=== PATIENT | male | born 1955 | race Caucasian/White ===

== ENCOUNTER 2016-06-04 19:12 | Observation (INO) | payer BC ==
[~2016-06-04] VITALS: Ht 182.9 cm; Wt 115.7 kg
--- NOTE | ~2016-06-04 | HEMODYNAMI ---
PATIENT:MARIO MICHELLE MEDICAL RECORD: [id number] : 57 [id number] ADMISSION DATE: 06/04/16 Generatedon:06/05/201612:41 Patient name: MARIO MICHELLE Patient #: [id number] : 1955 Date of study: 06/05/2016 Page: Of Hemodynamic Procedure Report Patient Data Patient Demographics Procedure consent was obtained First Name: MARIO Gender: Male Last Name: VIVIANA : 1955 Middle Initial: HORACIO Age: 60 year(s) Patient #: [id number] Race: Unknown SSN: [id number] Additional ID: [id number] Contact details Address: [address] [place] [address] State: [place] City: [place] Zip code: [address] Past Medical History Allergies: No known allergies Admission Admission Data Admission Date: 06/04/2016 Admission Time: 22:39 Admit Source: Other Room #: D.2119 Lab Results Lab Result Date: 06/05/2016 Lab Result Time: 0:00 Biochemistry Name Units Result Min Max BUN mg/dl 12 --(-*--)-- 7 18 Creatinine mg/dl 1 --(--*-)-- 0.6 1.3 CBC Name Units Result Min Max Hemoglobin g/dl 15.2 --(-*--)-- 13.5 17.5 Procedure Procedure Types Cath Procedure Diagnostic Procedure LHC Coronaries only Miscellaneous Procedures Moderate Sedation up to 15 minutes Procedure Description Procedure Date Procedure Date: 06/05/2016 Procedure Start Time: 12:31 Procedure End Time: 12:40 Procedure Staff Name Function Rizwan Grewal MD Performing Physician Bernie Cha RT Scrub Hannah Johnson RN Nurse Benny Stone RT Systems Navigator Michael Gar RT Monitor Procedure Data Cath Procedure Fluoroscopy Diagnostic fluoroscopy Total fluoroscopy Time: 1.1 time: 1.1 min min Diagnostic fluoroscopy Total fluoroscopy dose: 167 dose: 167 mGy mGy Contrast Material Contrast Material Type Amount (ml) Isovue 300 38 Entry Location Entry Primary Successful Side Size Upsize Upsize Entry Closure Succes sful Closure Location (Fr) 1 (Fr) 2 (Fr) Remarks Device Remarks Femoral Right 5 Fr Vascade artery Closure System Diagnostic catheters Device Type Used For End Catheter Placement Cordis 5Fr JL 4.0 Left Coronary Catheter (MP) Angiography Cordis 5Fr 3DRC Catheter Right Coronary (MP) Angiography Procedure Complications No complications Procedure Medications Medication Administration Route Dosage Oxygen NC 2 l/min Heparin Flush Bag added to field 2 bags (1000units/500ml NS) Lidocaine 2% added to field 20 Versed I.V. 1 mg Fentanyl I.V. 50 mcg Versed I.V. 1 mg Fentanyl I.V. 50 mcg Versed I.V. 1 mg Fentanyl I.V. 50 mcg Versed I.V. 1 mg Fentanyl I.V. 50 mcg Hemodynamics Rest HGB: 15.2 (g/dl) Heart Rate: 86 (bpm) Snapshots Pre Cath Intra NCS Post Cath Vital Signs Time Heart Resp SPO2 NIBP (mmHg) Rhythm Pain Sedation Rate (ipm) (%) Status Level (bpm) 12:17:47 86 16 100 157/95(127) NSR 0 (11) 10(A) , No pain 12:22:28 86 16 100 154/86(121) NSR 0 (11) 10(A) , No pain 12:26:58 85 14 98 148/87(111) NSR 0 (11) 10(A) , No pain 12:31:29 84 14 99 141/88(114) NSR 0 (11) 10(A) , No pain 12:35:57 83 15 97 153/95(107) NSR 0 (11) 10(A) , No pain 12:39:18 86 18 97 134/93(115) NSR 0 (11) 10(A) , No pain Medications Time Medication Route Dose Verified Delivered Reason Notes Effec tiveness by by 12:18:59 Oxygen NC 2 Rizwan Hannah Per l/min Uri Johnson RN physician 12:19:08 Heparin Flush added 2 Rizwan Astorga used for Bag to bags Uri Grewal MD procedure (1000units/500ml field NS) 12:19:14 Lidocaine 2% added 20ml Rizwan Astorga used for to vial Uri Grewal MD procedure field 12:28:04 Versed I.V. 1 mg Rizwan Hannah for Uri Johnson RN sedation 12:28:11 Fentanyl I.V. 50 Rizwan Hannah for mcg Uri Johnson RN sedation 12:30:14 Versed I.V. 1 mg Rizwan Hannha for Uri Johnson RN sedation 12:30:36 Fentanyl I.V. 50 Rizwan Hannah for mcg Uri Johnosn RN sedation 12:33:02 Versed I.V. 1 mg Rizwan Hannah for Uri Johnson RN sedation 12:33:06 Fentanyl I.V. 50 Rizwan Hannah for mcg Uri Johnson RN sedation 12:35:00 Versed I.V. 1 mg Rizwan Hannah for Uri Johnson RN sedation 12:35:10 Fentanyl I.V. 50 Rizwan Hannah for mcg Uri Johnson RN sedation Procedure Log Time Note 12:06:26 Admit Source: Other 12:07:03 Diagnostic Cath status Elective 12:07:04 Benny Stone RT(R) sent for patient. Start room use. 12:07:06 Time tracking: Regular hours 12:07:11 Plan of Care:Hemodynamics will remain stable., Cardiac rhythm will remain stable., Comfort level will be maintained., Respiratory function will remain adequate., Patient/ family verbilizes understanding of procedure., Procedure tolerated without complication., Recovers from procedure without complications.. 12:07:17 Patient received from Med II to [facility] 3 Alert and oriented. Tansferred to table in Supine position. 12:16:17 Vital chart was started 12:18:59 Oxygen 2 l/min NC was given by Hannah Johnson RN; Per physician; 12:19:08 Heparin Flush Bag (1000units/500ml NS) 2 bags added to field was given by Rizwan Grewal MD; used for procedure; 12:19:14 Lidocaine 2% 20ml vial added to field was given by Rizwan Grewal MD; used for procedure; 12:24:34 Warm blankets applied, and kun hugger turned on for patient comfort. 12:24:35 Correct patient and procedure confirmed by team. 12:24:36 Signed procedure consent form obtained from patient. 12:24:37 ECG and BP/O2 sat monitors applied to patient. 12::38 Baseline sample Acquired. 12::52 Rhythm: sinus rhythm 12::53 Full Disclosure recording started 12:25:03 H&P Date Dictated: 06/05/2016 Within 30 days and on chart.. 12:25:07 Pre-procedure instructions explained to patient. 12:25:07 Pre-op teaching completed and patient verbalized understanding. 12:25:26 Family in patients room. 12:25:29 Patient NPO since Midnight. 12::38 Patient allergic to No known allergies 12:25:40 Is the patient allergic to Iodine/contrast media? No. 12:25:45 Is patient on blood thinner?Yes 12::52 ACC The patient was administered the following blood thiners within the last 24 hours: Coumadin 12:26:02 Patient diabetic? No. 12:26:02 ----Pre-sedation anethsthesia assessment.---- 12:26:05 Previous problem with sedation/anesthesia? No ? 12:26:06 Snore? Yes 12:26:07 Sleep apnea? Yes 12:26:08 Deviated septum? No 12:26:10 Opens mouth fully? Yes 12:26:12 Sticks out tongue? Yes 12:26:16 Airway obstruction? Yes COPD 12:26:22 Dentures? Yes OUT 12:26:25 Pre procedure: right dorsailis pedis pulse 1+ Palpable, but thready & weak; easily obliterated 12:26:28 Patient pain scale 0/10 ?. 12:26:38 IV patent on arrival in right hand with 0.9% NaCl at 10ml/hr. 12:27:12 Lab Result : BUN 12 mg/dl 12:27:12 Lab Result : Hemoglobin 15.2 g/dl 12:27:12 Lab Result : Creatinine 1 mg/dl 12:27:15 Lab results completed and on chart. 12:27:19 Right groin area was prepped with chlora-prep and draped in sterile fashion 12:27:20 Alarms reviewed by R. N. 12:27:21 Sharps counted by scrub and verified by R.N. 12:27:25 --------ALL STOP TIME OUT------ 12:27:25 Final Timeout: patient, procedure, and site verified with staff and physician. All members of the team are in agreement. 12::27 Right groin site verified by team. 12:27:30 Physical assessment completed. ASA score P 2 - A patient with mild systemic disease as per Rizwan Grewal MD. 12:27:33 Sedation plan: IV Moderate Sedation Versed, Fentanyl 12:28:00 Use device set Femoral Dx 12:28:01 Acist Syringe opened to sterile field. 12:28:02 Bag Decanter opened to sterile field. 12:28:02 Cardinal Cath Pack opened to sterile field. 12:28:02 Terumo 5Fr [place] Sheath opened to sterile field. 12:28:03 St Crescencio 260cm J .035 wire opened to sterile field. 12:28:04 Versed 1 mg I.V. was given by Hannah Johnson RN; for sedation; 12:28:04 Acist Hand Control opened to sterile field. 12:28:04 Acist Manifold opened to sterile field. 12:28:05 Cordis Infinity 5Fr Multipack catheter opened to sterile field. 12:28:06 IV Extension Set opened to sterile field. 12:28:08 Tegaderm 4 x 4 opened to sterile field. 12:28:11 Fentanyl 50 mcg I.V. was given by Hannah Johnson RN; for sedation; 12:30:14 Versed 1 mg I.V. was given by Hannah Johnson RN; for sedation; 12:30:36 Fentanyl 50 mcg I.V. was given by Hannah Johnson RN; for sedation; 12:30:56 Procedure started. 12:31:06 Local anesthetic to right femoral artery with Lidocaine 2% by Rizwan Grewal MD.INITIAL ACCESS ONLY 12:31:13 A 5 Fr sheath was inserted into the Right Femoral artery 12:31:15 Zero performed for pressure channel P1 12:32:13 Procedure type changed to Cath procedure, Diagnostic procedure, LHC, Coronaries only, Miscellaneous Procedures, Moderate Sedation up to 15 minutes 12:32:43 A Cordis 5Fr JL 4.0 Catheter () was advanced over the wire and used for Left Coronary Angiography. 12:32:47 LCA angiography performed. 12:33:02 Versed 1 mg I.V. was given by Hannah Johnson RN; for sedation; 12:33:06 Fentanyl 50 mcg I.V. was given by Hannah Johnson RN; for sedation; 12:33:54 Catheter removed. 12:34:00 A Cordis 5Fr 3DRC Catheter (MP) was advanced over the wire and used for Right Coronary Angiography. 12:35:00 Versed 1 mg I.V. was given by Hannah Johnson RN; for sedation; 12:35:10 Fentanyl 50 mcg I.V. was given by Hannah Johnson RN; for sedation; 12:35:10 RCA angiography performed. 12:35:13 Catheter removed. 12:35:21 Vascade 5Fr Closure Device opened to sterile field. 12:35:29 Sheath removed intact; hemostasis achieved with Vascade Closure System to the Right Femoral artery. 12:35:30 Procedure ended.(Physican Out) 12:36:07 Contrast amount:Isovue 300 38ml. 12:39:22 Fluoroscopy time 01.10 minutes. 12:39:29 Fluoroscopy dose: 167 mGy 12:39:29 Flurop Dose total: 167 12:39:30 Sharps counted by scrub and verified by R.N. 12:39:31 Insertion/operative site no bleeding no hematoma. 12:39:33 Post-op/insertion site Right Femoral artery dressed using a 4 x 4 and Tegaderm. 12:39:37 Post right femoral artery:stable 12:39:38 Post Procedure Pulses reassessed and unchanged 12:39:40 Post procedure: right dorsailis pedis pulse 1+ Palpable, but thready & weak; easily obliterated. 12:39:43 Post procedure rhythm: sinus rhythm 12:39:44 Post procedure instruction explained to patient.Patient verbalizes understanding. 12:39:59 Procedure and supply charges have been captured, reviewed, submitted and are correct. 12:40:03 Procedure Complication : No complications 12:40:06 Vital chart was stopped 12:40:06 See physician's report for complete and final results. 12:40:09 Report given to PCU. 12:40:13 Patient transfered to PCU with Bed. 12:40:15 Procedure ended. 12:40:15 Full Disclosure recording stopped 12:40:18 End room use (Document Last) Device Usage Item Name Manufacture Quantity Catalog Number Hospital Part Current Minimal Lot# / Charge Number Stock Stock Serial# Code Acist Acist 1 65334 140711 650629 [id number] 20 Syringe Medical Systems Inc Bag Microtek 1 2002S 539125 35581 673734 5 Decanter Medical Inc. Cardinal Cardinal 1 [id number] 953304 20960 795383 5 Cath Pack Health Terumo Terumo 1 [id number] 227699 129924 182608 [address] [place] [address] Crescencio 1 081436 690605 469750 958757 30 260cm J .035 wire Acist Acist 1 67358 078710 744018 104185 5 Hand Medical Control Systems Inc Acist Acist 1 59931 418850 397739 717758 5 Manifold Medical Systems Inc Cordis Cardinal 1 [id number] 504273 19382 889618 30 Jumpstarterity Health 5Fr Multipack catheter IV Hospira 1 77410-72 261257 90859 844923 5 Extension Set Tegaderm 3M 1 1626W 531384 249172 098865 5 4 x 4 Cordis Cardinal 1 122003 5 5Fr Health 4.0 Catheter (MP) Cordis Cardinal [id number] [facility] Health Catheter (MP) Vascade Cardiva 1 [id number] 820597 19977 984859 10 5Fr Medical, Closure Inc. Device Signature Audit Mona Stage Time Signature Unsigned Intra-Procedure 06/05/2016 Michael Gar 12:41:12 PM RT(R) Signatures Monitor : Michael Gar RT Signature : Date : Time : [facility] [address] [place] [address]
[~2016-06-04 19:12] MED LIST: AMBIEN10 MG PO; AMITRIPTYLINE H50 MG PO; ATIVAN2 MG PO; CELEXA40 MG PO; CHRONULAC30 ML PO; COUMADIN10 MG PO; COUMADIN2.5 MG PO; COUMADIN7.5 MG PO; FLOMAX0.4 MG PO; FLUTICASONE PRO16 GM NASAL; JARDIANCE PO; K-TAB10 MEQ PO; LASIX20 MG PO; MINERAL OIL25 ML PO; MIRALAX17 GM PO; NORCO 10/325 TA1 TA1 PO; OXYCONTIN80 MG PO; PACERONE200 MG PO; TEGRETOL 200 M200 MG PO; TRANDATE300 MG PO; ZOCOR40 MG PO; ZYPREXA15 MG PO
[2016-06-04 20:12] LABS: BASOPHILS 0.7 % (0.0-2.0); EOSINOPHILS 3.9 % (0-7); HEMATOCRIT 41.4 % (42.0-54.0); HEMOGLOBIN 14.8 g/dL (13.5-17.5); IMMATURE GRANULOCYTES 0.4 % (0-5); LYMPHOCYTES 32.4 % (15-50); MCH 32.5 pg (26.0-34.0); MCHC 35.7 g/dL (31.0-37.0); MEAN PLATELET VOLUME 10.6 fL (7.4-10.4); MONOCYTES 9.8 % (2-11); NEUTROPHILS 52.8 % (40-80); PLATELET COUNT 155 10x3/uL (130-400); RBC 4.55 10x6/uL (4.20-6.10); RDW 13.3 % (11.5-14.5); WBC 7.4 10x3/uL (4.8-10.8)
[2016-06-04 20:15] LABS: APTT 38.2 SECONDS (22.8-39.4); INR 1.81 (0.85-1.17)
[2016-06-04 20:32] LABS: ALBUMIN 3.9 g/dL (3.4-5.0); ALKALINE PHOSPHATASE 85 U/L (46-116); ALT (SGPT) 38 U/L (10-68); BILIRUBIN - TOTAL 0.21 mg/dL (0.2-1.3); CALC OSMOLALITY 275 mosm/kg (275-300); CALCIUM 8.9 mg/dL (8.5-10.1); CARBON DIOXIDE 27.8 mmol/L (21.0-32.0); CHLORIDE - SERUM 98 mmol/L (98-107); CREATINE KINASE 99 UL (21-232); GLUCOSE 172 mg/dL (74-106); POTASSIUM - SERUM 4.1 mmol/L (3.5-5.1); PRO BNP 25 pg/mL (0-125); PROTEIN - SERUM 7.9 g/dL (6.4-8.2); SODIUM 135 mmol/L (136-145); UREA NITROGEN 17 mg/dL (7-18); eGFR NON AFRICAN AMERICAN 81 mL/min (90-120)
[2016-06-04 20:33] LABS: TROPONIN-I < 0.017 ng/mL (0.000-0.060)
[2016-06-04 20:56] LABS: APPEARANCE CLEAR (CLEAR); BILIRUBIN NEGATIVE (NEGATIVE); COLOR YELLOW (YELLOW); GLUCOSE NEGATIVE (NEGATIVE); KETONE NEGATIVE (NEGATIVE); LEUKOCYTE ESTERASE NEGATIVE (NEGATIVE); NITRITE NEGATIVE (NEGATIVE); PROTEIN NEGATIVE (NEGATIVE); UROBILINOGEN NORMAL (NORMAL)
[2016-06-05 01:22] VITALS: BP 179/103
[2016-06-05 01:31] VITALS: BP 179/103; BMI 27.8
[2016-06-05 06:27] VITALS: BP 158/90
--- NOTE | 2016-06-05 07:27 | NUR ---
PT ARRIVED FROM THE ER TO FLOOR BY WHEELCHAIR IN ROOM AT BEDSIDE CALL LIGHT IN REACH SRX2 BED LOW AND LOCKED. IVP TO LEFT ARM SALINE LOCKED AND SWABED CAPPED. RESPERATIONS EVEN AND UNLABORED ON 2LNC TELEMETRY READING 74SR AND MED REC COMPLETED AND REVIEWED WITH NO DISTRESS OBSERVED WILL MONITOR
[2016-06-05 08:00] VITALS: BP 198/115
[2016-06-05 09:06] LABS: BASOPHILS 0.4 % (0.0-2.0); EOSINOPHILS 1.7 % (0-7); HEMOGLOBIN 15.2 g/dL (13.5-17.5); IMMATURE GRANULOCYTES 0.2 % (0-5); LYMPHOCYTES 23.6 % (15-50); MCH 31.9 pg (26.0-34.0); MCHC 35.3 g/dL (31.0-37.0); MCV 90.3 fL (80.0-100.0); MEAN PLATELET VOLUME 10.7 fL (7.4-10.4); MONOCYTES 7.5 % (2-11); NEUTROPHILS 66.6 % (40-80); PLATELET COUNT 162 10x3/uL (130-400); RBC 4.76 10x6/uL (4.20-6.10); RDW 13.2 % (11.5-14.5); WBC 8.1 10x3/uL (4.8-10.8)
[2016-06-05 09:31] LABS: CALCIUM 9.2 mg/dL (8.5-10.1); CARBON DIOXIDE 28.1 mmol/L (21.0-32.0); CHLORIDE - SERUM 101 mmol/L (98-107); GLUCOSE 206 mg/dL (74-106); POTASSIUM - SERUM 4.1 mmol/L (3.5-5.1); SODIUM 137 mmol/L (136-145); eGFR NON AFRICAN AMERICAN 81 mL/min (90-120)
[2016-06-05 09:44] LABS: CALC OSMOLALITY 279 mosm/kg (275-300); TROPONIN-I < 0.017 ng/mL (0.000-0.060); UREA NITROGEN 12 mg/dL (7-18)
[2016-06-05 10:55] VITALS: Ht 182.9 cm; Wt 115.7 kg
--- NOTE | 2016-06-05 11:26 | NUR ---
PT IS ALERT. ASSESSMENT DONE PER FLOWSHEET. NOOTHER NEEDS AT THIS TIME. WILL CONTINUE TOMONITOR.
[2016-06-05 11:42] VITALS: BP 148/91
--- NOTE | 2016-06-05 15:35 | NUR ---
PT IS ALERT. DRESSING CDI. NO OTHER NEEDS AT THIS TIME. WILL CONTINUE TO MONTIOR.
--- NOTE | 2016-06-05 16:07 | NUR ---
IV DC'D AND TELEMETRY RETURNED TO [facility]
--- NOTE | 2016-06-06 13:59 | DS ---
PATIENT:MARIO MICHELLE :57 MEDICAL RECORD: [id number] DISCHARGE SUMMARY ADMISSION DATE: 06/04/16 DISCHARGE DATE: 06/05/16 DATE OF DISCHARGE: 06/05/2016 DISCHARGE DIAGNOSIS: 1. Chest pain, noncardiac. 2. Normal cardiac catheterization this admission. 3. Aortic valve replacement. 4. Coumadin anticoagulation. 5. Paroxysmal atrial fibrillation. 6. Hypertension. 7. Hyperlipidemia. HOSPITAL COURSE: Mr. Michelle presents with chest pain compatible with angina; however, cardiac catheterization reveals no significant coronary artery disease. He was discharged home with no change in his medication and follow up with his primary care doctor with continued chest pain for noncardiac chest pain workup. TRANSINT:[id number] Voice Confirmation ID: [id number] DOCUMENT ID: [id number] MARINA DARBY MD at 1359 CC: [id number] DICTATION DATE: 06/05/16 1240 WATER SUPPLY TECHNICIAN: 06/05/16 1506 DIS IN 06/05/16 [id number] [place] [address]
--- NOTE | 2016-06-06 13:59 | CN ---
PATIENT NAME:MARIO MICHELLE MEDICAL RECORD: [id number] : 57 LOCATION:D. D.2119 ADMIT DATE: 06/04/16 ACCOUNT: [id number] CONSULTING PHYSICIAN: MARINA DARBY MD REFERRING PHYSICIAN: MARIA LUISA VALLEJO MD DATE OF CONSULTATION: 06/05/2016 Cardiology Consultations REFERRING PHYSICIAN: Dr. Maria Luisa Vallejo MD. REASON FOR CONSULTATION: Chest pain and dyspnea. HISTORY OF PRESENT ILLNESS: This is a 60-year-old male followed by Dr. Ok Frey for paroxysmal atrial fibrillation, aortic stenosis, status post mechanical valve replacement [address] Trevino on Coumadin therapy and hypertension. The patient presents with the worsening chest discomfort and shortness of breath. This has been progressive over the last 2-3 days. He was seen and evaluated in the Emergency Department. His serial troponins are negative and a 12-lead EKG shows sinus rhythm with a first degree block and ST and T-wave abnormalities in the lateral leads suggestive of ischemia. Due to the nature of his symptomatology will proceed with a left heart catheterization. PAST MEDICAL HISTORY: As per HPI. MEDICATIONS: 1. Flomax 0.4 b.i.d. 2. Coumadin 10 mg daily alternating with 12.5 Friday, Friday, Friday. 3. Labetalol 300 b.i.d. 4. Amiodarone 200 b.i.d. 5. Zocor 40 q.h.s. 6. Elavil 50 b.i.d. 7. Tegretol 200 t.i.d. 8. Celexa 40 mg daily. 9. Ativan 2 mg t.i.d. 10. Hydrocodone 10 q.6 p.r.n. 11. Zyprexa 15 q.h.s. 12. Ambien 10 q.h.s. 13. OxyContin 80 mg t.i.d. 14. Micro-K 10 daily. 15. Lasix 20 daily. PHYSICAL EXAMINATION: GENERAL: Reveals a well-developed, well-nourished male who is in no distress at the time of the exam. VITAL SIGNS: Stable. HEENT: Head is normocephalic. Pupils equal, react to light and accommodation. Extraocular muscle movements are intact. The mucous membranes are pink and moist. NECK: Supple. Trachea is midline. There is no JVD or carotid bruits. CARDIOVASCULAR: Reveals a regular rate and rhythm without murmur or gallop. LUNGS: Clear. EXTREMITIES: No clubbing, cyanosis or edema. Positive peripheral pulses. NEUROLOGIC: Cranial nerves II-XII are grossly intact. CONSULT REPORT [id number] MARIO MICHELLE ASSESSMENT: 1. Angina. 2. Aortic stenosis, status post mechanical valve replacement. 3. Coagulopathy. 4. Hypertension. 5. Chronic pain syndrome. RECOMMENDATIONS: In light of his coagulopathy, we will give 1 unit of FFP prior to proceeding with a left heart catheterization. The patient only has anginal equivalent symptomatology and a strong family history. Further recommendations to follow the left heart catheterization. TRANSINT:[id number] Voice Confirmation ID: [id number] DOCUMENT ID: [id number] Dictated By: ADDIE BELTRÁN I have interviewed/examined the above patient and agree with these documented findings. MARINA DARBY MD at 1359 at 0948 CC: [id number] DICTATION DATE: 06/05/16 0911 SECOND BALLER: 06/05/16 0947 DIS IN 06/05/16 [facility] [address] [place] [address]
--- NOTE | 2016-06-06 13:59 | OP ---
PATIENT NAME: MARIO MICHELLE MEDICAL RECORD: [id number] :57 LOCATION:D.M2 D.2119 ADMISSION DATE:06/04/16 SURGEON: MARINA DARBY MD DATE OF OPERATION: 06/05/2016 PROCEDURES: 1. Left heart catheterization. 2. Selective coronary angiography. INDICATION: Chest pain compatible with angina. PROCEDURE IN DETAIL: After informed consent was obtained and after a detailed explanation of risks, benefits as well as alternative therapies, the patient elected to proceed with angiogram and heart catheterization. The right femoral area was prepped and draped in normal sterile fashion. The right femoral artery was cannulated via modified Seldinger technique with placement of 5-Occitan sheath. All catheters exchanged through this sheath. FINDINGS: Left ventriculogram was not performed secondary to prosthetic aortic valve. SELECTIVE CORONARY ANGIOGRAPHY: 1. Left main showed no significant angiographic disease. 2. Left anterior descending, left circumflex, right coronary artery are smooth-walled vessels with no angiographic evidence of coronary artery disease. OVERALL IMPRESSION: 1. No angiographic evidence of coronary artery disease. 2. Normal left heart pressures. 3. Normal left ventricular systolic function. Chest pain is noncardiac in etiology. No further cardiac workup needs to be ascertained. TRANSINT:[id number] Voice Confirmation ID: [id number] DOCUMENT ID: [id number] MARINA DARBY MD at 1359 CC: [id number] DICTATION DATE: 06/05/16 1241 BUS REPAIR SUPERVISOR: 06/05/16 1258 DIS IN 06/05/16 [place] [address]
== END 2016-06-05 16:14 | disposition home or self-care (01) ==
LOC: D.ER 19:12 → OBSVTIME 22:39 → D.M2 22:39
PROVIDERS: Emergency Medicine; Internal Medicine Interventional Cardiology; ADMIT Emergency Medicine
DX: R07.89 Other chest pain (principal); I48.0 Paroxysmal atrial fibrillation; Z79.01 Long term (current) use of anticoagulants; D68.9 Coagulation defect, unspecified; Z95.2 Presence of prosthetic heart valve; I10 Essential (primary) hypertension; E78.5 Hyperlipidemia, unspecified; G89.4 Chronic pain syndrome; J44.9 Chronic obstructive pulmonary disease, unspecified; G47.30 Sleep apnea, unspecified; N40.0 Benign prostatic hyperplasia without lower urinary tract symptoms; E11.9 Type 2 diabetes mellitus without complications; G40.909 Epilepsy, unspecified, not intractable, without status epilepticus; F31.9 Bipolar disorder, unspecified

== ENCOUNTER → 2016-08-02 | Emergency (ER) | payer MEDICAID ==
[2016-06-05 10:55] VITALS: BMI 34.6
[2016-08-03 00:12] LABS: INR 2.47 (0.85-1.17); PROTIME 26.9 SECONDS (11.6-15.0)
[2016-08-03 00:13] LABS: APTT 41.4 SECONDS (22.8-39.4)
[2016-08-03 00:45] LABS: BASOPHILS 0.2 % (0.0-2.0); EOSINOPHILS 1.4 % (0-7); HEMATOCRIT 45.5 % (42.0-54.0); HEMOGLOBIN 15.5 g/dL (13.5-17.5); IMMATURE GRANULOCYTES 0.4 % (0-5); LYMPHOCYTES 8.8 % (15-50); MCH 31.5 pg (26.0-34.0); MCHC 34.1 g/dL (31.0-37.0); MCV 92.5 fL (80.0-100.0); MONOCYTES 6.5 % (2-11); NEUTROPHILS 82.7 % (40-80); PLATELET COUNT 155 10x3/uL (130-400); RBC 4.92 10x6/uL (4.20-6.10); WBC 10.8 10x3/uL (4.8-10.8)
[2016-08-03 00:55] LABS: ANION GAP 17.2 mmol/L (8-16); BILIRUBIN - TOTAL 0.4 mg/dL (0.2-1.3); CARBON DIOXIDE 25.1 mmol/L (21.0-32.0); CREATININE - SERUM 1.2 mg/dL (0.6-1.3); POTASSIUM - SERUM 4.3 mmol/L (3.5-5.1); PROTEIN - SERUM 7.9 g/dL (6.4-8.2)
== END | disposition home or self-care (01) ==
LOC: D.ER 23:12
PROVIDERS: Emergency Medicine; Physician Assistant Medical
DX: R11.10 Vomiting, unspecified (principal); R10.9 Unspecified abdominal pain

== ENCOUNTER 2016-12-23 20:21 | Observation (INO) | payer MEDICAID ==
[~2016-12-23] VITALS: Ht 182.9 cm; Wt 115.6 kg
[2016-12-23 22:20] LABS: BASOPHILS 0.4 % (0-2); EOSINOPHILS 3.7 % (0-7); HEMATOCRIT 37.3 % (42.0-54.0); HEMOGLOBIN 13.1 g/dL (13.5-17.5); IMMATURE GRANULOCYTES 0.3 % (0-5); LYMPHOCYTES 41.5 % (15-50); MCH 32.1 pg (26.0-34.0); MCHC 35.1 g/dL (31.0-37.0); MCV 91.4 fL (80.0-100.0); MEAN PLATELET VOLUME 10.2 fL (7.4-10.4); MONOCYTES 12.9 % (2-11); NEUTROPHILS 41.2 % (40-80); PLATELET COUNT 169 10x3/uL (130-400); RBC 4.08 10x6/uL (4.20-6.10); WBC 7.3 10x3/uL (4.8-10.8)
[2016-12-23 22:25] LABS: APTT 38.9 SECONDS (22.8-39.4); INR 2.33 (0.85-1.17); PROTIME 25.6 SECONDS (11.6-15.0)
[2016-12-23 22:39] LABS: ALBUMIN 3.7 g/dL (3.4-5.0); ALKALINE PHOSPHATASE 69 U/L (46-116); CALC OSMOLALITY 278 mosm/kg (275-300); CALCIUM 8.6 mg/dL (8.5-10.1); CARBAMAZEPINE (TEGRETOL) 7.9 ug/mL (4.0-12.0); CHLORIDE - SERUM 101 mmol/L (98-107); CREATININE - SERUM 2.2 mg/dL (0.6-1.3); GLUCOSE 136 mg/dL (74-106); POTASSIUM - SERUM 3.8 mmol/L (3.5-5.1); SODIUM 137 mmol/L (136-145); TROPONIN-I < 0.017 ng/mL (0.000-0.060); UREA NITROGEN 21 mg/dL (7-18); eGFR NON AFRICAN AMERICAN 33 mL/min (90-120)
[2016-12-23 22:42] LABS: ALT (SGPT) 33 U/L (10-68)
--- NOTE | 2016-12-24 00:22 | NUR ---
PT ARRIVED ON UNIT VIA STRETCHER. ACCOMPANIED BY AND HOSPITAL STAFF.
--- NOTE | 2016-12-24 00:40 | NUR ---
PT LYING IN BED. EYES CLOSED. AT BEDSIDE. LEFT AC NS @ 75ML/HR. O2 @ 3L VIA N/C. FALL PRECAUTIONS. TELEMETRY. STRICT I & O. BED IN LOWEST POSITION AND CALL LIGHT WITHIN REACH.
[2016-12-24] MEDS ORDERED: ZESTRIL20 MG PO (00:45)
[2016-12-24] MEDS ORDERED: BUTRANS1 EAC2 ×2 (00:46→00:47)
[2016-12-24] MEDS ORDERED: GLUCOPHAGE1000 MG (00:49)
--- NOTE | 2016-12-24 02:06 | NUR ---
RN TO DO ASSESSMENT.
[2016-12-24 03:04] VITALS: BMI 35.3
[2016-12-24 04:00] VITALS: BP 145/101
[2016-12-24 05:33] LABS: BASOPHILS 0.7 % (0-2); EOSINOPHILS 4.3 % (0-7); HEMATOCRIT 37.7 % (42.0-54.0); HEMOGLOBIN 13.1 g/dL (13.5-17.5); IMMATURE GRANULOCYTES 0.3 % (0-5); LYMPHOCYTES 38.5 % (15-50); MCHC 34.7 g/dL (31.0-37.0); MCV 92.2 fL (80.0-100.0); MEAN PLATELET VOLUME 9.8 fL (7.4-10.4); MONOCYTES 11.1 % (2-11); NEUTROPHILS 45.1 % (40-80); PLATELET COUNT 157 10x3/uL (130-400); RBC 4.09 10x6/uL (4.20-6.10); WBC 5.8 10x3/uL (4.8-10.8)
[2016-12-24 06:17] LABS: ANION GAP 15.2 mmol/L (8-16); CARBON DIOXIDE 23.4 mmol/L (21.0-32.0); CREATININE - SERUM 1.6 mg/dL (0.6-1.3); POTASSIUM - SERUM 4.6 mmol/L (3.5-5.1)
--- NOTE | 2016-12-24 07:00 | NUR ---
RECEIVED REPORT. ASSUMED CARE OF PATIENT. PATIENT RESTING WITH EYES CLOSED. EASILY AROUSED. RESP EVEN AND UNLABORED. PATIENT DENIES NEEDS AT THIS TIME. PATIENTS SPOUSE AT BEDSIDE. CALL LIGHT WITHIN REACH. NO DISTRESS.
[2016-12-24 08:00] VITALS: BP 106/60; BP 120/71; BP 148/78
[2016-12-24 11:00] VITALS: BP 133/89
[2016-12-24 12:00] VITALS: BP 133/78; BP 141/90; BP 150/87
--- NOTE | 2016-12-24 12:38 | NUR ---
ORTHOSTATIC BP - LYING 133/89, SITTING 120/71, STANDING 106/60.
[2016-12-24 13:38] VITALS: Ht 182.9 cm; Wt 115.6 kg
[2016-12-24 16:00] VITALS: BP 132/72; BP 132/84; BP 141/81
--- NOTE | 2016-12-24 16:29 | NUR ---
RATIONALE FOR SCD'S EXPLAINED. REFUSED SCD'S. PT STATES UP AD SRIDHAR
[2016-12-24 20:00] VITALS: BP 127/72
--- NOTE | 2016-12-24 20:34 | NUR ---
PT C/O PAIN AND ASKED ABOUT MEDS. TOLD PT HIS 2100 MEDS AND OFFERED HIM A NORCO FOR PAIN. PT VERBALIZES KNOWLEDGE OF ALL 2100 MEDS AND DENIES ANY NEEDS. NO S/S OF DISTRESS. BED LOW AND CALL LIGHT WITHIN REACH PT STATES HE HAS NOT HAD ANY MEDS TODAY. STATES HE IS CONCERNED HE HAS NOT HAD HIS COUMADIN. ASSURED PT I WILL CHECK ORDER AND LET HIM KNOW DOSE AND TIME. NO OHTER NEEDS. WILL CPOC
[2016-12-25] VITALS: BP 107/78
--- NOTE | 2016-12-25 03:49 | NUR ---
PT ASLEEP. RESPIRATIONS EVEN AND UNLABORED. 3L OF O2 NC. AT BEDSIDE. PT HAS NO S/S OF DISTRESS. BED LOW AND CALL LIGHT WITHIN REACH. WILL CPOC
[2016-12-25 04:08] VITALS: BP 138/79; BP 150/95
[2016-12-25 04:09] VITALS: BP 127/89
[2016-12-25 08:00] VITALS: BP 138/89; BP 139/77; BP 146/86
[2016-12-25 09:25] VITALS: BP 138/89
--- NOTE | 2016-12-25 11:13 | NUR ---
0700- AM ROUNDING- RECEIVED REPORT FROM INSURANCE COUNSEL NURSE MEENA VARGAS. PT IS CURRENTLY LAYING IN BED ON LEFT SIDE WITH EYES CLOSED RESTING. IS AT BEDSIDE. ON 02 AT 3L VIA NC. ON MONITOR SHOWING SR, HR 79. IV SEEN TO RIGHT FOREARM WITH NS RUNNING AT KVO (20CC). ORTHOSTATIC B/P BEING DONE ORDERED. NO NEED AT THIS CURRENT TIME. WILL CONTINUE TO MONITOR AND CONTINUE WITH PLAN OF CARE. CALL LIGHT IS IN REACH.
[2016-12-25 12:00] VITALS: BP 123/89
--- NOTE | 2016-12-25 15:19 | NUR ---
D/C INSTRUCTIONS EXPLAINED TO PT AND PTS . D/C PAPERWORK SIGNED BY PT AND PLACED IN CHART. IV TO RIGHT FOREARM REMOVED WITH CATH TIP INTACT. COVERED WITH 2X2 GAUZE PADS AND SECURED WITH TAPE. NO BLEEDING SEEN. HEART MONITOR REMOVED AND RETURNED TO [facility] IN TELEMETRY. AWAITING PT TO GET BELONGINGS TOGETHER. DR. MASTERSON ON UNIT. INFORMED HIM OF PTS CONCERN FOR PRESCRIPTION FOR OXYCODONE THAT PER PT DR. MASTERSON SAID HE WOULD SEND HOME WITH. DR. MASTERSON STATES HE IS ABOUT TO WRITE PRESCRIPTION NOW.
[2016-12-25] MEDS ORDERED: PERCOCET 10/3251 TA1 PO (15:26)
--- NOTE | 2016-12-25 15:28 | NUR ---
DR. MASTERSON SIGNED WRITTEN PRESCRIPTION FOR PTS PAIN MEDICATION. THIS NURSE HANDED PTS PRESCRIPTION INFRONT OF DR. MASTERSON. PT IS D/C NOW VIA WHEELCHAIR.
--- NOTE | 2016-12-27 13:52 | CN ---
PATIENT NAME:MARIO MICHELLE MEDICAL RECORD: [id number] : 57 LOCATION:. D.2137 ADMIT DATE: 12/23/16 ACCOUNT: [id number] CONSULTING PHYSICIAN: MARINA DARBY MD REFERRING PHYSICIAN: TEJ MASTERSON M.D. DATE OF CONSULTATION: 12/24/2016 DIAGNOSES: 1. Syncope. 2. Hypotension. 3. History of hypertension. HISTORY OF PRESENT ILLNESS: Mr. Michelle has had sinking spells in the afternoon, questionable syncope with this. He was previously on labetalol for blood pressure. This was discontinued, possibly due to a cost, possibly changed secondary to insurance issues. Since then, he has had episodes of hypertension in the morning and then hypotension in the afternoon as well. He was placed on Butrans patch and this has worsened the situation. From a cardiac standpoint, he had a cardiac catheterization earlier this year that was with no significant coronary artery disease and a normal ejection fraction. He has no significant valvular disease. He has not had any palpitations. He has had no significant dysrhythmias. PHYSICAL EXAMINATION: GENERAL APPEARANCE: Well-nourished, well-developed, appears stated age. Level of distress, comfortable. PSYCHIATRIC: Mental status, alert, normal affect. Orientation, oriented to time, place and person. EYES: Lids and conjunctiva, noninjected. No discharge, no pallor. ENT: Lips, teeth, gums, normal dentition. Oropharynx, no cyanosis, no pallor. NECK: Carotid arteries, bilateral normal upstroke, no bruits, no thrills. JUGULAR VEINS: No jugular venous pressure or distention. CERVICAL LYMPH NODES: Nontender, nonenlarged. THYROID: Not enlarged. Nontender. No nodules. LUNGS: Respiratory effort, unlabored. CHEST: Normal curvature. No thoracic deformity. No chest wall tenderness. Percussion, resonant. Auscultation, clear. No wheezes, no rales, no rhonchi. CARDIOVASCULAR: Precordial exam, nondisplaced. No heaves or pericardial thrills. Rate and rhythm, regular. Heart sounds, normal S1, normal S2. No S3, no gallop, no rub. Systolic murmur, not heard. Diastolic murmur, not heard. EXTREMITIES: No cyanosis, no edema. Peripheral pulses, full and equal in all extremities, except as noted. No bruits appreciated. ABDOMEN: Soft, nondistended. Normal aorta. No bruit. Nontender. No masses. Liver, nontender, no hepatomegaly. Spleen, nontender, no splenomegaly. MUSCULOSKELETAL: No joint tenderness. No joint swelling. No erythema. NEUROLOGICAL: Normal gait, normal strength, normal tone. SKIN: Warm and dry. REVIEW OF SYSTEMS: The patient reports easy bruising but reports no swollen glands. The patient reports no fever, no night sweats, no significant weight gain, no significant weight loss. No significant exercise tolerance. The patient reports no dry eyes, no irritation, no vision change. Patient reports no difficulty hearing and no ear pain. Patient reports no frequent nose bleeds or nose and sinus problems. Patient reports on arm pain on exertion. No shortness of breath while lying down. No history of heart murmur. Patient CONSULT REPORT [id number] MARIO MICHELLE reports no cough, no wheezing or coughing up blood. Patient reports no abdominal pain, no vomiting. Normal appetite. No diarrhea and not vomiting blood. No nausea and no constipation. Patient reports no incontinence. No difficulty urinating. No hematuria. No increased frequency. Patient reports no muscle aches. No weakness, no arthralgias, no back pain. No swelling of the extremities. Patient reports no abnormal mole, no jaundice, no rashes. Reports no loss of consciousness. No weakness and no numbness. No seizures, dizziness, or headaches. The patient reports no depression, no sleep disturbance, feeling safe in a relationship and no alcohol abuse. Patient reports on fatigue. Reports no runny nose or sinus pressure. No itching, no hives, and no frequent sneezing. OVERALL IMPRESSION: His symptomatology is most likely secondary to medication changes. He was doing fine on the labetalol, without the Butrans patch. It would be my recommendation to put him back to that medical regimen. With a normal cardiac catheterization, no other cardiac workup is necessary at this time. TRANSINT:[id number] Voice Confirmation ID: [id number] DOCUMENT ID: [id number] MARINA DARBY MD at 1352 CC: [id number] DICTATION DATE: 12/24/16 1544 DRIVER COURIER: 12/24/162144 DIS IN 12/25/16 [facility] [address] [place] [address]
== END 2016-12-25 16:00 | disposition home or self-care (01) ==
LOC: D.ER 20:21 → D.M2 22:49 → OBSVTIME 22:50 → D.M2 12-24 15:00
PROVIDERS: Emergency Medicine; Physician Assistant; ADMIT Family Medicine
DX: I95.2 Hypotension due to drugs (principal); T50.995A Adverse effect of other drugs, medicaments and biological substances, initial encounter; I10 Essential (primary) hypertension; G40.109 Localization-related (focal) (partial) symptomatic epilepsy and epileptic syndromes with simple partial seizures, not intractable, without status epilepticus; J44.9 Chronic obstructive pulmonary disease, unspecified; K21.9 Gastro-esophageal reflux disease without esophagitis; Z79.01 Long term (current) use of anticoagulants; I48.0 Paroxysmal atrial fibrillation; G89.29 Other chronic pain; F31.30 Bipolar disorder, current episode depressed, mild or moderate severity, unspecified; Z87.891 Personal history of nicotine dependence

== ENCOUNTER 2017-07-31 08:37 | Day surgery (SDC) | payer MEDICARE ==
[~2017-07-31] VITALS: Ht 182.9 cm; Wt 117.9 kg
[~2017-07-31 08:37] MED LIST changes: +BUPROPION XL150 MG PO; +BUTRANS1 EAC2; +CELEXA20 MG PO; -CELEXA40 MG PO; -COUMADIN2.5 MG PO; +GLUCOPHAGE1000 MG PO; -JARDIANCE PO; +JARDIANCE10 MG PO; +KLONOPIN1 MG PO; +METHADONE 10 MG10 MG PO; +NORMODYNE / TR300 MG PO; +PERCOCET 10/3251 TA1 PO; +ZESTRIL20 MG PO
[2017-07-31 09:24] VITALS: BP 122/67; BMI 36.0
[2017-07-31 09:32] LABS: HEMATOCRIT 42.9 % (42.0-54.0); HEMOGLOBIN 15.1 g/dL (13.5-17.5); MCH 32.1 pg (26.0-34.0); MCHC 35.2 g/dL (31.0-37.0); MCV 91.3 fL (80.0-100.0); RBC 4.7 10x6/uL (4.20-6.10); WBC 10.2 10x3/uL (4.8-10.8)
[2017-07-31 09:55] LABS: APTT 41.6 SECONDS (22.8-39.4); INR 1.92 (0.85-1.17); PROTIME 21.4 SECONDS (11.6-15.0)
[2017-07-31 09:57] LABS: ANION GAP 15.5 mmol/L (8-16); CALCIUM 9.1 mg/dL (8.5-10.1); CARBON DIOXIDE 26.1 mmol/L (21.0-32.0); CREATININE - SERUM 1.4 mg/dL (0.6-1.3); POTASSIUM - SERUM 4.6 mmol/L (3.5-5.1)
[2017-07-31 17:52] VITALS: BP 149/82
[2017-07-31 18:27] VITALS: BP 152/79
[2017-07-31 20:46] VITALS: BP 160/84
[2017-08-01 01:30] VITALS: BP 164/81
[2017-08-01 04:49] VITALS: BP 156/94
[2017-08-01 06:26] LABS: BASOPHILS 0.5 % (0-2); EOSINOPHILS 2.4 % (0-7); HEMATOCRIT 42.1 % (42.0-54.0); HEMOGLOBIN 14.2 g/dL (13.5-17.5); IMMATURE GRANULOCYTES 0.2 % (0-5); LYMPHOCYTES 31.4 % (15-50); MCH 31.3 pg (26.0-34.0); MCHC 33.7 g/dL (31.0-37.0); MCV 92.9 fL (80.0-100.0); MEAN PLATELET VOLUME 11.2 fL (7.4-10.4); MONOCYTES 11.4 % (2-11); NEUTROPHILS 54.1 % (40-80); PLATELET COUNT 156 10x3/uL (130-400); RBC 4.53 10x6/uL (4.20-6.10); RDW 13.3 % (11.5-14.5); WBC 10.8 10x3/uL (4.8-10.8)
[2017-08-01 06:36] LABS: ALBUMIN 3.6 g/dL (3.4-5.0); BILIRUBIN - TOTAL 0.4 mg/dL (0.2-1.3); CALCIUM 8.6 mg/dL (8.5-10.1); CARBON DIOXIDE 26.6 mmol/L (21.0-32.0); CREATININE - SERUM 1.3 mg/dL (0.6-1.3)
[2017-08-01 06:38] LABS: ANION GAP 13.3 mmol/L (8-16); POTASSIUM - SERUM 3.9 mmol/L (3.5-5.1)
[2017-08-01 08:25] VITALS: BP 158/95
[2017-08-01 09:38] VITALS: Ht 182.9 cm; Wt 117.9 kg
[2017-08-01 11:09] LABS: INR 1.44 (0.85-1.17); PROTIME 17.1 SECONDS (11.6-15.0)
[2017-08-01] MEDS ORDERED: PERCOCET 10/3251 TA1 PO (12:27)
[2017-08-01] MEDS ORDERED: KEFLEX500 MG PO (12:27)
[2017-08-01] MEDS ORDERED: LOVENOX40 MG/0.4 SC (13:35)
== END 2017-08-01 14:39 | disposition home or self-care (01) ==
LOC: D.MS 08:37 → D.OPS 08:37 → D.MS 17:04 → D.PAN 08-01 12:00 → D.OPS 08-01 12:00
PROVIDERS: Anesthesiology; Family Medicine
DX: M25.375 Other instability, left foot (principal); M20.12 Hallux valgus (acquired), left foot; M21.612 Bunion of left foot; Z01.812 Encounter for preprocedural laboratory examination

== ENCOUNTER 2017-09-17 21:45 | Inpatient (IN) | payer MEDICARE ==
[~2017-09-17] VITALS: Ht 182.9 cm; Wt 109.1 kg
--- NOTE | ~2017-09-17 | EC ---
PATIENT:MARIO MICHELLE DATE OF SERVICE: 09/18/17 SEX: M MEDICAL RECORD: [id number] DATE OF : 57 LOCATION:D.MS [place] AGE OF PATIENT: 62 ADMISSION DATE: 09/18/17 REFERRING PHYSICIAN: INTERPRETING PHYSICIAN: KAPIL RICHARDSON MD ECHOCARDIOGRAM REPORT ECHO CHARGES 4 ECHO COMPLETE Date: 09/23 CLINICAL DIAGNOSIS: HX OF AVR, BATERMIA/ASSESS FOR VEG ECHOCARDIOGRAPHIC MEASUREMENTS (adult normal given) AC root (d.<3.7cm) 4.1 cm LV Septum d (<1.2 cm> 1.4 cm Valve Excursion 1.8 cm LV Septum (systole) 1.6 cm Left Atria (s.<4.0cm> 4.6 cm LVPW d(<1.2cm) 1.6 cm RV (d.<2.3cm) 4.4 cm LVPW (sytole) 1.9 cm LV diastole(<5.6CM) 5.5 cm MV E-F(>70mm/sec) cm LV systole 2.7 cm LVOT Diameter 1.7 cm MV exc.(>10mm) cm Est.ejection fraction (50-75%) % DOPPLER: LVIT cm/sec A 106 cm/sec E 87.0 cm/sec LA cm/sec RVSP 23 mmHg LVOT 218 cm/sec AOP1/2T m/s Asc. Ao 290 cm/sec RVOT 130 cm/sec RA cm/sec PA 174 cm/sec AV Gradient Peak 33.58mmHg AV Mean 19.03mmHg AV Area 1.5 cm MV Gradient Peak 4.74 mmHg MV Mean 2.22 mmHg MV Area cm COMMENTS: Cell Operator: 2 HILL [place]ST[place]O Truckload Checker: 4 Dr. Richardson TAPE# PACS Pericardial Effusion N DATE OF SERVICE: PROCEDURE: Transthoracic echocardiogram. FINDINGS: 1. There is mild left ventricular hypertrophy. Inflow characteristics consistent with diastolic dysfunction. Overall, ejection fraction appears to be normal. There is a hint of mild inferior hypokinesis with continued preserved ejection fraction. 2. The left atrium is moderately dilated. ECHOCARDIOGRAM REPORT [id number] MARIO MICHELLE 3. Aortic valve is a mechanical valve and depending on the size the peak pressure gradient of 33 may be within normal limits. There is no obvious dysfunction of the valve. 4. The mitral valve is normal. 5. The tricuspid valve has trace tricuspid regurgitation. RVSP 23 mmHg. We do not see any obvious vegetations; however, it would be difficult on this echocardiogram to exclude. 6. The right ventricle was mildly dilated. 7. The right atrium is mildly dilated. 8. The pulmonic valve is structurally normal with mild pulmonic insufficiency. CONCLUSIONS: The patient has a history of an AVR replacement, has left ventricular hypertrophy with preserved LV systolic function. There is no distinct evidence of a vegetation demonstrated on this echocardiogram; however, DANK may be more appropriate if the clinical situation necessitates. TRANSINT:[id number] Voice Confirmation ID: [id number] DOCUMENT ID: [id number] KAPIL RICHARDSON MD at 1056 CC: [id number] DICTATION DATE: 09/24/17 08 INSIDE BARREL POLISHER: 09/24/17 1037 ADM IN [facility] [address] [place] [address]
--- NOTE | ~2017-09-17 | HEMODYNAMI ---
PATIENT:MARIO MICHELLE MEDICAL RECORD: [id number] : 57 LOCATION:[facility] D.2212 ADMISSION DATE: 09/18/17 Generatedon:09/29/201715:08 Patient name: MARIO MICHELLE Patient #: [id number] SSN: [id number] : 1955 Date of study: 09/29/2017 Page: Of Hemodynamic Procedure Report Patient Data Patient Demographics Procedure consent was obtained First Name: MARIO Gender: Male Last Name: VIVIANA : 1955 Middle Initial: HORACIO Age: 62 year(s) Patient #: [id number] Race: Unknown SSN: [id number] Additional ID: [id number] Contact details Address: [address] [place] [address] State: [place] City: [place] Zip code: [address] Past Medical History Allergies: No known allergies Admission Admission Data Admission Date: 09/18/2017 Admission Time: 2:57 Room #: [facility] Procedure Procedure Types Cath Procedure Diagnostic Procedure DANK Procedure Description Procedure Date Procedure Date: 09/29/2017 Procedure Start Time: 14:06 Procedure Staff Name Function Glenn Richardson MD Performing Physician Jen Garland RT Monitor Benny Stone RT Bus And Trolley Dispatcher Tung Price RN Nurse Emilee Arredondo Rehabilitation Program Manager Neal Goldsmith CRNA Additional personnel Procedure Data Cath Procedure Estimated blood loss: 0 ml Procedure Complications No complications Procedure Medications Medication Administration Route Dosage Oxygen NC 2 l/min Refer to Anesthesia Notes for Sedation Medications unlisted medication 10 ml Hemodynamics Rest Heart Rate: 80 (bpm) Snapshots Pre Cath Intra NCS Post Cath Vital Signs Time Heart Resp SPO2 etCO2 NIBP (mmHg) Rhythm Pain Sedation Rate (ipm) (%) (mmHg) Status Level (bpm) 14:37:21 81 17 92 0 181/100(147) NSR 0 (11) 10(A) , No pain 14:42:03 80 18 92 0 175/101(148) NSR 0 (11) 10(A) , No pain 14:46:42 80 15 94 0 171/107(144) NSR 0 (11) 9(A) , No pain 14:51:22 80 16 99 40.5 163/105(141) NSR 0 (11) 9(A) , No pain 14:55:59 83 26 97 30 164/105(134) NSR 0 (11) 9(A) , No pain 15:00:25 84 16 100 28.5 140/102(127) NSR 0 (11) 9(A) , No pain 15:04:17 88 19 99 0 212/165(186) NSR 0 (11) 9(A) , No pain 15:06:46 87 18 97 0 169/105(140) NSR 0 (11) 10(A) , No pain Medications Time Medication Route Dose Verified Delivered Reason Notes Effectiven ess by by 14:44:54 Oxygen NC 2 Glenn Ruby used for l/min [facility] Elbert Price heater room helper MD 14:44:59 Refer to Glenn Ruby Anesthesia St Elbert Price RN Notes for MD Sedation Medications 14:45:36 visc. gargle 10 ml Glenn Buffie Per lidocaine [facility] Elbert Price RN physician arron LEI Procedure Log Time Note 14:07:15 Benny Stone RT(R) sent for patient. Start room use. 14:07:16 Time tracking: Regular hours (M-F 7:00 - 5:00) 14:07:20 Plan of Care:Hemodynamics will remain stable., Cardiac rhythm will remain stable., Comfort level will be maintained., Respiratory function will remain adequate., Patient/ family verbilizes understanding of procedure., Procedure tolerated without complication., Recovers from procedure without complications.. 14:07:22 Signed procedure consent form obtained from patient. 14:07:38 Patient allergic to No known allergies 14:25:33 Patient arrived from Med/Surg to CCL 3. Patient remains on bed/stretcher for procedure. 14:31:34 Warm blankets applied, and kun hugger turned on for patient comfort. 14:31:35 Correct patient and procedure confirmed by team. 14:31:36 ECG and BP/O2 sat monitors applied to patient. 14:35:53 Vital chart was started 14:35:55 Baseline sample Acquired. 14:36:01 Rhythm: sinus rhythm 14:36:03 Full Disclosure recording started 14:36:14 H&P Date Dictated: 09/29/2017 Within 30 days and on chart.. 14:36:15 Pre-procedure instructions explained to patient. 14:36:16 Pre-op teaching completed and patient verbalized understanding. 14:36:20 Family in waiting room. 14:36:27 Patient NPO since Midnight. 14:36:31 Is patient on blood thinner?Yes 14:36:38 ACC The patient was administered the following blood thiners within the last 24 hours: Coumadin 14:36:41 Patient diabetic? Yes. 14:37:06 If diabetic: On Metformin? Yes 14:37:49 Last dose unknown. 14:37:52 Previous problem with sedation/anesthesia? No ? 14:37:54 Snore? Yes 14:37:55 Sleep apnea? Yes 14:37:56 Deviated septum? No 14:37:57 Opens mouth fully? Yes 14:38:04 Sticks out tongue? Yes 14:38:12 Airway obstruction? Yes COPD 14:38:16 Dentures? Yes OUT 14:38:24 Patient pain scale 0/10 ?. 14:39:36 IV patent on arrival in right hand with 0.9% NaCl at KVO. 14:39:39 Lab results completed and on chart. 14:40:03 Alarms reviewed by Maia Johansen 14:40:09 Neal Goldsmith CRNA present and monitoring patient for TIVA. 14:40:14 Emilee Arredondo Manufacturing Plant Controller present for DANK. 14:44:22 --------ALL STOP TIME OUT------ 14:44:23 Final Timeout: patient, procedure, and site verified with staff and physician. All members of the team are in agreement. 14:44:36 Physical assessment completed. ASA score P 3 - A patient with severe systemic disease as per Glenn Richardson MD. 14:44:40 Sedation plan: TIVA Medication:Propofol 14:44:54 Oxygen 2 l/min NC was administered by Tung Price RN; used for procedure; 14:44:59 Refer to Anesthesia Notes for Sedation Medications was administered by Tung Price RN; ; 14:45:36 visc. lidocaine gargle 10 ml gargle was administered by Tung Price RN; Per physician; 14:50:24 DANK started. 15:00:00 Procedure ended.(Physican Out) 15:00:00 DANK completed. 15:01:56 Post-procedure physical assessment completed. ASA score P 3 - A patient with severe systemic disease as per Glenn Richardson MD. 15:02:00 Post procedure rhythm: sinus rhythm 15:02:14 Estimated blood loss: 0 ml 15:02:15 Post procedure instruction explained to patient.Patient verbalizes understanding. 15:02:16 Patient needs reinforcement of post procedure teaching. 15:02:37 Procedure Complication : No complications 15:06:52 Vital chart was stopped 15:06:53 See physician's report for complete and final results. 15:07:03 Report given to Med/Surg. 15:07:06 Patient transfered to Med/Surg with Bed. 15:07:08 End room use (Document Last) Signature Audit [place] Stage Time Signature Unsigned Intra-Procedure 09/29/2017 Jen Garland 3:08:17 PM RT(R) Signatures Monitor : Jen Garland Signature : RT Date : Time : [place] [id number] [place] [address]
--- NOTE | ~2017-09-17 | TEE ---
PATIENT:MARIO MICHELLE MEDICAL RECORD: [id number] LOCATION:D. DEleuterio221 AGE OF PATIENT: 62 ADMISSION DATE: 09/18/17 SEX: M REFERRING PHYSICIAN: INTERPRETING PHYSICIAN: ANNIE ALLAN MD TRANSESOPHAGEAL ECHOCARDIOGRAM Date: 09/29/17 DANK CHARGE Y INDICATIONS: H/O AVR/BACTERMIA PREMEDICATIONS: PATIENT'S RESPONSE PROCEDURE DOPPLER MEASUREMENTS: LVIT LA PA 174 RA LVOT 218 RVOT 130 Asc. Ao 290 AV Gradient Peak 33.58 AV Mean 19.03AV Area 1.5 MV Gradient Peak 4.74 MV Mean 2.22 MV Area INTERPRETATION: Doppler: 2-D: COLOR FLOW DOPPLER NORMAL SALINE STUDY: MISCELLANOUS: DIAGNOSIS: PLAN: Junior Electrical Engineer:3 Dr. Nichols Data Management Consultant: Marco CASTAÑEDA COMMENTS: DATE OF SERVICE: 09/29/2017 TRANSESOPHAGEAL NOTE After general sedation via TIVA via anesthesia, transesophageal Omniplane probe was placed into esophagus and proximal stomach without difficulty. FINDINGS: LVH present. LV internal dimensions are normal. Wall motion is normal. EF is greater than or equal to 55%. Prosthetic mechanical aortic valve TRANSESOPHAGEAL ECHOCARDIOGRAM REPORT [id number] MARIO MICHELLE is well visualized without obvious vegetation. No evidence of perivalvular leak by color flow imaging. Left atrium appears normal with left atrial appendage well visualized with good contractility. Mitral valve appears normal with no prolapse. Trivial MR only. Right-sided chambers are grossly normal. Tricuspid valve is well visualized. No evidence of vegetation. Trivial TR only. TRANSINT:[id number] Voice Confirmation ID: [id number] DOCUMENT ID: [id number] at 1412 CC: [id number] DICTATION DATE: 09/29/17 1504 GEOSPATIAL APPLICATIONS DEVELOPER: 09/29/17 1621 DIS IN 10/01/17 [facility] [address] [place] [address]
[~2017-09-17 21:45] MED LIST changes: +KEFLEX500 MG PO; +LOVENOX40 MG/0.4 SC
[2017-09-17 22:55] LABS: BASOPHILS 0.3 % (0-2); EOSINOPHILS 0 % (0-7); HEMATOCRIT 43.7 % (42.0-54.0); HEMOGLOBIN 15.5 g/dL (13.5-17.5); IMMATURE GRANULOCYTES 0.2 % (0-5); LYMPHOCYTES 22.1 % (15-50); MCH 31.8 pg (26.0-34.0); MCHC 35.5 g/dL (31.0-37.0); MCV 89.5 fL (80.0-100.0); MEAN PLATELET VOLUME 11.1 fL (7.4-10.4); MONOCYTES 10.4 % (2-11); PLATELET COUNT 160 10x3/uL (130-400); RBC 4.88 10x6/uL (4.20-6.10); WBC 5.9 10x3/uL (4.8-10.8)
[2017-09-17 23:12] LABS: ALBUMIN 3.3 g/dL (3.4-5.0); ALKALINE PHOSPHATASE 94 U/L (46-116); ALT (SGPT) 35 U/L (10-68); AMYLASE - SERUM 78 U/L (25-115); CALC OSMOLALITY 273 mosm/kg (275-300); CALCIUM 8.2 mg/dL (8.5-10.1); CARBON DIOXIDE 24.2 mmol/L (21.0-32.0); CHLORIDE - SERUM 93 mmol/L (98-107); CREATININE - SERUM 1.2 mg/dL (0.6-1.3); GLUCOSE 326 mg/dL (74-106); LIPASE 1491 U/L (73-393); POTASSIUM - SERUM 3.8 mmol/L (3.5-5.1); PROTEIN - SERUM 7.8 g/dL (6.4-8.2); SODIUM 130 mmol/L (136-145); TROPONIN-I < 0.017 ng/mL (0.000-0.060); UREA NITROGEN 13 mg/dL (7-18); eGFR NON AFRICAN AMERICAN 65 mL/min (90-120)
[2017-09-17 23:27] LABS: APTT 34.2 SECONDS (22.8-39.4); INR 1.39 (0.85-1.17); PROTIME 16.6 SECONDS (11.6-15.0)
[2017-09-17 23:28] LABS: D-DIMER-QUANTITATIVE 0.72 ug/mLFEU (0.20-0.54)
[2017-09-17 23:39] LABS: CREATINE KINASE 171 UL (21-232)
[2017-09-17 23:49] LABS: APPEARANCE CLEAR (CLEAR); BILIRUBIN NEGATIVE (NEGATIVE); COLOR YELLOW (YELLOW); GLUCOSE 1000 mg/dL (NEGATIVE); KETONE MODERATE mg/dL (NEGATIVE); NITRITE NEGATIVE (NEGATIVE); PROTEIN 2+ mg/dL (NEGATIVE); SPECIFIC GRAVITY 1.015 (1.005-1.020); UROBILINOGEN NORMAL (NORMAL)
[2017-09-17 23:55] LABS: BACTERIA FEW /hpf (NONE SEEN); EPITHELIAL CELLS 0-5 /hpf (0-5); RED CELLS - URINE 0-5 /hpf (0-5); WHITE CELLS - URINE 0-5 /hpf (0-5)
[2017-09-18 11:30] LABS: CHOL - HDL RATIO 12.3 ratio (2.3-4.9); CHOLESTEROL, TOTAL 419 mg/dL (0-200); HDL CHOLESTEROL 34 mg/dL (32-96)
[2017-09-18 11:31] LABS: TRIGLYCERIDE 1945 mg/dL (30-200)
[2017-09-18 20:00] VITALS: BP 140/85
[2017-09-19] VITALS: BP 155/93
[2017-09-19 04:00] VITALS: BP 139/78
[2017-09-19 05:07] LABS: BASOPHILS 0.2 % (0-2); EOSINOPHILS 0.1 % (0-7); HEMOGLOBIN 13.7 g/dL (13.5-17.5); IMMATURE GRANULOCYTES 0.2 % (0-5); LYMPHOCYTES 19.4 % (15-50); MCH 31.5 pg (26.0-34.0); MCHC 34.3 g/dL (31.0-37.0); MEAN PLATELET VOLUME 10.7 fL (7.4-10.4); NEUTROPHILS 65.1 % (40-80); RBC 4.35 10x6/uL (4.20-6.10); RDW 13.2 % (11.5-14.5)
[2017-09-19 05:11] LABS: WBC 9.6 10x3/uL (4.8-10.8)
[2017-09-19 05:12] LABS: PLATELET COUNT 116 10x3/uL (130-400)
[2017-09-19 05:15] LABS: INR 1.19 (0.85-1.17); PROTIME 14.7 SECONDS (11.6-15.0)
[2017-09-19 05:24] LABS: ALBUMIN 2.7 g/dL (3.4-5.0); ANION GAP 13.2 mmol/L (8-16); BILIRUBIN - TOTAL 0.54 mg/dL (0.2-1.3); CALCIUM 8.2 mg/dL (8.5-10.1); CARBON DIOXIDE 27.2 mmol/L (21.0-32.0); CREATININE - SERUM 1.2 mg/dL (0.6-1.3); POTASSIUM - SERUM 4.4 mmol/L (3.5-5.1); PROTEIN - SERUM 7.2 g/dL (6.4-8.2)
[2017-09-19 08:10] VITALS: BP 149/84
[2017-09-19 10:58] VITALS: BMI 32.5
[2017-09-19 12:12] VITALS: BP 152/77
[2017-09-19 15:33] VITALS: BP 123/78
[2017-09-19 21:05] VITALS: BP 139/79
[2017-09-20 00:26] VITALS: BP 148/74
[2017-09-20 04:32] VITALS: BP 128/76
[2017-09-20 05:54] LABS: BASOPHILS 0.2 % (0-2); EOSINOPHILS 0.6 % (0-7); HEMATOCRIT 36.5 % (42.0-54.0); HEMOGLOBIN 12.3 g/dL (13.5-17.5); IMMATURE GRANULOCYTES 0.3 % (0-5); MCH 31.1 pg (26.0-34.0); MCHC 33.7 g/dL (31.0-37.0); MCV 92.4 fL (80.0-100.0); MEAN PLATELET VOLUME 11.2 fL (7.4-10.4); MONOCYTES 14.7 % (2-11); NEUTROPHILS 65.2 % (40-80); PLATELET COUNT 107 10x3/uL (130-400); RBC 3.95 10x6/uL (4.20-6.10); RDW 13.2 % (11.5-14.5); WBC 9.9 10x3/uL (4.8-10.8)
[2017-09-20 06:18] LABS: ALBUMIN 2.5 g/dL (3.4-5.0); ALKALINE PHOSPHATASE 71 U/L (46-116); ALT (SGPT) 21 U/L (10-68); BILIRUBIN - TOTAL 0.65 mg/dL (0.2-1.3); CALC OSMOLALITY 284 mosm/kg (275-300); CALCIUM 8.5 mg/dL (8.5-10.1); CHLORIDE - SERUM 100 mmol/L (98-107); GLUCOSE 235 mg/dL (74-106); LIPASE 335 U/L (73-393); POTASSIUM - SERUM 3.9 mmol/L (3.5-5.1); PROTEIN - SERUM 7.1 g/dL (6.4-8.2); SODIUM 138 mmol/L (136-145); UREA NITROGEN 15 mg/dL (7-18); eGFR NON AFRICAN AMERICAN 81 mL/min (90-120)
[2017-09-20 07:48] VITALS: BP 142/92
[2017-09-20 12:39] VITALS: BP 167/91
[2017-09-20 16:17] VITALS: BP 129/93
[2017-09-20 23:04] VITALS: BP 150/77
[2017-09-21 04:33] VITALS: BP 175/99
[2017-09-21 05:27] LABS: BASOPHILS 0.2 % (0-2); EOSINOPHILS 1.4 % (0-7); HEMOGLOBIN 11.6 g/dL (13.5-17.5); IMMATURE GRANULOCYTES 0.6 % (0-5); LYMPHOCYTES 19.7 % (15-50); MCH 30.9 pg (26.0-34.0); MCHC 34.1 g/dL (31.0-37.0); MEAN PLATELET VOLUME 10.8 fL (7.4-10.4); MONOCYTES 12.3 % (2-11); NEUTROPHILS 65.8 % (40-80); PLATELET COUNT 108 10x3/uL (130-400); RBC 3.76 10x6/uL (4.20-6.10); RDW 12.9 % (11.5-14.5); WBC 11.1 10x3/uL (4.8-10.8)
[2017-09-21 05:32] LABS: MCV 90.4 fL (80.0-100.0)
[2017-09-21 05:55] LABS: ALBUMIN 2.2 g/dL (3.4-5.0); ALKALINE PHOSPHATASE 75 U/L (46-116); ALT (SGPT) 24 U/L (10-68); BILIRUBIN - TOTAL 0.59 mg/dL (0.2-1.3); CARBON DIOXIDE 28.6 mmol/L (21.0-32.0); CHLORIDE - SERUM 99 mmol/L (98-107); CREATININE - SERUM 0.9 mg/dL (0.6-1.3); GLUCOSE 194 mg/dL (74-106); LIPASE 242 U/L (73-393); PROTEIN - SERUM 6.2 g/dL (6.4-8.2); SODIUM 136 mmol/L (136-145); eGFR NON AFRICAN AMERICAN > 90 mL/min (90-120)
[2017-09-21 05:56] LABS: CALC OSMOLALITY 275 mosm/kg (275-300); POTASSIUM - SERUM 3.3 mmol/L (3.5-5.1); UREA NITROGEN 10 mg/dL (7-18)
[2017-09-21 08:42] VITALS: BP 157/79
[2017-09-21 12:45] VITALS: BP 163/85
[2017-09-21 16:35] VITALS: BP 132/73
[2017-09-21 21:12] VITALS: BP 185/94
[2017-09-22 01:39] VITALS: BP 178/84
[2017-09-22 04:14] VITALS: BP 174/74
[2017-09-22 07:20] LABS: BASOPHILS 0.2 % (0-2); EOSINOPHILS 1.5 % (0-7); HEMATOCRIT 33.9 % (42.0-54.0); HEMOGLOBIN 11.3 g/dL (13.5-17.5); IMMATURE GRANULOCYTES 1.1 % (0-5); MCH 30.6 pg (26.0-34.0); MCHC 33.3 g/dL (31.0-37.0); MCV 91.9 fL (80.0-100.0); MEAN PLATELET VOLUME 10.6 fL (7.4-10.4); MONOCYTES 11.5 % (2-11); NEUTROPHILS 67.7 % (40-80); PLATELET COUNT 111 10x3/uL (130-400); RBC 3.69 10x6/uL (4.20-6.10); WBC 12.1 10x3/uL (4.8-10.8)
[2017-09-22 07:33] LABS: ALBUMIN 2.1 g/dL (3.4-5.0); ALKALINE PHOSPHATASE 78 U/L (46-116); ALT (SGPT) 23 U/L (10-68); CALC OSMOLALITY 277 mosm/kg (275-300); CALCIUM 8.2 mg/dL (8.5-10.1); CARBON DIOXIDE 31.1 mmol/L (21.0-32.0); CHLORIDE - SERUM 102 mmol/L (98-107); CREATININE - SERUM 0.8 mg/dL (0.6-1.3); GLUCOSE 173 mg/dL (74-106); LIPASE 195 U/L (73-393); POTASSIUM - SERUM 3.4 mmol/L (3.5-5.1); PROTEIN - SERUM 6.1 g/dL (6.4-8.2); SODIUM 138 mmol/L (136-145); eGFR NON AFRICAN AMERICAN > 90 mL/min (90-120)
[2017-09-22 07:35] LABS: UREA NITROGEN 7 mg/dL (7-18)
[2017-09-22 09:35] VITALS: BP 163/85
[2017-09-22 12:25] VITALS: BP 128/81; BP 135/56
[2017-09-22 17:05] VITALS: BP 139/77
[2017-09-22 22:58] VITALS: BP 144/81
[2017-09-23 05:20] LABS: BASOPHILS 0.4 % (0-2); EOSINOPHILS 1.8 % (0-7); HEMATOCRIT 34.1 % (42.0-54.0); HEMOGLOBIN 11.3 g/dL (13.5-17.5); IMMATURE GRANULOCYTES 2.9 % (0-5); LYMPHOCYTES 22.1 % (15-50); MCH 30.6 pg (26.0-34.0); MCHC 33.1 g/dL (31.0-37.0); MCV 92.4 fL (80.0-100.0); MEAN PLATELET VOLUME 10.8 fL (7.4-10.4); MONOCYTES 13.8 % (2-11); PLATELET COUNT 132 10x3/uL (130-400); RBC 3.69 10x6/uL (4.20-6.10); RDW 13.1 % (11.5-14.5); WBC 11.4 10x3/uL (4.8-10.8)
[2017-09-23 05:40] VITALS: BP 160/96
[2017-09-23 05:43] LABS: ALBUMIN 2.2 g/dL (3.4-5.0); ALKALINE PHOSPHATASE 85 U/L (46-116); ALT (SGPT) 26 U/L (10-68); BILIRUBIN - TOTAL 0.39 mg/dL (0.2-1.3); CALC OSMOLALITY 283 mosm/kg (275-300); CALCIUM 8.7 mg/dL (8.5-10.1); CARBON DIOXIDE 34.1 mmol/L (21.0-32.0); CHLORIDE - SERUM 101 mmol/L (98-107); CREATININE - SERUM 0.9 mg/dL (0.6-1.3); GLUCOSE 188 mg/dL (74-106); LIPASE 210 U/L (73-393); POTASSIUM - SERUM 3.9 mmol/L (3.5-5.1); PROTEIN - SERUM 6.3 g/dL (6.4-8.2); SODIUM 141 mmol/L (136-145); TRIGLYCERIDE 401 mg/dL (30-200); UREA NITROGEN 8 mg/dL (7-18); eGFR NON AFRICAN AMERICAN > 90 mL/min (90-120)
[2017-09-23 09:20] VITALS: BP 140/78
[2017-09-23 17:01] VITALS: BP 145/72; BP 156/68
[2017-09-23 22:17] VITALS: BP 152/84
[2017-09-24 03:56] VITALS: BP 164/58
[2017-09-24 06:20] LABS: BASOPHILS 0.2 % (0-2); EOSINOPHILS 1.9 % (0-7); HEMATOCRIT 31.6 % (42.0-54.0); HEMOGLOBIN 10.6 g/dL (13.5-17.5); IMMATURE GRANULOCYTES 3.9 % (0-5); LYMPHOCYTES 20.2 % (15-50); MCH 30.8 pg (26.0-34.0); MCHC 33.5 g/dL (31.0-37.0); MCV 91.9 fL (80.0-100.0); MEAN PLATELET VOLUME 11.3 fL (7.4-10.4); MONOCYTES 15.6 % (2-11); NEUTROPHILS 58.2 % (40-80); RBC 3.44 10x6/uL (4.20-6.10); RDW 13.1 % (11.5-14.5); WBC 10.1 10x3/uL (4.8-10.8)
[2017-09-24 06:31] LABS: PLATELET COUNT 167 10x3/uL (130-400)
[2017-09-24 07:08] LABS: ALBUMIN 2.2 g/dL (3.4-5.0); ALKALINE PHOSPHATASE 84 U/L (46-116); ALT (SGPT) 24 U/L (10-68); BILIRUBIN - TOTAL 0.36 mg/dL (0.2-1.3); CALC OSMOLALITY 285 mosm/kg (275-300); CALCIUM 8.6 mg/dL (8.5-10.1); CARBON DIOXIDE 29.9 mmol/L (21.0-32.0); CHLORIDE - SERUM 101 mmol/L (98-107); CREATININE - SERUM 0.8 mg/dL (0.6-1.3); GLUCOSE 207 mg/dL (74-106); PROTEIN - SERUM 6.2 g/dL (6.4-8.2); SODIUM 141 mmol/L (136-145); UREA NITROGEN 9 mg/dL (7-18); eGFR NON AFRICAN AMERICAN > 90 mL/min (90-120)
[2017-09-24 07:12] LABS: POTASSIUM - SERUM 3.2 mmol/L (3.5-5.1)
[2017-09-24 08:06] VITALS: BP 137/65
[2017-09-24 12:44] VITALS: BP 143/68
[2017-09-24 16:25] VITALS: BP 127/86
[2017-09-24 21:38] VITALS: BP 181/90
[2017-09-25 03:50] VITALS: BP 178/84
[2017-09-25 04:27] VITALS: BP 149/91; Ht 182.9 cm; Wt 109.1 kg
[2017-09-25 06:01] LABS: BASOPHILS 0.5 % (0-2); EOSINOPHILS 2.3 % (0-7); HEMATOCRIT 31.7 % (42.0-54.0); HEMOGLOBIN 10.3 g/dL (13.5-17.5); IMMATURE GRANULOCYTES 2.9 % (0-5); LYMPHOCYTES 21.4 % (15-50); MCH 30.1 pg (26.0-34.0); MCHC 32.5 g/dL (31.0-37.0); MCV 92.7 fL (80.0-100.0); MEAN PLATELET VOLUME 11.2 fL (7.4-10.4); MONOCYTES 14.3 % (2-11); NEUTROPHILS 58.6 % (40-80); PLATELET COUNT 191 10x3/uL (130-400); RBC 3.42 10x6/uL (4.20-6.10); WBC 10.2 10x3/uL (4.8-10.8)
[2017-09-25 06:26] LABS: ALBUMIN 2.1 g/dL (3.4-5.0); ALKALINE PHOSPHATASE 83 U/L (46-116); ALT (SGPT) 25 U/L (10-68); CALC OSMOLALITY 280 mosm/kg (275-300); CALCIUM 8.5 mg/dL (8.5-10.1); CARBON DIOXIDE 32.8 mmol/L (21.0-32.0); CHLORIDE - SERUM 102 mmol/L (98-107); CREATININE - SERUM 0.8 mg/dL (0.6-1.3); GLUCOSE 179 mg/dL (74-106); POTASSIUM - SERUM 3.4 mmol/L (3.5-5.1); PROTEIN - SERUM 6.2 g/dL (6.4-8.2); SODIUM 140 mmol/L (136-145); UREA NITROGEN 8 mg/dL (7-18); eGFR NON AFRICAN AMERICAN > 90 mL/min (90-120)
[2017-09-25 08:30] VITALS: BP 140/83
[2017-09-25 12:27] VITALS: BP 124/77
[2017-09-25 15:59] VITALS: BP 134/62
[2017-09-25 21:15] VITALS: BP 192/97
[2017-09-26] VITALS (7 sets, daily range): BP systolic 119–173; BP diastolic 65–86
[2017-09-26 04:22] LABS: BASOPHILS 0.2 % (0-2); EOSINOPHILS 0.9 % (0-7); HEMATOCRIT 33.2 % (42.0-54.0); HEMOGLOBIN 10.9 g/dL (13.5-17.5); IMMATURE GRANULOCYTES 2.1 % (0-5); LYMPHOCYTES 16.9 % (15-50); MCH 30.3 pg (26.0-34.0); MCHC 32.8 g/dL (31.0-37.0); MCV 92.2 fL (80.0-100.0); MEAN PLATELET VOLUME 10.9 fL (7.4-10.4); NEUTROPHILS 70.9 % (40-80); PLATELET COUNT 239 10x3/uL (130-400); RDW 12.8 % (11.5-14.5); WBC 13.1 10x3/uL (4.8-10.8)
[2017-09-26 04:40] LABS: ALBUMIN 2.3 g/dL (3.4-5.0); ALKALINE PHOSPHATASE 84 U/L (46-116); ALT (SGPT) 25 U/L (10-68); BILIRUBIN - TOTAL 0.35 mg/dL (0.2-1.3); CALC OSMOLALITY 286 mosm/kg (275-300); CALCIUM 9.1 mg/dL (8.5-10.1); CARBON DIOXIDE 32.6 mmol/L (21.0-32.0); CHLORIDE - SERUM 101 mmol/L (98-107); CREATININE - SERUM 0.9 mg/dL (0.6-1.3); POTASSIUM - SERUM 4.1 mmol/L (3.5-5.1); PROTEIN - SERUM 6.9 g/dL (6.4-8.2); SODIUM 141 mmol/L (136-145); UREA NITROGEN 8 mg/dL (7-18); eGFR NON AFRICAN AMERICAN > 90 mL/min (90-120)
[2017-09-26 04:41] LABS: GLUCOSE 245 mg/dL (74-106)
[2017-09-27 03:52] VITALS: BP 144/76
[2017-09-27 05:05] LABS: BASOPHILS 0.2 % (0-2); EOSINOPHILS 1.9 % (0-7); HEMATOCRIT 35.4 % (42.0-54.0); HEMOGLOBIN 11.6 g/dL (13.5-17.5); IMMATURE GRANULOCYTES 1.6 % (0-5); LYMPHOCYTES 23.2 % (15-50); MCH 30.7 pg (26.0-34.0); MCHC 32.8 g/dL (31.0-37.0); MCV 93.7 fL (80.0-100.0); MEAN PLATELET VOLUME 11.2 fL (7.4-10.4); MONOCYTES 13.5 % (2-11); NEUTROPHILS 59.6 % (40-80); PLATELET COUNT 265 10x3/uL (130-400); RBC 3.78 10x6/uL (4.20-6.10); RDW 13.1 % (11.5-14.5); WBC 10.8 10x3/uL (4.8-10.8)
[2017-09-27 06:07] LABS: ALBUMIN 2.3 g/dL (3.4-5.0); ANION GAP 10.5 mmol/L (8-16); BILIRUBIN - TOTAL 0.24 mg/dL (0.2-1.3); CARBON DIOXIDE 31.6 mmol/L (21.0-32.0); CREATININE - SERUM 1.1 mg/dL (0.6-1.3); POTASSIUM - SERUM 4.1 mmol/L (3.5-5.1); PROTEIN - SERUM 7.2 g/dL (6.4-8.2)
[2017-09-27 08:10] VITALS: BP 147/65
[2017-09-27 13:06] VITALS: BP 125/72
[2017-09-27 16:04] VITALS: BP 148/92
[2017-09-27 19:58] VITALS: BP 123/77
[2017-09-28 00:04] VITALS: BP 123/89
[2017-09-28 04:00] VITALS: BP 144/83
[2017-09-28 04:55] LABS: BASOPHILS 0.2 % (0-2); EOSINOPHILS 2.4 % (0-7); HEMATOCRIT 33.8 % (42.0-54.0); IMMATURE GRANULOCYTES 1.7 % (0-5); LYMPHOCYTES 32.6 % (15-50); MCH 30.6 pg (26.0-34.0); MCHC 32.5 g/dL (31.0-37.0); MCV 93.9 fL (80.0-100.0); MEAN PLATELET VOLUME 10.9 fL (7.4-10.4); MONOCYTES 10.6 % (2-11); NEUTROPHILS 52.5 % (40-80); PLATELET COUNT 273 10x3/uL (130-400); RDW 12.7 % (11.5-14.5); WBC 8.7 10x3/uL (4.8-10.8)
[2017-09-28 05:38] LABS: ALBUMIN 2.2 g/dL (3.4-5.0); ANION GAP 9.6 mmol/L (8-16); BILIRUBIN - TOTAL 0.18 mg/dL (0.2-1.3); CALCIUM 8.7 mg/dL (8.5-10.1); CARBON DIOXIDE 33.2 mmol/L (21.0-32.0); CREATININE - SERUM 1.1 mg/dL (0.6-1.3); POTASSIUM - SERUM 3.8 mmol/L (3.5-5.1); PROTEIN - SERUM 6.8 g/dL (6.4-8.2)
[2017-09-28 08:20] VITALS: BP 127/82
[2017-09-28 12:48] VITALS: BP 124/80
[2017-09-28 16:55] VITALS: BP 175/92
[2017-09-28 20:00] VITALS: BP 139/85
[2017-09-29 04:00] VITALS: BP 136/82
[2017-09-29 05:15] LABS: BASOPHILS 0.3 % (0-2); EOSINOPHILS 2.3 % (0-7); HEMATOCRIT 33.5 % (42.0-54.0); HEMOGLOBIN 11.2 g/dL (13.5-17.5); IMMATURE GRANULOCYTES 2.1 % (0-5); MCH 30.6 pg (26.0-34.0); MCHC 33.4 g/dL (31.0-37.0); MEAN PLATELET VOLUME 10.6 fL (7.4-10.4); MONOCYTES 9.8 % (2-11); NEUTROPHILS 52.5 % (40-80); PLATELET COUNT 300 10x3/uL (130-400); RBC 3.66 10x6/uL (4.20-6.10); RDW 12.7 % (11.5-14.5)
[2017-09-29 05:25] LABS: MCV 91.5 fL (80.0-100.0)
[2017-09-29 05:33] LABS: ALBUMIN 2.4 g/dL (3.4-5.0); ALKALINE PHOSPHATASE 72 U/L (46-116); ALT (SGPT) 18 U/L (10-68); CALC OSMOLALITY 285 mosm/kg (275-300); CALCIUM 8.6 mg/dL (8.5-10.1); CARBON DIOXIDE 31.5 mmol/L (21.0-32.0); CHLORIDE - SERUM 104 mmol/L (98-107); CREATININE - SERUM 0.9 mg/dL (0.6-1.3); POTASSIUM - SERUM 3.7 mmol/L (3.5-5.1); PROTEIN - SERUM 6.7 g/dL (6.4-8.2); SODIUM 142 mmol/L (136-145); UREA NITROGEN 11 mg/dL (7-18); eGFR NON AFRICAN AMERICAN > 90 mL/min (90-120)
[2017-09-29 05:39] LABS: GLUCOSE 162 mg/dL (74-106)
[2017-09-29 08:06] VITALS: BP 171/87
[2017-09-29 13:15] VITALS: BP 169/97
[2017-09-29 16:13] VITALS: BP 159/89
[2017-09-29 20:00] VITALS: BP 169/100
[2017-09-30 00:33] VITALS: BP 142/92
[2017-09-30 04:00] VITALS: BP 162/111
[2017-09-30 05:01] LABS: BASOPHILS 0.4 % (0-2); EOSINOPHILS 2.1 % (0-7); HEMATOCRIT 35.3 % (42.0-54.0); IMMATURE GRANULOCYTES 1.8 % (0-5); MCH 30.8 pg (26.0-34.0); MCV 90.5 fL (80.0-100.0); MEAN PLATELET VOLUME 10.4 fL (7.4-10.4); MONOCYTES 10.4 % (2-11); NEUTROPHILS 46.3 % (40-80); PLATELET COUNT 356 10x3/uL (130-400); RDW 12.7 % (11.5-14.5); WBC 7.1 10x3/uL (4.8-10.8)
[2017-09-30 05:18] LABS: ALBUMIN 2.6 g/dL (3.4-5.0); ALKALINE PHOSPHATASE 76 U/L (46-116); ALT (SGPT) 18 U/L (10-68); CALC OSMOLALITY 282 mosm/kg (275-300); CALCIUM 8.8 mg/dL (8.5-10.1); CARBON DIOXIDE 28.6 mmol/L (21.0-32.0); CHLORIDE - SERUM 104 mmol/L (98-107); POTASSIUM - SERUM 3.8 mmol/L (3.5-5.1); PROTEIN - SERUM 7.2 g/dL (6.4-8.2); SODIUM 139 mmol/L (136-145); UREA NITROGEN 9 mg/dL (7-18); eGFR NON AFRICAN AMERICAN 81 mL/min (90-120)
[2017-09-30 05:23] LABS: GLUCOSE 213 mg/dL (74-106)
[2017-09-30 08:42] VITALS: BP 134/77
[2017-09-30 13:04] VITALS: BP 140/83
[2017-09-30 20:00] VITALS: BP 132/90
[2017-10-01 04:00] VITALS: BP 111/67
[2017-10-01 05:10] LABS: BASOPHILS 0.5 % (0-2); EOSINOPHILS 2.1 % (0-7); HEMATOCRIT 34.6 % (42.0-54.0); HEMOGLOBIN 11.5 g/dL (13.5-17.5); IMMATURE GRANULOCYTES 1.4 % (0-5); LYMPHOCYTES 38.2 % (15-50); MCH 30.3 pg (26.0-34.0); MCHC 33.2 g/dL (31.0-37.0); MCV 91.3 fL (80.0-100.0); MEAN PLATELET VOLUME 10.3 fL (7.4-10.4); MONOCYTES 9.4 % (2-11); NEUTROPHILS 48.4 % (40-80); PLATELET COUNT 379 10x3/uL (130-400); RBC 3.79 10x6/uL (4.20-6.10); RDW 12.8 % (11.5-14.5); WBC 7.7 10x3/uL (4.8-10.8)
[2017-10-01 05:37] LABS: ALBUMIN 2.5 g/dL (3.4-5.0); ANION GAP 12.1 mmol/L (8-16); BILIRUBIN - TOTAL 0.12 mg/dL (0.2-1.3); CALCIUM 8.9 mg/dL (8.5-10.1); CARBON DIOXIDE 27.9 mmol/L (21.0-32.0); CREATININE - SERUM 1.1 mg/dL (0.6-1.3); PROTEIN - SERUM 7.1 g/dL (6.4-8.2)
[2017-10-01 08:49] VITALS: BP 134/81
[2017-10-01] MEDS ORDERED: FLAGYL500 MG PO (09:12)
[2017-11-04] MEDS ORDERED: HUMALOG 30100 UNITS/ SC (15:33)
[2017-11-04] MEDS ORDERED: AMPICILLIN TRI500 MG PO (15:35)
== END 2017-10-01 11:50 | disposition home health service (06) | DRG 871 ==
LOC: D.ER 21:45 → D.MS 09-18 02:57 → D.EDHOLD 09-18 02:57 → D.MS 09-18 15:35
PROVIDERS: Family Medicine; Internal Medicine Gastroenterology; Internal Medicine Nephrology
DX: A41.81 Sepsis due to Enterococcus (principal); K85.90 Acute pancreatitis without necrosis or infection, unspecified; K86.3 Pseudocyst of pancreas; A04.72 Enterocolitis due to Clostridium difficile, not specified as recurrent; G40.109 Localization-related (focal) (partial) symptomatic epilepsy and epileptic syndromes with simple partial seizures, not intractable, without status epilepticus; K80.20 Calculus of gallbladder without cholecystitis without obstruction; E66.01 Morbid (severe) obesity due to excess calories; Z68.35 Body mass index [BMI] 35.0-35.9, adult; J44.9 Chronic obstructive pulmonary disease, unspecified; I10 Essential (primary) hypertension; F31.9 Bipolar disorder, unspecified; Z79.01 Long term (current) use of anticoagulants; Z95.2 Presence of prosthetic heart valve; E78.1 Pure hyperglyceridemia; K75.81 Nonalcoholic steatohepatitis (NASH); K59.00 Constipation, unspecified; I48.0 Paroxysmal atrial fibrillation; D69.6 Thrombocytopenia, unspecified; R07.89 Other chest pain; Z79.84 Long term (current) use of oral hypoglycemic drugs; E11.65 Type 2 diabetes mellitus with hyperglycemia; Z87.891 Personal history of nicotine dependence

== ENCOUNTER 2017-10-01 16:58 | Emergency (ER) | payer MEDICARE ==
[~2017-10-01] VITALS: Ht 182.9 cm; Wt 112.3 kg
[~2017-10-01 16:58] MED LIST changes: +FLAGYL500 MG PO
[2017-10-01 17:13] VITALS: Ht 182.9 cm; Wt 112.3 kg
[2017-10-01 17:59] LABS: BASOPHILS 0.4 % (0-2); EOSINOPHILS 1.7 % (0-7); HEMATOCRIT 33.7 % (42.0-54.0); IMMATURE GRANULOCYTES 0.9 % (0-5); LYMPHOCYTES 34.4 % (15-50); MCH 30.3 pg (26.0-34.0); MCHC 32.6 g/dL (31.0-37.0); MCV 92.8 fL (80.0-100.0); MONOCYTES 10.7 % (2-11); NEUTROPHILS 51.9 % (40-80); PLATELET COUNT 366 10x3/uL (130-400); RBC 3.63 10x6/uL (4.20-6.10); RDW 12.7 % (11.5-14.5); WBC 7.7 10x3/uL (4.8-10.8)
[2017-10-01 18:18] LABS: ALBUMIN 2.7 g/dL (3.4-5.0); ANION GAP 11.5 mmol/L (8-16); BILIRUBIN - TOTAL 0.14 mg/dL (0.2-1.3); CALCIUM 8.6 mg/dL (8.5-10.1); CARBON DIOXIDE 29.6 mmol/L (21.0-32.0); CREATININE - SERUM 1.7 mg/dL (0.6-1.3); POTASSIUM - SERUM 4.1 mmol/L (3.5-5.1)
[2017-10-01 19:57] LABS: APTT 34.2 SECONDS (22.8-39.4); INR 1.07 (0.85-1.17); PROTIME 13.5 SECONDS (11.6-15.0)
[2017-10-01 22:05] VITALS: BP 140/83
[2017-11-04] MEDS ORDERED: HUMALOG 30100 UNITS/ SC (15:33)
[2017-11-04] MEDS ORDERED: AMPICILLIN TRI500 MG PO (15:35)
== END 2017-10-01 22:16 | disposition home or self-care (01) ==
LOC: D.ER 16:58
PROVIDERS: Emergency Medicine; Family Medicine
DX: R55 Syncope and collapse (principal); I12.9 Hypertensive chronic kidney disease with stage 1 through stage 4 chronic kidney disease, or unspecified chronic kidney disease; N18.9 Chronic kidney disease, unspecified; W19.XXXA Unspecified fall, initial encounter; Y93.89 Activity, other specified; Y92.019 Unspecified place in single-family (private) house as the place of occurrence of the external cause; I95.9 Hypotension, unspecified; G40.909 Epilepsy, unspecified, not intractable, without status epilepticus; J44.9 Chronic obstructive pulmonary disease, unspecified; Z79.01 Long term (current) use of anticoagulants

== ENCOUNTER 2017-11-06 05:00 | Day surgery (SDC) | payer MEDICARE ==
[2017-11-05 15:00] LABS: HEMATOCRIT 35.5 % (42.0-54.0); HEMOGLOBIN 12.6 g/dL (13.5-17.5); MCH 30.9 pg (26.0-34.0); MCHC 35.5 g/dL (31.0-37.0); MEAN PLATELET VOLUME 9.7 fL (7.4-10.4); RBC 4.08 10x6/uL (4.20-6.10); RDW 12.7 % (11.5-14.5); WBC 5.1 10x3/uL (4.8-10.8)
[2017-11-05 15:07] LABS: CALC OSMOLALITY 272 mosm/kg (275-300); CALCIUM 8.6 mg/dL (8.5-10.1); CHLORIDE - SERUM 101 mmol/L (98-107); CREATININE - SERUM 0.9 mg/dL (0.6-1.3); GLUCOSE 159 mg/dL (74-106); POTASSIUM - SERUM 4.5 mmol/L (3.5-5.1); SODIUM 135 mmol/L (136-145); UREA NITROGEN 12 mg/dL (7-18); eGFR NON AFRICAN AMERICAN > 90 mL/min (90-120)
[2017-11-05 15:21] LABS: INR 2.64 (0.85-1.17); PROTIME 27.5 SECONDS (11.6-15.0)
[~2017-11-06] VITALS: Ht 182.9 cm; Wt 108.9 kg
[~2017-11-06 05:00] MED LIST changes: +AMPICILLIN TRI500 MG PO; +HUMALOG 30100 UNITS/ SC
[2017-11-06 06:29] VITALS: BP 140/84; BMI 32.6
[2017-11-06 12:22] VITALS: BP 125/78
[2017-11-06 12:55] VITALS: BP 125/78; Ht 182.9 cm; Wt 108.9 kg
[2017-11-06 16:13] VITALS: BP 153/85
[2017-11-06 20:10] VITALS: BP 127/71
[2017-11-07 01:55] VITALS: BP 104/47
[2017-11-07 05:35] VITALS: BP 113/66
[2017-11-07] MEDS ORDERED: HYDROCODON-ACE1 EAC7 PO (09:43)
[2017-11-07] MEDS ORDERED: PERCOCET 5-3251 TAB PO (10:00)
== END 2017-11-07 11:29 | disposition home or self-care (01) ==
LOC: D.OPS 05:00 → D.MS 05:00 → D.OPS 07:30 → D.MS 11:50 → D.OPS 11-07 11:29
PROVIDERS: Anesthesiology
DX: T84.69XA Infection and inflammatory reaction due to internal fixation device of other site, initial encounter (principal); Z01.812 Encounter for preprocedural laboratory examination

== ENCOUNTER 2017-12-20 15:46 | Emergency (ER) | payer MEDICARE ==
[~2017-12-20] VITALS: Ht 182.9 cm; Wt 113.4 kg
[~2017-12-20 15:46] MED LIST changes: +HYDROCODON-ACE1 EAC7 PO; +PERCOCET 5-3251 TAB PO
[2017-12-20 15:49] VITALS: Ht 182.9 cm; Wt 113.4 kg
[2017-12-20 16:07] LABS: BASOPHILS 0.4 % (0-2); EOSINOPHILS 2.1 % (0-7); HEMATOCRIT 39.9 % (42.0-54.0); HEMOGLOBIN 14.4 g/dL (13.5-17.5); IMMATURE GRANULOCYTES 0.2 % (0-5); LYMPHOCYTES 30.9 % (15-50); MCH 31.2 pg (26.0-34.0); MCHC 36.1 g/dL (31.0-37.0); MCV 86.6 fL (80.0-100.0); MEAN PLATELET VOLUME 10.5 fL (7.4-10.4); MONOCYTES 9.1 % (2-11); NEUTROPHILS 57.3 % (40-80); PLATELET COUNT 199 10x3/uL (130-400); RBC 4.61 10x6/uL (4.20-6.10); RDW 13.3 % (11.5-14.5)
[2017-12-20 16:15] LABS: APTT 29.3 SECONDS (22.8-39.4); INR 1.64 (0.85-1.17); PROTIME 18.9 SECONDS (11.6-15.0)
[2017-12-20 17:52] LABS: ALBUMIN 3.8 g/dL (3.4-5.0); ALKALINE PHOSPHATASE 106 U/L (46-116); ALT (SGPT) 25 U/L (10-68); BILIRUBIN - TOTAL 0.23 mg/dL (0.2-1.3); CALCIUM 9.1 mg/dL (8.5-10.1); CARBON DIOXIDE 26.9 mmol/L (21.0-32.0); CHLORIDE - SERUM 97 mmol/L (98-107); CREATININE - SERUM 1.4 mg/dL (0.6-1.3); PROTEIN - SERUM 8.1 g/dL (6.4-8.2); SODIUM 133 mmol/L (136-145); UREA NITROGEN 18 mg/dL (7-18); eGFR NON AFRICAN AMERICAN 55 mL/min (90-120)
[2017-12-20 17:53] LABS: CALC OSMOLALITY 274 mosm/kg (275-300); GLUCOSE 225 mg/dL (74-106); TROPONIN-I < 0.017 ng/mL (0.000-0.060)
[2017-12-20 19:30] VITALS: BP 135/84
== END 2017-12-20 19:30 | disposition home or self-care (01) ==
LOC: D.ER 15:46
PROVIDERS: Emergency Medicine
DX: R55 Syncope and collapse (principal); S00.93XA Contusion of unspecified part of head, initial encounter; W18.30XA Fall on same level, unspecified, initial encounter; Y93.89 Activity, other specified; Y92.019 Unspecified place in single-family (private) house as the place of occurrence of the external cause; I95.1 Orthostatic hypotension; G40.109 Localization-related (focal) (partial) symptomatic epilepsy and epileptic syndromes with simple partial seizures, not intractable, without status epilepticus; I10 Essential (primary) hypertension; J44.9 Chronic obstructive pulmonary disease, unspecified; Z79.01 Long term (current) use of anticoagulants

== ENCOUNTER 2018-06-06 16:20 | Inpatient (IN) | payer MEDICARE ==
[~2018-06-06] VITALS: Ht 182.9 cm; Wt 116.7 kg
[2018-06-06 17:16] VITALS: BP 180/91
[2018-06-06 17:31] LABS: BASOPHILS 0.2 % (0-2); EOSINOPHILS 1.1 % (0-7); HEMATOCRIT 44.7 % (42.0-54.0); HEMOGLOBIN 15.8 g/dL (13.5-17.5); IMMATURE GRANULOCYTES 0.5 % (0-5); LYMPHOCYTES 16.8 % (15-50); MCH 31.9 pg (26.0-34.0); MCHC 35.3 g/dL (31.0-37.0); MCV 90.3 fL (80.0-100.0); MEAN PLATELET VOLUME 10.8 fL (7.4-10.4); MONOCYTES 8.5 % (2-11); NEUTROPHILS 72.9 % (40-80); PLATELET COUNT 183 10x3/uL (130-400); RBC 4.95 10x6/uL (4.20-6.10); RDW 12.5 % (11.5-14.5); WBC 13.7 10x3/uL (4.8-10.8)
[2018-06-06 17:43] LABS: INR 1.19 (0.85-1.17); PROTIME 14.6 SECONDS (11.6-15.0)
[2018-06-06 17:44] LABS: APTT 27.5 SECONDS (22.8-39.4)
[2018-06-06 17:45] VITALS: BP 150/81
[2018-06-06 17:45] LABS: D-DIMER-QUANTITATIVE 2.27 ug/mLFEU (0.20-0.54)
[2018-06-06 17:49] LABS: ALBUMIN 3.9 g/dL (3.4-5.0); ALKALINE PHOSPHATASE 99 U/L (46-116); ALT (SGPT) 34 U/L (10-68); BILIRUBIN - TOTAL 0.32 mg/dL (0.2-1.3); CALC OSMOLALITY 281 mosm/kg (275-300); CALCIUM 9.1 mg/dL (8.5-10.1); CARBON DIOXIDE 27.6 mmol/L (21.0-32.0); CHLORIDE - SERUM 99 mmol/L (98-107); CREATININE - SERUM 1.1 mg/dL (0.6-1.3); GLUCOSE 209 mg/dL (74-106); POTASSIUM - SERUM 4.3 mmol/L (3.5-5.1); PROTEIN - SERUM 8.1 g/dL (6.4-8.2); SODIUM 137 mmol/L (136-145); UREA NITROGEN 18 mg/dL (7-18); eGFR NON AFRICAN AMERICAN 72 mL/min (90-120)
[2018-06-06 17:59] LABS: CKMB 0.7 U/L (0.0-3.6)
[2018-06-06 18:03] LABS: AMYLASE - SERUM 460 U/L (25-115); LIPASE 10581 U/L (73-393); TROPONIN-I < 0.017 ng/mL (0.000-0.060)
--- NOTE | 2018-06-06 18:03 | NUR ---
AMALYSE - 460 ERP INFORMED.
[2018-06-06 18:15] VITALS: BP 156/89
[2018-06-06 19:59] VITALS: BP 167/91
[2018-06-06 21:36] VITALS: BP 175/87; BMI 34.0
[2018-06-06] MEDS ORDERED: ATIVAN2 MG PO (21:45)
[2018-06-06] MEDS ORDERED: HYDROCODON-ACE1 EA10 PO (21:46)
[2018-06-06] MEDS ORDERED: ZANAFLEX4 MG PO (21:49)
[2018-06-06] MEDS ORDERED: PHENERGAN25 M1 PO (21:49)
[2018-06-06] MEDS ORDERED: SOLIQUA 100 UNIT3 ML SQ (21:50)
[2018-06-06 23:53] VITALS: BP 162/93
[2018-06-07 00:22] LABS: APPEARANCE CLEAR (CLEAR); BILIRUBIN NEGATIVE (NEGATIVE); COLOR YELLOW (YELLOW); GLUCOSE 100 mg/dL (NEGATIVE); KETONE NEGATIVE (NEGATIVE); NITRITE NEGATIVE (NEGATIVE); PROTEIN NEGATIVE (NEGATIVE); SPECIFIC GRAVITY 1.005 (1.005-1.020); UROBILINOGEN NORMAL (NORMAL)
[2018-06-07 04:00] VITALS: BP 171/108
--- NOTE | 2018-06-07 07:15 | NUR ---
PT RESTING IN BED, EYES OPEN. C/O ABDOMINAL PAIN, JUICE PACKAGING MACHINES SETTER MORPHINE INFUSING 1-10-10. PT STATES MORPHINE IS NOT CONTROLLING HIS PAIN. NO S/S OF ACUTE DISTRESS NOTED. PT ALERT AND ORIENTED. PT UP AD SRIDHAR. AT BEDSIDE. IV TO RIGHT FOREARM, SITE PATENT WITHOUT REDNESS OR SWELLING. PT DENIES ANYTHING FURTHER AT THIS TIME. CALL LIGHT IN REACH. WILL CONTINUE TO MONITOR.
--- NOTE | 2018-06-07 07:45 | NUR ---
CHANGED OUT MORPHINE FRONT OFFICE DIRECTOR, CHANNEL READ SYRINGE EMPTY. PT DENIES ANYTHING FURTHER AT THIS TIME. AT BEDSIDE. CALL LIGHT IN REACH. WILL CONTINUE TO MONITOR.
[2018-06-07 09:25] LABS: BASOPHILS 0.1 % (0-2); EOSINOPHILS 0.1 % (0-7); HEMATOCRIT 47.8 % (42.0-54.0); HEMOGLOBIN 17.1 g/dL (13.5-17.5); IMMATURE GRANULOCYTES 0.2 % (0-5); LYMPHOCYTES 10.4 % (15-50); MCH 32.2 pg (26.0-34.0); MCHC 35.8 g/dL (31.0-37.0); MEAN PLATELET VOLUME 10.9 fL (7.4-10.4); NEUTROPHILS 79.2 % (40-80); PLATELET COUNT 185 10x3/uL (130-400); RBC 5.31 10x6/uL (4.20-6.10); RDW 12.7 % (11.5-14.5); WBC 16.2 10x3/uL (4.8-10.8)
[2018-06-07 09:38] LABS: INR 1.19 (0.85-1.17); PROTIME 14.6 SECONDS (11.6-15.0)
[2018-06-07 09:44] LABS: ANION GAP 16.8 mmol/L (8-16); CALCIUM 8.3 mg/dL (8.5-10.1); CARBON DIOXIDE 24.7 mmol/L (21.0-32.0); CREATININE - SERUM 1.3 mg/dL (0.6-1.3); POTASSIUM - SERUM 4.5 mmol/L (3.5-5.1)
[2018-06-07 10:08] VITALS: BP 155/73
[2018-06-07] MEDS ORDERED: TEGRETOL200 MG PO ×2 (10:17)
--- NOTE | 2018-06-07 11:22 | NUR ---
PT C/O ABDOMINAL PAIN NOT BEING RESOLVED WITH MORPHINE WHEEL SHOP SUPERVISOR. PROVIDED PT WITH BOLUS DOSE AND HE IS JUST SHAKING AND ANXIOUS C/O ALL THE PAIN. PT IS DIAPHORETIC AND STATES "SOMETHING HAS TO GIVE, I NEED MORE" REQUESTED PRN ATIVAN HOWEVER ITS TOO SOON. WILL PAGE PRIMARY AND INQUIRE ABOUT SOMETHING STRONGER. CL IN REACH. WILL CTM.
[2018-06-07 12:00] VITALS: BP 149/84
--- NOTE | 2018-06-07 14:39 | NUR ---
PT STILL C/O HIS EXCRUIATING PAIN. STATES NOT RELIEVED BY ANY OF THE MORPHINE OR ANXIETY MEDICATION. PT STATES HE IS MISERABLE. PAGED AND NEW ORDERS OBTAINED. PT MAY NOW HAVE A HIGHER LOCKOUT MG. EXPLAINED TO PT AND PTS PRIMARY NURSE. CHANGED SETTINGS ON METHODS ANALYST DATA PROCESSING PUMP. PROVIDED PT WITH PRN BOLUS WELL REQUESTED. WILL CTM AND TRY TO HELP RELIEVE HIS PAIN. NO FURTHER NEEDS AT THIS TIME. CL IN REACH, BED IN LOWEST, SIDE RAILS X2. WILL CTM.
[2018-06-07 16:00] VITALS: BP 164/96
--- NOTE | 2018-06-07 16:51 | NUR ---
MORPHINE COMMUNITY DEVELOPMENT OFFICER EMPTY. NEW SYRINGE PROVIDED. NO NEEDS. WILL CTM.
--- NOTE | 2018-06-07 18:47 | NUR ---
PT RESTING IN BED, EYES OPEN. AT BEDSIDE. PT STILL C/O PAIN, INCREASED ATIVAN AND MORPHINE PER PHYSICIAN ORDERS. NO S/S OF ACUTE DISTRESS. PT DENIES ANYTHING FURTHER AT THIS TIME. CALL LIGHT IN REACH. WILL CONTINUE TO MONITOR.
--- NOTE | 2018-06-07 19:51 | NUR ---
PATIENT RESTING IN BED WITH AT BEDSIDE. PATIENT REQUESTED WATER WITH NIGHT MEDS. PATIENT DENIES OTHER NEEDS AT THIS TIME. BED IN LOWEST POSITION AND CALL LIGHT WITHIN REACH. ENCOURAGED THE PATIENT TO CALL IF HE HAS NEEDS. WILL CONTINUE TO MONITOR.
--- NOTE | 2018-06-07 19:52 | NUR ---
CALLED TO REMIND BODY MAKER MACHINE SETTER ABOUT BRINGING LOVENOX FOR THE PATIENT
[2018-06-07 19:55] VITALS: BP 167/104
[2018-06-07 23:41] VITALS: BP 174/100
[2018-06-08] VITALS (15 sets, daily range): BP systolic 134–188; BP diastolic 82–102; BMI 33.9
[2018-06-08 06:11] LABS: HEMATOCRIT 46.6 % (42.0-54.0); HEMOGLOBIN 16.4 g/dL (13.5-17.5); MCH 31.8 pg (26.0-34.0); MCHC 35.2 g/dL (31.0-37.0); MCV 90.3 fL (80.0-100.0); MEAN PLATELET VOLUME 11.6 fL (7.4-10.4); PLATELET COUNT 173 10x3/uL (130-400); RBC 5.16 10x6/uL (4.20-6.10); RDW 13.1 % (11.5-14.5); WBC 21.7 10x3/uL (4.8-10.8)
[2018-06-08 06:41] LABS: ALBUMIN 3.1 g/dL (3.4-5.0); ANION GAP 16.5 mmol/L (8-16); BILIRUBIN - TOTAL 0.86 mg/dL (0.2-1.3); CARBON DIOXIDE 26.4 mmol/L (21.0-32.0); CREATININE - SERUM 1.2 mg/dL (0.6-1.3); POTASSIUM - SERUM 3.9 mmol/L (3.5-5.1); PROTEIN - SERUM 7.1 g/dL (6.4-8.2)
--- NOTE | 2018-06-08 07:40 | NUR ---
AM MEDS GIVEN AT THIS TIME. ALSO CHANGED MORPHINE SYRINGE. PT RATES PAIN LEVEL OF 9/10. PT DENIES ANY OTHER NEEDS AT THIS TIME. CALL LIGHT IN REACH, AT BEDSIDE,NAD NOTED,W LATESHA ONTINUE PLAN OF CARE.
[2018-06-08 08:09] LABS: BASOPHILS 1 % (0-2); LYMPHOCYTES 10 % (15-50); MONOCYTES 12 % (2-11); NEUTROPHILS 70 % (40-80); PLATELET ESTIMATE NORMAL; ROULEAUX OCC
--- NOTE | 2018-06-08 08:53 | NUR ---
NOTIFIED DR. ORELLANA THAT LOVENOX WAS ALREADY GIVEN TODAY BEFORE ORDER TO HOLD WAS PUT IN.
--- NOTE | 2018-06-08 09:40 | NUR ---
CONSENTS SIGNED BY PT AND PLACED ON CHART.
--- NOTE | 2018-06-08 09:41 | MORECARE ---
CASE MANAGEMENT DISCHARGE SUMMARY PATIENT: MARIO MICHELLE UNIT: [id number] ADM DATE: 06/06/18 AGE: 62 : 57 SEX: M ROOM/BED: D.1202 AUTHOR: HECTOR HUNTLEY PHYSICIAN: REFERRING PHYSICIAN: TEJ MASTERSON MD DATE OF SERVICE: 06/08/18 Discharge Plan Patient Name: MARIO MICHELLE [facility] [facility] 1955 Planned Disposition: Anticipated Discharge Date: Discharge Date: Expected LOS: Initial Reviewer: [email or web address] Initial Review Date: 06/08/2018 Generated: 06/08/18 10:41 am Patient Name: MARIO MICHELLE Page [phone] at 0941 All edits/amendments must be made on the electronic document DICTATION DATE: 06/08/18939 PLUMBERS AND TOP HELPERS: SHEREEN 06/08/18939 RPT#: [id number] DC DATE: STATUS: ADM IN [facility] [address] [place] [address] END OF REPORT
--- NOTE | 2018-06-08 09:51 | MORECARE ---
CASE MANAGEMENT DISCHARGE SUMMARY PATIENT: MARIO MICHELLE UNIT: [id number] ADM DATE: 06/06/18 AGE: 62 : 57 SEX: M ROOM/BED: D.1202 AUTHOR: YUKO,DOC PHYSICIAN: REFERRING PHYSICIAN: TEJ MASTERSON MD DATE OF SERVICE: 06/08/18 Discharge Plan Patient Name: MARIO MICHELLE Facility: [facility]:[place] : 1955 Planned Disposition: Anticipated Discharge Date: Discharge Date: Expected LOS: Initial Reviewer: [email or web address] Initial Review Date: 06/08/2018 Generated: 06/08/18 10:51 am Comments DCP- Discharge Planning Updated by [email or web address]: Jennifer Rodriguez on 06/08/18 8:[address] Patient Name: MARIO MICHELLE Admission Status: ER Accout number: [id number] Admission Date: 06-06-2018 : 1955 Admission Diagnosis: Attending: TEJ MASTERSON Current LOS: 2 Anticipated DC Date: Planned Disposition: Primary Insurance: [facility] MED[employer] SOLUTIONS Discharge Planning Comments: CM MET WITH PATIENT AND DONG ABOUT DC PLANNING NEEDS. STATES PLANS TO DC TO HOME. STATES IF NEEDS HH THEN HE WANTS [facility], [facility] SIGNED. ORIGINAL GIVEN TO PATIENT AND COPY PLACED ON THE CHART. PATIENT IS SCHEDULED FOR A LAP FAB TODAY. CM WILL FOLLOW AND ASSIST NEEDED WITH DC PLANNING NEEDS. Float Nurse: Jennifer Rodriguez DCPIA - Discharge Planning Initial Assessment Updated by [email or web address]: Jennifer Rodriguez on 06/08/18 9:43 am * Is the patient Alert and Oriented? Yes * PCP RAMIRO * [facility] [address] * Preadmission Environment Home with Family * ADLs Independent * Equipment Cane CPAP Glucometer Oxygen * List name and contact numbers for known caregivers / representatives who currently or will assist patient after discharge: DONG, , * Verbal permission to speak to the caregivers and representatives has been obtained from the patient. Yes * Community resources currently utilized None * Can the patient safely return to the preadmission environment? Yes * Has this patient been hospitalized within the prior 30 days at any hospital? No Last DP export: 06/08/18 8:41 a Patient Name: MARIO MICHELLE Page 40004 at 0951 All edits/amendments must be made on the electronic document DICTATION DATE: 06/08/18950 DECK OFFICER: SHEREEN 06/08/18950 RPT#: [id number] DC DATE: STATUS: ADM IN [address] [place] [address] END OF REPORT
--- NOTE | 2018-06-08 10:25 | NUR ---
PRE-OP MEDS GIVEN, REGLAN NOT AVAILABLE ON UNIT.
--- NOTE | 2018-06-08 10:34 | NUR ---
PT TRANSFERED TO OR AT THIS TIME.
[2018-06-08] MEDS ORDERED: OXYCODONE HCL5 M1 PO (13:06)
--- NOTE | 2018-06-08 14:02 | NUR ---
CONSULTED DR SIMON REGARDING DECREASED O2 SAT 88% VERBAL ORDERS RECEIVED TO ORDER STAT ABG'S. LASIX 20MG IV, HYDRALAZINE 10MG. WILL CONTINUE TO MINITOR.
--- NOTE | 2018-06-08 15:25 | NUR ---
CONSULTED ANESTHESIA AT 1340 REGARDING PATIENT CONTINUING TRYING TO CLIMB OUT OF THE BED. PATIENT IS VERY CONFUSED AND AGITATED. VERBAL ORDERS RECEIVED FROM DR SIMON TO RESTRAIN PATIENT. WILL CONTINUE TO MONITOR.
--- NOTE | 2018-06-08 15:27 | NUR ---
AT 1348. DR SIMON REVIEWED ABG'S. VERBAL ORDERS RECEIVED TO ADMINISTER CALCIUM CHLORIDE 1GM NOW IN PACU. VERBAL ORDERS RECEIVED TO PLACE PATIENT ON NRB AT 15L/MIN. ORDERS RECEIVED AND IMPLEMENTED. WILL CONTINUE TO MONITOR.
--- NOTE | 2018-06-08 15:32 | NUR ---
REC'D TO ICU. ALL MONITORING EQUIPMENT ATTACHED AND ALARMS SET. DR CAMPOS AT BS.
--- NOTE | 2018-06-08 15:56 | NUR ---
RECONSULTED DR SIMON REGARDING A SPIKE IN BLOOD PRESSURE. 200/104. VERBAL ORDERS RECEIVED FROM DR SIMON TO ADMINISTER LABATELOL 5MG X1 IN PACU NOW. ORDERS RECEIVED AND IMPLEMENTED. WILL CONTINUE TO MONITOR.
--- NOTE | 2018-06-08 15:58 | NUR ---
DR ORELLANA CONSULTED REGARDING RESULTS OF ABG'S. ORDERS RECEIVED FROM DR. ORELLANA TO ADMIT THIS PATIENT TO ICU. WILL CONTINUE TO MONITOR.
--- NOTE | 2018-06-08 16:02 | NUR ---
AT [address] SIMON REGARDING THE PATIENT'S LOC. PATIENT STILL AGITATED AND CONFUSED. VERBAL ORDERS RECEIVED FROM DR. SIMON TO ADMINISTER PHYSOSTIGMINE 1MG X1 IN PACU AND MAY REPEAT X1 IN PACU. ORDERS RECEIVED AND IMPLEMENTED. WILL CONTINUE TO MONITOR.
--- NOTE | 2018-06-08 18:57 | NUR ---
PT VOIDS 600CC IN URINAL. URINE ON LINENS. BATHED AND LINENS CHANGED. PT C/O PAIN. NORCO GIVEN. C/O UNRELEAVED PAIN. MS GIVEN.
--- NOTE | 2018-06-08 19:15 | NUR ---
REC'D TO CARE, ASSEMBLY MACHINE TENDER PER FLOWSHEET. PT AWAKENS EASILY, VSS. ABD INCISIONS NOTED. IVFS INFUSING TO R FA PIV, DSG C/D/I. PT RECENTLY HAD PRN MEDS FOR INCISIONAL PAIN - WILL CONT CLOSE MONITORING.
--- NOTE | 2018-06-08 20:56 | NUR ---
ADMIN PO MEDS PER MD ORDER. PT RESTS FOR SHORT PERIODS AT A TIME, REPORTS "STILL SORE WHEN I MOVE AROUND.".. VOIDED 575ML CLEAR, YELLOW URINE IN URINAL. ALARMS ON AND C/L IN REACH.
--- NOTE | 2018-06-08 21:31 | NUR ---
PT ON C/L, C/O "JUST ANXIOUS AND CAN'T RELAX". ADMIN PRN ATIVAN PER MD ORDER.
--- NOTE | 2018-06-08 22:00 | NUR ---
RESTING QUIETLY WITH EYES CLOSED, NO SIGN OF DISTRESS. ALARMS ON AND C/L IN REACH.
--- NOTE | 2018-06-08 23:53 | NUR ---
REASSESSMENT PER FLOWSHEET, NO ACUTE CHANGES. PT RESTING QUIETLY, VSS. NO SIGN OF DISTRESS.
[2018-06-09] VITALS (20 sets, daily range): BP systolic 118–200; BP diastolic 63–113
--- NOTE | 2018-06-09 01:14 | NUR ---
PT ON C/L. REPOSITIONED UP IN BED, ENCOURAGED TO SPLINT ABD WITH PILLOW. ADMIN PRN NORCO PER PT REQUEST. FRESH WATER AT BS. C/L IN REACH.
--- NOTE | 2018-06-09 03:13 | NUR ---
REASSESSMENT PER FLOWSHEET, PT AWAKENS TO NAME. VSS. PT ASKS "CAN I HAVE MORPHINE". SEE EMAR. PT WITH EXP WHEEZES NOTED. ENCOURAGED DB&C. SPLINTING ABD WITH PILLOW. ALARMS ON AND C/L IN REACH.
[2018-06-09 04:23] LABS: BASOPHILS 0.2 % (0-2); EOSINOPHILS 0.1 % (0-7); HEMATOCRIT 38.9 % (42.0-54.0); IMMATURE GRANULOCYTES 0.3 % (0-5); MCH 31.3 pg (26.0-34.0); MCHC 33.4 g/dL (31.0-37.0); MEAN PLATELET VOLUME 11.3 fL (7.4-10.4); MONOCYTES 11.4 % (2-11); PLATELET COUNT 141 10x3/uL (130-400); RBC 4.15 10x6/uL (4.20-6.10); RDW 13.3 % (11.5-14.5); WBC 17.9 10x3/uL (4.8-10.8)
[2018-06-09 04:24] LABS: MCV 93.7 fL (80.0-100.0)
[2018-06-09 04:33] LABS: ALBUMIN 2.6 g/dL (3.4-5.0); ANION GAP 12.9 mmol/L (8-16); BILIRUBIN - TOTAL 0.74 mg/dL (0.2-1.3); CARBON DIOXIDE 30.2 mmol/L (21.0-32.0); CREATININE - SERUM 1.2 mg/dL (0.6-1.3); POTASSIUM - SERUM 4.1 mmol/L (3.5-5.1); PROTEIN - SERUM 6.5 g/dL (6.4-8.2)
--- NOTE | 2018-06-09 04:38 | NUR ---
UP IN CHAIR. GAIT STEADY. ALARMS ON AND C/L IN REACH.
--- NOTE | 2018-06-09 05:18 | NUR ---
PT REMAINS UP IN CHAIR. ADMIN PRN NORCO PER PT REQUEST.
--- NOTE | 2018-06-09 13:45 | NUR ---
DR CAMPOS HERE. TRANSFER ORDERS RECEIVED.
--- NOTE | 2018-06-09 18:25 | NUR ---
PT ARRIVES TO ROOM FROM ICU. FAMILY IS AT BEDSIDE. LAP SITES X 4 TO ABDOMEN. VSS. LR RUNNING TO PIV TO RIGHT FOREARM AT 100. ABDOMEN IS DISTENDED. PT REPORTS THAT HE HAS BEED FLATULENT " A LITTLE BIT". LAST BM REPORTED 3 DAYS AGO. PT DENIES PRESENCE OF N/V AND REPORTS SLIGHT PAIN BUT DENIES NEEDS AT THIS TIME. BED IS IN THE LOWEST POSITION. CALL LIGHT AND BEDSIDE TABLE ARE WITHIN REACH. PT AND PT FAMILY DENIES NEEDS. WILL CONT TO MONITOR.
--- NOTE | 2018-06-09 20:30 | NUR ---
AWAKE,ALERT.NO COMPLAITS VOICED. IV TO RFA WITHOUT REDNESS OR EDEMA NOTED. LAP SITE TO ABD WITH STERI STRIPS INTACT. CL IN REACH. AT BEDSIDE.
--- NOTE | 2018-06-10 02:44 | NUR ---
RESTING QUITELY IN BED NO APPARENT DISTRESS, CALL LIGHT IN REACH
[2018-06-10 04:48] VITALS: BP 138/84
[2018-06-10 06:18] LABS: BASOPHILS 0.1 % (0-2); EOSINOPHILS 1.3 % (0-7); HEMATOCRIT 33.4 % (42.0-54.0); IMMATURE GRANULOCYTES 0.3 % (0-5); MCH 30.9 pg (26.0-34.0); MCHC 32.9 g/dL (31.0-37.0); MCV 93.8 fL (80.0-100.0); MEAN PLATELET VOLUME 11.3 fL (7.4-10.4); MONOCYTES 10.4 % (2-11); NEUTROPHILS 74.9 % (40-80); PLATELET COUNT 129 10x3/uL (130-400); RBC 3.56 10x6/uL (4.20-6.10); WBC 15.9 10x3/uL (4.8-10.8)
[2018-06-10 06:22] LABS: INR 1.38 (0.85-1.17); PROTIME 16.4 SECONDS (11.6-15.0)
[2018-06-10 06:33] LABS: ALBUMIN 2.5 g/dL (3.4-5.0); ALKALINE PHOSPHATASE 65 U/L (46-116); ALT (SGPT) 62 U/L (10-68); CALCIUM 7.5 mg/dL (8.5-10.1); CARBON DIOXIDE 30.9 mmol/L (21.0-32.0); CHLORIDE - SERUM 101 mmol/L (98-107); CREATININE - SERUM 0.9 mg/dL (0.6-1.3); LIPASE 269 U/L (73-393); POTASSIUM - SERUM 3.7 mmol/L (3.5-5.1); PROTEIN - SERUM 5.6 g/dL (6.4-8.2); SODIUM 140 mmol/L (136-145); UREA NITROGEN 15 mg/dL (7-18); eGFR NON AFRICAN AMERICAN > 90 mL/min (90-120)
[2018-06-10 06:34] LABS: AMYLASE - SERUM 44 U/L (25-115); CALC OSMOLALITY 284 mosm/kg (275-300); GLUCOSE 188 mg/dL (74-106)
--- NOTE | 2018-06-10 08:10 | NUR ---
PT SITTING UP IN BED WATCHING TV. AAOX4. CO OF PAIN. MEDS GIVEN PER MD ORDER. NO S/S OF ACUTE DISTRESS. AT BEDSIDE. CL IN PLACE.
--- NOTE | 2018-06-10 08:42 | NUR ---
NUTRITION F/U PT TOLERATING REG DIET THIS AM. PT REPORTS RESIDENTIAL COUMADIN USE. NO QUESTIONS AT THIS TIME. RD FOLLOWING
[2018-06-10 09:00] VITALS: BP 145/81
[2018-06-10 13:56] VITALS: BP 159/82
[2018-06-10 17:12] VITALS: BP 144/90
--- NOTE | 2018-06-10 19:00 | NUR ---
PT RESTING IN BED. AT BEDSIDE. NO S/S OF ACUTE DISTRESS. CL IN PLACE.
--- NOTE | 2018-06-10 20:30 | NUR ---
WATCHING TV QUIELTY. NO DISTRESS NOTED. O2 @ 2L PER NC ON. RESP UNLABORED. LAP SITE INCISIONS TO ABD WITH STERI STRIPS INTACT. NO DRAINAGE NOTED.IV TO RFA WIHTOUT REDNESS OR EDEMA NOTED. CL IN REACH. AT BEDSIDE.
--- NOTE | 2018-06-10 23:15 | NUR ---
PATIENT RESTING WITH APENEA AND WHEEZING NOTED. STATES PATIENT WEARS CPAP AT HOME AND USES UPDRAFTS. CALL PLACED TO DIGITAL COMMUNICATIONS MANAGER WITH ORDERS RECEIVED.FOR CPAP AND UPDRAFT TREATMENTS. RESPIRATORY NOTIFIED.
--- NOTE | 2018-06-11 00:10 | NUR ---
RESIPATORY HERE.PATIENT PLACED ON CPAP AND UPDRAFT TREATMENT GIVEN. PATIENT BREATHING EASIER AT THIS TIME. SPO2 @ 98%.CL IN REACH
[2018-06-11 04:00] VITALS: BP 157/85
--- NOTE | 2018-06-11 05:34 | NUR ---
PT IN BED IN LOW FOWLERS POSITION. ALERT AND ORIENTED X4. VITAL SIGNS STABLE AND AFEBRILE. NO VISUAL CUES OF DISTRESS NOTED. DENIES ANY OTHER NEEDS AT THIS TIME. BED LOW, SIDE RAILS UP X2. CALL LIGHT IN REACH. WILL CONTINUE TO MONITOR.
[2018-06-11 05:51] LABS: BASOPHILS 0.2 % (0-2); EOSINOPHILS 1.5 % (0-7); HEMATOCRIT 33.7 % (42.0-54.0); HEMOGLOBIN 11.2 g/dL (13.5-17.5); IMMATURE GRANULOCYTES 0.6 % (0-5); LYMPHOCYTES 13.9 % (15-50); MCHC 33.2 g/dL (31.0-37.0); MCV 93.4 fL (80.0-100.0); MEAN PLATELET VOLUME 11.8 fL (7.4-10.4); MONOCYTES 11.9 % (2-11); NEUTROPHILS 71.9 % (40-80); PLATELET COUNT 141 10x3/uL (130-400); RBC 3.61 10x6/uL (4.20-6.10); RDW 12.8 % (11.5-14.5); WBC 18.3 10x3/uL (4.8-10.8)
[2018-06-11 06:23] LABS: ALBUMIN 2.4 g/dL (3.4-5.0); ALKALINE PHOSPHATASE 83 U/L (46-116); ALT (SGPT) 52 U/L (10-68); BILIRUBIN - TOTAL 0.52 mg/dL (0.2-1.3); CALC OSMOLALITY 283 mosm/kg (275-300); CALCIUM 7.8 mg/dL (8.5-10.1); CARBON DIOXIDE 28.6 mmol/L (21.0-32.0); CHLORIDE - SERUM 102 mmol/L (98-107); CREATININE - SERUM 0.8 mg/dL (0.6-1.3); GLUCOSE 162 mg/dL (74-106); LIPASE 234 U/L (73-393); POTASSIUM - SERUM 3.3 mmol/L (3.5-5.1); PROTEIN - SERUM 6.3 g/dL (6.4-8.2); SODIUM 140 mmol/L (136-145); UREA NITROGEN 15 mg/dL (7-18); eGFR NON AFRICAN AMERICAN > 90 mL/min (90-120)
[2018-06-11 06:27] LABS: AMYLASE - SERUM 24 U/L (25-115)
[2018-06-11 08:38] VITALS: BP 149/78
--- NOTE | 2018-06-11 08:47 | NUR ---
PT RESTING IN BED. NO S/S OF ACUTE DISTRESS. AT BEDSIDE. CL IN PLACE.
[2018-06-11 08:59] LABS: INR 1.99 (0.85-1.17); PROTIME 21.9 SECONDS (11.6-15.0)
[2018-06-11 16:30] VITALS: BP 184/92
--- NOTE | 2018-06-11 18:25 | NUR ---
PT RESTING IN BED. CO OF PAIN. AT BEDSIDE. PAIN MEDS TO BE GIVEN BY MD ORDER. NO S/S OF ACUTE DISTRESS. CL IN PLACE.
--- NOTE | 2018-06-11 18:36 | NUR ---
WENT TO GIVE PT PAINS MEDS. PT AND RESTING. CHEST RISING AND FALLING. NO S/S OF ACUTE DISTRESS. CL IN PLACE.
--- NOTE | 2018-06-11 19:00 | NUR ---
BEDSIDE REPORT RECEIVED AND CARE OF PT ASSUMED. PT LYING IN MID [place]ARRIS'S POSITION WITH BIPAP ON AND EYES CLOSED. IS AT BEDSIDE. IV IN LEFT WRIST PATENT WITH NS INFSUING AT O. WILL MONITOR FOR NEEDS.
[2018-06-11 20:00] VITALS: BP 162/79
--- NOTE | 2018-06-11 20:53 | NUR ---
HS MEDICATIONS GIVEN TO INCLUDE NORCO PO PER REQUEST FOR PAIN. FSBS 241 THIS CHECK REQUIRING COVERAGE WITH 4 UNITS OF INSULIN PER SLIDING SCALE. PT DECLINED HS SNACK. IS AT BEDSIDE.
[2018-06-12] VITALS: BP 129/71
[2018-06-12 04:59] LABS: INR 2.87 (0.85-1.17); PROTIME 29.3 SECONDS (11.6-15.0)
[2018-06-12 05:02] LABS: BASOPHILS 0.3 % (0-2); EOSINOPHILS 2.2 % (0-7); HEMATOCRIT 32.1 % (42.0-54.0); HEMOGLOBIN 10.7 g/dL (13.5-17.5); IMMATURE GRANULOCYTES 1.4 % (0-5); LYMPHOCYTES 16.9 % (15-50); MCH 31.5 pg (26.0-34.0); MCHC 33.3 g/dL (31.0-37.0); MCV 94.4 fL (80.0-100.0); MEAN PLATELET VOLUME 11.5 fL (7.4-10.4); MONOCYTES 14.2 % (2-11); PLATELET COUNT 155 10x3/uL (130-400); RDW 13.1 % (11.5-14.5); WBC 14.8 10x3/uL (4.8-10.8)
[2018-06-12 05:16] LABS: ALBUMIN 2.2 g/dL (3.4-5.0); ALKALINE PHOSPHATASE 87 U/L (46-116); ALT (SGPT) 51 U/L (10-68); AMYLASE - SERUM 25 U/L (25-115); BILIRUBIN - TOTAL 0.29 mg/dL (0.2-1.3); CALC OSMOLALITY 286 mosm/kg (275-300); CALCIUM 7.9 mg/dL (8.5-10.1); CARBON DIOXIDE 30.1 mmol/L (21.0-32.0); CHLORIDE - SERUM 101 mmol/L (98-107); GLUCOSE 217 mg/dL (74-106); LIPASE 426 U/L (73-393); POTASSIUM - SERUM 3.9 mmol/L (3.5-5.1); PROTEIN - SERUM 6.3 g/dL (6.4-8.2); SODIUM 140 mmol/L (136-145); UREA NITROGEN 14 mg/dL (7-18); eGFR NON AFRICAN AMERICAN 81 mL/min (90-120)
--- NOTE | 2018-06-12 05:27 | NUR ---
COLLECTED URINE FOR ORDERED STUDIES AND DELIVERED TO LAB.
[2018-06-12 05:41] LABS: APPEARANCE CLEAR (CLEAR); COLOR YELLOW (YELLOW); SPECIFIC GRAVITY 1.015 (1.005-1.020)
[2018-06-12 05:42] LABS: BILIRUBIN NEGATIVE (NEGATIVE); GLUCOSE 500 mg/dL (NEGATIVE); KETONE NEGATIVE (NEGATIVE); NITRITE NEGATIVE (NEGATIVE); PROTEIN NEGATIVE (NEGATIVE); UROBILINOGEN NORMAL (NORMAL)
[2018-06-12 10:04] VITALS: BP 134/78
[2018-06-12 14:49] VITALS: BP 132/73
[2018-06-12 17:36] VITALS: BP 143/73
--- NOTE | 2018-06-12 19:00 | NUR ---
BEDSIDE REPORT RECEIVED AND CARE OF PT ASSUMED. PT LYING IN SEMI FOWELR'S POSITION VISITING WITH SPOUSE. IV IN LEFT WIRST SALINE LOCKED. O2 IN USE VIA NC AT 2L. WILL MONITOR FOR NEEDS.
[2018-06-12 20:00] VITALS: BP 158/81
--- NOTE | 2018-06-12 20:00 | NUR ---
GAVE SCHEDULED ATIVAN 2 MG PO AND PRN OXY IR 5 MG PER REQUEST. WILL MONITOR FOR EFFECTIVENESS.
--- NOTE | 2018-06-12 22:11 | NUR ---
HS MEDICATIONS GIVEN TO INCLUDE PRN ZANAFLEX. WILL CONTINUE TO MONITOR FOR NEEDS.
[2018-06-13] VITALS: BP 98/58
[2018-06-13 04:00] VITALS: BP 113/72
[2018-06-13 07:34] LABS: CALC OSMOLALITY 281 mosm/kg (275-300); CHLORIDE - SERUM 100 mmol/L (98-107); CREATININE - SERUM 0.9 mg/dL (0.6-1.3); GLUCOSE 209 mg/dL (74-106); POTASSIUM - SERUM 3.6 mmol/L (3.5-5.1); SODIUM 138 mmol/L (136-145); UREA NITROGEN 12 mg/dL (7-18); eGFR NON AFRICAN AMERICAN > 90 mL/min (90-120)
[2018-06-13 07:36] LABS: BASOPHILS 0.2 % (0-2); EOSINOPHILS 2.7 % (0-7); HEMATOCRIT 30.7 % (42.0-54.0); HEMOGLOBIN 10.2 g/dL (13.5-17.5); IMMATURE GRANULOCYTES 1.5 % (0-5); LYMPHOCYTES 18.6 % (15-50); MCH 30.6 pg (26.0-34.0); MCHC 33.2 g/dL (31.0-37.0); MEAN PLATELET VOLUME 11.7 fL (7.4-10.4); MONOCYTES 12.5 % (2-11); NEUTROPHILS 64.5 % (40-80); PLATELET COUNT 161 10x3/uL (130-400); PROTIME 35.1 SECONDS (11.6-15.0); RBC 3.33 10x6/uL (4.20-6.10); RDW 12.8 % (11.5-14.5); WBC 12.4 10x3/uL (4.8-10.8)
[2018-06-13 07:38] LABS: MCV 92.2 fL (80.0-100.0)
[2018-06-13 07:39] LABS: INR 3.59 (0.85-1.17)
--- NOTE | 2018-06-13 08:07 | NUR ---
CALLED INTO ROOM THIS AM BY PT'S FAMILY. PT VOICED THAT HIS ABDOMEN WAS HURTING LIKE IT DID WHEN HE WAS FIRST ADMITTED TO THE MED/SURG UNIT. PT MEDICATED WITH PAIN MEDICATION PER EMAR ORDER. C/O LEFT ABDOMINAL PAIN, CRISTINA BYRD CONSULTED ON THAT MATTER. VOICED THAT WE WILL CONSULT DR. FUNES ON THE MATTER AND SEE WHAT HE WISHES TO DO. RESPIRATIONS EVEN AND UNLABORED, NO S/S OF DISTRESS NOTED. ABDOMEN SOFT, SLIGHTLY TENDER ON LEFT SIDE. LAP SITES X4, CDI. DENIES FURTHER NEEDS. BED LOW AND LOCKED, SR UP X2, CL IN EASY REACH. WILL CONTINUE TO MONITOR.
[2018-06-13 10:58] VITALS: BP 165/85
[2018-06-13 14:18] VITALS: BP 117/68
[2018-06-13 17:57] VITALS: BP 138/77
--- NOTE | 2018-06-13 18:30 | NUR ---
PT STATES THAT HIS ABDOMINAL PAIN IS FEELING A LOT BETTER THIS PM. HE RATED IT AT A 2 OUT OF 10 ON A NUMERICAL SCALE. CL IN EASY REACH.
[2018-06-13 20:00] VITALS: BP 122/70
[2018-06-14] VITALS: BP 117/64
--- NOTE | 2018-06-14 03:55 | NUR ---
PT WAS AMBULATING TO THE BATHROOM WITH ASSISTING AND LOST HIS BALANCE AND FELL, HITTING HIS HEAD ON A WOODEN CHAIR LEG. HE HAS A 1/2 INCH LACERATION ON HIS LEFT OUTER EYEBROW. CITY ROUTE DRIVER NOTIFIED. FAMILY AT BEDSIDE. DR OLMOS NOTIFIED. FALL PRECAUTIONS INITIATED...GRIPPER SOCKS PLACED, PT HAD REMOVED AND PUT HIS OWN SOCKS ON PER . YELLOW GOWN PLACED ON PT, YELLOW STAR PLACED ON DOOR AND BED ALARM ACTTVATED. VITALS STABLE. PT ALERT AND ORIENTED.
[2018-06-14 04:00] VITALS: BP 136/80
--- NOTE | 2018-06-14 04:00 | NUR ---
PLACED STERI STRIPS ON 1/2 INCH LACERATION ON LEFT OUTER EYEBROW.
[2018-06-14 05:18] LABS: BASOPHILS 0.2 % (0-2); EOSINOPHILS 1.8 % (0-7); HEMATOCRIT 31.4 % (42.0-54.0); HEMOGLOBIN 10.5 g/dL (13.5-17.5); IMMATURE GRANULOCYTES 1.4 % (0-5); LYMPHOCYTES 11.9 % (15-50); MCH 31.1 pg (26.0-34.0); MCHC 33.4 g/dL (31.0-37.0); MCV 92.9 fL (80.0-100.0); MEAN PLATELET VOLUME 11.7 fL (7.4-10.4); MONOCYTES 11.8 % (2-11); NEUTROPHILS 72.9 % (40-80); RBC 3.38 10x6/uL (4.20-6.10); RDW 12.8 % (11.5-14.5); WBC 15.2 10x3/uL (4.8-10.8)
[2018-06-14 05:19] LABS: PLATELET COUNT 206 10x3/uL (130-400)
[2018-06-14 05:24] LABS: CALC OSMOLALITY 277 mosm/kg (275-300); CALCIUM 7.9 mg/dL (8.5-10.1); CARBON DIOXIDE 28.7 mmol/L (21.0-32.0); CHLORIDE - SERUM 98 mmol/L (98-107); GLUCOSE 180 mg/dL (74-106); LIPASE 515 U/L (73-393); POTASSIUM - SERUM 4.1 mmol/L (3.5-5.1); SODIUM 136 mmol/L (136-145); UREA NITROGEN 14 mg/dL (7-18); eGFR NON AFRICAN AMERICAN 81 mL/min (90-120)
--- NOTE | 2018-06-14 05:48 | NUR ---
ASSISTED PT TO USE RESTROOM...HE REFUSES TO USE URINAL. HE IS VERY UNSTABLE AND ACTING DRUGGED. HELD SCHEDULED 0600 ATIVAN AFTER DISCUSSING WITH SPOUSE....WILL HOLD FURTHER NARCOTICS TILL HE SEES THIS MORNING. SIDE RAILS UP X3 AND BED ALARM IN USE FOR SAFETY.
[2018-06-14 05:49] LABS: INR 3.45 (0.85-1.17); PROTIME 33.9 SECONDS (11.6-15.0)
--- NOTE | 2018-06-14 07:30 | NUR ---
PATIENT IN BED WITH IV INTACT. NO COMPLAINTS OR SIGNS OF DISTRESS. EYES CLOSED RESTING QUIETLY. CALL LIGHT WITHIN REACH.
--- NOTE | 2018-06-14 07:42 | NUR ---
PT LAYING IN BED RESTING WITH EYES CLOSED, AT BEDSIDE SLEEPING. PT AWOKEN EASILY TO VERBAL STIMULI. RESPIRATIONS SHALLOW, UNLABORED. NO S/S OF DISTRESS NOTED. O2 NOTED @ 2L, WEARS BIPAP AT NIGHT. STERI STRIP TO LEFT EYE BROW. CONSULTED CRISTINA BYRD ABOUT REPORTED FALL LAST PM. PT'S SPEECH IS A BIT GARBLED, POSSIBLY DUE TO NOT HAVING DENTURES IN. ABDOMEN SOFT AND TENDER IN LEFT UPPER QUAD. LAP SITES X4 NOTED, CDI. C/O PAIN IN LEFT UPPER QUAD. DENIES NEEDS AT THIS TIME. BED LOW AND LOCKED, SR UP X2, CL IN EASY REACH.
[2018-06-14 09:27] VITALS: BP 136/71
[2018-06-14 13:20] VITALS: BP 128/77
--- NOTE | 2018-06-14 16:26 | NUR ---
CALLED INTO ROOM BY PT. ASSISTED PT TO BATHROOM. VOICES THAT HE IS NOT FEELING WELL AND THAT HE MAY BE HAVING A STROKE. CRISTINA BYRD INFORMED OF THIS, DR. CAMPOS CALLED INTO ROOM TO CHECK ON PT. CT OF HEAD TO BE DONE PER ORDER FROM DR. CAMPOS. DENIES FURTHER NEEDS. ASSISTED BACK TO BED, CL IN EASY REACH.
[2018-06-14 17:02] VITALS: BP 132/70
--- NOTE | 2018-06-14 18:18 | NUR ---
PT REQUESTING PAIN MEDICATION AT THIS TIME FOR REPORTS OF PAIN IN ABDOMEN, HOLDING NARCOTICS AND SEDATIVES UNTIL CT SCAN OF HEAD AND SPINE. PT VERBALIZES UNDERSTANDING. CL IN EASY REACH.
[2018-06-14 19:00] VITALS: BP 165/84
[2018-06-15] VITALS: BP 148/76
[2018-06-15 03:00] VITALS: BP 151/63
--- NOTE | 2018-06-15 06:17 | NUR ---
GAVE PT OXY IR 5 MG PER REQUEST FOR PAIN. WILL MONITOR FOR EFFECTIVENESS.
--- NOTE | 2018-06-15 06:30 | NUR ---
SPOUSE WANTS PT TO WORK WITH PATIENT.
[2018-06-15 06:43] LABS: INR 3.35 (0.85-1.17); PROTIME 33.2 SECONDS (11.6-15.0)
[2018-06-15 06:58] LABS: CALC OSMOLALITY 281 mosm/kg (275-300); CALCIUM 8.2 mg/dL (8.5-10.1); CARBON DIOXIDE 28.5 mmol/L (21.0-32.0); CHLORIDE - SERUM 101 mmol/L (98-107); CREATININE - SERUM 0.8 mg/dL (0.6-1.3); GLUCOSE 200 mg/dL (74-106); LIPASE 522 U/L (73-393); POTASSIUM - SERUM 3.7 mmol/L (3.5-5.1); SODIUM 138 mmol/L (136-145); UREA NITROGEN 12 mg/dL (7-18); eGFR NON AFRICAN AMERICAN > 90 mL/min (90-120)
--- NOTE | 2018-06-15 07:15 | NUR ---
MORNING ASSESSMENT COMPLETE. SEE ASSESSMENT JESSICA FOR FURTHER DEAITLS. PT LYING IN BED AAO X4 TO PEROSN, PLACE, TIME AND SITUATION. AT BEDISIDE. DENIES NEEDS AT THSI TIME. CL IN REACH
[2018-06-15 08:07] VITALS: BP 139/75
[2018-06-15 08:10] LABS: BASOPHILS 0.2 % (0-2); EOSINOPHILS 1.3 % (0-7); HEMATOCRIT 30.3 % (42.0-54.0); HEMOGLOBIN 10.1 g/dL (13.5-17.5); LYMPHOCYTES 10.8 % (15-50); MCH 30.9 pg (26.0-34.0); MCHC 33.3 g/dL (31.0-37.0); MCV 92.7 fL (80.0-100.0); MONOCYTES 7.6 % (2-11); NEUTROPHILS 79.1 % (40-80); PLATELET COUNT 235 10x3/uL (130-400); RBC 3.27 10x6/uL (4.20-6.10); RDW 12.7 % (11.5-14.5); WBC 15.7 10x3/uL (4.8-10.8)
--- NOTE | 2018-06-15 10:55 | NUR ---
PT C/O BURNING AT IV SITE. REPLACE PIV TO R WRIST- 22 G X1 ATTEMPT. FLUSHES WELL. PT TOLERATED WELL
[2018-06-15 12:11] VITALS: BP 146/78
--- NOTE | 2018-06-15 17:01 | NUR ---
OT NOTE: PT COMPLETED BED MOB WITH SBA. PT COMPLETED SITTING BALANCE WITH SBA. PT COMPLETED SIT TO STAND WITH MIN A. THANK YOU, GABRIELA FALK
[2018-06-15 17:09] VITALS: BP 152/72
[2018-06-15 17:52] VITALS: Ht 182.9 cm; Wt 116.7 kg
[2018-06-15 20:42] VITALS: BP 152/71
[2018-06-16 03:30] VITALS: BP 144/80
[2018-06-16 05:10] LABS: INR 2.85 (0.85-1.17); PROTIME 29.2 SECONDS (11.6-15.0)
[2018-06-16 05:16] LABS: BASOPHILS 0.2 % (0-2); HEMATOCRIT 31.5 % (42.0-54.0); HEMOGLOBIN 10.6 g/dL (13.5-17.5); IMMATURE GRANULOCYTES 0.7 % (0-5); LYMPHOCYTES 8.3 % (15-50); MCHC 33.7 g/dL (31.0-37.0); MCV 92.1 fL (80.0-100.0); MEAN PLATELET VOLUME 11.6 fL (7.4-10.4); MONOCYTES 8.2 % (2-11); NEUTROPHILS 81.6 % (40-80); RBC 3.42 10x6/uL (4.20-6.10); RDW 12.7 % (11.5-14.5); WBC 19.6 10x3/uL (4.8-10.8)
[2018-06-16 05:19] LABS: CALC OSMOLALITY 279 mosm/kg (275-300); CALCIUM 7.8 mg/dL (8.5-10.1); CARBON DIOXIDE 29.1 mmol/L (21.0-32.0); CHLORIDE - SERUM 101 mmol/L (98-107); CREATININE - SERUM 0.8 mg/dL (0.6-1.3); GLUCOSE 194 mg/dL (74-106); POTASSIUM - SERUM 3.8 mmol/L (3.5-5.1); SODIUM 138 mmol/L (136-145); UREA NITROGEN 10 mg/dL (7-18); eGFR NON AFRICAN AMERICAN > 90 mL/min (90-120)
[2018-06-16 05:21] LABS: PLATELET COUNT 312 10x3/uL (130-400)
--- NOTE | 2018-06-16 07:15 | NUR ---
MORNING ASSESSMENT COMPLETE. SEE ASSESSMENT FLWOSHEET FOR FURTHER DETAILS. PT LYING IN BED AAO X4 TO PERSON, PLACE, TIME, AND SITUATION. DENIES NEEDS AT THIS TIME. CL IN REACH. SIDE RAILS UP X3 FOR PATIENT SAFETY
[2018-06-16 08:39] VITALS: BP 144/51
[2018-06-16 10:24] LABS: AMYLASE - SERUM 18 U/L (25-115); LIPASE 366 U/L (73-393)
[2018-06-16 12:13] VITALS: BP 147/82
--- NOTE | 2018-06-16 12:14 | NUR ---
NUTRITION F//U PT CURRENTLY NPO. PROCALAMINE @ 100 CC/HR. WILL PROVIDE DIET WHEN RESUMED, MONITOR PO INTAKE. RD FOLLOWING
[2018-06-16 14:36] LABS: INR 2.39 (0.85-1.17); PROTIME 25.4 SECONDS (11.6-15.0)
--- NOTE | 2018-06-16 15:10 | NUR ---
OT NOTE: PERFORMED L UE AROM EXS, GROSS MOTOR STRENGTHENING EXS WITH L HAND; BED MOB WITH MIN ASSIST; AMB WITH MIN ASSIST X 2 , 02, IV, AND ROLLING WALKER. REQUIRED ASSIST MAINTAINING L HAND ON WALKER. AMB APPROX 75-100 FT. UE DRESSING WITH MIN ASSIST; DONNING SOCKS WITH MOD ASSIST. FREQ REMINDERS TO WHY PT IS HAVING CHEST PAIN. GREGORY MIRAMONTES, OTR/L
[2018-06-16 15:55] VITALS: BP 148/76
--- NOTE | 2018-06-16 17:51 | NUR ---
OT NOTE: PT COMPLETED STANDING BALANCE WITH CGA/MIN A. PT COMPLETED BED MOB WITH CGA. PT COMPLETED GROOMING TASKS AT EOB WITH SET UP. THANK YOU, GABRIELA FALK
[2018-06-16 19:31] LABS: CKMB 0.6 U/L (0.0-3.6); CREATINE KINASE 54 UL (21-232); TROPONIN-I 0.018 ng/mL (0.000-0.060)
[2018-06-16 23:53] LABS: CKMB 0.5 U/L (0.0-3.6); CREATINE KINASE 50 UL (21-232); TROPONIN-I 0.017 ng/mL (0.000-0.060)
[2018-06-17 04:00] VITALS: BP 140/78
[2018-06-17 06:15] LABS: INR 2.33 (0.85-1.17); PROTIME 24.9 SECONDS (11.6-15.0)
[2018-06-17 06:36] LABS: BASOPHILS 0.2 % (0-2); EOSINOPHILS 0.9 % (0-7); HEMOGLOBIN 9.7 g/dL (13.5-17.5); IMMATURE GRANULOCYTES 0.7 % (0-5); LYMPHOCYTES 9.1 % (15-50); MCH 30.9 pg (26.0-34.0); MCHC 33.4 g/dL (31.0-37.0); MCV 92.4 fL (80.0-100.0); MEAN PLATELET VOLUME 11.2 fL (7.4-10.4); MONOCYTES 8.8 % (2-11); NEUTROPHILS 80.3 % (40-80); PLATELET COUNT 335 10x3/uL (130-400); RBC 3.14 10x6/uL (4.20-6.10); RDW 12.9 % (11.5-14.5); WBC 19.6 10x3/uL (4.8-10.8)
[2018-06-17 06:44] LABS: CALC OSMOLALITY 279 mosm/kg (275-300); CARBON DIOXIDE 25.9 mmol/L (21.0-32.0); CHLORIDE - SERUM 100 mmol/L (98-107); CHOL - HDL RATIO 6.7 ratio (2.3-4.9); CHOLESTEROL, TOTAL 113 mg/dL (0-200); CKMB 0.6 U/L (0.0-3.6); CREATINE KINASE 41 UL (21-232); CREATININE - SERUM 0.8 mg/dL (0.6-1.3); GLUCOSE 158 mg/dL (74-106); HDL CHOLESTEROL 17 mg/dL (32-96); LDL CHOLESTEROL 66 mg/dL (0-100); LDL-HDL RATIO 3.9 ratio (1.5-3.5); LIPASE 463 U/L (73-393); POTASSIUM - SERUM 3.5 mmol/L (3.5-5.1); SODIUM 139 mmol/L (136-145); TRIGLYCERIDE 153 mg/dL (30-200); TROPONIN-I 0.019 ng/mL (0.000-0.060); UREA NITROGEN 10 mg/dL (7-18); eGFR NON AFRICAN AMERICAN > 90 mL/min (90-120)
[2018-06-17 06:45] LABS: AMYLASE - SERUM 28 U/L (25-115)
[2018-06-17 08:27] VITALS: BP 160/81
[2018-06-17 08:33] LABS: ALBUMIN 1.9 g/dL (3.4-5.0); BILIRUBIN - DIRECT 0.13 mg/dL (0.00-0.30); BILIRUBIN - INDIRECT 0.28 mg/dL (0.00-1.00); BILIRUBIN - TOTAL 0.41 mg/dL (0.2-1.3); PROTEIN - SERUM 6.2 g/dL (6.4-8.2)
[2018-06-17 12:53] VITALS: BP 142/79
[2018-06-17 15:47] VITALS: BP 142/79
--- NOTE | 2018-06-17 16:41 | NUR ---
OT NOTE: PT DOING BETTER TODAY. PERFORMED EXTENSIVE NEURO RE ED WITH L UE, ALONG WITH TRUNK STRENGTHENING AND SITTING BALANCE ACT. AROM EXS WITH L UE AND L HAND. TRANSFERS WITH CGA; BED MOB WITH MIN ASSIST ; SAFETY AWARENESS EDUCATION TO PREVENT FALLS. PROVIDED BED ALARM, HAD RETURNED HOME. IN ROOM AMB WITH ASSIST FOR BALANCE AND SAFETY. GREGORY MIRAMONTES, OTR/L
--- NOTE | 2018-06-17 17:23 | NUR ---
OT NOTE: PT COMPLETED LUE AROM AXS. PT COMPLETED SITTING BALANCE AT EOB WITH SBA. PT COMPLETED RUE AROM EXS. THANK YOU, GABRIELA FALK
[2018-06-17 20:00] VITALS: BP 150/84
--- NOTE | 2018-06-17 20:00 | NUR ---
ALERT RESTING IN BED NO APPARENT DISTRESS, AT BEDSIDE ASSISTING WITH BATH IV INFUSING WITHOUT DIFFICULTY, DENIES NEEDS AT THIS TIME
[2018-06-18 04:00] VITALS: BP 154/81
[2018-06-18 05:22] LABS: PROTIME 29.4 SECONDS (11.6-15.0)
[2018-06-18 05:26] LABS: INR 2.88 (0.85-1.17)
[2018-06-18 05:33] LABS: BASOPHILS 0.2 % (0-2); EOSINOPHILS 1.3 % (0-7); HEMATOCRIT 28.5 % (42.0-54.0); HEMOGLOBIN 9.3 g/dL (13.5-17.5); IMMATURE GRANULOCYTES 0.7 % (0-5); LYMPHOCYTES 9.9 % (15-50); MCH 30.5 pg (26.0-34.0); MCHC 32.6 g/dL (31.0-37.0); MCV 93.4 fL (80.0-100.0); MEAN PLATELET VOLUME 11.1 fL (7.4-10.4); MONOCYTES 8.4 % (2-11); NEUTROPHILS 79.5 % (40-80); PLATELET COUNT 372 10x3/uL (130-400); RBC 3.05 10x6/uL (4.20-6.10); RDW 13.1 % (11.5-14.5); WBC 17.6 10x3/uL (4.8-10.8)
[2018-06-18 05:45] LABS: ALBUMIN 1.8 g/dL (3.4-5.0); ALKALINE PHOSPHATASE 94 U/L (46-116); ALT (SGPT) 26 U/L (10-68); AMYLASE - SERUM 35 U/L (25-115); BILIRUBIN - TOTAL 0.38 mg/dL (0.2-1.3); CALC OSMOLALITY 276 mosm/kg (275-300); CARBON DIOXIDE 27.9 mmol/L (21.0-32.0); CHLORIDE - SERUM 100 mmol/L (98-107); CREATININE - SERUM 0.7 mg/dL (0.6-1.3); GLUCOSE 175 mg/dL (74-106); LIPASE 615 U/L (73-393); POTASSIUM - SERUM 3.8 mmol/L (3.5-5.1); PROTEIN - SERUM 6.3 g/dL (6.4-8.2); SODIUM 137 mmol/L (136-145); UREA NITROGEN 11 mg/dL (7-18); eGFR NON AFRICAN AMERICAN > 90 mL/min (90-120)
--- NOTE | 2018-06-18 08:15 | NUR ---
PATIENT IN BED WITH EYES CLOSED RESTING QUIETLY. NO COMPLAINTS OR SIGNS OF DISTRESS. FAMILY AT BEDSIDE. CALL LIGHT WITHIN REACH.
[2018-06-18 08:55] VITALS: BP 149/73
--- NOTE | 2018-06-18 12:50 | NUR ---
PATIENT SITTING UP IN CHAIR WITH NO COMPLAINTS AT THIS TIME. FAMILY AT BEDSIDE. CALL LIGHT WITHIN REACH.
[2018-06-18 14:11] VITALS: BP 156/89
--- NOTE | 2018-06-18 14:19 | NUR ---
OT NOTE: PT DOING VERY WELL. PERFORMED BED MOB WITHOUT ASSIST. REPORTED SITTING UP IN CHAIR LAST NIGHT FOR SEVERAL HOURS. PT ABLE TO AMB THROUGHOUT HALLWAY WITH RW, IV POLE, AND MIN ASSIST. ABLE TO GET BACK IN BED WITH MIN ASSIST. EMPTIED CATHETER AND PROVIDED CLEAN LINENS. ATTEMPTED TO SEE PT IN PM, HOWEVER, HE WAS JUST MEDICATED HE WAS ABOUT TO GET DRESSING CHANGE PERFORMED GREGORY MIRAMONTES, OTR/L
[2018-06-18 17:11] VITALS: BP 142/71
--- NOTE | 2018-06-18 18:45 | NUR ---
PATIENT IN BED WITH EYES CLOSED RESTING QUIETLY. NOC OMPLAINTS OR SIGNS OF DISTRESS. FAMILY AT BEDSIDE. CALL LIGHT JENIFFER PUCKETT.
--- NOTE | 2018-06-18 19:30 | NUR ---
ALERT RESTING IN BED C/O BACK PAIN AND UNABLE TO GET COMFORTABLE REQESTING HYDROCODONE GIVEN, ALSO SCHEDULED ATIVAN, IV INFUSING WITHOUT DIFFICULTY, RESP UNLABORED O2 IN USE AT BEDSIDE CALL OLIMPIA PUCKETT
[2018-06-18 20:00] VITALS: BP 143/89
--- NOTE | 2018-06-18 22:00 | NUR ---
CONTINUES TO C/O ABD AND BACK PAIN, UNRELIEVED BY NORCO SCHEDULED MEDS GIVEN INCLUDING METHADONE AT BEDSIDE CALL OLIMPIA PUCKETT
--- NOTE | 2018-06-18 23:15 | NUR ---
OXYCODONE GIVEN ORDERED FOR CONTINUED C/O OF ABD AND BACK PAIN UNABLE TO RELAX AND SLEEP, REMAINING AT BEDSIDE CALL LIGHT IN REACH
[2018-06-19] VITALS: BP 169/83
--- NOTE | 2018-06-19 00:15 | NUR ---
CALL TO [employer] E[employer]IC WIRER FOR DR MASTERSON, INFORMED OF PT UNCONTROLED PAIN AND MEDICATIONS GIVEN AND PT AND INSISTING ON ADDITIONAL PAIN MEDS, NO ORDERS RECIEVED STATES NOT COMFORTABLE GIVING MORE PAIN MEDS WITH WHAT HE HAS ALREADY ORDERED. INSTRUCTED PT AND OF THIS WARM PACK GIVEN FOR BACK AND ASSISTED TO REPOSITION WILL CONTINUE TO MONITOR
--- NOTE | 2018-06-19 03:00 | NUR ---
EYES CLOSED AND RESTIGN FOR SHORT INTERVALS MAX 30 MIN AT TIME PER , CONTINUES TO C/O ABD AND BACK PAIN
[2018-06-19 04:00] VITALS: BP 169/82
[2018-06-19 06:58] LABS: BASOPHILS 0.1 % (0-2); EOSINOPHILS 0.2 % (0-7); HEMATOCRIT 25.8 % (42.0-54.0); HEMOGLOBIN 8.4 g/dL (13.5-17.5); IMMATURE GRANULOCYTES 0.6 % (0-5); LYMPHOCYTES 5.1 % (15-50); MCH 30.4 pg (26.0-34.0); MCHC 32.6 g/dL (31.0-37.0); MCV 93.5 fL (80.0-100.0); MEAN PLATELET VOLUME 10.9 fL (7.4-10.4); MONOCYTES 8.7 % (2-11); NEUTROPHILS 85.3 % (40-80); PLATELET COUNT 376 10x3/uL (130-400); RBC 2.76 10x6/uL (4.20-6.10); WBC 18.6 10x3/uL (4.8-10.8)
[2018-06-19 07:20] LABS: ALKALINE PHOSPHATASE 99 U/L (46-116); ALT (SGPT) 31 U/L (10-68); AMYLASE - SERUM 29 U/L (25-115); BILIRUBIN - DIRECT 0.33 mg/dL (0.00-0.30); BILIRUBIN - INDIRECT 0.17 mg/dL (0.00-1.00); CALC OSMOLALITY 276 mosm/kg (275-300); CALCIUM 7.7 mg/dL (8.5-10.1); CARBON DIOXIDE 28.7 mmol/L (21.0-32.0); CHLORIDE - SERUM 100 mmol/L (98-107); GLUCOSE 178 mg/dL (74-106); LIPASE 595 U/L (73-393); MAGNESIUM - SERUM 1.8 mg/dL (1.8-2.4); PROTEIN - SERUM 5.7 g/dL (6.4-8.2); SODIUM 137 mmol/L (136-145); UREA NITROGEN 11 mg/dL (7-18)
[2018-06-19 07:21] LABS: CREATININE - SERUM 0.9 mg/dL (0.6-1.3); POTASSIUM - SERUM 4.5 mmol/L (3.5-5.1); eGFR NON AFRICAN AMERICAN > 90 mL/min (90-120)
[2018-06-19 08:29] LABS: INR 3.84 (0.85-1.17); PROTIME 36.9 SECONDS (11.6-15.0)
[2018-06-19 08:40] VITALS: BP 171/76
--- NOTE | 2018-06-19 08:45 | NUR ---
PATIENT IN BED WITH EYES OPEN. STATED HE IS HAVING PAIN. EXPLAINED TO PATIENT I WOULD BRING MEDS. VERBALIZED UNDERSTANDING. IV INTACT. WAITING TO GO TO CT SCAN. CALL LIGHT WITHIN REACH.
--- NOTE | 2018-06-19 09:45 | NUR ---
PATIENT TO GET CT SCAN.
--- NOTE | 2018-06-19 12:15 | NUR ---
PATIENT SITTING UP IN CHAIR WITH EYES CLOSED RESTING. EXPLAINED TO PATIENT I HAD TO TAKE HIS BS. VERBALIZED UNDERSTANDING. PATIENT SAID HE IS IN PAIN AGAIN AND HAS BEEN ALL NIGHT. I GAVE NORCO, METHADONE, AND ATIVAN THIS AM BEFORE CT. PATIENT STATED PAIN WAS AT 10. EXPLAINED I WOULD GIVE OXY IR. VERBALIZED UNDERSTANDING.
--- NOTE | 2018-06-19 12:19 | NUR ---
BACK TO ROOM, PATIENT SITTING UP IN CHAIR EYES CLOSED RESTING QUIETLY. WOKE PATIENT AND ASKED HIS PAIN LEVEL. STATED A 7. OXY IR GIVEN. STATED THAT HE IS HURTING SO MUCH BECAUSE HE TAKES METHADONE AND NORCO AT HOME AND HE IS USE TO THE MEDICINE. EXPLAINED TO NURSE THAT IF HE WANTS A DIFFERENT PAIN MED OR MORE PAIN MED HE WOULD HAVE TO TALK TO THE DR. WHEN THEY ROUND. VERBALIZED UNDERSTANDING. CALL LIGHT WITHIN REACH.
[2018-06-19 12:50] VITALS: BP 170/79
--- NOTE | 2018-06-19 16:00 | NUR ---
PATIENT IN BED WITH IV INTACT. NO COMPLAINTS OR SIGNS OF DISTRESS. CALL LIGHT WITHIN REACH.
[2018-06-19 17:48] VITALS: BP 177/79
--- NOTE | 2018-06-19 18:45 | NUR ---
PATIENT IN BED WITH IV INTACT. NO COMPLAINTS OR SIGNS OF DISTRESS. CALL LIGHT WITHIN REACH.
--- NOTE | 2018-06-19 19:15 | NUR ---
RECIEVED CARE FROM DAY NURSE. LYING IN BED WITH SPOUSE AT SIDE. CALL LIGHT AT SIDE. REPORTS NO NEEDS AT THIS TIME. IV INFUSING PER ORDER TO RIGHT FA.
[2018-06-19 20:00] VITALS: BP 176/90
[2018-06-20] VITALS: BP 154/80
--- NOTE | 2018-06-20 03:00 | NUR ---
ALSO AMY MAT REPOSITIONED AND TURNED ON.
--- NOTE | 2018-06-20 03:00 | NUR ---
ENTERED ROOM TO FIND STANDING BESIDE PT WHILE HE WAS SITTING ON SIDE OF BED. REPORTS HE JUST FELL. REPORTS HE SAT UP ON SIDE OF BED TO URINATE AND INSISTED ON STANDING UP. REPORTS THAT SHE COULDN'T GET TO THE CALL LIGHT FAST ENOUGH TO GET HELP AND THAT THE BED ALARM WAS TURNED ON. THE BED ALARM WAS NOT ALARMING UPON ENTERING THE ROOM. REPORTS HE FELL ON HIS KNEES FOR JUST A MOMENT BUT THAT SHE CAUGHT HIM FOR THE MAJORITY AND GOT HIM BACK UP ON THE SIDE OF THE BED. REPORTS HE HIT HIS LEFT SIDE ON THE CHAIR THAT WAS BEDSIDE THE BED. NOTED REDDENED ABRASION TO LEFT SIDE/CHEST AREA. ABRASION NOT BLEEDING AND PT REPORTS NO INCRESED PAIN ON PALPITATION. NO REDNESS OR SORENESS NOTED TO KNEE'S. REPORTS HE DID NOT HIT HIS HEAD. VITALS TAKEN AND ARE T-98.6 BP-177/86 HR-96 O2-98% RR-26.
[2018-06-20 04:00] VITALS: BP 177/86
[2018-06-20 06:57] LABS: ALKALINE PHOSPHATASE 102 U/L (46-116); ALT (SGPT) 33 U/L (10-68); AMYLASE - SERUM 24 U/L (25-115); BILIRUBIN - INDIRECT 0.26 mg/dL (0.00-1.00); BILIRUBIN - TOTAL 0.56 mg/dL (0.2-1.3); CALC OSMOLALITY 267 mosm/kg (275-300); CALCIUM 8.1 mg/dL (8.5-10.1); CARBON DIOXIDE 28.8 mmol/L (21.0-32.0); CHLORIDE - SERUM 94 mmol/L (98-107); CREATININE - SERUM 0.8 mg/dL (0.6-1.3); GLUCOSE 201 mg/dL (74-106); LIPASE 503 U/L (73-393); MAGNESIUM - SERUM 1.9 mg/dL (1.8-2.4); POTASSIUM - SERUM 3.9 mmol/L (3.5-5.1); PROTEIN - SERUM 6.3 g/dL (6.4-8.2); SODIUM 131 mmol/L (136-145); UREA NITROGEN 11 mg/dL (7-18); eGFR NON AFRICAN AMERICAN > 90 mL/min (90-120)
--- NOTE | 2018-06-20 07:15 | NUR ---
PAGED DR MONDRAGON ABOUT PT FALL THIS AM.
--- NOTE | 2018-06-20 07:22 | NUR ---
SPOKE WITH DR MONDRAGON ABOUT PT FALL. NO NEW ORDERS.
[2018-06-20 07:23] LABS: HEMATOCRIT 24.6 % (42.0-54.0); HEMOGLOBIN 8.1 g/dL (13.5-17.5); MCH 30.3 pg (26.0-34.0); MCHC 32.9 g/dL (31.0-37.0); MCV 92.1 fL (80.0-100.0); MEAN PLATELET VOLUME 10.6 fL (7.4-10.4); PLATELET COUNT 384 10x3/uL (130-400); RBC 2.67 10x6/uL (4.20-6.10); WBC 24.3 10x3/uL (4.8-10.8)
--- NOTE | 2018-06-20 08:04 | NUR ---
RESPIRATIONS ARE EVEN AND LABORED. PT IS WITH TACHYPNEA AT 40/ MINUTE. MASTER FISHER NOTIFIED. PT PLACED ON BIPAP. DR SAENZ NOTIFIED OF PT CURRENT STATE. PT SO IS AT BEDSIDE. SEE FLOWSHEET FOR VITALS. TELEPHONE ORDERS RECD FROM DR SAENZ FOR ABG AND CHEST X RAY. WILL CONT TO MONITOR.
--- NOTE | 2018-06-20 08:23 | NUR ---
PT IS STANDING UP BEDSIDE BED. SO IS "ASSISTING" PT WITH STANDING AT THIS TIME. PT WITH FALL PRECAUTIONS IN PLACE. ALARM IS SOUNDING. YELLOW GOWN IS ON PT. YELLOW WRIST BAND IS ON PT. PT WITH GENERALIZED BRUISING THROUGHOUT BODY. ABDOMEN IS DISTENDED AND FIRM. LAP SITE NOTED ABOVE UMBILICUS. BRUISING THROUGHOUT ABDOMEN. PT SKIN COLOR IS PALE IN THE FACE. PT WITH O2 VIA NC @ 4L. BIPAP AT BEDSIDE, BUT PT IS NOT WEARING AT THIS TIME. PT ASSISTED BACK TO BED. AND PT EDUCATED ON FALL PRECAUTIONS AND FALL PREVENTION. PT AND PT EDUCATED ON IMPORTANCE OF BIPAP. PT AND PT VERBALIZE UNDERSTANDING. BED IS IN THE LOWEST POSITION. CALL LIGHT AND BEDSIDE TABLE ARE WITHIN REACH. BED ALARM IS ON AND WORKING. WILL CONT TO MONITOR.
[2018-06-20 08:34] LABS: ANISOCYTOSIS 1+; HYPOCHROMASIA 2+; LYMPHOCYTES 2 % (15-50); MONOCYTES 4 % (2-11); NEUTROPHILS 89 % (40-80); PLATELET ESTIMATE NORMAL; POIKILOCYTOSIS 1+; SMUDGE CELLS 1+
[2018-06-20 09:00] VITALS: BP 176/92
--- NOTE | 2018-06-20 10:01 | NUR ---
received consult for TPN, on procalamine, spoke to nurse about TPN. Please call RD contaminated land consultant if need to start TPN other than procalamine pt currently with orders. RD following Kayleigh Witt, MS ORIN LD
--- NOTE | 2018-06-20 10:30 | NUR ---
ATTEMPT TO INSERT NG TUBE PER ORDER. PT IS NOT TOLERATING AND WILL NOT ALLOW ANOTHER ATTEMPT. DR RENO NOTIFIED.
[2018-06-20 11:00] VITALS: BP 169/93
[2018-06-20 14:44] VITALS: BP 164/88
--- NOTE | 2018-06-20 15:57 | NUR ---
PT FAMILY MEMBER AND PT ARE REQUESTING PAIN MEDICATION FOR COMFORT. EVERARDO FRANKLIN INFORMED NURSE TO NOTIFY DR SAENZ. PAGE PLACED TO DR SAENZ FOR FURTHER ORDER.
--- NOTE | 2018-06-20 16:20 | NUR ---
SPOKE WITH EVERARDO POND APRN AND DR SAENZ REGARDING PT PAIN MEDICATION AND BENZO MEDICATION. PER DR SAENZ AND EVERARDO FRANKLIN 0.2MG DILAUDID IV Q 6 HRS PRN FOR SEVERE PAIN ONLY. DR SAENZ ORDERS FOR SCHEDULED ATIVAN TO BE D/C AND ORDERED FOR ATIVAN 1MG PO Q 12HOURS PRN FOR 2 DAYS ONLY. ORDERS PLACED. WILL CONT TO MONITOR PT.
--- NOTE | 2018-06-20 19:15 | NUR ---
RECEIVED CARE FROM DAY NURSE. SITTING UP IN BED WITH COMPANY AT SIDE. REPORTS NO NEEDS AT THIS TIME. IV INFUSING PER ORDER TO RIGHT FA.
[2018-06-20 19:50] VITALS: BP 189/85
[2018-06-21] VITALS: BP 166/86
--- NOTE | 2018-06-21 02:33 | NUR ---
I AGREE WITH VENEER SUPERVISOR ASSESSMENT
--- NOTE | 2018-06-21 03:30 | NUR ---
SPOUSE CAME TO DESK ASKING FOR DOCTOR TO BE PAGED ABOUT GETING HIS PAIN MEDICATION MORE FREQUENT. SPOKE WITH ACTIVITY THERAPY TEACHER, NO DOCTOR INVOLVEMENT AT THIS TIME DUE TO DR DISCONTINUING PO PAIN MEDICATIONS AND STARTING NEW PAIN MEDICATION AND NOT WANTING TO OVERSEDATE PATIENT DUE TO NEED FOR BI-PAP.
[2018-06-21 06:38] LABS: CALC OSMOLALITY 273 mosm/kg (275-300); CALCIUM 8.1 mg/dL (8.5-10.1); CARBON DIOXIDE 28.7 mmol/L (21.0-32.0); CHLORIDE - SERUM 96 mmol/L (98-107); CREATININE - SERUM 0.8 mg/dL (0.6-1.3); GLUCOSE 227 mg/dL (74-106); POTASSIUM - SERUM 3.9 mmol/L (3.5-5.1); SODIUM 133 mmol/L (136-145); eGFR NON AFRICAN AMERICAN > 90 mL/min (90-120)
[2018-06-21 06:49] LABS: UREA NITROGEN 15 mg/dL (7-18)
[2018-06-21 07:14] LABS: BASOPHILS 0.1 % (0-2); EOSINOPHILS 0.2 % (0-7); HEMATOCRIT 24.2 % (42.0-54.0); HEMOGLOBIN 7.9 g/dL (13.5-17.5); IMMATURE GRANULOCYTES 0.6 % (0-5); LYMPHOCYTES 5.5 % (15-50); MCH 30.3 pg (26.0-34.0); MCHC 32.6 g/dL (31.0-37.0); MCV 92.7 fL (80.0-100.0); MEAN PLATELET VOLUME 10.8 fL (7.4-10.4); MONOCYTES 6.3 % (2-11); NEUTROPHILS 87.3 % (40-80); PLATELET COUNT 407 10x3/uL (130-400); RBC 2.61 10x6/uL (4.20-6.10); RDW 13.1 % (11.5-14.5)
[2018-06-21 07:18] VITALS: BP 168/83
--- NOTE | 2018-06-21 07:18 | NUR ---
LOUD CRASHING NOISE HEARD AT NURSES STATION. FALL ALARMS ARE NOT ALARMING. PT IS IN FLOOD. PT REPORTS THAT HE WAS TRYING TO GET A GLASS OF WATER. PT IS NOT SHOWING SIGNS OF AMS AND/OR CONFUSION AT THIS TIME. VSS. SEE FLOWSHEET. RIGHT F.A. PIV WAS REMOVED DURING FALL. DRESSING APPLIED. PT ASSISTED BACK TO BED. FALL PRECAUTIONS ARE TURNED ON. PT PLACED ON BIPAP. PT DENIES THAT HE HIT HIS HEAD AT THIS TIME. ABRASION TO LEFT KNEE NOTED. DRESSING APPLIED. WILL INFORM PROPER PERSONEL OF FALL.
--- NOTE | 2018-06-21 07:23 | NUR ---
QA SOFTWARE TESTER NOTIFIED OF PT FALL. DR RENO/ANDRES PAGED FOR NOTIFICATION OF FALL.
--- NOTE | 2018-06-21 07:30 | NUR ---
PT IS RESTING IN BED WITH EYES CLOSED. BIPAP IS ON. RESPIRATIONS ARE 25 PER BIPAP MACHINE. BED ALARM IS ON. AMY ALARM IS ON. YELLOW GOWN IN ON. YELLOW WRIST BAND IS ON. BED IS IN THE LOWEST POSITION. CALL LIGHT AND BEDSIDE TABLE ARE WITHIN REACH. SIDE RAILS X 2. PT IS AAOX4. BRUISING NOTED THROUGHOUT BODY. BANDAIDS TO BILATERAL UPPER EXTREMITIES. PT WITHOUT IV ACCESS AT THIS TIME. FOOD IS IN ROOM. PT FAMILY MEMBER EDUCATED ON NPO STATUS AND FOOD WAS REMOVED FROM PT VISION. PT FAMILY MEMBER AND PT WERE EDUCATED ON FALL PRECAUTIONS AND FALL PREVENTION. PT AND PT FAMILY MEMBER VERBALIZE UNDERSTANDING. [PT FAMILY MEMBER INFORMED OF IMPORTANCE OF LEAVING FALL ALARMS ON FOR PT SAFETY. FAMILY MEMBER VERBALIZED UNDERSTANDING. EVERARDO POND APRN PAGED TO NOTIFY OF FALL DURING SHIFT CHANGE THIS AM. WILL REPORT FINDINGS AND WAIT FURTHER ORDERS. WILL CONT TO MONITOR.
--- NOTE | 2018-06-21 07:51 | NUR ---
DR CAMPOS NOTIFIED OF PT RECENT FALL THIS AM AT SHIFT CHANGE. DR CAMPOS NOTIFIED OF PT H&H. ORDERS RECD ARE CHEST X RAY, PRO BNP, TRANSFUSE 1 UNIT OF PRBC. ORDERS PLACED.
--- NOTE | 2018-06-21 09:43 | NUR ---
(1) UNIT PRBC TRANSFUSION INITIATED. SEE TRANSFUSION CARD FOR VITALS. PT IS RESTING IN BED WITH EYES CLOSED. RESPIRATIONS ARE EVEN AND UNLABORED WITH O2 VIA BIPAP. SPOUSE IS AT BEDSIDE. PT DENIES PRESENCE OF PAIN, DYSPNEA, NAUSEA AT THIS TIME. PRBC UNIT VERIFIED WITH CRISTA CUELLAR LPN. FALL ALARM IS ON. AMY ALARM IS ON. BED IS IN THE LOWEST POSITION. CALL LIGHT AND BEDSIDE TABLE ARE WITHIN REACH. WILL CONT TO CLOSELY MONITOR PT FOR FIRST 15 MINUTES OF PRBC TRANSFUSION.
--- NOTE | 2018-06-21 10:00 | NUR ---
PRBC TRANSFUSING WITHOUT DIFFICULTY. SPOUSE IS AT BEDSIDE. VSS. SEE TRANSFUSION CARD. BED IS IN THE LOWEST POSITION. CALL LIGHT AND BEDSIDE TABLE ARE WITHIN REACH. BED ALARM IS ON. AMY ALARM IS ON. WILL CONT TO CLOSELY MONITOR.
--- NOTE | 2018-06-21 10:46 | NUR ---
PT IS RESTING IN BED WITH EYES CLOSED. RESPIRATIONS ARE EVEN AND UNLABORED. O2 VIA NC @ 5L. FAMILY IS AT BEDSIDE. PRBC TRANSFUSING WITHOUT DIFFICULTY. BED IS IN THE LOWEST POSITION. CALL LIGHT AND BEDSIDE TABLE ARE WITHIN REACH. FALL PRECAUTION AND PREVENTION EDUCATION GIVEN TO PT FAMILY. PT FAMILY VERBALIZE UNDERSTANDING. BED ALARM IS ON. AMY ALARM IS ON. WILL CONT TO MONITOR.
--- NOTE | 2018-06-21 13:08 | NUR ---
PT WITH DRY HEAVES AND SCANT AMOUNT OF FROTHY WHITE EMESIS. WILL ADDRESS NAUSEA AND VOMITING. SEE EMAR.
--- NOTE | 2018-06-21 13:21 | NUR ---
WRITTEN ORDERS RECD FROM DR PIERRE. ORDERS PLACED IN PT CHART. NEW ORDERS NEEDED PLACED IN EHR.
--- NOTE | 2018-06-21 13:40 | NUR ---
PRBC TRANSFUSION IS COMPLETE. VSS. SEE TRANSFUSION CARD. BED IS IN THE LOWEST POSITION. CALL LIGHT AND BEDSIDE TABLE ARE WITHIN REACH. BED ALARM IS ON. AMY ALARM IS ON. FAMILY IS AT BEDSIDE. WILL CONT TO MONITOR. EDUCATION PERTAINING TO FALL PRECAUTIONS AND FALL PREVENTION GIVEN TO FAMILY MEMBERS AND PT. FAMIYL MEMBERS AND PT VERBALIZE UNDERSTANDING. PT REPORTS PAIN 10/10 IN BACK. WILL ADDRESS. SEE EMAR.
[2018-06-21 14:08] VITALS: BP 162/76
--- NOTE | 2018-06-21 15:15 | NUR ---
PT ATTEMPTING TO GET OUT OF BED. PT STOPPED AND REORIENTED TO SITUATION AND FALL PRECAUTIONS. FALL ALARMS SOUNDED. PT STATES, "I NEED TO PEE". PT ASSISTED IN LAYING BACK DOWN DUE TO PT REPORTING LIGHTHEADEDNESS. VSS. SEE FLOW SHEET. DR SAENZ NOTIFIED OF PT BEHAVIOR. ORDERS RECD TO OBTAIN ABG. RESPIRATORY NOTIFIED OF ORDER. PT IS RESTING IN BED WITH EYES CLOSED BUT EASILY AROUSED WITH VERBAL STIMULATION. FALL ALARM IS ON. AMY ALARM IS ON. BED IS IN THE LOWEST POSITION. CALL LIGHT AND BEDSIDE TABLE ARE WITHIN REACH. WILL CONT TO CLOSELY MONITOR.
[2018-06-21 15:20] VITALS: BP 161/81
[2018-06-21 15:42] LABS: INR 5.05 (0.85-1.17)
--- NOTE | 2018-06-21 15:49 | NUR ---
RECD CRITICAL LAB VALUE. SEE SHEET. DR CAMPOS NOTIFIED. ORDERS RECD FOR 10MG VIT K IM NOW AND RECHECK INR IN 6 HOURS. ORDERS WILL BE PLACED.
--- NOTE | 2018-06-21 19:15 | NUR ---
RECEIVED CARE FROM DAY NURSE. LYING IN BED. PLACED ON BIPAP BY RT BUT WOULD NOT KEEP IT ON AT THIS TIME. RETURNED TO SD. IV INFUSING PER ORDER TO PATENT RIGHT FA. BED ALARM AND AMY MAT ARMED AND IN PLACE. NO OTHER NEEDS VOICED AT THIS TIME.
[2018-06-21 20:00] VITALS: BP 150/76
[2018-06-22] VITALS (10 sets, daily range): BP systolic 95–168; BP diastolic 54–93
--- NOTE | 2018-06-22 | NUR ---
RESTING QUITLY WITH SPOUSE AT BEDSIDE. CPAP IN PLACE. AMY MAT AND BED ALARM ARMED.
[2018-06-22 00:23] LABS: INR 1.54 (0.85-1.17); PROTIME 17.9 SECONDS (11.6-15.0)
--- NOTE | 2018-06-22 04:16 | NUR ---
BED ALARM GOING OFF. PT IN BED ON KNEES. REPORTS HE WAS TRYING TO PULL HIS UNDERWEAR UP AND THAT HE DIDNT KNOW IT WOULD GO OFF IF WASNT OUT OF BED. ASSISTED BACK TO LYING DOWN. PT SOB AND REQUEST HIS CPAP BACK ON. DONE AT THIS TIME. NO OTHER NEEDS VOICED.
--- NOTE | 2018-06-22 05:57 | NUR ---
BED ALARM GOING OFF. REPORTS SHE WAS PUTTING HIM ON THE BEDPAN AND HAD TAKEN THE CPAP OFF. PT REPORTS HE CANT BREATH. 02 SAT 97% WHILE PLACING THE CPAP BACK ON. RR IN THE 40'S. REPORTS HE IS HAVING A PANIC ATTACK. WORKED WITH PT TO TRY AND CONTROL BREATING. ATIVAN 1MG PO GIVEN. STAYED WITH PATIENT FOR SEVERAL MINUTES. SATS MAINTAINED IN THE UPPER 90'S. WILL CONTINUE TO MONITOR.
--- NOTE | 2018-06-22 06:51 | NUR ---
RR REMAINS IN THE 40'S. RAPID RESPONSE CALLED. DIAPHORETIC AND PALE.
[2018-06-22 07:28] LABS: CALC OSMOLALITY 278 mosm/kg (275-300); CALCIUM 8.4 mg/dL (8.5-10.1); CHLORIDE - SERUM 97 mmol/L (98-107); GLUCOSE 217 mg/dL (74-106); LIPASE 346 U/L (73-393); MAGNESIUM - SERUM 2.2 mg/dL (1.8-2.4); POTASSIUM - SERUM 4.2 mmol/L (3.5-5.1); SODIUM 135 mmol/L (136-145); eGFR NON AFRICAN AMERICAN 81 mL/min (90-120)
[2018-06-22 07:30] LABS: UREA NITROGEN 19 mg/dL (7-18)
[2018-06-22 07:33] LABS: INR 1.34 (0.85-1.17)
[2018-06-22 07:42] LABS: HEMATOCRIT 32.1 % (42.0-54.0); HEMOGLOBIN 10.6 g/dL (13.5-17.5); MCH 30.3 pg (26.0-34.0); MCV 91.7 fL (80.0-100.0); MEAN PLATELET VOLUME 10.9 fL (7.4-10.4); PLATELET COUNT 652 10x3/uL (130-400); RDW 13.6 % (11.5-14.5); WBC 29.6 10x3/uL (4.8-10.8)
[2018-06-22 09:02] LABS: ANISOCYTOSIS OCC; LYMPHOCYTES 9 % (15-50); MONOCYTES 7 % (2-11); NEUTROPHILS 81 % (40-80); PLATELET ESTIMATE INCREASED; POLYCHROMASIA OCC
--- NOTE | 2018-06-22 13:22 | NUR ---
NUTRITION F/U CONTINUES PROCALAMINE AT 100 CC/HR PROVIDING 588 KCAL, 72 GM PROTEIN PER DAY. NOW WITH PICC LINE. NOTE WEEKEND CONSULT TO START TPN. ORDERED PHOS FROM LAB. WILL SPEAK WITH MD TO MAKE SURE TPN IS STILL NEEDED. PT MAY BENEFIT FROM J TUBE PLACEMENT FOR NUTRITION VS TPN IF MEDICALLY FEASIBLE. RD FOLLOWING
--- NOTE | 2018-06-22 16:45 | NUR ---
REC'D PT FROM FLOOR, ASSISTED IN ICU BED, MONITORS ON AND WORKING, VITALS STABLE, PT AWAKE AND ALERT, NO SIGNS/SYMPTOMS OF PAIN OR DISCOMFORT NOTED AT THIS TIME. WILL CONTINUE TO OBSERVE, CALL LIGHT WITHIN REACH, FAMILY AT BEDSIDE, BIPAP ON.
[2018-06-22 19:23] LABS: CKMB 0.3 U/L (0.0-3.6); CREATINE KINASE 51 UL (21-232); TROPONIN-I < 0.017 ng/mL (0.000-0.060)
--- NOTE | 2018-06-22 19:30 | NUR ---
DR. SPRING AT BEDSIDE ASKED TO START DIFLUCAN AND TPN ORDERED. THESE ADMINSTERED DOCUMENTED ON JUN. PT AWAKE AND C/O OF ABDOMINAL PAIN. ORDERS TO DO CARDIAC WORKUP RECEIVED AND VERIFIED. DR. HILLIARD AT BEDSIDE WELL. DR. HERRERA IN UNIT HAS SEEN PT AND AWARE OF ORDERS AND CIRCUMSTANCES.
--- NOTE | 2018-06-22 20:00 | NUR ---
PT IS MORE ALERT AT THIS TIME BUT REMAINS SOMEWHAT LETHARGIC. WILL CONTINUE TO MONITOR CLOSELY. RESPIRATIONS REMAIN 30-35 OTHER VSS, SEE FLOWSHEET
--- NOTE | 2018-06-22 20:00 | NUR ---
DR CAMPOS CONTACTED AND STATED TO KEEP PT NPO EXCEPT MEDS. THIS WAS VERIFIED AND CONFIRMED PT OK TO TAKE PO MEDS
--- NOTE | 2018-06-22 20:18 | NUR ---
PT WITH ALTERED LOC. ABLE TO AROUSE BUT MORE LETHARGIC. SPOW 97%. VSS PER FLOWSHEET. ABGS ORDERED
--- NOTE | 2018-06-22 20:30 | NUR ---
REPORT RECEIVED PER TELEPHONE FROM LELIA ROBLEDO. ASSIGNMENT ACCEPTED AND ORDERS CLARIFIED WITH LISSA ROBLEDO.
--- NOTE | 2018-06-22 20:30 | NUR ---
AT BEDSIDE UPDATED AND QUESTIONS ANSWERED.
--- NOTE | 2018-06-22 20:45 | NUR ---
CALL TO DR. CAMPOS TO REPORT CHANGE IN LOC CE AND ABG RESULTS AND PROLONGED QT INTERVAL A NEW FINDING ON THE EKG. RESPIRATIONS OF 34. PT AT RISK WITH PO MEDS AND DR. CAMPOS ORDERED TO CHANGE WHICH MEDS ARE ABLE TO BE CHANGED FROM PO TO IV AND HOLD PO MEDS UNABLE TO BE CHANGED TO IV. VERIFIED THIS PT WAS SEEN BY DR. BABAK BURDICK BUT NO PLANS FOR INTUBATION WERE DISCUSSED. NO FURTHER ORDERS.
--- NOTE | 2018-06-22 21:18 | NUR ---
ANASTASIA WITH ABBY, PHARMACIST, PO MEDS DUE TONIGHT AND NO IV DOSE OF THESE MEDS AVAILABLE. WILL HOLD MEDS PER DR. JIMENEZ INSTRUCTIONS.
--- NOTE | 2018-06-22 21:30 | NUR ---
AT BEDSIDE CONFIRMED PT DOES NOT HAVE SEIZURES. STATES HE HAS NEVER HAD A SEIZURE BUT HAS AURAS THAT RESULT IN SEVERE HEADACHE AND HE TAKES TEGRETOL WHICH CONTROLS THIS. STATES HE GOES WITHOUT HIS MEDICATION SEVERAL DAYS AT A TIME WITH NO INSUEING PROBLEMS. NOTIFIED OF HOLDING PO MEDS.
--- NOTE | 2018-06-22 23:00 | NUR ---
SHIFT REASSESSMENT COMPLETED SEE FLOWSHEET. PT IS MORE ALERT THAN AT THE BEGINNING OF THIS SHIFT AND WITH LESS CONFUSION. LUNGS WITH FEWER CRACKLES AND BOWEL SOUNDS MORE HYPOACTIVE. SEE FLOWSHEET FOR COMPLETED ASSESSMENT.
[2018-06-23] VITALS (24 sets, daily range): BP systolic 114–158; BP diastolic 54–97
--- NOTE | 2018-06-23 01:00 | NUR ---
PT SLEEPING AT THIS TIME. CONTINUE TO MONITOR
--- NOTE | 2018-06-23 02:00 | NUR ---
LABS REVIEWED AND NO ACTION NEEDED AT THIS TIME
[2018-06-23 02:20] LABS: CKMB 0.3 U/L (0.0-3.6); CREATINE KINASE 32 UL (21-232); TROPONIN-I < 0.017 ng/mL (0.000-0.060)
--- NOTE | 2018-06-23 03:19 | NUR ---
RADIOLOGY AT BEDSIDE FOR PCXR. PT HAS BEEN SLEEPING WELL THE LAST 3 HOURS. EASILY AWAKEN AT THIS TIME.
--- NOTE | 2018-06-23 04:00 | NUR ---
ABG'S REVIEWED NO ACTION NEEDED. PT REMAINS ALERT AND IF ORIENTATED X 4 AT THIS TIME
--- NOTE | 2018-06-23 07:00 | NUR ---
SHIFT ASSESSMENT COMPLETED, PT CARE ASSUMED. MONITORS ON AND WORKING, VITALS STABLE. BIPAP ON, PT AWAKE AND ALERT, NO SIGNS/SYMPTOMS OF PAIN OR DISCOMFORT NOTED AT THIS TIME, SEE FLOW SHEET FOR FURTHER DETIALS, CALL LIGHT WITHIN REACH, WILL CONTINUE TO OBSERVE.
[2018-06-23 09:00] LABS: BASOPHILS 0.1 % (0-2); EOSINOPHILS 0.4 % (0-7); HEMOGLOBIN 9.4 g/dL (13.5-17.5); IMMATURE GRANULOCYTES 1.4 % (0-5); LYMPHOCYTES 5.3 % (15-50); MCH 29.9 pg (26.0-34.0); MCHC 32.4 g/dL (31.0-37.0); MCV 92.4 fL (80.0-100.0); MEAN PLATELET VOLUME 10.7 fL (7.4-10.4); MONOCYTES 4.4 % (2-11); NEUTROPHILS 88.4 % (40-80); PLATELET COUNT 368 10x3/uL (130-400); RBC 3.14 10x6/uL (4.20-6.10); RDW 13.6 % (11.5-14.5); WBC 20.5 10x3/uL (4.8-10.8)
--- NOTE | 2018-06-23 09:00 | NUR ---
PT TURNED AND REPOSITIONED FOR COMFORT, FAMILY AT BEDSIDE UPDATE PROVIDED NO SIGNS/SYMPTOMS OF PAIN OR DISCOMFORT NOTED AT THIS TIME. CALL LIGHT WITHIN REACH, WILL CONTINUE TO OBSERVE.
[2018-06-23 09:34] LABS: ALBUMIN 1.8 g/dL (3.4-5.0); ALKALINE PHOSPHATASE 137 U/L (46-116); ALT (SGPT) 77 U/L (10-68); BILIRUBIN - TOTAL 0.91 mg/dL (0.2-1.3); CALC OSMOLALITY 289 mosm/kg (275-300); CALCIUM 7.7 mg/dL (8.5-10.1); CARBON DIOXIDE 29.2 mmol/L (21.0-32.0); CHLORIDE - SERUM 101 mmol/L (98-107); CKMB 0.2 U/L (0.0-3.6); CREATINE KINASE 27 UL (21-232); GLUCOSE 186 mg/dL (74-106); LIPASE 260 U/L (73-393); MAGNESIUM - SERUM 2.2 mg/dL (1.8-2.4); PHOSPHOROUS 3.7 mg/dL (2.5-4.9); POTASSIUM - SERUM 4.3 mmol/L (3.5-5.1); PROTEIN - SERUM 5.5 g/dL (6.4-8.2); SODIUM 140 mmol/L (136-145); TROPONIN-I < 0.017 ng/mL (0.000-0.060); UREA NITROGEN 29 mg/dL (7-18); eGFR NON AFRICAN AMERICAN 81 mL/min (90-120)
--- NOTE | 2018-06-23 10:29 | NUR ---
NUTRITION F/U LABS REVIEWED. TPN ADJUSTED, RATE INCREASED TO 75 CC/HR. RD FOLLOWING
--- NOTE | 2018-06-23 11:00 | NUR ---
NO CHNAGES, MONITORS ON AND WORKING, VITALS STABLE, SEE FLOW SHEET FOR FURTHER DETIALS, WILL CONTINUE TO OBSERVE.
--- NOTE | 2018-06-23 13:00 | NUR ---
PT TURNED AND REPOSITIONED, MONITORS ON AND WORKING, PT SITTING UP IN BED TAKING A BREAK FROM BIPAP, O2 REMAINS ABOVE 96% ON ROOM AIR, CALL LIGHT WITHIN REACH, WILL CONTINUE TO OBSERVE.
--- NOTE | 2018-06-23 15:00 | NUR ---
NO CHNAGES, SEE FLOW SHEET FOR FURTHER DETIALS. WILL CONTINUE TO OBSERVE.
--- NOTE | 2018-06-23 17:00 | NUR ---
PT SITTING UP IN BED, AWAKE AND ALERT, NO SIGNS/SYMPTOMS OF PAIN OR DISCOMFORT AT THIS TIME. WILL CONTINUE TO OBSERVE.
--- NOTE | 2018-06-23 17:24 | NUR ---
OT NOTE: PT COMPLETED UE AROM AXS. THANK YOU, GABRIELA FALK
--- NOTE | 2018-06-23 19:00 | NUR ---
REPORT RECEIVED AND CARE ASSUMED. RECEIVED PT AWAKE AND ALERT. ORIENTED X 4 SPEECH CLEAR. MONITORS CONNECTED TO PATIENT AND ALARMS SET. IV TUBING/FLUIDS DATED/LABELED AND CURRENT. DENIES PAIN AT PRESENT. NO DISTRESS OBSERVED. CALL LIGHT IN REACH AND PT ABLE TO USE TO MAKE NEEDS KNOWN. BED IN LOW POS. SR UP X 2. REMAINS NPO PER ORDER.
--- NOTE | 2018-06-23 21:00 | NUR ---
AWAKE AND ALERT. DENIES PAIN. SR UP X2. BED IN LOW POS. CALL LIGHT IN REACH.
--- NOTE | 2018-06-23 21:31 | NUR ---
CALL TO [facility] PHARMACIST, TO VERIFY VANC DOSE. NOTIFIED TO CONTINUE ORDERED. GIVEN DOCUMENTED ON MAR
--- NOTE | 2018-06-23 22:00 | NUR ---
COMPLAINS OF PAIN IN LOW BACK, REQUESTING PAIN MEDICATION. INFORMED PT OF PRN PAIN MED SCHEDULE. ASSISTED TO BSC. UNABLE TO HAVE BM. ASSISTED TO BED WITH WARM BLANKET TO LOWER BACK. PT THEN REPORTED RELIEF.
--- NOTE | 2018-06-23 23:00 | NUR ---
SHIFT REASSESSMENT COMPLETED. PT AWAKE AND ALERT, ORIENTED X4. NO CHANGES OBSERVED FROM PREVIOUS ASSESSMENT . VSS. CALL LIGHT IN REACH. SR UP X2. BED IN LOW POS.
[2018-06-24] VITALS (24 sets, daily range): BP systolic 110–171; BP diastolic 52–100
--- NOTE | 2018-06-24 01:00 | NUR ---
RESTING WITH EYES CLOSED. EASILY ROUSED AND ALERT. ORIENTED X 4. CALL LIGHT IN REACH . BED IN LOW POS. SR UP X2
--- NOTE | 2018-06-24 02:32 | NUR ---
SHIFT REASSESSMENT DOCUMENTED 0000 06/23/18 ACTUALLY COMPLETED 06/23/2018 2300.
--- NOTE | 2018-06-24 03:00 | NUR ---
RESTING IN BED WITH EYES CLOSED. EASILY ROUSED AND ALERT. REASSESSMENT COMPLETED, GENERALIZED EDEMA NOTED TO BLE. NO FURTHER CHANGES OBSERVED. NO DISTRESS OBSERVED. VSS. CALL LIGHT IN REACH. BED IN LOW POS. SR UP X2
--- NOTE | 2018-06-24 05:00 | NUR ---
AWAKE AND ALERT. ORIENTED X 4. SPEECH CLEAR. NO DISTRESS OBSERVED. SR UP X 2 CALL LIGHT IN REACH.
--- NOTE | 2018-06-24 07:00 | NUR ---
SHIFT REPORT RECEIVED. REPORTS PAIN /10 ON ABDOMEN. ABDOMEN IS DISTENDED. BRUISING NOTED ON ABDOMEN. CURRENTLY ON ROOM AIR WITH O2 SAT 98%. HAS AVEL PICC WITH TPN AT 75ML/HR AND D5NS AT 20ML/HR. USES BEDSIDE COMMODE. SHIFT ASSESSMENT COMPLETED. BED ALARM ON AT THIS TIME. CALL LIGHT IN REACH. SIDE RAILS UP X2. WILL CONTINUE TO MONITOR.
[2018-06-24 07:02] LABS: BASOPHILS 0.2 % (0-2); EOSINOPHILS 1.5 % (0-7); HEMATOCRIT 26.2 % (42.0-54.0); HEMOGLOBIN 8.2 g/dL (13.5-17.5); IMMATURE GRANULOCYTES 1.3 % (0-5); LYMPHOCYTES 8.7 % (15-50); MCH 29.5 pg (26.0-34.0); MCHC 31.3 g/dL (31.0-37.0); MCV 94.2 fL (80.0-100.0); MEAN PLATELET VOLUME 11.2 fL (7.4-10.4); MONOCYTES 6.9 % (2-11); NEUTROPHILS 81.4 % (40-80); PLATELET COUNT 230 10x3/uL (130-400); RBC 2.78 10x6/uL (4.20-6.10); RDW 13.6 % (11.5-14.5); WBC 12.1 10x3/uL (4.8-10.8)
[2018-06-24 07:12] LABS: ALBUMIN 1.8 g/dL (3.4-5.0); ALKALINE PHOSPHATASE 128 U/L (46-116); ALT (SGPT) 81 U/L (10-68); BILIRUBIN - TOTAL 0.55 mg/dL (0.2-1.3); CALC OSMOLALITY 289 mosm/kg (275-300); CARBON DIOXIDE 31.3 mmol/L (21.0-32.0); CHLORIDE - SERUM 104 mmol/L (98-107); GLUCOSE 229 mg/dL (74-106); LIPASE 279 U/L (73-393); MAGNESIUM - SERUM 2.4 mg/dL (1.8-2.4); PHOSPHOROUS 3.5 mg/dL (2.5-4.9); POTASSIUM - SERUM 3.7 mmol/L (3.5-5.1); PROTEIN - SERUM 5.9 g/dL (6.4-8.2); SODIUM 140 mmol/L (136-145); UREA NITROGEN 25 mg/dL (7-18); eGFR NON AFRICAN AMERICAN 81 mL/min (90-120)
--- NOTE | 2018-06-24 08:21 | NUR ---
SPOUSE AT BEDSIDE. ASKED ABOUT WBC COUNT. PT RESTING WITH EYES CLOSED. WILL CONTINUE TO MONITOR.
--- NOTE | 2018-06-24 08:21 | NUR ---
FAMILY MEMBER AT BEDSIDE. PT RESTING COMFORTABLY WITH EYES CLOSED. WBC COUNT REVIEWED WITH DAUGHTER. NO FURTHER NEEDS. WILL CONTINUE TO MONITOR.
--- NOTE | 2018-06-24 09:16 | NUR ---
LARGE AMOUNT OF LOOSE DARK GREEN WITH MUCUS STOOL NOTED AT THIS TIME. PERICARE PROVIDED. COMPLETE LINEN CHANGE PROVIDED. PT RESTING COMFORTABLY BACK IN BED. WILL CONTINUE TO MONITOR.
--- NOTE | 2018-06-24 09:34 | NUR ---
SPOKE WITH DR. CAMPOS REGARDING LOVENOX. HE SAID TO RESTARTED TODAY.
--- NOTE | 2018-06-24 09:45 | NUR ---
TRANSPORTED TO MEDICAL IMAGING FOR CT OF ABDOMEN.
--- NOTE | 2018-06-24 09:46 | NUR ---
NUTRITION F/U LABS REVIEWED. TPN ADJUSTED/RENEWED. RD FOLLOWING
--- NOTE | 2018-06-24 10:05 | NUR ---
PT BACK IN ROOM. RE-CONNECTED TO PANTS BUSHELER. DENIES FURTHER NEEDS AT THIS TIME. WILL CONITNUE TO MONITOR.
--- NOTE | 2018-06-24 11:00 | NUR ---
RE-ASSESSMENT COMPLETED. NO ACUTE CHANGES FROM PREVIOUS ASSESSMENT. REPORTS PAIN 10/10 ON ABDOMEN. VSS. NO FEVER. USED URINAL. VOIDED ABOUT 275ML OF MARY URINE. WILL CONTINUE TO MONITOR.
--- NOTE | 2018-06-24 11:24 | NUR ---
DILAUDID 0.5MG IV GIVEN FOR PAIN PER ORDERS. WILL CONTINUE TO MONITOR.
--- NOTE | 2018-06-24 14:47 | NUR ---
RESTING COMFORTABLY. PICC LINE DRESSING CHANGED AT THIS TIME USING STERILE TECHNIQUE. NO FURTHER NEEDS AT THIS TIME. WILL CONTINUE TO MONITOR.
--- NOTE | 2018-06-24 15:32 | NUR ---
RE-ASSESSMENT COMPLETED. RATES PAIN 10/10 ON ABDOMEN, MAINLY ON THE LOWER HALF. DILAUDID 0.5MG IV GIVEN FOR PAIN PER ORDERS. VSS. WILL CONTINUE TO MONITOR.
--- NOTE | 2018-06-24 17:32 | NUR ---
ASSISTED TO BEDSIDE COMMODE. VOIDED OUT SIDE COMMODE. STATES THAT COMMODE IS NOT BIG ENOUGH. MODERATE AMOUNT OF DARK LOOSE STOOL NOTED. PARTIAL LINEN CHANGE PROVIDED. BACK IN BED. BLOOD GLUCOSE 211. 8 UNITS OF HUMALOG GIVEN PER SLIDING SCALE. NO FURTHER NEEDS. WILL CONTINUE TO MONITOR.
--- NOTE | 2018-06-24 19:00 | NUR ---
SHIFT REPORT RECEIVED. RECEIVED PT SITTING UP IN BED. AWAKE AND ALERT. ORIENTED X4. SPEECH CLEAR AND APPROPRIATE. COMPLAINS OF PAIN 10/10 IN BILATERAL LOWER QUADRANTS. DESCRIBES PAIN AN ACHE AND NO DIFFERENT THAN PREVIOUS ABD PAIN. MONITORS CONNECTED TO PT WITH ALARMS SET. CALL LIGHT IN REACH AND PT ABLE TO UTILIZE TO MAKE NEEDS KNOWN. BED IN LOW POS, SR UP X 2 PATIENT ENCOURAGED TO NOT GET UP ON OWN, TO WAIT FOR ASSISTANCE. PT VERBALIZED UNDERSTANDING. IV FLUIDS/TUBING LABELED/DATED AND CURRENT.
--- NOTE | 2018-06-24 19:30 | NUR ---
DILAUDID 0.5MG IV ADMIN FOR PAIN. IVAN WITHOUT DIFF
--- NOTE | 2018-06-24 19:45 | NUR ---
PT RESTING WITH EYES CLOSED, NO FURTHER COMPLAINTS OF PAIN.
--- NOTE | 2018-06-24 20:30 | NUR ---
PT USING CALL LIGHT. ASSISTED TO STANDING AND WITH USE OF URINAL. APPROX 75 ML DARK MARY URINE VOIDED. ASSISTED BACK TO BED. IVAN WITHOUT DIFF
--- NOTE | 2018-06-24 21:00 | NUR ---
RESTING WITH EYES CLOSED , EASILY ROUSED AND ALERT.ORIENTED X4 SPEECH CLEAR. NO DISTRESS OBSERVED. SR UP X 2 CALL LIGHT IN REACH.
--- NOTE | 2018-06-24 21:30 | NUR ---
PT USING CALL LIGHT, ASSISTED TO STANDING AND WITH USE OF URINAL. VOIDED APPROX 300 ML DARK MARY URINE. ASSISTED BACK TO BED. IVAN WITHOUT DIFF.
--- NOTE | 2018-06-24 23:00 | NUR ---
AWAKE AND ALERT. ORIENTED X4. SPEECH CLEAR AND APPROPRIATE. COMPLAINS OF PAIN IN BILATERAL LOWER QUADRANTS. REPORTS PAIN 10/10, ACHING, AND NO DIFFERENT FROM PREVIOUS PAIN. REQUESTING PAIN MEDICATION. BED IN LOW POSITION. CALL LIGHT IN REACH. SR UP X2. REASSESSMENT COMPLETED WITH NO CHANGES OBSERVED.
[2018-06-25] VITALS (24 sets, daily range): BP systolic 125–178; BP diastolic 62–100
--- NOTE | 2018-06-25 01:00 | NUR ---
RESTING WITH EYES CLOSED. EASILY ROUSED AND ALERT. DENIES PAIN. NO DISTRESS OBSERVED. CALL LIGHT IN REACH. BED IN LOW POS. SR UP X 2.
--- NOTE | 2018-06-25 02:10 | NUR ---
CALL LIGHT ANSWERED. ASSISTED TO STANDING AND WITH USE OF URINAL. VOIDED APPROX 300ML DARK MARY URINE. AUDIBLE WHEEZES HEARD, RESP INCREASED WITH ACCESSORY MUSCLE USE OBSERVED UPON STANDING. LUNG THORNTON AUSC WITH FAINT EXPIRATORY WHEEZES AUSC IN BUL, RT NOTIFIED.
--- NOTE | 2018-06-25 03:00 | NUR ---
RESTING WITH EYES CLOSED, EASILY ROUSED AND ALERT. DENIES PAIN. REASSESSMENT COMPLETED WITH NO CHANGES OBSERVED. NO PAIN OR DISTRESS OBSERVED.
[2018-06-25 04:33] LABS: BASOPHILS 0.2 % (0-2); EOSINOPHILS 2.5 % (0-7); HEMATOCRIT 25.2 % (42.0-54.0); HEMOGLOBIN 7.9 g/dL (13.5-17.5); LYMPHOCYTES 10.8 % (15-50); MCH 29.6 pg (26.0-34.0); MCHC 31.3 g/dL (31.0-37.0); MCV 94.4 fL (80.0-100.0); MEAN PLATELET VOLUME 10.9 fL (7.4-10.4); MONOCYTES 11.8 % (2-11); NEUTROPHILS 72.7 % (40-80); PLATELET COUNT 191 10x3/uL (130-400); RBC 2.67 10x6/uL (4.20-6.10); RDW 13.7 % (11.5-14.5)
[2018-06-25 04:34] LABS: WBC 6.5 10x3/uL (4.8-10.8)
[2018-06-25 04:35] LABS: INR 1.3 (0.85-1.17); PROTIME 15.7 SECONDS (11.6-15.0)
[2018-06-25 04:51] LABS: ALBUMIN 1.9 g/dL (3.4-5.0); ALKALINE PHOSPHATASE 124 U/L (46-116); ALT (SGPT) 89 U/L (10-68); AMYLASE - SERUM 18 U/L (25-115); BILIRUBIN - TOTAL 0.43 mg/dL (0.2-1.3); CALCIUM 7.6 mg/dL (8.5-10.1); CARBON DIOXIDE 29.2 mmol/L (21.0-32.0); CHLORIDE - SERUM 105 mmol/L (98-107); CREATININE - SERUM 0.9 mg/dL (0.6-1.3); LIPASE 169 U/L (73-393); MAGNESIUM - SERUM 1.9 mg/dL (1.8-2.4); PHOSPHOROUS 3.1 mg/dL (2.5-4.9); POTASSIUM - SERUM 3.7 mmol/L (3.5-5.1); SODIUM 142 mmol/L (136-145); eGFR NON AFRICAN AMERICAN > 90 mL/min (90-120)
[2018-06-25 04:58] LABS: CALC OSMOLALITY 284 mosm/kg (275-300); GLUCOSE 102 mg/dL (74-106); UREA NITROGEN 17 mg/dL (7-18)
--- NOTE | 2018-06-25 05:00 | NUR ---
RESTING WITH EYES CLOSED. EASILY ROUSED AND ALERT. NO DISTRESS OBSERVED. CALL LIGHT IN REACH. SR UP X 2. BED IN LOW POS.
--- NOTE | 2018-06-25 07:00 | NUR ---
SHIFT REPORT RECEIVED. PT RESTING WITH EYES CLOSED. AROUSES TO VOICE. RATES PAIN 8/10 ON ABDOMINAL REGION. MORE TENDER ON RLQ. BS ARE HYPOACTIVE X 4QUADRANTS. ON ROOM AIR WITH O2 SAT 97%. AVEL PICC WITH TPN AT 75ML/HR AND D5LR AT 20ML/HR. PICC LINE DRESSING C/D/I. ORAL TEMP 100.0 AT THIS TIME. REDNESS NOTED ON UE, KNEES AND LEFT CHEEK. PT DENIES CHILLS. SHIFT ASSESSMENT COMPLETED. BED ALARM ON. SIDE RAILS UP X 2. CALL LIGHT IN REACH. NO FURTHER NEEDS AT THIS TIME. WILL CONTINUE TO MONITOR.
--- NOTE | 2018-06-25 07:15 | NUR ---
DR. SHULTZ AT BEDSIDE. ASKED HER IF IT WAS OK TO GIVE PO MEDICATIONS. SHE SAID TO CHECK WITH DR. ORELLANA. NOTIFIED OF DROP IN [facility]. SHE ORDERED 2 UNITS OF PRBCS TO BE GIVEN TODAY.
--- NOTE | 2018-06-25 08:05 | NUR ---
SPOKE WITH DR. ORELLANA REGARDING PO MEDS. STATES THAT HE DOESN'T WANT PT TO HAVE ANY PO MEDS AT THIS TIME.
--- NOTE | 2018-06-25 08:51 | NUR ---
1ST UNIT OF PRBC'S INITIATED AT THIS TIME FOLLOWING BLOOD TRANSFUSSION GUIDELINES. BLOOD VERIFIED WITH LELIA ROBLEDO AT BEDSIDE. BLOOD CONSENT FORM IN CHART. PT RESTING COMFORTABLY. WILL CONTINUE TO MONITOR.
--- NOTE | 2018-06-25 09:56 | NUR ---
DR. CAMPOS AT BEDSIDE. SPOKE WITH PT AND PT'S SPOUSE. PT AND SPOUSE VOICED CONCERN REGARDING TAKING HIS SEIZURES MEDICATIONS WHICH ARE PO. DR. CAMPOS ORDERED PO MEDS TO BE RE-STARTED. DR. CAMPOS MADE AWARE THAT DR. ORELLANA WANTED PT TO BE STRICT NPO AND TO CHANGE ANY PO MEDS TO IV IF APPLICABLE.
--- NOTE | 2018-06-25 10:56 | NUR ---
DR. CAMPOS SPOKE WITH DR. ORELLANA. AM MEDS GIVEN PER DR. CAMPOS'S ORDERS. DILAUDID GIVEN FOR PAIN 02/04. WILL CONTINUE TO MONITOR.
--- NOTE | 2018-06-25 12:53 | NUR ---
1ST UNIT OF PRBC'S FINISHED INFUSING AT 1238. 2ND UNIT OF PRBC'S STARTED AT 1248. VERIFIED BLOOD PER HOSPITAL POLICY. PT RESTING COMFORTABLY. WILL CONTINUE TO MONITOR.
--- NOTE | 2018-06-25 13:09 | NUR ---
PRBC'S INFUSING AT THIS TIME. WILL GIVE VANCOMYCIN DOSE AFTER BLOOD FINISHES INFUSING.
--- NOTE | 2018-06-25 15:08 | NUR ---
2ND UNIT OF BLOOD FINISHED INFUSING. VSS. PT RATED PAIN 10/10 ON ABDOMEN. DILAUDID GIVEN FOR PAIN.
--- NOTE | 2018-06-25 19:00 | NUR ---
CALL LIGHT ANSWERED, PT ASSISTED TO USE URINAL, UNABLE TO URINATE IN UTRINAL, PT REQUESTED BEDSIDE COMMODE, ABLE TO URINATE AND SMALL LOOSE DARK GREEN STOOL NOTED, ASSISTED BACK TO BED, REPOSITIONED FOR COMFORT, PT DENIES OTHER NEEDS AT THIS TIME, VSS, RT AT BEDSIDE, WILL CONTINUE TO MONITOR
--- NOTE | 2018-06-25 19:21 | NUR ---
OT NOTE: PT COMPLETED GROOMING TASKS WITH SET UP. PT COMPLETED UE AROM AXS FOR INCREASED AX TOLERANCE. THANK YOU, GABRIELA FALK
--- NOTE | 2018-06-25 20:20 | NUR ---
MEDS GIVEN PER MAR/ORDERS, AT BEDSIDE, PT AAOx4, NO ACUTE DISTRESS NOTED, VSS, WILL CONTINUE TO ASSESS
--- NOTE | 2018-06-25 23:00 | NUR ---
REASSESSMENT COMPLETED PER FLOW SHEET, PT AAOx4, AWAKE ABLE TO ANSWER QUESTIONS APPROPRIATLEY, SBP ELEVATED, MED GIVEN PER MAR, OTHER VSS, PT DENIES PAIN AT THIS TIME, ASSISTED PT TO BEDSIDE COMMODE, SMALL BM NOTED DARK GREEN AND LOOSE MIXED WITH DARK YELLOW VOID, PT IN NO ACUTE DISTRESS, AMBULATE TO BED WITH MINIMAL ASSIST, REPOSITIONED UP IN BED FOR COMFORT, WILL CONTINUE TO MONITOR
[2018-06-26] VITALS (10 sets, daily range): BP systolic 98–152; BP diastolic 59–77
--- NOTE | 2018-06-26 00:30 | NUR ---
PT C/O LOWER BACK PAIN THATS CONSTANTLY ACHING, RATED 10/10 ON PAIN SCALE PER PT, PT AAOx4 RESTING IN BED SUPINE, MED GIVEN PER MAR, VSS, WILL CONTINUE TO MONITOR
--- NOTE | 2018-06-26 04:58 | NUR ---
PT ASSISTED TO BEDSIDE COMMODE, x1 LOOSE DARK GREEN BM MIXED WITH URINE NOTED, PT DENIES PAIN WITH BM, VSS
[2018-06-26 05:28] LABS: BASOPHILS 0.2 % (0-2); EOSINOPHILS 2.1 % (0-7); HEMATOCRIT 26.8 % (42.0-54.0); HEMOGLOBIN 8.6 g/dL (13.5-17.5); IMMATURE GRANULOCYTES 1.9 % (0-5); LYMPHOCYTES 17.3 % (15-50); MCH 29.6 pg (26.0-34.0); MCHC 32.1 g/dL (31.0-37.0); MCV 92.1 fL (80.0-100.0); MEAN PLATELET VOLUME 11.1 fL (7.4-10.4); MONOCYTES 15.4 % (2-11); NEUTROPHILS 63.1 % (40-80); PLATELET COUNT 190 10x3/uL (130-400); RBC 2.91 10x6/uL (4.20-6.10); RDW 14.5 % (11.5-14.5); WBC 5.9 10x3/uL (4.8-10.8)
--- NOTE | 2018-06-26 05:30 | NUR ---
PT C/O NAUSEOUS FEELING STOMACH, MED GIVEN PER MAR, VSS, WILL CONTINUE TO ASSESS
[2018-06-26 05:39] LABS: ALBUMIN 1.8 g/dL (3.4-5.0); ALKALINE PHOSPHATASE 103 U/L (46-116); ALT (SGPT) 69 U/L (10-68); BILIRUBIN - TOTAL 0.34 mg/dL (0.2-1.3); CALC OSMOLALITY 280 mosm/kg (275-300); CALCIUM 7.5 mg/dL (8.5-10.1); CARBON DIOXIDE 27.9 mmol/L (21.0-32.0); CHLORIDE - SERUM 104 mmol/L (98-107); CREATININE - SERUM 0.9 mg/dL (0.6-1.3); GLUCOSE 172 mg/dL (74-106); LIPASE 139 U/L (73-393); MAGNESIUM - SERUM 1.8 mg/dL (1.8-2.4); PHOSPHOROUS 4.1 mg/dL (2.5-4.9); POTASSIUM - SERUM 4.1 mmol/L (3.5-5.1); PROTEIN - SERUM 5.5 g/dL (6.4-8.2); SODIUM 138 mmol/L (136-145); UREA NITROGEN 16 mg/dL (7-18); VANCOMYCIN - RANDOM 12.1 ug/mL (10.0-20.0); eGFR NON AFRICAN AMERICAN > 90 mL/min (90-120)
--- NOTE | 2018-06-26 06:48 | NUR ---
CALLED PHARMACY AND UPDATED ON VANCOMYCIN BLOOD LEVELS CHECKED PRIOR TO ADMIN OF 06/26/18 0300 VANCOMYCIN D/T LEVELS NOT CHECKED SINCE 06/23/18, PHARMACY TO CHANGE TIMES/ORDERS, WILL NOTIFY ONCOMING DAY SHIFT RN OF SITUATION, PT Tato, VSS
--- NOTE | 2018-06-26 09:19 | NUR ---
NUTRITION F/U PT REMAINS NPO. LABS REVIEWED. MAG AND PHOS ADDED TO AM LAB DRAW. RD FOLLOWING
--- NOTE | 2018-06-26 10:47 | NUR ---
Rehab Prescreening Consult recieved and the chart was reviewed. He is [facility] managed Medicare and will require a preauth. He has not had PT since the and will need a new order. He is still NPO and in ICU. A referral will not be submitted until he is ready for discharge, and able to participate in the required 3 hours of therapy. Discussed with the CARLEY Eric. Debbie Campos RN Clinical Liaison, Rehab
--- NOTE | 2018-06-26 12:39 | NUR ---
PT BEING TRANSFERRED TO ROOM 2226. REPORT GIVEN TO RECEIVING NURSE MERRICK. SPOUSE NOTIFIED THAT PT WILL BE MOVED.
--- NOTE | 2018-06-26 13:12 | NUR ---
PT TRANSFERRED TO ROOM 2223. RECEIVING NURSE NOTIFIED OF PATIENT ARRIVAL. PT TOOK PHONE WITH HIM. NO OTHER PERSONAL BELONGINGS NOTED. CHART DELIVERED TO RUBBER TUBING BACKER. SPOUSE AWARE THAT PT WAS TRANSFERRED.
--- NOTE | 2018-06-26 16:42 | NUR ---
OT NOTE: PT VERY LETHARGIC IN PM; PERFORMED AROM EXS AND GROSS MOTOR TASKS WITH L HAND; BED MOB WITH MIN/MOD ASSIST. GREGORY MIRAMONTES, OTR/L
--- NOTE | 2018-06-26 17:38 | NUR ---
OT NOTE: PT COMPLETED UE AROM AXS. THANK YOU, GABRIELA FALK
--- NOTE | 2018-06-26 19:00 | NUR ---
BEDSIDE REPORT RECEIVED AND CARE OF PT ASSUMED. PT LYING IN HIGH HARRIS'S POSITION VISITING WITH SPOUSE. LEFT PICC PATENT WITH D5LR INFUSING AT 20 ML / HR. AND TPN INFUSING AT 75 ML / HR. WILL MONITOR FOR NEEDS.
--- NOTE | 2018-06-26 20:55 | NUR ---
HS MEDICATIONS GIVEN TO INCLUDE DILAUDID IVP PER PT REQUEST FOR BACK PAIN. WILL CONTINUE TO MONITOR FOR NEEDS.
[2018-06-27 00:46] VITALS: BP 122/74
--- NOTE | 2018-06-27 03:28 | NUR ---
COLLECTED STOOL FOR ORDERED STUDIES AND DELIVERED TO LAB.
--- NOTE | 2018-06-27 04:27 | NUR ---
STOPPED TPN FOR 30 MINUTES. MARTIN BLOOD FROM PICC FOR AM LABS. FLUSHED LINES WITH 10 ML SALINE AND RESTARTED IV FLUIDS. BLOOD DELIVERED TO LAB.
[2018-06-27 04:38] LABS: BASOPHILS 0.2 % (0-2); EOSINOPHILS 2.5 % (0-7); HEMATOCRIT 28.6 % (42.0-54.0); HEMOGLOBIN 9.3 g/dL (13.5-17.5); IMMATURE GRANULOCYTES 1.4 % (0-5); LYMPHOCYTES 21.9 % (15-50); MCH 29.9 pg (26.0-34.0); MCHC 32.5 g/dL (31.0-37.0); MEAN PLATELET VOLUME 10.9 fL (7.4-10.4); MONOCYTES 12.9 % (2-11); NEUTROPHILS 61.1 % (40-80); PLATELET COUNT 188 10x3/uL (130-400); RBC 3.11 10x6/uL (4.20-6.10); RDW 14.2 % (11.5-14.5); WBC 6.3 10x3/uL (4.8-10.8)
[2018-06-27 05:19] LABS: ALBUMIN 1.8 g/dL (3.4-5.0); ALKALINE PHOSPHATASE 106 U/L (46-116); ALT (SGPT) 61 U/L (10-68); AMYLASE - SERUM 11 U/L (25-115); BILIRUBIN - TOTAL 0.31 mg/dL (0.2-1.3); CALC OSMOLALITY 274 mosm/kg (275-300); CALCIUM 7.5 mg/dL (8.5-10.1); CARBON DIOXIDE 27.8 mmol/L (21.0-32.0); CHLORIDE - SERUM 102 mmol/L (98-107); CREATININE - SERUM 0.8 mg/dL (0.6-1.3); LIPASE 140 U/L (73-393); MAGNESIUM - SERUM 1.7 mg/dL (1.8-2.4); PHOSPHOROUS 3.4 mg/dL (2.5-4.9); POTASSIUM - SERUM 3.9 mmol/L (3.5-5.1); PROTEIN - SERUM 5.8 g/dL (6.4-8.2); SODIUM 137 mmol/L (136-145); UREA NITROGEN 15 mg/dL (7-18); eGFR NON AFRICAN AMERICAN > 90 mL/min (90-120)
[2018-06-27 05:20] LABS: GLUCOSE 94 mg/dL (74-106)
[2018-06-27 06:08] VITALS: BP 128/65
--- NOTE | 2018-06-27 07:39 | NUR ---
NUTRITION F/U LABS REVIEWED. CMP, MAG, PHOS ADDED TO AM LAB DRAW. NOTE ELECTROLYTE PROTOCOL IN PLACE. RD FOLLOWING
--- NOTE | 2018-06-27 07:49 | NUR ---
laying in bed, awake and alert, audible wheezing, repiratory thearpy in room administering breathing treatment, picc in left arm, patent, infusing fluids, tpn, continous 02 monitoring, 94%, denies any current needs or discomforts, bed lowered and locked, call light within reach. cpoc
[2018-06-27 08:08] VITALS: BP 124/66
[2018-06-27 16:31] VITALS: BP 131/67
--- NOTE | 2018-06-27 19:30 | NUR ---
PT SITTING UP IN BED W/O DISTRESS, ALERT AND ORIENTED. AT BEDSIDE. BREATHING EVEN, UNLABORED ROOM AIR. CONT PULSE OX IN USE, 98%. PICC TO LEFT UPPER ARM INFUSING D5LR @ KVO AND TPN @ 75. PT STATES NO COMPLAINTS OR NEEDS AT THIS TIME. CL IN REACH, WILL CONTINUE TO MONITOR
--- NOTE | 2018-06-27 21:15 | NUR ---
HS MEDS GIVEN W/O DIFFICULTY. PT STATED HIS STOMACH WAS FEELING SLIGHTLY UPSET, REQUESTED AND GIVEN ZOFRAN. PAIN 8/10 IN BACK, GAVE DILAUDID ORDERED. BS 127, HELD LANTUS. WILL CONTINUE TO MONITOR
--- NOTE | 2018-06-28 00:30 | NUR ---
BS 175. PT AND REFUSED COVERAGE STATING PT BS HAS BEEN LOW ALL DAY AND THEY DO NOT WANT TO DROP IT SO LOW AGAIN. WILL CONTINUE TO MONITOR
[2018-06-28 02:28] VITALS: BP 133/69
--- NOTE | 2018-06-28 02:45 | NUR ---
PT STATES PAIN IN BACK 12/05. GAVE DILAUDID ORDERED. WILL CONTINUE TO MONITOR
[2018-06-28 04:09] VITALS: BP 105/66
--- NOTE | 2018-06-28 05:45 | NUR ---
BS 179. PT AND REFUSED COVERAGE STATING THEY WANT TO WAIT UNTIL MORNING METFORMIN TO SEE WHAT BS IS AT THAT TIME.
--- NOTE | 2018-06-28 06:45 | NUR ---
PT STATES PAIN 8/10 IN BACK. GAVE DILAUDID ORDERED. WILL CONTINIE TO MONITOR
[2018-06-28 06:58] LABS: BASOPHILS 0.2 % (0-2); EOSINOPHILS 2.7 % (0-7); HEMATOCRIT 28.3 % (42.0-54.0); HEMOGLOBIN 9.1 g/dL (13.5-17.5); IMMATURE GRANULOCYTES 1.1 % (0-5); LYMPHOCYTES 30.2 % (15-50); MCH 29.8 pg (26.0-34.0); MCHC 32.2 g/dL (31.0-37.0); MCV 92.8 fL (80.0-100.0); MEAN PLATELET VOLUME 10.7 fL (7.4-10.4); NEUTROPHILS 57.8 % (40-80); PLATELET COUNT 195 10x3/uL (130-400); RBC 3.05 10x6/uL (4.20-6.10); RDW 13.8 % (11.5-14.5); WBC 5.2 10x3/uL (4.8-10.8)
[2018-06-28 07:08] LABS: INR 1.16 (0.85-1.17); PROTIME 14.3 SECONDS (11.6-15.0)
[2018-06-28 07:41] LABS: ALBUMIN 1.8 g/dL (3.4-5.0); ALKALINE PHOSPHATASE 106 U/L (46-116); ALT (SGPT) 47 U/L (10-68); BILIRUBIN - TOTAL 0.28 mg/dL (0.2-1.3); CALC OSMOLALITY 275 mosm/kg (275-300); CALCIUM 7.3 mg/dL (8.5-10.1); CARBON DIOXIDE 27.8 mmol/L (21.0-32.0); CHLORIDE - SERUM 104 mmol/L (98-107); CREATININE - SERUM 0.9 mg/dL (0.6-1.3); GLUCOSE 136 mg/dL (74-106); MAGNESIUM - SERUM 1.8 mg/dL (1.8-2.4); PROTEIN - SERUM 5.6 g/dL (6.4-8.2); SODIUM 137 mmol/L (136-145); UREA NITROGEN 13 mg/dL (7-18); eGFR NON AFRICAN AMERICAN > 90 mL/min (90-120)
--- NOTE | 2018-06-28 07:48 | NUR ---
SITTING UP RIGHT IN BED, 02 PRESENT AT 2LPM, EVEN UNLABORED BREATHING, PICC LINE TO LEFT UPPER ARM, PATENT, INFUSING TPN AND D5LR, DENIES ANY NEEDS OR DISCOMFORTS AT CURRENT TIME, BED LOWERED AND LOCKED, CALL LIGHT WITHIN REACH. CPOC
[2018-06-28 08:32] VITALS: BP 110/66
[2018-06-28 12:48] VITALS: BP 115/61
[2018-06-28 17:16] VITALS: BP 146/78
--- NOTE | 2018-06-28 19:43 | NUR ---
I have reviewed this patient and I concur with the Shift Assessment completed by the Licensed Practical Nurse today this shift.
--- NOTE | 2018-06-28 19:45 | NUR ---
PT SITTING UP IN BED, NO SIGNS OF DISTRESS. ALERT AND ORIENTED, AT BEDSIDE. LEFT UPPER ARM PICC INFUSING D5LR @ 30 AND TPN @ 75. NO NEEDS AT THIS TIME. CL IN REACH, WILL CONTINUE TO MONITOR
[2018-06-28 20:23] VITALS: BP 133/70
[2018-06-29 00:18] VITALS: BP 129/67
[2018-06-29 04:27] VITALS: BP 138/77
[2018-06-29 07:31] LABS: BASOPHILS 0.2 % (0-2); EOSINOPHILS 2.2 % (0-7); HEMATOCRIT 30.6 % (42.0-54.0); HEMOGLOBIN 9.6 g/dL (13.5-17.5); IMMATURE GRANULOCYTES 0.9 % (0-5); LYMPHOCYTES 27.1 % (15-50); MCH 29.4 pg (26.0-34.0); MCHC 31.4 g/dL (31.0-37.0); MCV 93.9 fL (80.0-100.0); MEAN PLATELET VOLUME 10.7 fL (7.4-10.4); MONOCYTES 10.1 % (2-11); NEUTROPHILS 59.5 % (40-80); PLATELET COUNT 214 10x3/uL (130-400); RBC 3.26 10x6/uL (4.20-6.10); RDW 13.6 % (11.5-14.5); WBC 5.4 10x3/uL (4.8-10.8)
[2018-06-29 07:53] LABS: ALKALINE PHOSPHATASE 118 U/L (46-116); ALT (SGPT) 44 U/L (10-68); BILIRUBIN - TOTAL 0.21 mg/dL (0.2-1.3); CALC OSMOLALITY 285 mosm/kg (275-300); CALCIUM 7.8 mg/dL (8.5-10.1); CHLORIDE - SERUM 105 mmol/L (98-107); CREATININE - SERUM 0.8 mg/dL (0.6-1.3); GLUCOSE 149 mg/dL (74-106); MAGNESIUM - SERUM 1.7 mg/dL (1.8-2.4); PHOSPHOROUS 2.7 mg/dL (2.5-4.9); POTASSIUM - SERUM 4.1 mmol/L (3.5-5.1); SODIUM 142 mmol/L (136-145); UREA NITROGEN 12 mg/dL (7-18); eGFR NON AFRICAN AMERICAN > 90 mL/min (90-120)
--- NOTE | 2018-06-29 08:05 | NUR ---
PATIENT ADMITTED WITH PANCREATITIS. PATIENT IS NPO WITH TPN INFUSING @75. AT SIDE
[2018-06-29 08:22] VITALS: BP 196/82
--- NOTE | 2018-06-29 11:11 | NUR ---
Rehab Note- Reviewed medical record- continues to have acute work up at this time. Will continue to follow. Stormy Sethi RN CLinical Liaison, [facility] Re[facility]
[2018-06-29 12:28] VITALS: BP 143/77
[2018-06-29 16:37] VITALS: BP 165/80
[2018-06-30] VITALS: BP 157/86
[2018-06-30 04:00] VITALS: BP 170/98
[2018-06-30 05:46] LABS: BASOPHILS 0.2 % (0-2); EOSINOPHILS 1.2 % (0-7); HEMATOCRIT 31.3 % (42.0-54.0); IMMATURE GRANULOCYTES 0.4 % (0-5); LYMPHOCYTES 25.7 % (15-50); MCH 29.6 pg (26.0-34.0); MCHC 31.9 g/dL (31.0-37.0); MCV 92.6 fL (80.0-100.0); MONOCYTES 8.8 % (2-11); NEUTROPHILS 63.7 % (40-80); PLATELET COUNT 223 10x3/uL (130-400); RBC 3.38 10x6/uL (4.20-6.10); RDW 13.5 % (11.5-14.5); WBC 5.1 10x3/uL (4.8-10.8)
[2018-06-30 05:58] LABS: INR 1.09 (0.85-1.17); PROTIME 13.6 SECONDS (11.6-15.0)
[2018-06-30 06:23] LABS: ALBUMIN 2.1 g/dL (3.4-5.0); ALKALINE PHOSPHATASE 135 U/L (46-116); ALT (SGPT) 47 U/L (10-68); BILIRUBIN - TOTAL 0.28 mg/dL (0.2-1.3); CALC OSMOLALITY 284 mosm/kg (275-300); CALCIUM 7.9 mg/dL (8.5-10.1); CARBON DIOXIDE 26.6 mmol/L (21.0-32.0); CHLORIDE - SERUM 105 mmol/L (98-107); CREATININE - SERUM 0.8 mg/dL (0.6-1.3); GLUCOSE 168 mg/dL (74-106); MAGNESIUM - SERUM 1.7 mg/dL (1.8-2.4); PHOSPHOROUS 2.4 mg/dL (2.5-4.9); POTASSIUM - SERUM 3.8 mmol/L (3.5-5.1); PROTEIN - SERUM 6.4 g/dL (6.4-8.2); SODIUM 141 mmol/L (136-145); UREA NITROGEN 12 mg/dL (7-18); eGFR NON AFRICAN AMERICAN > 90 mL/min (90-120)
--- NOTE | 2018-06-30 08:04 | NUR ---
I have reviewed this patient and I concur with the Shift Assessment completed by the Licensed Practical Nurse today this shift.
--- NOTE | 2018-06-30 08:07 | NUR ---
NUTRITION F/U CHART/LABS REVIEWED. TPN ADJUSTED. MAG AND PHOS ADDED TO AM LAB DRAWS. WILL CONTINUE TO MONITOR PT PROGRESS. RD FOLLOWING
[2018-06-30 09:24] VITALS: BP 179/93
[2018-06-30 12:00] VITALS: BP 145/81
--- NOTE | 2018-06-30 14:48 | NUR ---
OT NOTE: PT FEELING BETTER TODAY; BED MOB WITH SPV; SIT TO STAND AND IN ROOM ABULATION WITH USE OF WALKER AND MIN ASSIST. ABLE TO KULDEEP SOCKS WHILE SITTING ON EDGE OF BED; IMPROVEMENT NOTE IN FUNCTIONAL USE OF L HAND. IMPROVED COORDINATION. GREGORY MIRAMONTES, OTR/L
[2018-06-30 17:43] VITALS: BP 145/76
--- NOTE | 2018-06-30 21:16 | NUR ---
OT NOTE: PT COMPLETED BED MOB WITH MIN A. PT COMPLETED UE AAROM EXS. PT COMPLETED SIMPLE GROOMING TASKS WITH SET UP. THANK YOU, GABRIELA FALK
[2018-06-30 22:01] VITALS: BP 160/89
[2018-07-01 00:26] VITALS: BP 144/81
[2018-07-01 04:00] VITALS: BP 135/78
[2018-07-01 05:02] LABS: BASOPHILS 0.2 % (0-2); HEMATOCRIT 31.5 % (42.0-54.0); HEMOGLOBIN 10.1 g/dL (13.5-17.5); IMMATURE GRANULOCYTES 0.3 % (0-5); LYMPHOCYTES 28.6 % (15-50); MCH 29.4 pg (26.0-34.0); MCHC 32.1 g/dL (31.0-37.0); MCV 91.8 fL (80.0-100.0); MEAN PLATELET VOLUME 10.9 fL (7.4-10.4); MONOCYTES 10.2 % (2-11); NEUTROPHILS 59.7 % (40-80); PLATELET COUNT 234 10x3/uL (130-400); RBC 3.43 10x6/uL (4.20-6.10); RDW 13.4 % (11.5-14.5)
[2018-07-01 05:08] LABS: INR 1.13 (0.85-1.17)
[2018-07-01 05:16] LABS: ALBUMIN 2.1 g/dL (3.4-5.0); ALKALINE PHOSPHATASE 146 U/L (46-116); ALT (SGPT) 58 U/L (10-68); BILIRUBIN - TOTAL 0.33 mg/dL (0.2-1.3); CALC OSMOLALITY 283 mosm/kg (275-300); CARBON DIOXIDE 26.9 mmol/L (21.0-32.0); CHLORIDE - SERUM 104 mmol/L (98-107); CREATININE - SERUM 0.8 mg/dL (0.6-1.3); GLUCOSE 159 mg/dL (74-106); MAGNESIUM - SERUM 1.5 mg/dL (1.8-2.4); PHOSPHOROUS 2.5 mg/dL (2.5-4.9); POTASSIUM - SERUM 3.8 mmol/L (3.5-5.1); PROTEIN - SERUM 6.4 g/dL (6.4-8.2); SODIUM 141 mmol/L (136-145); UREA NITROGEN 12 mg/dL (7-18); eGFR NON AFRICAN AMERICAN > 90 mL/min (90-120)
--- NOTE | 2018-07-01 07:57 | NUR ---
I have reviewed this patient and I concur with the Shift Assessment completed by the Licensed Practical Nurse today this shift.
--- NOTE | 2018-07-01 08:05 | NUR ---
PT RESTING IN BED WATCHING TV. NO ACUTE DISTRESS NOTED. DENIES PAIN AT THIS TIME. SALINE LOC TO LEFT FOREARM INTACT WITHOUT REDNESS. EASILY FLUSHES. REMAINS ON ENTERIC ISOLATIONAT THIS TIME. DENIES FURTHER NEEDS AT THIS TIME. CL WITHIN REACH. ENCOURAGED TO CALL WITH NEEDS.
[2018-07-01 13:48] VITALS: BP 155/83
--- NOTE | 2018-07-01 15:10 | NUR ---
OT NOTE: PT DOING MUCH BETTER; BED MOB WITH SPV; TRANSFERS WITH CGA AND USE OF WALKER. PT ABLE TO AMB GREATER THAN 150 FT WITH CGA, IV, GAIT BELT , AND USE OF RW. MIN ASSIST TO KULDEEP SOCKS. ABLE TO STAND AT SINK AND PERFORM HAND WASHING TASKS. PERFORMED FINE MOTOR TASKS WITH L HAND. FUNCTIONAL MOVEMENT IS MUCH IMPROVED IN L HAND. AROM IN L UE IS WFLS. GREGORY MIRAMONTES, OTR/L
[2018-07-01 16:58] VITALS: BP 148/79
[2018-07-01 20:00] VITALS: BP 130/79
--- NOTE | 2018-07-01 22:01 | NUR ---
PT TOLERATING JUICE WITHOUT C/O DISCOMFORT OR STOMACHE UPSET. WILL CONTINUE TO MONITOR.
--- NOTE | 2018-07-02 03:59 | NUR ---
I have reviewed this patient and I concur with the Shift Assessment completed by the Licensed Practical Nurse today this shift.
[2018-07-02 04:00] VITALS: BP 128/73
[2018-07-02 06:41] LABS: INR 1.13 (0.85-1.17)
[2018-07-02 06:48] LABS: ALBUMIN 2.3 g/dL (3.4-5.0); ALKALINE PHOSPHATASE 159 U/L (46-116); BILIRUBIN - TOTAL 0.28 mg/dL (0.2-1.3); CALC OSMOLALITY 283 mosm/kg (275-300); CALCIUM 8.1 mg/dL (8.5-10.1); CARBON DIOXIDE 26.4 mmol/L (21.0-32.0); CHLORIDE - SERUM 106 mmol/L (98-107); CREATININE - SERUM 0.9 mg/dL (0.6-1.3); GLUCOSE 119 mg/dL (74-106); PHOSPHOROUS 2.8 mg/dL (2.5-4.9); POTASSIUM - SERUM 3.9 mmol/L (3.5-5.1); PROTEIN - SERUM 6.6 g/dL (6.4-8.2); SODIUM 142 mmol/L (136-145); UREA NITROGEN 13 mg/dL (7-18); eGFR NON AFRICAN AMERICAN > 90 mL/min (90-120)
[2018-07-02 06:52] LABS: ALT (SGPT) 84 U/L (10-68); MAGNESIUM - SERUM 1.9 mg/dL (1.8-2.4)
[2018-07-02 06:54] LABS: BASOPHILS 0.1 % (0-2); EOSINOPHILS 1.3 % (0-7); HEMOGLOBIN 10.9 g/dL (13.5-17.5); IMMATURE GRANULOCYTES 0.6 % (0-5); LYMPHOCYTES 25.9 % (15-50); MCH 29.9 pg (26.0-34.0); MCV 90.4 fL (80.0-100.0); MEAN PLATELET VOLUME 11.2 fL (7.4-10.4); MONOCYTES 11.5 % (2-11); NEUTROPHILS 60.6 % (40-80); PLATELET COUNT 218 10x3/uL (130-400); RBC 3.65 10x6/uL (4.20-6.10); RDW 13.4 % (11.5-14.5); WBC 6.8 10x3/uL (4.8-10.8)
--- NOTE | 2018-07-02 07:45 | NUR ---
PT RESTING IN BED WITH EYES CLOSED. OPENS EYES SPONTANEOUSLY. NO ACUTE DISTRESS NOTED. REPORTS PAIN 6/10 AT THIS TIME. PICC LINE TO LEFT UPPER ARM WITH TPN @ 75ML/HR INFUSING VIA PUMP, D5LR @ KVO INFUSING VIA PUMP. SITE WITHOUT REDNESS OR EDEMA. PT DENIES FURTHER NEEDS AT THIS TIME. CL WITHIN REACH. ENCOURAGED TO CALL WITH NEEDS AT THIS TIME. CONTINUE POC
[2018-07-02 08:48] VITALS: BP 163/89
--- NOTE | 2018-07-02 12:44 | MORECARE ---
CASE MANAGEMENT DISCHARGE SUMMARY PATIENT: MARIO MICHELLE UNIT: [id number] ADM DATE: 06/06/18 AGE: 62 : 57 SEX: M ROOM/BED: D.2240 AUTHOR: HECTOR HUNTLEY PHYSICIAN: REFERRING PHYSICIAN: TEJ MASTERSON MD DATE OF SERVICE: 07/02/18 Discharge Plan Patient Name: MARIO MICHELLE Facility: [facility]:[place] : 1955 Planned Disposition: Anticipated Discharge Date: Discharge Date: Expected LOS: Initial Reviewer: [id number] Initial Review Date: 06/08/2018 Generated: 07/02/18 1:44 pm Comments DCP- Discharge Planning Updated by [id number]: Nicole Valera on 07/02/18 11:[address] Met with patient and his in the room to discuss discharge planning. Patient states at this time he plans on returning home with home health. I asked if the doctor had talked to them about a possible transfer to [facility] if needed for a specialist and they both said no. states if he needs to go that they would consent, but prefers to stay here if possible, Gali Paulino informed. They will let us know if we need to arrange [facility] transfer. CM will continue to follow and assist with discharge planning/needs. DCP- Discharge Planning Updated by [id number]: Jennifer Rodriguez on 06/08/18 8:[address] Patient Name: MARIO MICHELLE Admission Status: ER Accout number: [id number] Admission Date: 06-06-2018 : 1955 Admission Diagnosis: Attending: TEJ MASTERSON Current LOS: 2 Anticipated DC Date: Planned Disposition: Primary Insurance: [facility] MEDICARE SOLUTIONS Discharge Planning Comments: CM MET WITH PATIENT AND DONG ABOUT DC PLANNING NEEDS. STATES PLANS TO DC TO HOME. STATES IF NEEDS HH THEN HE WANTS [facility], THADDEUS SIGNED. ORIGINAL GIVEN TO PATIENT AND COPY PLACED ON THE CHART. PATIENT IS SCHEDULED FOR A LAP FAB TODAY. CM WILL FOLLOW AND ASSIST NEEDED WITH DC PLANNING NEEDS. Flour Blender: Jennifer Rodriguez DCPIA - Discharge Planning Initial Assessment Updated by [id number]: Jennifer Rodriguez on 06/08/18 9:43 am * Is the patient Alert and Oriented? Yes * PCP RAMIRO * [facility] [address] * Preadmission Environment Home with Family * ADLs Independent * Equipment Cane CPAP Glucometer Oxygen * List name and contact numbers for known caregivers / representatives who currently or will assist patient after discharge: KATE UMANA, * Verbal permission to speak to the caregivers and representatives has been obtained from the patient. Yes * Community resources currently utilized None * Can the patient safely return to the preadmission environment? Yes * Has this patient been hospitalized within the prior 30 days at any hospital? No Last DP export: 06/08/18 8:51 a Patient Name: MARIO MICHELLE Page [phone] at 1244 All edits/amendments must be made on the electronic document DICTATION DATE: 07/02/18 1243 KEYBOARDING CLERK: SHEREEN 07/02/18 1243 RPT#: [id number] DC DATE: STATUS: ADM IN [facility] [address] [place] [address] END OF REPORT
[2018-07-02 13:01] VITALS: BP 157/76
--- NOTE | 2018-07-02 15:18 | NUR ---
OT NOTE: BED MOB WITH SPV; IN ROOM AMBULATION WITH USE OF WALKER AND SBA. TOILETING WITH SBA. ABLE TO KULDEEP SOCKS WITH SET UP WHILE SITTING ON EDGE OF BED. MUCH IMPROVEMENT WITH FUNCTIONAL USE OF L HAND. GREGORY MIRAMONTES, OTR/L
[2018-07-02 16:47] VITALS: BP 138/70
[2018-07-02 21:23] VITALS: BP 129/73
[2018-07-03 00:34] VITALS: BP 121/75
--- NOTE | 2018-07-03 02:18 | NUR ---
ASSESSED, PT IS AWAKE WITH EASY RESPIRATIONS AND NO DISTRESS NOTED. HE IS WATCHING TV AND A FAMILY MEMBER IS ASLEEP AT THE BEDSIDE.
[2018-07-03 05:23] VITALS: BP 137/82
[2018-07-03 05:46] LABS: INR 1.29 (0.85-1.17); PROTIME 15.6 SECONDS (11.6-15.0)
[2018-07-03 06:04] LABS: ALBUMIN 2.1 g/dL (3.4-5.0); ALKALINE PHOSPHATASE 162 U/L (46-116); BILIRUBIN - TOTAL 0.27 mg/dL (0.2-1.3); CALCIUM 7.6 mg/dL (8.5-10.1); CHLORIDE - SERUM 108 mmol/L (98-107); MAGNESIUM - SERUM 1.6 mg/dL (1.8-2.4); PHOSPHOROUS 3.1 mg/dL (2.5-4.9); PROTEIN - SERUM 6.2 g/dL (6.4-8.2); SODIUM 143 mmol/L (136-145); UREA NITROGEN 11 mg/dL (7-18)
[2018-07-03 06:10] LABS: ALT (SGPT) 92 U/L (10-68); CALC OSMOLALITY 284 mosm/kg (275-300); CARBON DIOXIDE 24.2 mmol/L (21.0-32.0); CREATININE - SERUM 0.8 mg/dL (0.6-1.3); GLUCOSE 119 mg/dL (74-106); eGFR NON AFRICAN AMERICAN > 90 mL/min (90-120)
--- NOTE | 2018-07-03 07:40 | NUR ---
PATIENT ADMITTED FOR PANCREATITIS, PATIENT ALSO HAS HAD LAP-FAB, AND CVA SINCE ADMIT. PATIENT IS NOW TOLERATING FULL LIQUID DIET WITHOUT ANY ISSUES. CL IN REACH
[2018-07-03 08:54] VITALS: BP 127/71
--- NOTE | 2018-07-03 09:42 | MORECARE ---
CASE MANAGEMENT DISCHARGE SUMMARY PATIENT: MARIO MICHELLE UNIT: [id number] ADM DATE: 06/06/18 AGE: 62 : 57 SEX: M ROOM/BED: D.2240 AUTHOR: YUKO,DOC PHYSICIAN: REFERRING PHYSICIAN: TEJ MASTERSON MD DATE OF SERVICE: 07/03/18 Discharge Plan Patient Name: MARIO MICHELLE Facility: [facility]:[place] : 1955 Planned Disposition: Anticipated Discharge Date: Discharge Date: Expected LOS: Initial Reviewer: [id number] Initial Review Date: 06/08/2018 Generated: 07/03/18 10:41 am Comments DCP- Discharge Planning Updated by [id number]: Jennifer Rodriguez on 07/03/18 8:[address] Patient Name: MARIO MICHELLE Admission Status: ER Accout number: [id number] Admission Date: 06-06-2018 : 1955 Admission Diagnosis:ACUTE PANCREATITIS WITHOUT NECROSIS OR INFECTION, UNSP Attending: TEJ MASTERSON Current LOS: 27 Anticipated DC Date: Planned Disposition: Primary Insurance: [facility] MEDICARE SOLUTIONS Discharge Planning Comments: CM MET WITH PATIENT TODAY AND HE WANTS [facility] AND [facility] FOR IV INFUSIONS, THADDEUS SIGNED. CM WILL FAX REFERRALS WHEN CLOSE TO DC. CM WILL FOLLOW AND ASSIST NEEDED WITH DC PLANNING/NEEDS. Poultry Farmworker: Jennifer Rodriguez DCP- Discharge Planning Updated by [id number]: Nicole Valera on 07/02/18 11:[address] Met with patient and his in the room to discuss discharge planning. Patient states at this time he plans on returning home with home health. I asked if the doctor had talked to them about a possible transfer to [facility] if needed for a specialist and they both said no. states if he needs to go that they would consent, but prefers to stay here if possible, Gali Paulino informed. They will let us know if we need to arrange [facility] transfer. CM will continue to follow and assist with discharge planning/needs. DCP- Discharge Planning Updated by [email or web address]: Jennifer Rodriguez on 06/08/18 8:[address] Patient Name: MARIO MICHELLE Admission Status: ER Accout number: [id number] Admission Date: 06-06-2018 : 1955 Admission Diagnosis: Attending: TEJ MASTERSON Current LOS: 2 Anticipated DC Date: Planned Disposition: Primary Insurance: [facility] MEDICARE SOLUTIONS Discharge Planning Comments: CM MET WITH PATIENT AND DONG ABOUT DC PLANNING NEEDS. STATES PLANS TO DC TO HOME. STATES IF NEEDS HH THEN HE WANTS [facility] SIGNED. ORIGINAL GIVEN TO PATIENT AND COPY PLACED ON THE CHART. PATIENT IS SCHEDULED FOR A LAP FAB TODAY. CM WILL FOLLOW AND ASSIST NEEDED WITH DC PLANNING NEEDS. Poultry Farmworker: Jennifer Rodriguez DCPIA - Discharge Planning Initial Assessment Updated by [id number]: Jennifer Rodriguez on 06/08/18 9:43 am * Is the patient Alert and Oriented? Yes * PCP RAMIRO * Pharmacy [facility] [address] * Preadmission Environment Home with Family * ADLs Independent * Equipment Cane CPAP Glucometer Oxygen * List name and contact numbers for known caregivers / representatives who currently or will assist patient after discharge: DONG, , * Verbal permission to speak to the caregivers and representatives has been obtained from the patient. Yes * Community resources currently utilized None * Can the patient safely return to the preadmission environment? Yes * Has this patient been hospitalized within the prior 30 days at any hospital? No Coverage Notice Reviewer: [id number] - Jennifer Rodriguez Notice Issued Date-Time: 07/03/2018 9:35 Notice Type: Patient Choice Letter Notice Delivered To: Patient Relationship to Patient: Self Template Worker Name: Delivery Method: HAND - Hand Delivered Quyen Days: Prior Verbal Notification: Recipient Understood Notice: Yes Recipient Signature: Yes Med Rec Note Co-signed by Attending: Coverage Notice Comment: [facility] Last DP export: 07/02/18 11:44 am Patient Name: MARIO MICHELLE Page 03158 at 0942 All edits/amendments must be made on the electronic document DICTATION DATE: 07/03/18940 CLINICAL PHARMACY SPECIALIST: SHEREEN 07/03/18940 RPT#: [id number] DC DATE: STATUS: ADM IN [facility] [address] [place] [address] END OF REPORT
--- NOTE | 2018-07-03 12:22 | MORECARE ---
CASE MANAGEMENT DISCHARGE SUMMARY PATIENT: MARIO MICHELLE UNIT: [id number] ADM DATE: 06/06/18 AGE: 62 : 57 SEX: M ROOM/BED: D.2240 AUTHOR: YUKO,DOC PHYSICIAN: REFERRING PHYSICIAN: TEJ MASTERSON MD DATE OF SERVICE: 07/03/18 Discharge Plan Patient Name: MARIO MICHELLE Facility: [facility]:[place] : 1955 Planned Disposition: Anticipated Discharge Date: Discharge Date: Expected LOS: Initial Reviewer: [id number] Initial Review Date: 06/08/2018 Generated: 07/03/18 1:22 pm Comments DCP- Discharge Planning Updated by [id number]: Jennifer Rodriguez on 07/03/18 8:[address] Patient Name: MARIO MICHELLE Admission Status: ER Accout number: [id number] Admission Date: 06-06-2018 : 1955 Admission Diagnosis:ACUTE PANCREATITIS WITHOUT NECROSIS OR INFECTION, UNSP Attending: TEJ MASTERSON Current LOS: 27 Anticipated DC Date: Planned Disposition: Primary Insurance: [facility] MEDICARE SOLUTIONS Discharge Planning Comments: CM MET WITH PATIENT TODAY AND HE WANTS [facility] AND [facility] FOR IV INFUSIONS, THADDEUS SIGNED. CM WILL FAX REFERRALS WHEN CLOSE TO DC. CM WILL FOLLOW AND ASSIST NEEDED WITH DC PLANNING/NEEDS. Surface Grinding Machine Hand: Jennifer Rodriguez DCP- Discharge Planning Updated by [id number]: Nicole Valera on 07/02/18 11:[address] Met with patient and his in the room to discuss discharge planning. Patient states at this time he plans on returning home with home health. I asked if the doctor had talked to them about a possible transfer to [facility] if needed for a specialist and they both said no. states if he needs to go that they would consent, but prefers to stay here if possible, Gali Paulino informed. They will let us know if we need to arrange [facility] transfer. CM will continue to follow and assist with discharge planning/needs. DCP- Discharge Planning Updated by [id number]: Jennifer Rodriguez on 06/08/18 8:[address] Patient Name: MARIO MICHELLE Admission Status: ER Accout number: [id number] Admission Date: 06-06-2018 : 1955 Admission Diagnosis: Attending: TEJ MASTERSON Current LOS: 2 Anticipated DC Date: Planned Disposition: Primary Insurance: [facility] MEDICARE SOLUTIONS Discharge Planning Comments: CM MET WITH PATIENT AND DONG ABOUT DC PLANNING NEEDS. STATES PLANS TO DC TO HOME. STATES IF NEEDS HH THEN HE WANTS [facility] SIGNED. ORIGINAL GIVEN TO PATIENT AND COPY PLACED ON THE CHART. PATIENT IS SCHEDULED FOR A LAP FAB TODAY. CM WILL FOLLOW AND ASSIST NEEDED WITH DC PLANNING NEEDS. Surface Grinding Machine Hand: Jennifer Rodriguez DCPIA - Discharge Planning Initial Assessment Updated by [id number]: Jennifer Rodriguez on 06/08/18 9:43 am * Is the patient Alert and Oriented? Yes * PCP RAMIRO * Pharmacy [facility] [address] * Preadmission Environment Home with Family * ADLs Independent * Equipment Cane CPAP Glucometer Oxygen * List name and contact numbers for known caregivers / representatives who currently or will assist patient after discharge: DONG, , * Verbal permission to speak to the caregivers and representatives has been obtained from the patient. Yes * Community resources currently utilized None * Can the patient safely return to the preadmission environment? Yes * Has this patient been hospitalized within the prior 30 days at any hospital? No Coverage Notice Reviewer: [id number] - Jennifer Rodriguez Notice Issued Date-Time: 07/03/2018 9:35 Notice Type: Patient Choice Letter Notice Delivered To: Patient Relationship to Patient: Self Pbx Installer Name: Delivery Method: HAND - Hand Delivered Quyen Days: Prior Verbal Notification: Recipient Understood Notice: Yes Recipient Signature: Yes Med Rec Note Co-signed by Attending: Coverage Notice Comment: [facility] Last DP export: 07/03/18 8:42 am Patient Name: MARIO MICHELLE Page 43831 at 1222 All edits/amendments must be made on the electronic document DICTATION DATE: 07/03/181 HOSPICE HOME CARE COORDINATOR: SHEREEN 07/03/18 1221 RPT#: [id number] DC DATE: STATUS: ADM IN [facility] [address] [place] [address] END OF REPORT
--- NOTE | 2018-07-03 12:27 | NUR ---
OT NOTE: PT DOING VERY WELL; PERFORMED IN ROOM AMBULATION WITH AND WITHOUT RW...PT DID WELL, NO LOB OR GAIT DEFECITS. AMB TO BATHROOM, PERFORMED TOILETING AND HANDWASHING WITH SPV. TRANSFERS TO CHAIR AND TOILET WITH SPV. AROM EXS WITH B UES. LUE MUCH STRONGER THAN PREVIOUSLY. GREGORY MIRAMONTES, OTR/L
[2018-07-03 12:53] VITALS: BP 146/79
--- NOTE | 2018-07-03 14:34 | MORECARE ---
CASE MANAGEMENT DISCHARGE SUMMARY PATIENT: MARIO MICHELLE UNIT: [id number] ADM DATE: 06/06/18 AGE: 62 : 57 SEX: M ROOM/BED: D.2240 AUTHOR: YUKO,DOC PHYSICIAN: REFERRING PHYSICIAN: TEJ MASTERSON MD DATE OF SERVICE: 07/03/18 Discharge Plan Patient Name: MARIO MICHELLE Facility: [facility]:[place] : 1955 Planned Disposition: Anticipated Discharge Date: Discharge Date: Expected LOS: Initial Reviewer: [id number] Initial Review Date: 06/08/2018 Generated: 07/03/18 3:34 pm Comments DCP- Discharge Planning Updated by [id number]: Linda Greenwood on 07/03/18 1:[address] CLINICAL SENT TO [facility] FOR HOME TPN, SPOKE WITH ERLIN DCP- Discharge Planning Updated by [email or web address]: Jennifer Rodriguez on 07/03/18 8:[address] Patient Name: MARIO MICHELLE Admission Status: ER Accout number: [id number] Admission Date: 06-06-2018 : 1955 Admission Diagnosis:ACUTE PANCREATITIS WITHOUT NECROSIS OR INFECTION, UNSP Attending: TEJ MASTERSON Current LOS: 27 Anticipated DC Date: Planned Disposition: Primary Insurance: [facility] MEDICARE SOLUTIONS Discharge Planning Comments: CM MET WITH PATIENT TODAY AND HE WANTS [facility] AND [facility] FOR IV INFUSIONS, THADDEUS SIGNED. CM WILL FAX REFERRALS WHEN CLOSE TO DC. CM WILL FOLLOW AND ASSIST NEEDED WITH DC PLANNING/NEEDS. Food Processing Chemist: Jennifer Rodriguez DCP- Discharge Planning Updated by [email or web address]: Nicole Valera on 07/02/18 11:[address] Met with patient and his in the room to discuss discharge planning. Patient states at this time he plans on returning home with home health. I asked if the doctor had talked to them about a possible transfer to [facility] if needed for a specialist and they both said no. states if he needs to go that they would consent, but prefers to stay here if possible, Gali Paulino informed. They will let us know if we need to arrange [facility] transfer. CM will continue to follow and assist with discharge planning/needs. DCP- Discharge Planning Updated by [email or web address]: Jennifer Rodriguez on 06/08/18 8:[address] Patient Name: MARIO MICHELLE Admission Status: ER Accout number: [id number] Admission Date: 06-06-2018 : 1955 Admission Diagnosis: Attending: TEJ MASTERSON Current LOS: 2 Anticipated DC Date: Planned Disposition: Primary Insurance: [facility] MEDICARE SOLUTIONS Discharge Planning Comments: CM MET WITH PATIENT AND DONG ABOUT DC PLANNING NEEDS. STATES PLANS TO DC TO HOME. STATES IF NEEDS HH THEN HE WANTS [facility] MILLER SIGNED. ORIGINAL GIVEN TO PATIENT AND COPY PLACED ON THE CHART. PATIENT IS SCHEDULED FOR A LAP FAB TODAY. CM WILL FOLLOW AND ASSIST NEEDED WITH DC PLANNING NEEDS. Food Processing Chemist: Jenniferamandeep Rodriguez DCPIA - Discharge Planning Initial Assessment Updated by [email or web address]: Jennifer Rodriguez on 06/08/18 9:43 am * Is the patient Alert and Oriented? Yes * PCP RAMIRO * Pharmacy [facility] [address] * Preadmission Environment Home with Family * ADLs Independent * Equipment Cane CPAP Glucometer Oxygen * List name and contact numbers for known caregivers / representatives who currently or will assist patient after discharge: DONG, , * Verbal permission to speak to the caregivers and representatives has been obtained from the patient. Yes * Community resources currently utilized None * Can the patient safely return to the preadmission environment? Yes * Has this patient been hospitalized within the prior 30 days at any hospital? No External Providers External Provider: [facility] Next Contact Date: Service Request Date: Service Type: Resolution: Reviewer: Comments: Coverage Notice Reviewer: [id number] - Jennifer Rodriguez Notice Issued Date-Time: 07/03/2018 9:35 Notice Type: Patient Choice Letter Notice Delivered To: Patient Relationship to Patient: Self Capacity Planner Name: Delivery Method: HAND - Hand Delivered Quyen Days: Prior Verbal Notification: Recipient Understood Notice: Yes Recipient Signature: Yes Med Rec Note Co-signed by Attending: Coverage Notice Comment: [facility] Last DP export: 07/03/18 11:22 am Patient Name: MARIO MICHELLE Page [phone] at 1434 All edits/amendments must be made on the electronic document DICTATION DATE: 07/03/181433 PARTY PLAN SALES DIRECTOR: SHEREEN 07/03/181433 RPT#: [id number] DC DATE: STATUS: ADM IN [facility] [address] [place] [address] END OF REPORT
--- NOTE | 2018-07-03 15:09 | NUR ---
NUTRITION F/U CHART/LABS REVIEWED. CMP, MAG, PHOS ADDED TO LAB DRAWS. WILL CONTINUE TO MONITOR LABS, ADJUST TPN NEEDED. RD FOLLOWING
[2018-07-03 17:19] VITALS: BP 134/77
--- NOTE | 2018-07-03 18:18 | NUR ---
PICC DRESSING CHANGED DUE TO LOOSE
[2018-07-03 19:00] VITALS: BP 116/59
--- NOTE | 2018-07-03 20:15 | NUR ---
PT ALERT AND ORIENTED WHEN ENTERING THE ROOM. AT BEDSIDE. PT COMPLAINS OF NAUSEA. PT RECEIVED ZOFRAN SHORTLY BEFORE 1900. INSTRUCTED PT TO ALLOW ZOFRAN TO HAVE TIME TO WORK. PT STATES HE FEELS LIKE HE MAY HAVE ATE TOO MUCH TOO FAST. SPOKE WITH PT ABOUT TAKING TIME WITH MEALS. PT VERBALIZES UNDERSTANDING.
[2018-07-04] VITALS: BP 128/61
--- NOTE | 2018-07-04 00:08 | NUR ---
ASSESSED, PT IS ASLEEP WITH EASY RESPIRATIONS AND NO DISTRESS NOTED. FAMILY REMAINS AT THE BEDSIDE.
[2018-07-04 03:00] VITALS: BP 131/57
[2018-07-04 06:15] LABS: INR 1.41 (0.85-1.17); PROTIME 16.7 SECONDS (11.6-15.0)
[2018-07-04 06:20] LABS: BASOPHILS 0.3 % (0-2); EOSINOPHILS 1.9 % (0-7); HEMOGLOBIN 9.9 g/dL (13.5-17.5); IMMATURE GRANULOCYTES 0.6 % (0-5); LYMPHOCYTES 31.4 % (15-50); MCHC 31.9 g/dL (31.0-37.0); MCV 90.9 fL (80.0-100.0); MEAN PLATELET VOLUME 10.7 fL (7.4-10.4); MONOCYTES 9.5 % (2-11); NEUTROPHILS 56.3 % (40-80); PLATELET COUNT 238 10x3/uL (130-400); RBC 3.41 10x6/uL (4.20-6.10); RDW 13.5 % (11.5-14.5); WBC 6.7 10x3/uL (4.8-10.8)
[2018-07-04 06:33] LABS: ALBUMIN 2.1 g/dL (3.4-5.0); ALKALINE PHOSPHATASE 173 U/L (46-116); ALT (SGPT) 86 U/L (10-68); BILIRUBIN - TOTAL 0.19 mg/dL (0.2-1.3); CALC OSMOLALITY 281 mosm/kg (275-300); CALCIUM 7.8 mg/dL (8.5-10.1); CARBON DIOXIDE 29.8 mmol/L (21.0-32.0); CHLORIDE - SERUM 106 mmol/L (98-107); CREATININE - SERUM 0.8 mg/dL (0.6-1.3); GLUCOSE 99 mg/dL (74-106); MAGNESIUM - SERUM 1.8 mg/dL (1.8-2.4); PHOSPHOROUS 3.3 mg/dL (2.5-4.9); POTASSIUM - SERUM 4.2 mmol/L (3.5-5.1); SODIUM 142 mmol/L (136-145); UREA NITROGEN 11 mg/dL (7-18); eGFR NON AFRICAN AMERICAN > 90 mL/min (90-120)
--- NOTE | 2018-07-04 08:30 | NUR ---
PT AAOX4 RESP EVEN AND NONLABORED, NO SIGNS OF DISTRESS NOTED, CL IN REACH FAMILY AT BEDSIDE
[2018-07-04 09:49] LABS: AMYLASE - SERUM 19 U/L (25-115); LIPASE 168 U/L (73-393)
[2018-07-04 09:50] VITALS: BP 129/73
[2018-07-04 13:29] VITALS: BP 142/70
[2018-07-04 16:21] VITALS: BP 127/70
--- NOTE | 2018-07-04 16:50 | NUR ---
I have reviewed this patient and I concur with the Shift Assessment completed by the Licensed Practical Nurse today this shift.
[2018-07-04 20:00] VITALS: BP 120/69
[2018-07-05] VITALS: BP 128/77
[2018-07-05 04:00] VITALS: BP 132/82
[2018-07-05 06:58] LABS: BASOPHILS 0.2 % (0-2); EOSINOPHILS 1.9 % (0-7); HEMATOCRIT 32.3 % (42.0-54.0); HEMOGLOBIN 10.3 g/dL (13.5-17.5); IMMATURE GRANULOCYTES 0.3 % (0-5); LYMPHOCYTES 18.8 % (15-50); MCH 29.3 pg (26.0-34.0); MCHC 31.9 g/dL (31.0-37.0); MCV 91.8 fL (80.0-100.0); MEAN PLATELET VOLUME 10.3 fL (7.4-10.4); MONOCYTES 8.9 % (2-11); NEUTROPHILS 69.9 % (40-80); PLATELET COUNT 249 10x3/uL (130-400); RBC 3.52 10x6/uL (4.20-6.10); RDW 13.5 % (11.5-14.5)
[2018-07-05 07:13] LABS: WBC 9.6 10x3/uL (4.8-10.8)
--- NOTE | 2018-07-05 07:15 | NUR ---
PT RESTING EYES CLOSED EASY RISE AND FALL OF CHEST FAMILY AT BEDSIDE, CL IN REACH NO SIGNS OF DISTRESS NOTED
[2018-07-05 07:19] LABS: ALBUMIN 2.2 g/dL (3.4-5.0); ALKALINE PHOSPHATASE 162 U/L (46-116); ALT (SGPT) 69 U/L (10-68); BILIRUBIN - TOTAL 0.19 mg/dL (0.2-1.3); CALC OSMOLALITY 279 mosm/kg (275-300); CALCIUM 7.8 mg/dL (8.5-10.1); CARBON DIOXIDE 29.5 mmol/L (21.0-32.0); CHLORIDE - SERUM 105 mmol/L (98-107); CREATININE - SERUM 0.8 mg/dL (0.6-1.3); GLUCOSE 115 mg/dL (74-106); MAGNESIUM - SERUM 1.7 mg/dL (1.8-2.4); PHOSPHOROUS 2.9 mg/dL (2.5-4.9); POTASSIUM - SERUM 4.3 mmol/L (3.5-5.1); PROTEIN - SERUM 6.2 g/dL (6.4-8.2); SODIUM 140 mmol/L (136-145); UREA NITROGEN 12 mg/dL (7-18); eGFR NON AFRICAN AMERICAN > 90 mL/min (90-120)
[2018-07-05 08:30] VITALS: BP 110/59
[2018-07-05 12:43] VITALS: BP 144/80
[2018-07-05 12:59] LABS: INR 1.76 (0.85-1.17); PROTIME 19.8 SECONDS (11.6-15.0)
[2018-07-05 16:36] VITALS: BP 133/73
--- NOTE | 2018-07-05 19:55 | NUR ---
LYING IN BED. ALERT AND ORIENTED X4. LT SIDED FACIAL DROOP NOTED. SLIGHT LT SIDED WEAKNESS. STATES HE HAD A STROKE RECENTLY. AMBULATORY WITH STANDBY ASSIST. C/O PAIN IN BACK AND ABD 10 ON PAIN SCALE. ABD IS DISTENDED AND SOFT. BS PRESENT X4 QUADS. REPORTS LOOSE GREEN BMS DURING THE DAY. BRUISES NOTED TO BLE. CLINIMIX INFUSING @ 75 ML/HR WITH D5LR INFUSING @ 30 ML/HR TO LT UPPER ARM PICC LINE. CL IN REACH.
--- NOTE | 2018-07-05 20:10 | NUR ---
MEDICATED WITH DILAUDID FOR C/O PAIN IN ABD AND BACK RATING 10. CL IN REACH.
[2018-07-05 20:38] VITALS: BP 132/79
--- NOTE | 2018-07-05 21:40 | NUR ---
C/O NAUSEA. REQUESTS ZOFRAN. MEDICATED WITH ZOFRAN 4MG IVP ORDERED. CL IN REACH.
--- NOTE | 2018-07-06 00:07 | NUR ---
PTS REFUSED SLIDING SCALE INSULIN. FSBS 164. SHE ALSO REFUSED TO LET SUPERINTENDENT CEMETERY TAKE PTS VITALS.
--- NOTE | 2018-07-06 01:16 | NUR ---
HAS SLEPT WELL SO FAR TONIGHT. NO DISTRESS. CL IN REACH.
--- NOTE | 2018-07-06 03:30 | NUR ---
MEDICATED FOR C/O ABD/BACK PAIN RATING 10 WITH DILAUDID IV ORDERED. AT BEDSIDE. CL IN REACH.
[2018-07-06 05:07] VITALS: BP 111/62
[2018-07-06 05:47] LABS: BASOPHILS 0.2 % (0-2); EOSINOPHILS 1.6 % (0-7); HEMATOCRIT 31.2 % (42.0-54.0); HEMOGLOBIN 9.9 g/dL (13.5-17.5); IMMATURE GRANULOCYTES 0.2 % (0-5); LYMPHOCYTES 17.8 % (15-50); MCH 29.2 pg (26.0-34.0); MCHC 31.7 g/dL (31.0-37.0); MEAN PLATELET VOLUME 9.7 fL (7.4-10.4); MONOCYTES 9.2 % (2-11); PLATELET COUNT 219 10x3/uL (130-400); RBC 3.39 10x6/uL (4.20-6.10); RDW 13.5 % (11.5-14.5); WBC 8.7 10x3/uL (4.8-10.8)
[2018-07-06 06:15] LABS: ALBUMIN 2.2 g/dL (3.4-5.0); ALKALINE PHOSPHATASE 184 U/L (46-116); ALT (SGPT) 67 U/L (10-68); BILIRUBIN - TOTAL 0.17 mg/dL (0.2-1.3); CALC OSMOLALITY 283 mosm/kg (275-300); CALCIUM 8.1 mg/dL (8.5-10.1); CARBON DIOXIDE 27.3 mmol/L (21.0-32.0); CHLORIDE - SERUM 104 mmol/L (98-107); CREATININE - SERUM 0.9 mg/dL (0.6-1.3); GLUCOSE 230 mg/dL (74-106); MAGNESIUM - SERUM 1.6 mg/dL (1.8-2.4); POTASSIUM - SERUM 4.5 mmol/L (3.5-5.1); PROTEIN - SERUM 6.3 g/dL (6.4-8.2); SODIUM 139 mmol/L (136-145); UREA NITROGEN 11 mg/dL (7-18); eGFR NON AFRICAN AMERICAN > 90 mL/min (90-120)
[2018-07-06 06:54] LABS: INR 2.31 (0.85-1.17); PROTIME 24.7 SECONDS (11.6-15.0)
--- NOTE | 2018-07-06 08:00 | NUR ---
PT RESTING IN BED. FAMILY AT BEDSIDE. NO ACUTE DISTRESS NOTED. REPORTS GENERALIZED PAIN 10/10 AT THIS TIME. PRESCRIBED PAIN MEDICATION ADMINISTERED PER MD ORDERS. PICC LINE TO LEFT UPPER ARM WITH CLINIMIX @ 75ML/HR, D5LR @ 30 ML/HR INFUSING VIA PUMP. SITE WITHOUT REDNESS OR EDEMA. DENIES FURTHER NEEDS AT THIS TIME. CL WITHIN REACH. ENCOURAGED TO CALL WITH NEEDS. CONTINUE POC
[2018-07-06 08:20] VITALS: BP 119/74
[2018-07-06 12:30] VITALS: BP 123/73
--- NOTE | 2018-07-06 17:37 | MORECARE ---
CASE MANAGEMENT DISCHARGE SUMMARY PATIENT: MARIO MICHELLE UNIT: [id number] ADM DATE: 06/06/18 AGE: 62 : 57 SEX: M ROOM/BED: D.2240 AUTHOR: YUKO,DOC PHYSICIAN: REFERRING PHYSICIAN: TEJ MASTERSON MD DATE OF SERVICE: 07/06/18 Discharge Plan Patient Name: MARIO MICHELLE Facility: [facility]:[place] : 1955 Planned Disposition: Anticipated Discharge Date: Discharge Date: Expected LOS: Initial Reviewer: [id number] Initial Review Date: 06/08/2018 Generated: 07/06/18 6:37 pm Comments DCP- Discharge Planning Updated by [id number]: Gabriella Hudson on 07/06/18 4:[address] LATE ENTRY 1605 TC TO [facility]. SPOKE WITH LAVERN. DISCUSSED DR SPRING'S AND DR CAMPOS'S NOTE. REQUESTED RE-EVAL FOR ACUTE REHAB. PREVIOUS EVAL 06/29. TC TO [facility]. FAXED REFERRAL W/ PATIENT'S FACE SHEET, H/P , 07/06 CONSULT NOTE AND MEDICATION LIST TO ATTENTION OF JENNIFER COVARRUBIAS. LEFT VOICE MAIL MESSAGE REGARDING REFERRAL. DCP- Discharge Planning Updated by [id number]: Linda Greenwood on 07/03/18 12:[address] CLINICAL SENT TO [facility] FOR HOME TPN, SPOKE WITH ERLIN DCP- Discharge Planning Updated by [id number]: Jennifer Rodriguez on 07/03/18 7:[address] Patient Name: MARIO MICHELLE Admission Status: ER Accout number: [id number] Admission Date: 06-06-2018 : 1955 Admission Diagnosis:ACUTE PANCREATITIS WITHOUT NECROSIS OR INFECTION, UNSP Attending: TEJ MASTERSON Current LOS: 27 Anticipated DC Date: Planned Disposition: Primary Insurance: [facility] MEDICARE SOLUTIONS Discharge Planning Comments: CM MET WITH PATIENT TODAY AND HE WANTS [facility] AND [facility], THADDEUS SIGNED. CM WILL FAX REFERRALS WHEN CLOSE TO DC. CM WILL FOLLOW AND ASSIST NEEDED WITH DC PLANNING/NEEDS. Cashier Payments Received: Jennifer Rodriguez DCP- Discharge Planning Updated by [email or web address]: Nicole Valera on 07/02/18 10:[address] Met with patient and his in the room to discuss discharge planning. Patient states at this time he plans on returning home with home health. I asked if the doctor had talked to them about a possible transfer to [facility] if needed for a specialist and they both said no. states if he needs to go that they would consent, but prefers to stay here if possible, Gali Paulino informed. They will let us know if we need to arrange [facility] transfer. CM will continue to follow and assist with discharge planning/needs. DCP- Discharge Planning Updated by [id number]: Jennifer Rodriguez on 06/08/18 7:[address] Patient Name: MARIO MICHELLE Admission Status: ER Accout number: [id number] Admission Date: 06-06-2018 : 1955 Admission Diagnosis: Attending: TEJ MASTERSON Current LOS: 2 Anticipated DC Date: Planned Disposition: Primary Insurance: [facility] MEDICARE SOLUTIONS Discharge Planning Comments: CM MET WITH PATIENT AND DONG ABOUT DC PLANNING NEEDS. STATES PLANS TO DC TO HOME. STATES IF NEEDS HH THEN HE WANTS [facility], THADDEUS SIGNED. ORIGINAL GIVEN TO PATIENT AND COPY PLACED ON THE CHART. PATIENT IS SCHEDULED FOR A LAP FAB TODAY. CM WILL FOLLOW AND ASSIST NEEDED WITH DC PLANNING NEEDS. Cashier Payments Received: Jennifer Rodriguez DCPIA - Discharge Planning Initial Assessment Updated by [id number]: Jennifer Rodriguez on 06/08/18 9:43 am * Is the patient Alert and Oriented? Yes * PCP RAMIRO * Pharmacy [facility] [address] * Preadmission Environment Home with Family * ADLs Independent * Equipment Cane CPAP Glucometer Oxygen * List name and contact numbers for known caregivers / representatives who currently or will assist patient after discharge: KATE UMANA, * Verbal permission to speak to the caregivers and representatives has been obtained from the patient. Yes * Community resources currently utilized None * Can the patient safely return to the preadmission environment? Yes * Has this patient been hospitalized within the prior 30 days at any hospital? No Coverage Notice Reviewer: [id number] - Jennifer Rodriguez Notice Issued Date-Time: 07/03/2018 9:35 Notice Type: Patient Choice Letter Notice Delivered To: Patient Relationship to Patient: Self Telecommunication Equipment Repairer Name: Delivery Method: HAND - Hand Delivered Quyen Days: Prior Verbal Notification: Recipient Understood Notice: Yes Recipient Signature: Yes Med Rec Note Co-signed by Attending: Coverage Notice Comment: [facility] Last DP export: 07/03/18 12:34 pm Patient Name: MARIO MICHELLE Page [id number] at 1737 All edits/amendments must be made on the electronic document DICTATION DATE: 07/06/181735 DIE ASSEMBLER: SHEREEN 07/06/181735 RPT#: [id number] DC DATE: STATUS: ADM IN [facility] [address] [place] [address] END OF REPORT
[2018-07-06 17:53] VITALS: BP 127/73
[2018-07-06 20:00] VITALS: BP 108/60
--- NOTE | 2018-07-06 20:00 | NUR ---
PT SITTING UP IN BED, NO SIGNS OF DISTRESS. ALERT AND ORIENTED. IV LEFT UPPER ARM INFUSING TPN @ 75 AND D5LR @ 30. UP WITH ASSIST TO BATHROOM. BED ALARM ON. AT BEDSIDE. DENIES NEEDS AT THIS TIME. CL IN REACH, WILL CONT TO MONITOR
[2018-07-07 04:00] VITALS: BP 144/85
[2018-07-07 07:17] LABS: INR 2.69 (0.85-1.17); PROTIME 27.9 SECONDS (11.6-15.0)
--- NOTE | 2018-07-07 07:23 | NUR ---
PT RESTING EYES CLOSED, NO SIGNS OF DISTRESS NOTED CL IN REACH
[2018-07-07 07:25] LABS: BASOPHILS 0.4 % (0-2); HEMATOCRIT 30.1 % (42.0-54.0); HEMOGLOBIN 9.7 g/dL (13.5-17.5); IMMATURE GRANULOCYTES 0.4 % (0-5); LYMPHOCYTES 19.5 % (15-50); MCH 29.2 pg (26.0-34.0); MCHC 32.2 g/dL (31.0-37.0); MCV 90.7 fL (80.0-100.0); MEAN PLATELET VOLUME 10.3 fL (7.4-10.4); MONOCYTES 12.2 % (2-11); NEUTROPHILS 66.5 % (40-80); PLATELET COUNT 226 10x3/uL (130-400); RBC 3.32 10x6/uL (4.20-6.10); RDW 13.4 % (11.5-14.5); WBC 6.9 10x3/uL (4.8-10.8)
[2018-07-07 07:30] LABS: CALC OSMOLALITY 278 mosm/kg (275-300); CALCIUM 8.2 mg/dL (8.5-10.1); CARBON DIOXIDE 31.3 mmol/L (21.0-32.0); CHLORIDE - SERUM 103 mmol/L (98-107); CREATININE - SERUM 0.8 mg/dL (0.6-1.3); GLUCOSE 112 mg/dL (74-106); MAGNESIUM - SERUM 1.8 mg/dL (1.8-2.4); POTASSIUM - SERUM 4.1 mmol/L (3.5-5.1); SODIUM 140 mmol/L (136-145); UREA NITROGEN 10 mg/dL (7-18); eGFR NON AFRICAN AMERICAN > 90 mL/min (90-120)
[2018-07-07 09:06] VITALS: BP 145/85
--- NOTE | 2018-07-07 09:39 | MORECARE ---
CASE MANAGEMENT DISCHARGE SUMMARY PATIENT: MARIO MICHELLE UNIT: [id number] ADM DATE: 06/06/18 AGE: 62 : 57 SEX: M ROOM/BED: D.2240 AUTHOR: YUKO,DOC PHYSICIAN: REFERRING PHYSICIAN: TEJ MASTERSON MD DATE OF SERVICE: 07/07/18 Discharge Plan Patient Name: MARIO MICHELLE Facility: [facility]:[place] : 1955 Planned Disposition: Anticipated Discharge Date: Discharge Date: Expected LOS: Initial Reviewer: [email or web address] Initial Review Date: 06/08/2018 Generated: 07/07/18 10:38 am Comments DCP- Discharge Planning Updated by [email or web address]: Nicole Valera on 07/07/18 8:[address] Received a message from Sherley at [facility] in [place] that they will be unable to accept patient. His insurance in not in network and he has no out of network benefits. I went to meet with the patient and he is asleep and his is not in the room. I called and left a message with Lavern in inpatient rehab to check on inpatient rehab status. CM will continue to assist with discharge planning/needs. DCP- Discharge Planning Updated by [id number]: Gabriella Hudson on 07/06/18 4:[address] LATE ENTRY 1605 TC TO [facility]UTE REH[facility]. SPOKE WITH LAVERN. DISCUSSED DR SPRING'S AND DR CAMPOS'S NOTE. REQUESTED RE-EVAL FOR ACUTE REHAB. PREVIOUS EVAL 06/29. TC TO [facility]. FAXED REFERRAL W/ PATIENT'S FACE SHEET, H/P , 07/06 CONSULT NOTE AND MEDICATION LIST TO ATTENTION OF JENNIFER COVARRUBIAS. LEFT VOICE MAIL MESSAGE REGARDING REFERRAL. DCP- Discharge Planning Updated by [email or web address]: Linda [place] on 07/03/18 12:[address] CLINICAL SENT TO [place] FOR HOME TPN, SPOKE WITH ERLIN DCP- Discharge Planning Updated by [id number]: Jennifer Rodriguez on 07/03/18 7:[address] Patient Name: MARIO MICHELLE Admission Status: ER Accout number: [id number] Admission Date: 06-06-2018 : 1955 Admission Diagnosis:ACUTE PANCREATITIS WITHOUT NECROSIS OR INFECTION, UNSP Attending: TEJ MSATERSON Current LOS: 27 Anticipated DC Date: Planned Disposition: Primary Insurance: [facility] MEDIC[employer] SOLUTIONS Discharge Planning Comments: CM MET WITH PATIENT TODAY AND HE WANTS [facility] IV INFUSIONS, THADDEUS SIGNED. CM WILL FAX REFERRALS WHEN CLOSE TO DC. CM WILL FOLLOW AND ASSIST NEEDED WITH DC PLANNING/NEEDS. Trimmer Helper: Jennifer Rodriguez DCP- Discharge Planning Updated by [id number]: Nicole Valera on 07/02/18 10:[address] Met with patient and his in the room to discuss discharge planning. Patient states at this time he plans on returning home with home health. I asked if the doctor had talked to them about a possible transfer to [facility] if needed for a specialist and they both said no. states if he needs to go that they would consent, but prefers to stay here if possible, Gali Paulino informed. They will let us know if we need to arrange [facility] transfer. CM will continue to follow and assist with discharge planning/needs. DCP- Discharge Planning Updated by [email or web address]: Jennifer Rodriguez on 06/08/18 7:[address] Patient Name: MARIO MICHELLE Admission Status: ER Accout number: [id number] Admission Date: 06-06-2018 : 1955 Admission Diagnosis: Attending: TEJ MASTERSON Current LOS: 2 Anticipated DC Date: Planned Disposition: Primary Insurance: [facility] MEDIC[employer] SOLUTIONS Discharge Planning Comments: CM MET WITH PATIENT AND DONG ABOUT DC PLANNING NEEDS. STATES PLANS TO DC TO HOME. STATES IF NEEDS HH THEN HE WANTS [facility], THADDEUS SIGNED. ORIGINAL GIVEN TO PATIENT AND COPY PLACED ON THE CHART. PATIENT IS SCHEDULED FOR A LAP FAB TODAY. CM WILL FOLLOW AND ASSIST NEEDED WITH DC PLANNING NEEDS. Trimmer Helper: Jennifer Rodriguez DCPIA - Discharge Planning Initial Assessment Updated by [id number]: Jennifer Rodriguez on 06/08/18 9:43 am * Is the patient Alert and Oriented? Yes * PCP RAMIRO * Pharmacy [facility] [address] * Preadmission Environment Home with Family * ADLs Independent * Equipment Cane CPAP Glucometer Oxygen * List name and contact numbers for known caregivers / representatives who currently or will assist patient after discharge: DONG, , * Verbal permission to speak to the caregivers and representatives has been obtained from the patient. Yes * Community resources currently utilized None * Can the patient safely return to the preadmission environment? Yes * Has this patient been hospitalized within the prior 30 days at any hospital? No Coverage Notice Reviewer: [id number] - Jennifer Rodriguez Notice Issued Date-Time: 07/03/2018 9:35 Notice Type: Patient Choice Letter Notice Delivered To: Patient Relationship to Patient: Self Director Of Distribution Name: Delivery Method: HAND - Hand Delivered Quyen Days: Prior Verbal Notification: Recipient Understood Notice: Yes Recipient Signature: Yes Med Rec Note Co-signed by Attending: Coverage Notice Comment: [facility] IV [facility]ION [facility]ICE Last DP export: 07/06/18 4:37 p Patient Name: MARIO MICHELLE Page [id number] at 0939 All edits/amendments must be made on the electronic document DICTATION DATE: 07/07/18937 PLANT PULLER: SHEEREN 07/07/18937 RPT#: [id number] DC DATE: STATUS: ADM IN [facility] [address] [place] [address] END OF REPORT
--- NOTE | 2018-07-07 10:11 | NUR ---
Rehab Note- REviewing the patient's medical receord the patient has been signed off by PT, OT, & ST. He does not meet the needs/requirements of an acute inpatient rehab at this time. THank you for this referral! Stormy Sethi RN CLinical Liaison, [facility] Rehab
--- NOTE | 2018-07-07 10:15 | NUR ---
Nutrition follow-up: Diet: Full liquids Calorie count started Chart reviewed TPN formula adjusted RDN following.
--- NOTE | 2018-07-07 11:22 | MORECARE ---
CASE MANAGEMENT DISCHARGE SUMMARY PATIENT: MARIO MICHELLE UNIT: [id number] ADM DATE: 06/06/18 AGE: 62 : 57 SEX: M ROOM/BED: D.2240 AUTHOR: YUKO,DOC PHYSICIAN: REFERRING PHYSICIAN: TEJ MASTERSON MD DATE OF SERVICE: 07/07/18 Discharge Plan Patient Name: MARIO MICHELLE Facility: [facility]:[place] : 1955 Planned Disposition: Anticipated Discharge Date: Discharge Date: Expected LOS: Initial Reviewer: [email or web address] Initial Review Date: 06/08/2018 Generated: 07/07/18 12:21 pm Comments DCP- Discharge Planning Updated by [id number]: Nicole Valera on 07/07/18 8:[address] Received a message from Sherley at [facility] in [place] that they will be unable to accept patient. His insurance in not in network and he has no out of network benefits. I went to meet with the patient and he is asleep and his is not in the room. I called and left a message with Lavern in inpatient rehab to check on inpatient rehab status. CM will continue to assist with discharge planning/needs. DCP- Discharge Planning Updated by [id number]: Gabriella Hudson on 07/06/18 4:[address] LATE ENTRY 1605 TC TO [facility] ACUTE REHAB. SPOKE WITH LAVERN. DISCUSSED DR SPRING'S AND DR CAMPOS'S NOTE. REQUESTED RE-EVAL FOR ACUTE REHAB. PREVIOUS EVAL 06/29. TC TO [facility] [place]. FAXED REFERRAL W/ PATIENT'S FACE SHEET, H/P , 07/06 CONSULT NOTE AND MEDICATION LIST TO ATTENTION OF JENNIFER COVARRUBIAS. LEFT VOICE MAIL MESSAGE REGARDING REFERRAL. DCP- Discharge Planning Updated by [id number]: Linda [place] on 07/03/18 12:[address] CLINICAL SENT TO [place] FOR HOME TPN, SPOKE WITH ERLIN DCP- Discharge Planning Updated by [email or web address]: Jennifer Rodriguez on 07/03/18 7:[address] Patient Name: MARIO MICHELLE Admission Status: ER Accout number: [id number] Admission Date: 06-06-2018 : 1955 Admission Diagnosis:ACUTE PANCREATITIS WITHOUT NECROSIS OR INFECTION, UNSP Attending: TEJ MASTERSON Current LOS: 27 Anticipated DC Date: Planned Disposition: Primary Insurance: [facility] MEDICARE SOLUTIONS Discharge Planning Comments: CM MET WITH PATIENT TODAY AND HE WANTS [facility] IV [facility]FUSIONS, THADDEUS SIGNED. CM WILL FAX REFERRALS WHEN CLOSE TO DC. CM WILL FOLLOW AND ASSIST NEEDED WITH DC PLANNING/NEEDS. Telesales Professional: Jennifer Rodriguez DCP- Discharge Planning Updated by [email or web address]: Nicole Valera on 07/02/18 10:[address] Met with patient and his in the room to discuss discharge planning. Patient states at this time he plans on returning home with home health. I asked if the doctor had talked to them about a possible transfer to [facility] if needed for a specialist and they both said no. states if he needs to go that they would consent, but prefers to stay here if possible, Gali Paulino informed. They will let us know if we need to arrange [facility] transfer. CM will continue to follow and assist with discharge planning/needs. DCP- Discharge Planning Updated by [id number]: Jennifer Rodriguez on 06/08/18 7:[address] Patient Name: MARIO MICHELLE Admission Status: ER Accout number: [id number] Admission Date: 06-06-2018 : 1955 Admission Diagnosis: Attending: TEJ MASTERSON Current LOS: 2 Anticipated DC Date: Planned Disposition: Primary Insurance: [facility] MEDICARE SOLUTIONS Discharge Planning Comments: CM MET WITH PATIENT AND DONG ABOUT DC PLANNING NEEDS. STATES PLANS TO DC TO HOME. STATES IF NEEDS HH THEN HE WANTS [facility], THADDEUS SIGNED. ORIGINAL GIVEN TO PATIENT AND COPY PLACED ON THE CHART. PATIENT IS SCHEDULED FOR A LAP FAB TODAY. CM WILL FOLLOW AND ASSIST NEEDED WITH DC PLANNING NEEDS. Telesales Professional: Jennifer Rodriguez DCPIA - Discharge Planning Initial Assessment Updated by [id number]: Jennifer Rodriguez on 06/08/18 9:43 am * Is the patient Alert and Oriented? Yes * PCP RAMIRO * Pharmacy [facility] ON [address] * Preadmission Environment Home with Family * ADLs Independent * Equipment Cane CPAP Glucometer Oxygen * List name and contact numbers for known caregivers / representatives who currently or will assist patient after discharge: DONG, , * Verbal permission to speak to the caregivers and representatives has been obtained from the patient. Yes * Community resources currently utilized None * Can the patient safely return to the preadmission environment? Yes * Has this patient been hospitalized within the prior 30 days at any hospital? No External Providers External Provider: [facility] Next Contact Date: Service Request Date: Service Type: Resolution: Reviewer: Comments: Coverage Notice Reviewer: [id number] Rufus Rodriguez Notice Issued Date-Time: 07/03/2018 9:35 Notice Type: Patient Choice Letter Notice Delivered To: Patient Relationship to Patient: Self Coke Oven Mason Name: Delivery Method: HAND - Hand Delivered Quyen Days: Prior Verbal Notification: Recipient Understood Notice: Yes Recipient Signature: Yes Med Rec Note Co-signed by Attending: Coverage Notice Comment: [facility] Last DP export: 07/07/18 8:39 a Patient Name: MARIO MICHELLE Page 11372 at 1122 All edits/amendments must be made on the electronic document DICTATION DATE: 07/07/18 1121 HEALTH EDUCATION DIRECTOR: SHEREEN 07/07/18 1121 RPT#: [id number] DC DATE: STATUS: ADM IN [facility] [address] [place] [address] END OF REPORT
--- NOTE | 2018-07-07 11:31 | MORECARE ---
CASE MANAGEMENT DISCHARGE SUMMARY PATIENT: MARIO MICHELLE UNIT: [id number] ADM DATE: 06/06/18 AGE: 62 : 57 SEX: M ROOM/BED: D.2240 AUTHOR: YUKO,DOC PHYSICIAN: REFERRING PHYSICIAN: TEJ MASTERSON MD DATE OF SERVICE: 07/07/18 Discharge Plan Patient Name: MARIO MICHELLE Facility: [facility]:[place] : 1955 Planned Disposition: Anticipated Discharge Date: Discharge Date: Expected LOS: Initial Reviewer: [id number] Initial Review Date: 06/08/2018 Generated: 07/07/18 12:31 pm Comments DCP- Discharge Planning Updated by [id number]: Nicole Baldarian on 07/07/18 10:[address] Attempted to meet again with patient and he is asleep. I called his and informed her that Inpatient rehab and LTACH in [place] has denied his admission and informed why. She would like a referral to [facility]. I called and spoke to Melba and she states he will need to be off the TPN prior to admission and she would look at his medications and see if they could accept. CM will continue to follow and assist with discharge planning/needs. DCP- Discharge Planning Updated by [id number]: Nicole Baldarian on 07/07/18 8:[address] Received a message from Sherley at [facility] in [place] that they will be unable to accept patient. His insurance in not in network and he has no out of network benefits. I went to meet with the patient and he is asleep and his is not in the room. I called and left a message with Lavern in inpatient rehab to check on inpatient rehab status. CM will continue to assist with discharge planning/needs. DCP- Discharge Planning Updated by [email or web address]: Gabriella Hudson on 07/06/18 4:[address] LATE ENTRY 1605 TC TO [facility]UTE REH[facility]. SPOKE WITH LAVERN. DISCUSSED DR SPRING'S AND DR CAMPOS'S NOTE. REQUESTED RE-EVAL FOR ACUTE REHAB. PREVIOUS EVAL 06/29. TC TO [facility] [address]. FAXED REFERRAL W/ PATIENT'S FACE SHEET, H/P , 07/06 CONSULT NOTE AND MEDICATION LIST TO ATTENTION OF JENNIFER COVARRUBIAS. LEFT VOICE MAIL MESSAGE REGARDING REFERRAL. DCP- Discharge Planning Updated by [id number]: Linda [place] on 07/03/18 12:[address] CLINICAL SENT TO [place] FOR HOME TPN, SPOKE WITH ERLIN DCP- Discharge Planning Updated by [id number]: Jennifer Rodriguez on 07/03/18 7:[address] Patient Name: MARIO MICHELLE Admission Status: ER Accout number: [id number] Admission Date: 06-06-2018 : 1955 Admission Diagnosis:ACUTE PANCREATITIS WITHOUT NECROSIS OR INFECTION, UNSP Attending: TEJ MASTERSON Current LOS: 27 Anticipated DC Date: Planned Disposition: Primary Insurance: [facility] SOLUTIONS Discharge Planning Comments: CM MET WITH PATIENT TODAY AND HE WANTS [facility] FOR IV INFUSIONS, THADDEUS SIGNED. CM WILL FAX REFERRALS WHEN CLOSE TO DC. CM WILL FOLLOW AND ASSIST NEEDED WITH DC PLANNING/NEEDS. Proof Sorter: Jennifer Rodriguez DCP- Discharge Planning Updated by [id number]: Nicole Valera on 07/02/18 10:[address] Met with patient and his in the room to discuss discharge planning. Patient states at this time he plans on returning home with home health. I asked if the doctor had talked to them about a possible transfer to [facility] if needed for a specialist and they both said no. states if he needs to go that they would consent, but prefers to stay here if possible, Gali Paulino informed. They will let us know if we need to arrange [facility] transfer. CM will continue to follow and assist with discharge planning/needs. DCP- Discharge Planning Updated by [id number]: Jennifer Jennifer on 06/08/18 7:[address] Patient Name: MARIO MICHELLE Admission Status: ER Accout number: [id number] Admission Date: 06-06-2018 : 1955 Admission Diagnosis: Attending: TEJ MASTERSON Current LOS: 2 Anticipated DC Date: Planned Disposition: Primary Insurance: [facility] MEDIC[facility] SOLUTIONS Discharge Planning Comments: CM MET WITH PATIENT AND DONG ABOUT DC PLANNING NEEDS. STATES PLANS TO DC TO HOME. STATES IF NEEDS HH THEN HE WANTS [facility], THADDEUS SIGNED. ORIGINAL GIVEN TO PATIENT AND COPY PLACED ON THE CHART. PATIENT IS SCHEDULED FOR A LAP FAB TODAY. CM WILL FOLLOW AND ASSIST NEEDED WITH DC PLANNING NEEDS. Proof Sorter: Jennifer Rodriguez DCPIA - Discharge Planning Initial Assessment Updated by [id number]: Jennifer Rodriguez on 06/08/18 9:43 am * Is the patient Alert and Oriented? Yes * PCP RAMIRO * Pharmacy [facility] [address] * Preadmission Environment Home with Family * ADLs Independent * Equipment Cane CPAP Glucometer Oxygen * List name and contact numbers for known caregivers / representatives who currently or will assist patient after discharge: DONG, , * Verbal permission to speak to the caregivers and representatives has been obtained from the patient. Yes * Community resources currently utilized None * Can the patient safely return to the preadmission environment? Yes * Has this patient been hospitalized within the prior 30 days at any hospital? No Coverage Notice Reviewer: [id number] - Jennifer Rodriguez Notice Issued Date-Time: 07/03/2018 9:35 Notice Type: Patient Choice Letter Notice Delivered To: Patient Relationship to Patient: Self Vp Strategic Planning Name: Delivery Method: HAND - Hand Delivered Quyen Days: Prior Verbal Notification: Recipient Understood Notice: Yes Recipient Signature: Yes Med Rec Note Co-signed by Attending: Coverage Notice Comment: [facility] INF[facility]ION [facility] Last DP export: 07/07/18 10:21 a Patient Name: MARIO MICHELLE Page [phone] at 1131 All edits/amendments must be made on the electronic document DICTATION DATE: 07/07/18 113 PULP COOKER: SHEREEN 07/07/18 1130 RPT#: [id number] DC DATE: STATUS: ADM IN [facility] [address] [place] [address] END OF REPORT
--- NOTE | 2018-07-07 14:22 | NUR ---
24 hour calorie count complete Pt consumed ~1400 calories and 30gm of protein in meals This does not include any snacks the pt may have had Discussed diet order with pt and pt does not seem interested in pureed diet at this time Discussed the importance of Ensure- pt is willing and able to drink Ensure Three Ensure per day with provide an additional 1050 calories and 60gm protein RD following
[2018-07-07 15:12] VITALS: BP 129/71
--- NOTE | 2018-07-07 16:20 | NUR ---
OT NOTE: PT COMPLETED ADL MOB WITH SPV. PT COMPLETED EOB SITTING BALANCE WITH SPV. PT COMPLETED TOILET HYGIENE WITH SPV. THANK YOU, GABRIELA FALK
--- NOTE | 2018-07-07 17:01 | NUR ---
OT NOTE: PT DOING VERY WELL. AMBULATED IN ROOM AND TO BATHROOM WITHOUT USE OF AD OR TACTILE CUES. PERFORMED TOILETING AND SINK HYGIENE WITHOUT ASSIST. DOING WELL WITH USE OF L HAND. INSTRUCTED OF EXS TO CONTINUE TO CONT TO IMPROVE FINE MOTOR SKILLS. SAFETY AWARENESS APPEARS TO BE GOOD. OT TO DC PT AT THIS TIME, HE IS DOING WELL FUNCTIONALLY. GREGORY MIRAMONTES, OTR/L
[2018-07-07 17:36] VITALS: BP 153/84
--- NOTE | 2018-07-07 19:45 | NUR ---
PT SITTING UP IN BED, NO SIGNS OF DISTRESS. ALERT AND ORIENTED. AT BEDSIDE. PT STATES HE IS NAUSEA AND BACK AND NECK HURING. GAVE DILAUDID ORDERED AND ZOFRAN. NO OTHER NEEDS AT THIS TIME. BED ALARM ON. CL IN REACH, WILL CONTINUE TO MONITOR
[2018-07-07 20:00] VITALS: BP 110/70
[2018-07-08 05:40] LABS: ALBUMIN 2.3 g/dL (3.4-5.0); ALKALINE PHOSPHATASE 163 U/L (46-116); AMYLASE - SERUM 11 U/L (25-115); BILIRUBIN - INDIRECT 0.03 mg/dL (0.00-1.00); BILIRUBIN - TOTAL 0.13 mg/dL (0.2-1.3); CARBON DIOXIDE 30.3 mmol/L (21.0-32.0); CHLORIDE - SERUM 102 mmol/L (98-107); CREATININE - SERUM 0.8 mg/dL (0.6-1.3); GLUCOSE 157 mg/dL (74-106); LIPASE 112 U/L (73-393); POTASSIUM - SERUM 4.2 mmol/L (3.5-5.1); PROTEIN - SERUM 6.4 g/dL (6.4-8.2); SODIUM 137 mmol/L (136-145); eGFR NON AFRICAN AMERICAN > 90 mL/min (90-120)
[2018-07-08 05:52] LABS: ALT (SGPT) 98 U/L (10-68); CALC OSMOLALITY 276 mosm/kg (275-300); UREA NITROGEN 13 mg/dL (7-18)
[2018-07-08 06:02] LABS: BASOPHILS 0.6 % (0-2); EOSINOPHILS 1.4 % (0-7); HEMATOCRIT 29.4 % (42.0-54.0); HEMOGLOBIN 9.6 g/dL (13.5-17.5); IMMATURE GRANULOCYTES 0.2 % (0-5); LYMPHOCYTES 34.1 % (15-50); MCH 29.6 pg (26.0-34.0); MCHC 32.7 g/dL (31.0-37.0); MCV 90.7 fL (80.0-100.0); MEAN PLATELET VOLUME 10.3 fL (7.4-10.4); NEUTROPHILS 47.7 % (40-80); PLATELET COUNT 225 10x3/uL (130-400); RBC 3.24 10x6/uL (4.20-6.10); RDW 13.6 % (11.5-14.5); WBC 6.3 10x3/uL (4.8-10.8)
[2018-07-08 06:18] LABS: INR 2.89 (0.85-1.17); PROTIME 29.5 SECONDS (11.6-15.0)
--- NOTE | 2018-07-08 07:43 | NUR ---
PT IS RESTING IN BED WITH EYES CLOSED. RESPIRATIONS ARE EVEN AND UNLABORED. PT IS EASILY AROUSED WITH VERBAL STIMULATION. PT REPORTS PAIN. WILL ADDRESS. SEE EMAR. BED IS IN THE LOWEST POSITION. CALL LIGHT AND BEDSIDE TABLE ARE WITHIN REACH. WILL CONT TO MONITOR.
[2018-07-08 08:06] LABS: MAGNESIUM - SERUM 1.6 mg/dL (1.8-2.4)
[2018-07-08 09:43] VITALS: BP 120/73
[2018-07-08 12:35] VITALS: BP 127/83
--- NOTE | 2018-07-08 12:45 | NUR ---
NUTRITION F//U CHART REVIEWED. ADDED MAG AND PHOS TO AM LAB DRAW. WILL CONTINUE TO MONITOR LABS, ADJUST TPN NEEDED. RD FOLLOWING
--- NOTE | 2018-07-08 15:22 | MORECARE ---
CASE MANAGEMENT DISCHARGE SUMMARY PATIENT: MARIO MICHELLE UNIT: [id number] ADM DATE: 06/06/18 AGE: 62 : 57 SEX: M ROOM/BED: D.2240 AUTHOR: YUKO,DOC PHYSICIAN: REFERRING PHYSICIAN: TEJ MASTERSON MD DATE OF SERVICE: 07/08/18 Discharge Plan Patient Name: MARIO MICHELLE Facility: [facility]:[place] : 1955 Planned Disposition: Anticipated Discharge Date: Discharge Date: Expected LOS: Initial Reviewer: [email or web address] Initial Review Date: 06/08/2018 Generated: 07/08/18 4:22 pm Comments DCP- Discharge Planning Updated by [id number]: Nicole Baldarian on 07/07/18 10:[address] Attempted to meet again with patient and he is asleep. I called his and informed her that Inpatient rehab and LTACH in [place] has denied his admission and informed why. She would like a referral to [facility]. I called and spoke to Melba and she states he will need to be off the TPN prior to admission and she would look at his medications and see if they could accept. CM will continue to follow and assist with discharge planning/needs. DCP- Discharge Planning Updated by [id number]: Nicole Baldarian on 07/07/18 8:[address] Received a message from Sherley at [facility] in [place] that they will be unable to accept patient. His insurance in not in network and he has no out of network benefits. I went to meet with the patient and he is asleep and his is not in the room. I called and left a message with Lavern in inpatient rehab to check on inpatient rehab status. CM will continue to assist with discharge planning/needs. DCP- Discharge Planning Updated by [email or web address]: Gabriella Hudson on 07/06/18 4:[address] LATE ENTRY [address] [facility] ACUTE REHAB. SPOKE WITH LAVERN. DISCUSSED DR SPRING'S AND DR CAMPOS'S NOTE. REQUESTED RE-EVAL FOR ACUTE REHAB. PREVIOUS EVAL 06/29. TC TO [facility]. FAXED REFERRAL W/ PATIENT'S FACE SHEET, H/P , 07/06 CONSULT NOTE AND MEDICATION LIST TO ATTENTION OF JENNIFER COVARRUBIAS. LEFT VOICE MAIL MESSAGE REGARDING REFERRAL. DCP- Discharge Planning Updated by [id number]: Linda Greenwood on 07/03/18 12:[address] CLINICAL SENT TO [facility] FOR HOME TPN, SPOKE WITH ERLIN DCP- Discharge Planning Updated by [id number]: Jennifer Rordiguez on 07/03/18 7:[address] Patient Name: MARIO MICHELLE Admission Status: ER Accout number: [id number] Admission Date: 06-06-2018 : 1955 Admission Diagnosis:ACUTE PANCREATITIS WITHOUT NECROSIS OR INFECTION, UNSP Attending: TEJ MASTERSON Current LOS: 27 Anticipated DC Date: Planned Disposition: Primary Insurance: [facility] [employer] Discharge Planning Comments: CM MET WITH PATIENT TODAY AND HE WANTS [facility] FOR IV INFUSIONS, THADDEUS SIGNED. CM WILL FAX REFERRALS WHEN CLOSE TO DC. CM WILL FOLLOW AND ASSIST NEEDED WITH DC PLANNING/NEEDS. Supervisor Uranium Processing: Jennifer Rodriguez DCP- Discharge Planning Updated by [email or web address]: Nicole Valera on 07/02/18 10:[address] Met with patient and his in the room to discuss discharge planning. Patient states at this time he plans on returning home with home health. I asked if the doctor had talked to them about a possible transfer to [facility] if needed for a specialist and they both said no. states if he needs to go that they would consent, but prefers to stay here if possible, Gali Paulino informed. They will let us know if we need to arrange [facility] transfer. CM will continue to follow and assist with discharge planning/needs. DCP- Discharge Planning Updated by [id number]: Jennifer Jennifer on 06/08/18 7:[address] Patient Name: MARIO MICHELLE Admission Status: ER Accout number: [id number] Admission Date: 06-06-2018 : 1955 Admission Diagnosis: Attending: TEJ MASTERSON Current LOS: 2 Anticipated DC Date: Planned Disposition: Primary Insurance: [facility] [employer] SOLUTIONS Discharge Planning Comments: CM MET WITH PATIENT AND DONG ABOUT DC PLANNING NEEDS. STATES PLANS TO DC TO HOME. STATES IF NEEDS HH THEN HE WANTS [facility], THADDEUS SIGNED. ORIGINAL GIVEN TO PATIENT AND COPY PLACED ON THE CHART. PATIENT IS SCHEDULED FOR A LAP FAB TODAY. CM WILL FOLLOW AND ASSIST NEEDED WITH DC PLANNING NEEDS. Supervisor Uranium Processing: Jenniferamandeep Rodriguez DCPIA - Discharge Planning Initial Assessment Updated by [email or web address]: Jennifer Jennifer on 06/08/18 9:43 am * Is the patient Alert and Oriented? Yes * PCP RAMIRO * Pharmacy [facility] [address] * Preadmission Environment Home with Family * ADLs Independent * Equipment Cane CPAP Glucometer Oxygen * List name and contact numbers for known caregivers / representatives who currently or will assist patient after discharge: DONG, , * Verbal permission to speak to the caregivers and representatives has been obtained from the patient. Yes * Community resources currently utilized None * Can the patient safely return to the preadmission environment? Yes * Has this patient been hospitalized within the prior 30 days at any hospital? No External Providers External Provider: OTHER-OTHER Next Contact Date: Service Request Date: Service Type: Resolution: Reviewer: Comments: Coverage Notice Reviewer: [id number] - Jenniferamandeep Rodriguez Notice Issued Date-Time: 07/03/2018 9:35 Notice Type: Patient Choice Letter Notice Delivered To: Patient Relationship to Patient: Self Cellular Plastics Cutter Name: Delivery Method: HAND - Hand Delivered Quyne Days: Prior Verbal Notification: Recipient Understood Notice: Yes Recipient Signature: Yes Med Rec Note Co-signed by Attending: Coverage Notice Comment: [facility] IV INFUSION SERVICE Last DP export: 07/07/18 10:31 a Patient Name: MARIO MICHELLE Page [phone] at 1522 All edits/amendments must be made on the electronic document DICTATION DATE: 07/08/18 1522 TASSEL MAKING MACHINE OPERATOR: SHEREEN 07/08/18 1522 RPT#: [id number] DC DATE: STATUS: ADM IN [facility] [address] [place] [address] END OF REPORT
--- NOTE | 2018-07-08 16:22 | NUR ---
PICC LINE DRESSING REMOVED. CLEANED AND NEW DRESSING APPLIED USING STERILE TECHNIQUE. PT TOLERATED WELL.
[2018-07-08 16:28] VITALS: BP 156/85
--- NOTE | 2018-07-08 17:17 | MORECARE ---
CASE MANAGEMENT DISCHARGE SUMMARY PATIENT: MARIO MICHELLE UNIT: [id number] ADM DATE: 06/06/18 AGE: 62 : 57 SEX: M ROOM/BED: D.2240 AUTHOR: YUKO,DOC PHYSICIAN: REFERRING PHYSICIAN: TEJ MASTERSON MD DATE OF SERVICE: 07/08/18 Discharge Plan Patient Name: MARIO MICHELLE Facility: [facility]:[place] : 1955 Planned Disposition: Anticipated Discharge Date: Discharge Date: Expected LOS: Initial Reviewer: [id number] Initial Review Date: 06/08/2018 Generated: 07/08/18 6:16 pm Comments DCP- Discharge Planning Updated by [id number]: Nicole Baldarian on 07/07/18 10:[address] Attempted to meet again with patient and he is asleep. I called his and informed her that Inpatient rehab and LTACH in [place] has denied his admission and informed why. She would like a referral to [facility]. I called and spoke to Melba and she states he will need to be off the TPN prior to admission and she would look at his medications and see if they could accept. CM will continue to follow and assist with discharge planning/needs. DCP- Discharge Planning Updated by [email or web address]: Nicole Baldarian on 07/07/18 8:[address] Received a message from Sherley at [facility] in [place] that they will be unable to accept patient. His insurance in not in network and he has no out of network benefits. I went to meet with the patient and he is asleep and his is not in the room. I called and left a message with Lavern in inpatient rehab to check on inpatient rehab status. CM will continue to assist with discharge planning/needs. DCP- Discharge Planning Updated by [id number]: Gabriella Hudson on 07/06/18 4:[address] LATE ENTRY 1605 TC TO [facility] ACUTE REHAB. SPOKE WITH LAVERN. DISCUSSED DR SPRING'S AND DR CAMPOS'S NOTE. REQUESTED RE-EVAL FOR ACUTE REHAB. PREVIOUS EVAL 06/29. TC TO [facility] [place]. FAXED REFERRAL W/ PATIENT'S FACE SHEET, H/P , 07/06 CONSULT NOTE AND MEDICATION LIST TO ATTENTION OF JENNIFER COVARRUBIAS. LEFT VOICE MAIL MESSAGE REGARDING REFERRAL. DCP- Discharge Planning Updated by [email or web address]: Linda Greenwood on 07/03/18 12:[address] CLINICAL SENT TO [facility] FOR HOME TPN, SPOKE WITH ERLIN DCP- Discharge Planning Updated by [id number]: Jennifer Rodriguez on 07/03/18 7:[address] Patient Name: MARIO MICHELLE Admission Status: ER Accout number: [id number] Admission Date: 06-06-2018 : 1955 Admission Diagnosis:ACUTE PANCREATITIS WITHOUT NECROSIS OR INFECTION, UNSP Attending: TEJ MASTERSON Current LOS: 27 Anticipated DC Date: Planned Disposition: Primary Insurance: [facility] MEDICARE SOLUTIONS Discharge Planning Comments: CM MET WITH PATIENT TODAY AND HE WANTS [facility] FOR IV INFUSIONS, THADDEUS SIGNED. CM WILL FAX REFERRALS WHEN CLOSE TO DC. CM WILL FOLLOW AND ASSIST NEEDED WITH DC PLANNING/NEEDS. Biometrics Technician: Jennifer Rodriguez DCP- Discharge Planning Updated by [email or web address]: Nicole Valera on 07/02/18 10:[address] Met with patient and his in the room to discuss discharge planning. Patient states at this time he plans on returning home with home health. I asked if the doctor had talked to them about a possible transfer to [facility] if needed for a specialist and they both said no. states if he needs to go that they would consent, but prefers to stay here if possible, Gali Paulino informed. They will let us know if we need to arrange [facility] transfer. CM will continue to follow and assist with discharge planning/needs. DCP- Discharge Planning Updated by [id number]: Jennifer Jennifer on 06/08/18 7:[address] Patient Name: MARIO MICHELLE Admission Status: ER Accout number: [id number] Admission Date: 06-06-2018 : 1955 Admission Diagnosis: Attending: TEJ MASTERSON Current LOS: 2 Anticipated DC Date: Planned Disposition: Primary Insurance: [facility] MEDICARE SOLUTIONS Discharge Planning Comments: CM MET WITH PATIENT AND DONG ABOUT DC PLANNING NEEDS. STATES PLANS TO DC TO HOME. STATES IF NEEDS HH THEN HE WANTS [facility], THADDEUS SIGNED. ORIGINAL GIVEN TO PATIENT AND COPY PLACED ON THE CHART. PATIENT IS SCHEDULED FOR A LAP FAB TODAY. CM WILL FOLLOW AND ASSIST NEEDED WITH DC PLANNING NEEDS. Biometrics Technician: Jenniferamandeep Rodriguez DCPIA - Discharge Planning Initial Assessment Updated by [id number]: Jennifer Jennifer on 06/08/18 9:43 am * Is the patient Alert and Oriented? Yes * PCP RAIMRO * [facility] [address] * Preadmission Environment Home with Family * ADLs Independent * Equipment Cane CPAP Glucometer Oxygen * List name and contact numbers for known caregivers / representatives who currently or will assist patient after discharge: DONG, , * Verbal permission to speak to the caregivers and representatives has been obtained from the patient. Yes * Community resources currently utilized None * Can the patient safely return to the preadmission environment? Yes * Has this patient been hospitalized within the prior 30 days at any hospital? No External Providers External Provider: SHILOSHILO Nick Next Contact Date: Service Request Date: Service Type: Resolution: Reviewer: Comments: Coverage Notice Reviewer: [id number] - Jenniferamandeep Rodriguez Notice Issued Date-Time: 07/03/2018 9:35 Notice Type: Patient Choice Letter Notice Delivered To: Patient Relationship to Patient: Self Doctor Of Podiatry Name: Delivery Method: HAND - Hand Delivered Quyen Days: Prior Verbal Notification: Recipient Understood Notice: Yes Recipient Signature: Yes Med Rec Note Co-signed by Attending: Coverage Notice Comment: [facility] Last DP export: 07/08/18 2:22 p Patient Name: MARIO MICHELLE Page [phone] at 1717 All edits/amendments must be made on the electronic document DICTATION DATE: 07/08/181715 STAFFING ANALYST: SHEREEN 07/08/181715 RPT#: [id number] DC DATE: STATUS: ADM IN [facility] [address] [place] [address] END OF REPORT
--- NOTE | 2018-07-08 17:24 | MORECARE ---
CASE MANAGEMENT DISCHARGE SUMMARY PATIENT: MARIO MICHELLE UNIT: [id number] ADM DATE: 06/06/18 AGE: 62 : 57 SEX: M ROOM/BED: D.2240 AUTHOR: YUKO,DOC PHYSICIAN: REFERRING PHYSICIAN: TEJ MASTERSON MD DATE OF SERVICE: 07/08/18 Discharge Plan Patient Name: MARIO MICHELLE Facility: [facility]:[place] : 1955 Planned Disposition: Anticipated Discharge Date: Discharge Date: Expected LOS: Initial Reviewer: [id number] Initial Review Date: 06/08/2018 Generated: 07/08/18 6:24 pm Comments DCP- Discharge Planning Updated by [email or web address]: Nicole Moraima on 07/08/18 4:[address] [facility] AND [place] [facility] [place]. CM WILL CONTNUE TO FOLLOW AND ASSIST WITH DISCHARGE PLANNING/NEEDS DCP- Discharge Planning Updated by [email or web address]: Nicole Valera on 07/07/18 10:[address] Attempted to meet again with patient and he is asleep. I called his and informed her that Inpatient rehab and LTACH in [place] has denied his admission and informed why. She would like a referral to [facility]. I called and spoke to Melba and she states he will need to be off the TPN prior to admission and she would look at his medications and see if they could accept. CM will continue to follow and assist with discharge planning/needs. DCP- Discharge Planning Updated by [id number]: Nicole Baldarian on 07/07/18 8:[address] Received a message from Sherley at [facility] in [place] that they will be unable to accept patient. His insurance in not in network and he has no out of network benefits. I went to meet with the patient and he is asleep and his is not in the room. I called and left a message with Lavern in inpatient rehab to check on inpatient rehab status. CM will continue to assist with discharge planning/needs. DCP- Discharge Planning Updated by [id number]: Gabriella Hudson on 07/06/18 4:[address] LATE ENTRY 1605 TC TO [facility] ACUTE REHAB. SPOKE WITH LAVERN. DISCUSSED DR SPRING'S AND DR CAMPOS'S NOTE. REQUESTED RE-EVAL FOR ACUTE REHAB. PREVIOUS EVAL 06/29. TC TO [facility] [address]. FAXED REFERRAL W/ PATIENT'S FACE SHEET, H/P , 07/06 CONSULT NOTE AND MEDICATION LIST TO ATTENTION OF JENNIFER COVARRUBIAS. LEFT VOICE MAIL MESSAGE REGARDING REFERRAL. DCP- Discharge Planning Updated by [id number]: Linda Greenwood on 07/03/18 12:[address] CLINICAL SENT TO [place] FOR HOME TPN, SPOKE WITH ERLIN DCP- Discharge Planning Updated by [id number]: Jenniferamandeep Rodriguez on 07/03/18 7:[address] Patient Name: MARIO MICHELLE Admission Status: ER Accout number: [id number] Admission Date: 06-06-2018 : 1955 Admission Diagnosis:ACUTE PANCREATITIS WITHOUT NECROSIS OR INFECTION, UNSP Attending: TEJ MASTERSON Current LOS: 27 Anticipated DC Date: Planned Disposition: Primary Insurance: [facility] MEDICARE SOLUTIONS Discharge Planning Comments: CM MET WITH PATIENT TODAY AND HE WANTS [facility] AND [facility] FOR IV INFUSIONS, THADDEUS SIGNED. CM WILL FAX REFERRALS WHEN CLOSE TO DC. CM WILL FOLLOW AND ASSIST NEEDED WITH DC PLANNING/NEEDS. Rig Hand: Jennifer Rodriguez DCP- Discharge Planning Updated by [id number]: Nicole Valera on 07/02/18 10:[address] Met with patient and his in the room to discuss discharge planning. Patient states at this time he plans on returning home with home health. I asked if the doctor had talked to them about a possible transfer to [facility] if needed for a specialist and they both said no. states if he needs to go that they would consent, but prefers to stay here if possible, Gali Paulino informed. They will let us know if we need to arrange [facility] transfer. CM will continue to follow and assist with discharge planning/needs. DCP- Discharge Planning Updated by [email or web address]: Jenniferamandeep Rodriguez on 06/08/18 7:[address] Patient Name: MARIO MICHELLE Admission Status: ER Accout number: [id number] Admission Date: 06-06-2018 : 1955 Admission Diagnosis: Attending: TEJ MASTERSON Current LOS: 2 Anticipated DC Date: Planned Disposition: Primary Insurance: [facility] MEDICARE SOLUTIONS Discharge Planning Comments: CM MET WITH PATIENT AND DONG ABOUT DC PLANNING NEEDS. STATES PLANS TO DC TO HOME. STATES IF NEEDS HH THEN HE WANTS TH[facility]DE[facility] MILLER SIGNED. ORIGINAL GIVEN TO PATIENT AND COPY PLACED ON THE CHART. PATIENT IS SCHEDULED FOR A LAP FAB TODAY. CM WILL FOLLOW AND ASSIST NEEDED WITH DC PLANNING NEEDS. Rig Hand: Jennifer Rodriguez DCPIA - Discharge Planning Initial Assessment Updated by [email or web address]: Jennifer Rodriguez on 06/08/18 9:43 am * Is the patient Alert and Oriented? Yes * PCP RAMIRO * Pharmacy [facility] [address] * Preadmission Environment Home with Family * ADLs Independent * Equipment Cane CPAP Glucometer Oxygen * List name and contact numbers for known caregivers / representatives who currently or will assist patient after discharge: KATE UMANA, * Verbal permission to speak to the caregivers and representatives has been obtained from the patient. Yes * Community resources currently utilized None * Can the patient safely return to the preadmission environment? Yes * Has this patient been hospitalized within the prior 30 days at any hospital? No Coverage Notice Reviewer: [id number] - Jennifer Rodriguez Notice Issued Date-Time: 07/03/2018 9:35 Notice Type: Patient Choice Letter Notice Delivered To: Patient Relationship to Patient: Self Senior Private Client Advisor Name: Delivery Method: HAND - Hand Delivered Quyen Days: Prior Verbal Notification: Recipient Understood Notice: Yes Recipient Signature: Yes Med Rec Note Co-signed by Attending: Coverage Notice Comment: [facility] Last DP export: 07/08/18 4:16 p Patient Name: MARIO MICHELLE Page [phone] at 1724 All edits/amendments must be made on the electronic document DICTATION DATE: 07/08/181722 STRUCTURAL STEEL ERECTION SUPERVISOR: SHEREEN 07/08/181722 RPT#: [id number] DC DATE: STATUS: ADM IN [facility] [address] [place] [address] END OF REPORT
[2018-07-08 22:42] VITALS: BP 141/92
[2018-07-09 04:55] VITALS: BP 137/83
[2018-07-09 05:17] LABS: BASOPHILS 0.6 % (0-2); EOSINOPHILS 1.6 % (0-7); HEMOGLOBIN 10.2 g/dL (13.5-17.5); IMMATURE GRANULOCYTES 0.1 % (0-5); LYMPHOCYTES 26.2 % (15-50); MCH 29.6 pg (26.0-34.0); MCHC 32.9 g/dL (31.0-37.0); MCV 89.9 fL (80.0-100.0); MEAN PLATELET VOLUME 10.1 fL (7.4-10.4); MONOCYTES 13.3 % (2-11); NEUTROPHILS 58.2 % (40-80); PLATELET COUNT 226 10x3/uL (130-400); RBC 3.45 10x6/uL (4.20-6.10); RDW 13.3 % (11.5-14.5)
[2018-07-09 05:28] LABS: INR 2.57 (0.85-1.17); PROTIME 26.9 SECONDS (11.6-15.0)
[2018-07-09 05:33] LABS: CALC OSMOLALITY 279 mosm/kg (275-300); CALCIUM 8.4 mg/dL (8.5-10.1); CARBON DIOXIDE 30.5 mmol/L (21.0-32.0); CHLORIDE - SERUM 102 mmol/L (98-107); CREATININE - SERUM 0.8 mg/dL (0.6-1.3); GLUCOSE 121 mg/dL (74-106); MAGNESIUM - SERUM 1.9 mg/dL (1.8-2.4); PHOSPHOROUS 3.4 mg/dL (2.5-4.9); POTASSIUM - SERUM 3.9 mmol/L (3.5-5.1); SODIUM 139 mmol/L (136-145); UREA NITROGEN 14 mg/dL (7-18); eGFR NON AFRICAN AMERICAN > 90 mL/min (90-120)
--- NOTE | 2018-07-09 07:25 | NUR ---
PT IS RESTING IN BED WITH EYES CLOSED. RESPIRATIONS ARE EVEN AND UNLABORED. PT IS EASILY AROUSED WITH VERBAL STIMULATION. TPN INFUSING TO LEFT UPPER ARM PICC WITHOUT DIFFICULTY @ 75ML/HR. PICC DRESSING IS C/D/I WITH BIOPATCH IN PLACE. PT IS ON ROOM AIR. SCDS ARE NOT ON. PT DENIES PRESENCE OF N/V AND PAIN AT THIS TIME. PT DENIES FURTHER NEEDS. BED IS IN THE LOWEST POSITION. CALL LIGHT AND BEDSIDE TABLE ARE WITHIN REACH. WILL CONT TO MONITOR.
[2018-07-09 09:25] VITALS: BP 120/80
--- NOTE | 2018-07-09 09:26 | NUR ---
PT IS RESTING IN BED WITH EYES OPEN. PT STATES, "MY ARM THING JUST CAME OUT". PICC LINE IS SEEN HANGING OVER BEDSIDE TABLE WITH CATHETER INTACT. PT IS NOT BLEEDING AT PICC LINE SITE. PICC LINE DRESSING IS STILL IN PLACE. XOCHITL WITH VASCULAR ACCESS NOTIFIED. IV INFUSIONS PAUSED.
--- NOTE | 2018-07-09 10:57 | MORECARE ---
CASE MANAGEMENT DISCHARGE SUMMARY PATIENT: MARIO MICHELLE UNIT: [id number] ADM DATE: 06/06/18 AGE: 62 : 57 SEX: M ROOM/BED: D.2240 AUTHOR: YUOK,DOC PHYSICIAN: REFERRING PHYSICIAN: TEJ MASTERSON MD DATE OF SERVICE: 07/09/18 Discharge Plan Patient Name: MARIO MICHELLE Facility: [facility]:[place] : 1955 Planned Disposition: Anticipated Discharge Date: Discharge Date: Expected LOS: Initial Reviewer: [id number] Initial Review Date: 06/08/2018 Generated: 07/09/18 11:56 am Comments DCP- Discharge Planning Updated by [id number]: Nicole Valera on 07/09/18 9:[address] Received [facility] approval for SNF for up to 60 days. He will need to be off TPN before being accepted to a SNF. I spoke with Dr. Piper today and he is not consuming enough calories at this time to have the TPN discontinued. I spoke with him and his about going to [facility] in [place] and they both prefer to stay in [place]. I spoke today with Maryjane Guilherme, there is not a swing bed available today but she will continue to follow. CM will continue to follow and assist with discharge planning/needs. DCP- Discharge Planning Updated by [id number]: Nicole Valera on 07/08/18 4:[address] SHILO AND CLINICAL SENT TO [facility] FOR APPROVAL FOR SNF. CM WILL CONTNUE TO FOLLOW AND ASSIST WITH DISCHARGE PLANNING/NEEDS DCP- Discharge Planning Updated by [email or web address]: Nicole Valera on 07/07/18 10:[address] Attempted to meet again with patient and he is asleep. I called his and informed her that Inpatient rehab and LTACH in [place] has denied his admission and informed why. She would like a referral to [facility]. I called and spoke to Melba and she states he will need to be off the TPN prior to admission and she would look at his medications and see if they could accept. CM will continue to follow and assist with discharge planning/needs. DCP- Discharge Planning Updated by [id number]: Nicole Valera on 07/07/18 8:[address] Received a message from Sherley at [facility] in [place] that they will be unable to accept patient. His insurance in not in network and he has no out of network benefits. I went to meet with the patient and he is asleep and his is not in the room. I called and left a message with Lavern in inpatient rehab to check on inpatient rehab status. CM will continue to assist with discharge planning/needs. DCP- Discharge Planning Updated by [email or web address]: Gabriella Ralls on 07/06/18 4:[address] LATE ENTRY 1605 TC TO [facility] ACUTE REHAB. SPOKE WITH LAVERN. DISCUSSED DR SPRING'S AND DR CAMPOS'S NOTE. REQUESTED RE-EVAL FOR ACUTE REHAB. PREVIOUS EVAL 06/29. TC TO [facility]. FAXED REFERRAL W/ PATIENT'S FACE SHEET, H/P , 07/06 CONSULT NOTE AND MEDICATION LIST TO ATTENTION OF JENNIFER COVARRUBIAS. LEFT VOICE MAIL MESSAGE REGARDING REFERRAL. DCP- Discharge Planning Updated by [email or web address]: Linda Greenwood on 07/03/18 12:[address] CLINICAL SENT TO [facility] FOR HOME TPN, SPOKE WITH ERLIN DCP- Discharge Planning Updated by [email or web address]: Jennifer Rodriguez on 07/03/18 7:[address] Patient Name: MARIO MICHELLE Admission Status: ER Accout number: [id number] Admission Date: 06-06-2018 : 1955 Admission Diagnosis:ACUTE PANCREATITIS WITHOUT NECROSIS OR INFECTION, UNSP Attending: TEJ MASTERSON Current LOS: 27 Anticipated DC Date: Planned Disposition: Primary Insurance: [facility] MEDIC[facility] SOLUTIONS Discharge Planning Comments: CM MET WITH PATIENT TODAY AND HE WANTS [facility] AND [facility] FOR IV INFUSIONS, THADDEUS SIGNED. CM WILL FAX REFERRALS WHEN CLOSE TO DC. CM WILL FOLLOW AND ASSIST NEEDED WITH DC PLANNING/NEEDS. Coil Winder Repair: Jennifer Rodriguez DCP- Discharge Planning Updated by [id number]: Nicole Baldarian on 07/02/18 10:[address] Met with patient and his in the room to discuss discharge planning. Patient states at this time he plans on returning home with home health. I asked if the doctor had talked to them about a possible transfer to [facility] if needed for a specialist and they both said no. states if he needs to go that they would consent, but prefers to stay here if possible, Gali Paulino informed. They will let us know if we need to arrange [facility] transfer. CM will continue to follow and assist with discharge planning/needs. DCP- Discharge Planning Updated by [email or web address]: Jennifer Rodriguez on 06/08/18 7:[address] Patient Name: MARIO MICHELLE Admission Status: ER Accout number: [id number] Admission Date: 06-06-2018 : 1955 Admission Diagnosis: Attending: TEJ MASTERSON Current LOS: 2 Anticipated DC Date: Planned Disposition: Primary Insurance: [facility] MEDIC[employer] SOLUTIONS Discharge Planning Comments: CM MET WITH PATIENT AND DONG ABOUT DC PLANNING NEEDS. STATES PLANS TO DC TO HOME. STATES IF NEEDS HH THEN HE WANTS THADDEUS MILLER SIGNED. ORIGINAL GIVEN TO PATIENT AND COPY PLACED ON THE CHART. PATIENT IS SCHEDULED FOR A LAP FAB TODAY. CM WILL FOLLOW AND ASSIST NEEDED WITH DC PLANNING NEEDS. Coil Winder Repair: Jennifer Rodriguez DCPIA - Discharge Planning Initial Assessment Updated by [email or web address]: Jennifer Rodriguez on 06/08/18 9:43 am * Is the patient Alert and Oriented? Yes * PCP RAMIRO * Pharmacy [facility] [address] * Preadmission Environment Home with Family * ADLs Independent * Equipment Cane CPAP Glucometer Oxygen * List name and contact numbers for known caregivers / representatives who currently or will assist patient after discharge: KATE UMANA, * Verbal permission to speak to the caregivers and representatives has been obtained from the patient. Yes * Community resources currently utilized None * Can the patient safely return to the preadmission environment? Yes * Has this patient been hospitalized within the prior 30 days at any hospital? No Coverage Notice Reviewer: [id number] - Jennifer Rodriguez Notice Issued Date-Time: 07/03/2018 9:35 Notice Type: Patient Choice Letter Notice Delivered To: Patient Relationship to Patient: Self Digital Archivist Name: Delivery Method: HAND - Hand Delivered Quyen Days: Prior Verbal Notification: Recipient Understood Notice: Yes Recipient Signature: Yes Med Rec Note Co-signed by Attending: Coverage Notice Comment: [facility] Last DP export: 07/08/18 4:24 p Patient Name: MARIO MICHELLE Page 28750 at 1057 All edits/amendments must be made on the electronic document DICTATION DATE: 07/09/181055 COLLEGE TUTOR: SHEREEN 07/09/181055 RPT#: [id number] DC DATE: STATUS: ADM IN [facility] [address] [place] [address] END OF REPORT
[2018-07-09 13:13] VITALS: BP 134/80
[2018-07-09 16:28] VITALS: BP 152/71
[2018-07-09 20:00] VITALS: BP 109/66
[2018-07-10] VITALS: BP 138/75
--- NOTE | 2018-07-10 00:30 | NUR ---
PT STATES PAIN 10/10, GAVE NORCO ORDERED. PT STATES HE IS ALSO FEELING NAUSEAS. GAVE ZOFRAN. WILL CONTINUE TO MONITOR. CL IN REACH
[2018-07-10 04:00] VITALS: BP 124/72
[2018-07-10 05:19] LABS: INR 2.53 (0.85-1.17); PROTIME 26.5 SECONDS (11.6-15.0)
[2018-07-10 05:21] LABS: BASOPHILS 0.4 % (0-2); EOSINOPHILS 1.1 % (0-7); HEMOGLOBIN 10.9 g/dL (13.5-17.5); IMMATURE GRANULOCYTES 0.2 % (0-5); LYMPHOCYTES 23.4 % (15-50); MCH 29.5 pg (26.0-34.0); MCV 89.2 fL (80.0-100.0); MEAN PLATELET VOLUME 10.3 fL (7.4-10.4); MONOCYTES 13.7 % (2-11); NEUTROPHILS 61.2 % (40-80); PLATELET COUNT 245 10x3/uL (130-400); RDW 13.5 % (11.5-14.5)
[2018-07-10 05:22] LABS: WBC 9.7 10x3/uL (4.8-10.8)
[2018-07-10 05:39] LABS: CALC OSMOLALITY 275 mosm/kg (275-300); CALCIUM 8.5 mg/dL (8.5-10.1); CARBON DIOXIDE 28.3 mmol/L (21.0-32.0); CHLORIDE - SERUM 102 mmol/L (98-107); CREATININE - SERUM 0.8 mg/dL (0.6-1.3); GLUCOSE 116 mg/dL (74-106); MAGNESIUM - SERUM 1.8 mg/dL (1.8-2.4); POTASSIUM - SERUM 4.2 mmol/L (3.5-5.1); SODIUM 137 mmol/L (136-145); UREA NITROGEN 15 mg/dL (7-18); eGFR NON AFRICAN AMERICAN > 90 mL/min (90-120)
--- NOTE | 2018-07-10 07:45 | NUR ---
AWAKE AND ALERT, ORIENTED X4, ON ROOM AIR, EVEN UNLABORED BREATHING, PICC TO RIGHT ARM, PATENT, INFUSING FLUIDS AT 30ML/HR. DENIES ANY CURRENT NEEDS OR DISCOMFORTS, BED LOWERED AND LOCKED, CALL LIGHT WITHIN REACH. CPOC
--- NOTE | 2018-07-10 08:50 | NUR ---
NUTRITION F/U CHART REVIEWED. MAG AND PHOS ADDED TO AM LAB DRAW. PT TOLERATING PUREED DIET. HONORING FOOD PREFERENCES. RD FOLLOWING
--- NOTE | 2018-07-10 09:08 | NUR ---
POOR APPETITE,OFFERED OTHER OPTIONS BESIDES WHAT HE HAD ON BREAKFAST TRAY AND HE REFUSED, ALSO REFUSED SUPPLEMENTAL DRINK. REQUESTED PRN PAIN MEDICATION FOR PAIN LEVEL 10/10 HEADACHE, DENIES ANY OTHER NEEDS OR DISCOMFORTS, BED LOWERED AND LOCKED, CALL LIGHT WITHIN REACH. CPOC
[2018-07-10 09:35] VITALS: BP 112/66
[2018-07-10 12:45] VITALS: BP 104/54
--- NOTE | 2018-07-10 13:27 | MORECARE ---
CASE MANAGEMENT DISCHARGE SUMMARY PATIENT: MARIO MICHELLE UNIT: [id number] ADM DATE: 06/06/18 AGE: 62 : 57 SEX: M ROOM/BED: D.2240 AUTHOR: YUKO,DOC PHYSICIAN: REFERRING PHYSICIAN: TEJ MASTERSON MD DATE OF SERVICE: 07/10/18 Discharge Plan Patient Name: MARIO MICHELLE Facility: [facility]:[place] : 1955 Planned Disposition: Anticipated Discharge Date: Discharge Date: Expected LOS: Initial Reviewer: [id number] Initial Review Date: 06/08/2018 Generated: 07/10/18 2:27 pm Comments DCP- Discharge Planning Updated by [id number]: Nicole Valera on 07/10/18 12:[address] Spoke with Shannan at [facility] and she states clinically they will accept the patient, they are waiting on authorization from insurance. Shannan states they can take him on his current IV antibiotic orders, no changes to medications needed. I spoke with the patient and and they are both in agreement to go to [facility] and do not want to go home with IV antibiotics and HHS at this time. CM will continue to follow and assist with discharge planning/needs. DCP- Discharge Planning Updated by [id number]: Nicole Valera on 07/09/18 9:[address] Received [facility] approval for SNF for up to 60 days. He will need to be off TPN before being accepted to a SNF. I spoke with Dr. Piper today and he is not consuming enough calories at this time to have the TPN discontinued. I spoke with him and his about going to [facility] in [place] and they both prefer to stay in [place]. I spoke today with Maryjanekenan Vanegas, there is not a swing bed available today but she will continue to follow. CM will continue to follow and assist with discharge planning/needs. DCP- Discharge Planning Updated by [id number]: Nicole Valera on 07/08/18 4:[address] SHILO AND CLINICAL SENT TO [facility] FOR APPROVAL FOR SNF. CM WILL CONTNUE TO FOLLOW AND ASSIST WITH DISCHARGE PLANNING/NEEDS DCP- Discharge Planning Updated by [email or web address]: Nicole Valera on 07/07/18 10:[address] Attempted to meet again with patient and he is asleep. I called his and informed her that Inpatient rehab and LTACH in [place] has denied his admission and informed why. She would like a referral to [facility]. I called and spoke to Melba and she states he will need to be off the TPN prior to admission and she would look at his medications and see if they could accept. CM will continue to follow and assist with discharge planning/needs. DCP- Discharge Planning Updated by [id number]: Nicole Valera on 07/07/18 8:[address] Received a message from Sherley at [facility] in [place] that they will be unable to accept patient. His insurance in not in network and he has no out of network benefits. I went to meet with the patient and he is asleep and his is not in the room. I called and left a message with Lavern in inpatient rehab to check on inpatient rehab status. CM will continue to assist with discharge planning/needs. DCP- Discharge Planning Updated by [id number]: Gabriella Hudson on 07/06/18 4:[address] LATE ENTRY 1605 TC TO [facility] ACUTE REHAB. SPOKE WITH LAVERN. DISCUSSED DR SPRING'S AND DR CAMPOS'S NOTE. REQUESTED RE-EVAL FOR ACUTE REHAB. PREVI[facility]. [facility] FAXED REFERRAL W/ PATIENT'S FACE SHEET, H/P , 07/06 CONSULT NOTE AND MEDICATION LIST TO ATTENTION OF JENNIFER COVARRUBIAS. LEFT VOICE MAIL MESSAGE REGARDING REFERRAL. DCP- Discharge Planning Updated by [email or web address]: Linda Greenwood on 07/03/18 12:[address] CLINICAL SENT TO [facility] FOR HOME TPN, SPOKE WITH ERLIN DCP- Discharge Planning Updated by [id number]: Jennifer Rodriguez on 07/03/18 7:[address] Patient Name: MARIO MICHELLE Admission Status: ER Accout number: [id number] Admission Date: 06-06-2018 : 1955 Admission Diagnosis:ACUTE PANCREATITIS WITHOUT NECROSIS OR INFECTION, UNSP Attending: TEJ MASTERSON Current LOS: 27 Anticipated DC Date: Planned Disposition: Primary Insurance: [facility] MEDICARE SOLUTIONS Discharge Planning Comments: CM MET WITH PATIENT TODAY AND HE WANTS [facility], THADDEUS SIGNED. CM WILL FAX REFERRALS WHEN CLOSE TO DC. CM WILL FOLLOW AND ASSIST NEEDED WITH DC PLANNING/NEEDS. Explosive Operator Supervisor: Jennifer Rodriguez DCP- Discharge Planning Updated by [email or web address]: Nicole Valera on 07/02/18 10:[address] Met with patient and his in the room to discuss discharge planning. Patient states at this time he plans on returning home with home health. I asked if the doctor had talked to them about a possible transfer to [facility] if needed for a specialist and they both said no. states if he needs to go that they would consent, but prefers to stay here if possible, Gali Paulino informed. They will let us know if we need to arrange [facility] transfer. CM will continue to follow and assist with discharge planning/needs. DCP- Discharge Planning Updated by [email or web address]: Jennifer Rodriguez on 06/08/18 7:[address] Patient Name: MARIO MICHELLE Admission Status: ER Accout number: [id number] Admission Date: 06-06-2018 : 1955 Admission Diagnosis: Attending: TEJ MASTERSON Current LOS: 2 Anticipated DC Date: Planned Disposition: Primary Insurance: [facility] MEDICARE SOLUTIONS Discharge Planning Comments: CM MET WITH PATIENT AND DONG ABOUT DC PLANNING NEEDS. STATES PLANS TO DC TO HOME. STATES IF NEEDS HH THEN HE WANT[facility], THADDE[facility] SIGNED. ORIGINAL GIVEN TO PATIENT AND COPY PLACED ON THE CHART. PATIENT IS SCHEDULED FOR A LAP FAB TODAY. CM WILL FOLLOW AND ASSIST NEEDED WITH DC PLANNING NEEDS. Explosive Operator Supervisor: Jennifer Rodriguez DCPIA - Discharge Planning Initial Assessment Updated by [email or web address]: Jennifer Rodriguez on 06/08/18 9:43 am * Is the patient Alert and Oriented? Yes * PCP RAMIRO * Pharmacy [facility] [address] * Preadmission Environment Home with Family * ADLs Independent * Equipment Cane CPAP Glucometer Oxygen * List name and contact numbers for known caregivers / representatives who currently or will assist patient after discharge: KATE UMANA, * Verbal permission to speak to the caregivers and representatives has been obtained from the patient. Yes * Community resources currently utilized None * Can the patient safely return to the preadmission environment? Yes * Has this patient been hospitalized within the prior 30 days at any hospital? No Coverage Notice Reviewer: [email or web address] Rufus Rodriguez Notice Issued Date-Time: 07/03/2018 9:35 Notice Type: Patient Choice Letter Notice Delivered To: Patient Relationship to Patient: Self Optical Sales Associate Name: Delivery Method: HAND - Hand Delivered Quyen Days: Prior Verbal Notification: Recipient Understood Notice: Yes Recipient Signature: Yes Med Rec Note Co-signed by Attending: Coverage Notice Comment: [facility] Last DP export: 07/09/18 9:57 a Patient Name: MARIO MICHELLE Page [phone] at 1327 All edits/amendments must be made on the electronic document DICTATION DATE: 07/10/18 1326 PRODUCT SAFETY ADMINISTRATOR: SHEREEN 07/10/18 1326 RPT#: [id number] DC DATE: STATUS: ADM IN [facility] [address] [place] [address] END OF REPORT
--- NOTE | 2018-07-10 15:48 | MORECARE ---
CASE MANAGEMENT DISCHARGE SUMMARY PATIENT: MARIO MICHELLE UNIT: [id number] ADM DATE: 06/06/18 AGE: 62 : 57 SEX: M ROOM/BED: D.2240 AUTHOR: YUKO,DOC PHYSICIAN: REFERRING PHYSICIAN: TEJ MASTERSON MD DATE OF SERVICE: 07/10/18 Discharge Plan Patient Name: MARIO MICHELLE Facility: [facility]:[place] : 1955 Planned Disposition: Anticipated Discharge Date: Discharge Date: Expected LOS: Initial Reviewer: [email or web address] Initial Review Date: 06/08/2018 Generated: 07/10/18 4:47 pm Comments DCP- Discharge Planning Updated by [id number]: Nicole Valera on 07/10/18 12:[address] Spoke with Shannan at [facility] and she states clinically they will accept the patient, they are waiting on authorization from insurance. Shannan states they can take him on his current IV antibiotic orders, no changes to medications needed. I spoke with the patient and and they are both in agreement to go to [facility] and do not want to go home with IV antibiotics and HHS at this time. CM will continue to follow and assist with discharge planning/needs. DCP- Discharge Planning Updated by [id number]: Nicole Valera on 07/09/18 9:[address] Received [facility] approval for SNF for up to 60 days. He will need to be off TPN before being accepted to a SNF. I spoke with Dr. Piper today and he is not consuming enough calories at this time to have the TPN discontinued. I spoke with him and his about going to [facility] in [place] and they both prefer to stay in [place]. I spoke today with Amryjanekenan Vanegas, there is not a swing bed available today but she will continue to follow. CM will continue to follow and assist with discharge planning/needs. DCP- Discharge Planning Updated by [email or web address]: Nicole Valera on 07/08/18 4:[address] SHILO AND CLINICAL SENT TO [facility] FOR APPROVAL FOR SNF. CM WILL CONTNUE TO FOLLOW AND ASSIST WITH DISCHARGE PLANNING/NEEDS DCP- Discharge Planning Updated by [id number]: Nicole Valera on 07/07/18 10:[address] Attempted to meet again with patient and he is asleep. I called his and informed her that Inpatient rehab and LTACH in [place] has denied his admission and informed why. She would like a referral to [facility]. I called and spoke to Melba and she states he will need to be off the TPN prior to admission and she would look at his medications and see if they could accept. CM will continue to follow and assist with discharge planning/needs. DCP- Discharge Planning Updated by [id number]: Nicole Valera on 07/07/18 8:[address] Received a message from Sherley at [facility] in [place] that they will be unable to accept patient. His insurance in not in network and he has no out of network benefits. I went to meet with the patient and he is asleep and his is not in the room. I called and left a message with Lavern in inpatient rehab to check on inpatient rehab status. CM will continue to assist with discharge planning/needs. DCP- Discharge Planning Updated by [id number]: Gabriella Hudson on 07/06/18 4:[address] LATE ENTRY 1605 TC TO [facility] ACUTE REHAB. SPOKE WITH LAVERN. DISCUSSED DR SPRING'S AND DR CAMPOS'S NOTE. REQUESTED RE-EVAL FOR ACUTE REHAB. PREVIOUS EVAL 06/29. [facility]. FAXED REFERRAL W/ PATIENT'S FACE SHEET, H/P , 07/06 CONSULT NOTE AND MEDICATION LIST TO ATTENTION OF JENNIFER COVARRUBIAS. LEFT VOICE MAIL MESSAGE REGARDING REFERRAL. DCP- Discharge Planning Updated by [id number]: Linda Greenwood on 07/03/18 12:[address] CLINICAL SENT TO [place] FOR HOME TPN, SPOKE WITH ERLIN DCP- Discharge Planning Updated by [id number]: Jennifer Rodriguez on 07/03/18 7:[address] Patient Name: MARIO MICHELLE Admission Status: ER Accout number: [id number] Admission Date: 06-06-2018 : 1955 Admission Diagnosis:ACUTE PANCREATITIS WITHOUT NECROSIS OR INFECTION, UNSP Attending: TEJ MASTERSON Current LOS: 27 Anticipated DC Date: Planned Disposition: Primary Insurance: [facility] MEDIC[employer] SOLUTIONS Discharge Planning Comments: CM MET WITH PATIENT TODAY AND HE WANTS [facility] IV [facility]FUS[facility], THADDEUS SIGNED. CM WILL FAX REFERRALS WHEN CLOSE TO DC. CM WILL FOLLOW AND ASSIST NEEDED WITH DC PLANNING/NEEDS. Calender Wind Up Tender: Jennifer Rodriguez DCP- Discharge Planning Updated by [id number]: Nicole Valera on 07/02/18 10:[address] Met with patient and his in the room to discuss discharge planning. Patient states at this time he plans on returning home with home health. I asked if the doctor had talked to them about a possible transfer to [facility] if needed for a specialist and they both said no. states if he needs to go that they would consent, but prefers to stay here if possible, Gali Paulino informed. They will let us know if we need to arrange [facility] transfer. CM will continue to follow and assist with discharge planning/needs. DCP- Discharge Planning Updated by [email or web address]: Jennifer Rodriguez on 06/08/18 7:[address] Patient Name: MARIO MICHELLE Admission Status: ER Accout number: [id number] Admission Date: 06-06-2018 : 1955 Admission Diagnosis: Attending: TEJ MASTERSON Current LOS: 2 Anticipated DC Date: Planned Disposition: Primary Insurance: [facility] MED[employer]UT[employer] Discharge Planning Comments: CM MET WITH PATIENT AND DONG ABOUT DC PLANNING NEEDS. STATES PLANS TO DC TO HOME. STATES IF NEEDS HH THEN HE WANTS [facility], THADDEUS SIGNED. ORIGINAL GIVEN TO PATIENT AND COPY PLACED ON THE CHART. PATIENT IS SCHEDULED FOR A LAP FAB TODAY. CM WILL FOLLOW AND ASSIST NEEDED WITH DC PLANNING NEEDS. Calender Wind Up Tender: Jennifer Rodriguez DCPIA - Discharge Planning Initial Assessment Updated by [id number]: Jennifer Rodriguez on 06/08/18 9:43 am * Is the patient Alert and Oriented? Yes * PCP RAMIRO * Pharmacy [facility] [address] * Preadmission Environment Home with Family * ADLs Independent * Equipment Cane CPAP Glucometer Oxygen * List name and contact numbers for known caregivers / representatives who currently or will assist patient after discharge: KATE UMANA, * Verbal permission to speak to the caregivers and representatives has been obtained from the patient. Yes * Community resources currently utilized None * Can the patient safely return to the preadmission environment? Yes * Has this patient been hospitalized within the prior 30 days at any hospital? No External Providers External Provider: [facility] Next Contact Date: Service Request Date: Service Type: Resolution: Reviewer: Comments: Coverage Notice Reviewer: [id number] Rufus Jennifer Rodriguez Notice Issued Date-Time: 07/03/2018 9:35 Notice Type: Patient Choice Letter Notice Delivered To: Patient Relationship to Patient: Self Scrum Master Name: Delivery Method: HAND - Hand Delivered Quyen Days: Prior Verbal Notification: Recipient Understood Notice: Yes Recipient Signature: Yes Med Rec Note Co-signed by Attending: Coverage Notice Comment: [facility] Last DP export: 07/10/18 12:27 p Patient Name: MARIO MICHELLE Page [id number] at 1548 All edits/amendments must be made on the electronic document DICTATION DATE: 07/10/181546 PATIENT ACCESS DIRECTOR: SHEREEN 07/10/181546 RPT#: [id number] DC DATE: STATUS: ADM IN [facility] [address] [place] [address] END OF REPORT
--- NOTE | 2018-07-10 15:59 | MORECARE ---
CASE MANAGEMENT DISCHARGE SUMMARY PATIENT: MARIO MICHELLE UNIT: [id number] ADM DATE: 06/06/18 AGE: 62 : 57 SEX: M ROOM/BED: D.2240 AUTHOR: YUKO,DOC PHYSICIAN: REFERRING PHYSICIAN: TEJ MASTERSON MD DATE OF SERVICE: 07/10/18 Discharge Plan Patient Name: MARIO MICHELLE Facility: [facility]:[place] : 1955 Planned Disposition: Anticipated Discharge Date: Discharge Date: Expected LOS: Initial Reviewer: [id number] Initial Review Date: 06/08/2018 Generated: 07/10/18 4:59 pm Comments DCP- Discharge Planning Updated by [email or web address]: Nicole Valera on 07/10/18 2:[address] I received a call back from Shannan and she states that [facility] has just called them and states they are out of network with his insurance. She states out of pocket expense would be 800 dollars a day. Patient states he is unable to do that. His called me and states they do not want to go anywhere but in [place]. I told her I could call a liason for [facility] and [facility] to see if he is in network at their facilities. His states she is too concerned to take him home with home health on Vancomycin. I beeped Dr. Spring to see if their is any replacement for this. I also sent a referral to Xiomara Jacob for [facility] and [facility] SNF. CM will continue to follow and assist with discharge planning/needs. DCP- Discharge Planning Updated by [id number]: Nicole Valera on 07/10/18 12:[address] Spoke with Shannan at [facility] and she states clinically they will accept the patient, they are waiting on authorization from insurance. Shannan states they can take him on his current IV antibiotic orders, no changes to medications needed. I spoke with the patient and and they are both in agreement to go to [facility] and do not want to go home with IV antibiotics and HHS at this time. CM will continue to follow and assist with discharge planning/needs. DCP- Discharge Planning Updated by [id number]: Nicole Valera on 07/09/18 9:[address] Received [facility] approval for SNF for up to 60 days. He will need to be off TPN before being accepted to a SNF. I spoke with Dr. Piper today and he is not consuming enough calories at this time to have the TPN discontinued. I spoke with him and his about going to [facility] in [place] and they both prefer to stay in [place]. I spoke today with Maryjane Vanegas, there is not a swing bed available today but she will continue to follow. CM will continue to follow and assist with discharge planning/needs. DCP- Discharge Planning Updated by [email or web address]: Nicole Valera on 07/08/18 4:[address] SHILO AND CLINICAL SENT TO [facility] FOR APPROVAL FOR SNF. CM WILL CONTNUE TO FOLLOW AND ASSIST WITH DISCHARGE PLANNING/NEEDS DCP- Discharge Planning Updated by [id number]: Nicole Valera on 07/07/18 10:[address] Attempted to meet again with patient and he is asleep. I called his and informed her that Inpatient rehab and LTACH in [place] has denied his admission and informed why. She would like a referral to [facility]. I called and spoke to Melba and she states he will need to be off the TPN prior to admission and she would look at his medications and see if they could accept. CM will continue to follow and assist with discharge planning/needs. DCP- Discharge Planning Updated by [id number]: Nicole Valera on 07/07/18 8:[address] Received a message from Sherley at [facility] in [place] that they will be unable to accept patient. His insurance in not in network and he has no out of network benefits. I went to meet with the patient and he is asleep and his is not in the room. I called and left a message with Lavern in inpatient rehab to check on inpatient rehab status. CM will continue to assist with discharge planning/needs. DCP- Discharge Planning Updated by [id number]: Gabriella Hudson on 07/06/18 4:[address] LATE ENTRY 1605 TC TO [facility]UTE REH[facility]. SPOKE WITH LAVERN. DISCUSSED DR SPRING'S AND DR CAMPOS'S NOTE. REQUESTED RE-EVAL FOR ACUTE REHAB. PREVIOUS EVAL 06/29. TC TO [facility]. FAXED REFERRAL W/ PATIENT'S FACE SHEET, H/P , 07/06 CONSULT NOTE AND MEDICATION LIST TO ATTENTION OF JENNIFER COVARRUBIAS. LEFT VOICE MAIL MESSAGE REGARDING REFERRAL. DCP- Discharge Planning Updated by [id number]: Linda Krystyna on 07/03/18 12:[address] CLINICAL SENT TO [facility] FOR HOME TPN, SPOKE WITH ERLIN DCP- Discharge Planning Updated by [id number]: Jennifer Rodriguez on 07/03/18 7:[address] Patient Name: MARIO MICHELLE Admission Status: ER Accout number: [id number] Admission Date: 06-06-2018 : 1955 Admission Diagnosis:ACUTE PANCREATITIS WITHOUT NECROSIS OR INFECTION, UNSP Attending: TEJ MASTERSON Current LOS: 27 Anticipated DC Date: Planned Disposition: Primary Insurance: [facility] [employer] Discharge Planning Comments: CM MET WITH PATIENT TODAY AND HE WANTS [facility] AND [facility] FOR IV INFUSIONS, THADDEUS SIGNED. CM WILL FAX REFERRALS WHEN CLOSE TO DC. CM WILL FOLLOW AND ASSIST NEEDED WITH DC PLANNING/NEEDS. Hand Bootmaker: Jennifer Rodriguez DCP- Discharge Planning Updated by [id number]: Nicole Valera on 07/02/18 10:[address] Met with patient and his in the room to discuss discharge planning. Patient states at this time he plans on returning home with home health. I asked if the doctor had talked to them about a possible transfer to [facility] if needed for a specialist and they both said no. states if he needs to go that they would consent, but prefers to stay here if possible, Gali Paulino informed. They will let us know if we need to arrange [facility] transfer. CM will continue to follow and assist with discharge planning/needs. DCP- Discharge Planning Updated by [id number]: Jennifer Rodriguez on 06/08/18 7:[address] Patient Name: MARIO MICHELLE Admission Status: ER Accout number: [id number] Admission Date: 06-06-2018 : 1955 Admission Diagnosis: Attending: TEJ MASTERSON Current LOS: 2 Anticipated DC Date: Planned Disposition: Primary Insurance: [facility] [employer] Discharge Planning Comments: CM MET WITH PATIENT AND DONG ABOUT DC PLANNING NEEDS. STATES PLANS TO DC TO HOME. STATES IF NEEDS HH THEN HE WANTS [facility]ER SIGNED. ORIGINAL GIVEN TO PATIENT AND COPY PLACED ON THE CHART. PATIENT IS SCHEDULED FOR A LAP FAB TODAY. CM WILL FOLLOW AND ASSIST NEEDED WITH DC PLANNING NEEDS. Hand Bootmaker: Jennifer Rodriguez DCPIA - Discharge Planning Initial Assessment Updated by [email or web address]: Jennifer Rodriguez on 06/08/18 9:43 am * Is the patient Alert and Oriented? Yes * PCP RAMIRO * Pharmacy [facility] [address] * Preadmission Environment Home with Family * ADLs Independent * Equipment Cane CPAP Glucometer Oxygen * List name and contact numbers for known caregivers / representatives who currently or will assist patient after discharge: DONG, , * Verbal permission to speak to the caregivers and representatives has been obtained from the patient. Yes * Community resources currently utilized None * Can the patient safely return to the preadmission environment? Yes * Has this patient been hospitalized within the prior 30 days at any hospital? No Coverage Notice Reviewer: [id number] - Jennifer Rodriguez Notice Issued Date-Time: 07/03/2018 9:35 Notice Type: Patient Choice Letter Notice Delivered To: Patient Relationship to Patient: Self Nurse Transplant Name: Delivery Method: HAND - Hand Delivered Quyen Days: Prior Verbal Notification: Recipient Understood Notice: Yes Recipient Signature: Yes Med Rec Note Co-signed by Attending: Coverage Notice Comment: [facility] Last DP export: 07/10/18 2:48 p Patient Name: MARIO MICHELLE Page [id number] at 1559 All edits/amendments must be made on the electronic document DICTATION DATE: 07/10/181558 CRIMINAL RESEARCHER: SHEREEN 07/10/18 7221 RPT#: [id number] DC DATE: STATUS: ADM IN [facility] [address] [facility] [place] [address] END OF REPORT
--- NOTE | 2018-07-10 16:29 | MORECARE ---
CASE MANAGEMENT DISCHARGE SUMMARY PATIENT: MARIO MICHELLE UNIT: [id number] ADM DATE: 06/06/18 AGE: 62 : 57 SEX: M ROOM/BED: D.2240 AUTHOR: YUKO,DOC PHYSICIAN: REFERRING PHYSICIAN: TEJ MASTERSON MD DATE OF SERVICE: 07/10/18 Discharge Plan Patient Name: MARIO MICHELLE Facility: [facility]:[place] : 1955 Planned Disposition: Anticipated Discharge Date: Discharge Date: Expected LOS: Initial Reviewer: [id number] Initial Review Date: 06/08/2018 Generated: 07/10/18 5:29 pm Comments DCP- Discharge Planning Updated by [id number]: Nicole Valera on 07/10/18 3:[address] I spoke with Dr. Spring and she states patient will need to be on Vancomycin and Merrem until 07/19. Patient's refuses to go home as long as he is on the Vancomycin. Referral has been sent to Xiomara at [facility]. CM will continue to follow and assist with discharge planning/needs. DCP- Discharge Planning Updated by [id number]: Nicole Valera on 07/10/18 2:[address] I received a call back from Shannan and she states that [facility] has just called them and states they are out of network with his insurance. She states out of pocket expense would be 800 dollars a day. Patient states he is unable to do that. His called me and states they do not want to go anywhere but in [place]. I told her I could call a liason for [facility] and [facility] to see if he is in network at their facilities. His states she is too concerned to take him home with home health on Vancomycin. I beeped Dr. Spring to see if their is any replacement for this. I also sent a referral to Xiomara Jacob for [facility] and [facility]. CM will continue to follow and assist with discharge planning/needs. DCP- Discharge Planning Updated by [id number]: Nicole Valera on 07/10/18 12:[address] Spoke with Shannan at [facility] and she states clinically they will accept the patient, they are waiting on authorization from insurance. Shannan states they can take him on his current IV antibiotic orders, no changes to medications needed. I spoke with the patient and and they are both in agreement to go to [facility] and do not want to go home with IV antibiotics and HHS at this time. CM will continue to follow and assist with discharge planning/needs. DCP- Discharge Planning Updated by [id number]: Nicole Moraima on 07/09/18 9:[address] Received [facility] approval for SNF for up to 60 days. He will need to be off TPN before being accepted to a SNF. I spoke with Dr. Piper today and he is not consuming enough calories at this time to have the TPN discontinued. I spoke with him and his about going to [facility] in [place] and they both prefer to stay in [place]. I spoke today with Maryjane Guilherme, there is not a swing bed available today but she will continue to follow. CM will continue to follow and assist with discharge planning/needs. DCP- Discharge Planning Updated by [id number]: Nicole Valera on 07/08/18 4:[address] SHILO AND CLINICAL SENT TO [facility] FOR APPROVAL FOR SNF. CM WILL CONTNUE TO FOLLOW AND ASSIST WITH DISCHARGE PLANNING/NEEDS DCP- Discharge Planning Updated by [id number]: Nicole Moraima on 07/07/18 10:[address] Attempted to meet again with patient and he is asleep. I called his and informed her that Inpatient rehab and LTACH in [place] has denied his admission and informed why. She would like a referral to [facility] and Rehab. I called and spoke to Melba and she states he will need to be off the TPN prior to admission and she would look at his medications and see if they could accept. CM will continue to follow and assist with discharge planning/needs. DCP- Discharge Planning Updated by [id number]: Nicole Valera on 07/07/18 8:[address] Received a message from Sherley at [facility] in [place] that they will be unable to accept patient. His insurance in not in network and he has no out of network benefits. I went to meet with the patient and he is asleep and his is not in the room. I called and left a message with Lavern in inpatient rehab to check on inpatient rehab status. CM will continue to assist with discharge planning/needs. DCP- Discharge Planning Updated by [id number]: Gabriella Hudson on 07/06/18 4:[address] LATE ENTRY 1605 TC TO [facility] ACUTE REHAB. SPOKE WITH LAVERN. DISCUSSED DR SPRING'S AND DR CAMPOS'S NOTE. REQUESTED RE-EVAL FOR ACUTE REHAB. PREVIOUS EVAL 06/29. TC TO [facility]. FAXED REFERRAL W/ PATIENT'S FACE SHEET, H/P , 07/06 CONSULT NOTE AND MEDICATION LIST TO ATTENTION OF JENNIFER COVARRUBIAS. LEFT VOICE MAIL MESSAGE REGARDING REFERRAL. DCP- Discharge Planning Updated by [id number]: Linda Greenwood on 07/03/18 12:[address] CLINICAL SENT TO [facility] FOR HOME TPN, SPOKE WITH ERLIN DCP- Discharge Planning Updated by [id number]: Jennifer Rodriguez on 07/03/18 7:[address] Patient Name: MARIO MICHELLE Admission Status: ER Accout number: [id number] Admission Date: 06-06-2018 : 1955 Admission Diagnosis:ACUTE PANCREATITIS WITHOUT NECROSIS OR INFECTION, UNSP Attending: TEJ MASTERSON Current LOS: 27 Anticipated DC Date: Planned Disposition: Primary Insurance: [facility] [employer] Discharge Planning Comments: CM MET WITH PATIENT TODAY AND HE WANTS [facility] AND [facility] FOR IV INFUSIONS, THADDEUS SIGNED. CM WILL FAX REFERRALS WHEN CLOSE TO DC. CM WILL FOLLOW AND ASSIST NEEDED WITH DC PLANNING/NEEDS. Compliance Field Technician: Jennifer Rodriguez DCP- Discharge Planning Updated by [id number]: Nicole Valera on 07/02/18 10:[address] Met with patient and his in the room to discuss discharge planning. Patient states at this time he plans on returning home with home health. I asked if the doctor had talked to them about a possible transfer to [facility] if needed for a specialist and they both said no. states if he needs to go that they would consent, but prefers to stay here if possible, Gali Paulino informed. They will let us know if we need to arrange [facility] transfer. CM will continue to follow and assist with discharge planning/needs. DCP- Discharge Planning Updated by [email or web address]: Jennifer Rodriguez on 06/08/18 7:[address] Patient Name: MARIO MICHELLE Admission Status: ER Accout number: [id number] Admission Date: 06-06-2018 : 1955 Admission Diagnosis: Attending: TEJ MASTERSON Current LOS: 2 Anticipated DC Date: Planned Disposition: Primary Insurance: [facility] [employer] Discharge Planning Comments: CM MET WITH PATIENT AND DONG ABOUT DC PLANNING NEEDS. STATES PLANS TO DC TO HOME. STATES IF NEEDS HH THEN HE WANTS [facility] SIGNED. ORIGINAL GIVEN TO PATIENT AND COPY PLACED ON THE CHART. PATIENT IS SCHEDULED FOR A [facility] FAB TODAY. CM WILL FOLLOW AND ASSIST NEEDED WITH DC PLANNING NEEDS. Compliance Field Technician: Jenniferamandeep Rodriguez DCPIA - Discharge Planning Initial Assessment Updated by [email or web address]: Jennifer Rodriguez on 06/08/18 9:43 am * Is the patient Alert and Oriented? Yes * PCP RAMIRO * Pharmacy [facility] ON [address] * Preadmission Environment Home with Family * ADLs Independent * Equipment Cane CPAP Glucometer Oxygen * List name and contact numbers for known caregivers / representatives who currently or will assist patient after discharge: DONG, , * Verbal permission to speak to the caregivers and representatives has been obtained from the patient. Yes * Community resources currently utilized None * Can the patient safely return to the preadmission environment? Yes * Has this patient been hospitalized within the prior 30 days at any hospital? No Coverage Notice Reviewer: [id number] - Jennifer Jennifer Notice Issued Date-Time: 07/03/2018 9:35 Notice Type: Patient Choice Letter Notice Delivered To: Patient Relationship to Patient: Self Rim Roller Setter Name: Delivery Method: HAND - Hand Delivered Quyen Days: Prior Verbal Notification: Recipient Understood Notice: Yes Recipient Signature: Yes Med Rec Note Co-signed by Attending: Coverage Notice Comment: [facility] Last DP export: 07/10/18 2:59 p Patient Name: MARIO MICHELLE Page [phone] at 1629 All edits/amendments must be made on the electronic document DICTATION DATE: 07/10/181628 ACCOUNTS PAYABLE MANAGER: SHEREEN 07/10/183 RPT#: [id number] DC DATE: STATUS: ADM IN [facility] [address] [place] [address] END OF REPORT
[2018-07-10 18:19] VITALS: BP 139/58
--- NOTE | 2018-07-10 19:09 | NUR ---
I have reviewed this patient and I concur with the Shift Assessment completed by the Licensed Practical Nurse today this shift.
--- NOTE | 2018-07-10 19:30 | NUR ---
PT SITTING UP IN BED, NO SIGNS OF DISTRESS. ALERT AND ORIENTED. PT STATES PAIN IN BACK AND NECK AND HAS A HEADACHE. GIVING NORCO ORDERED. PT DENIES NEEDS AT THIS TIME. CL IN REACH, WILL CONTINUE TO MONITOR
[2018-07-10 20:00] VITALS: BP 121/73
[2018-07-11 02:00] VITALS: BP 113/75
[2018-07-11 04:00] VITALS: BP 110/66
[2018-07-11 06:28] LABS: BASOPHILS 0.3 % (0-2); EOSINOPHILS 0.8 % (0-7); HEMATOCRIT 33.6 % (42.0-54.0); HEMOGLOBIN 11.2 g/dL (13.5-17.5); IMMATURE GRANULOCYTES 0.2 % (0-5); MCH 29.6 pg (26.0-34.0); MCHC 33.3 g/dL (31.0-37.0); MCV 88.9 fL (80.0-100.0); MEAN PLATELET VOLUME 10.1 fL (7.4-10.4); MONOCYTES 14.2 % (2-11); NEUTROPHILS 61.5 % (40-80); PLATELET COUNT 207 10x3/uL (130-400); RBC 3.78 10x6/uL (4.20-6.10); RDW 13.5 % (11.5-14.5); WBC 10.5 10x3/uL (4.8-10.8)
[2018-07-11 07:21] LABS: CALCIUM 8.4 mg/dL (8.5-10.1); CARBON DIOXIDE 28.5 mmol/L (21.0-32.0); CHLORIDE - SERUM 98 mmol/L (98-107); CREATININE - SERUM 0.8 mg/dL (0.6-1.3); MAGNESIUM - SERUM 1.7 mg/dL (1.8-2.4); PHOSPHOROUS 3.6 mg/dL (2.5-4.9); POTASSIUM - SERUM 4.1 mmol/L (3.5-5.1); SODIUM 134 mmol/L (136-145); eGFR NON AFRICAN AMERICAN > 90 mL/min (90-120)
[2018-07-11 07:25] LABS: CALC OSMOLALITY 270 mosm/kg (275-300); GLUCOSE 169 mg/dL (74-106); UREA NITROGEN 10 mg/dL (7-18)
--- NOTE | 2018-07-11 08:18 | NUR ---
EYES CLOSED, EASILY AROUSED BY VOICE, LAYING ON RIGHT SIDE, PICC LINE PATENT TO UPPER RIGHT ARM PATENT, INFUSING D10 AT 30ML/HR. AMY ALARM ON, ON ROOM AIR, DENIES ANY CURRENT NEEDS OR DISCOMFORTS, BED LOWERED AND LOCKED, CALL LIGHT WITHIN REACH. CPOC
[2018-07-11 09:15] VITALS: BP 131/65
[2018-07-11 14:30] VITALS: BP 120/75
--- NOTE | 2018-07-11 15:00 | NUR ---
I have reviewed this patient and I concur with the Shift Assessment completed by the Licensed Practical Nurse today this shift.
[2018-07-11 16:00] VITALS: BP 115/71
--- NOTE | 2018-07-11 19:03 | NUR ---
LAYING IN BED, EVEN UNLABORED BREATHING, ON ROOM AIR, PICC TO RIGHT UPPER ARM, INFUSING D10 AT 30ML/HR. PRESENT IN ROOM, DENIES ANY CURRENT NEEDS OR DISCOMFORTS, BED LOWERED AND LOCKED, CALL LIGHT WITHIN REACH. CPOC
[2018-07-11 20:00] VITALS: BP 132/72
--- NOTE | 2018-07-11 20:00 | NUR ---
PT SITTING UP IN BED, NO SIGNS OF DISTRESS. ALERT AND ORIENTED, AT BEDSIDE. NORCO GIVEN FOR BACK IN BACK, NECK AND HEADACHE 02/04. RIGHT UPPER ARM PICC INFUSING D10 @ 30. BS 191, LANTUS GIVEN. DENIES OTHER NEEDS AT THIS TIME. CL IN REACH,WILL CONTINTUE TO MONITOR
[2018-07-12] VITALS: BP 125/74
[2018-07-12 04:00] VITALS: BP 127/78
[2018-07-12 05:33] LABS: BASOPHILS 0.3 % (0-2); EOSINOPHILS 1.9 % (0-7); HEMATOCRIT 34.2 % (42.0-54.0); HEMOGLOBIN 11.2 g/dL (13.5-17.5); IMMATURE GRANULOCYTES 0.1 % (0-5); LYMPHOCYTES 26.9 % (15-50); MCHC 32.7 g/dL (31.0-37.0); MCV 88.6 fL (80.0-100.0); MEAN PLATELET VOLUME 10.6 fL (7.4-10.4); MONOCYTES 14.2 % (2-11); NEUTROPHILS 56.6 % (40-80); PLATELET COUNT 184 10x3/uL (130-400); RBC 3.86 10x6/uL (4.20-6.10); RDW 13.4 % (11.5-14.5)
[2018-07-12 05:42] LABS: ALBUMIN 2.4 g/dL (3.4-5.0); ALKALINE PHOSPHATASE 175 U/L (46-116); ALT (SGPT) 104 U/L (10-68); BILIRUBIN - TOTAL 0.26 mg/dL (0.2-1.3); CALC OSMOLALITY 267 mosm/kg (275-300); CALCIUM 8.5 mg/dL (8.5-10.1); CARBON DIOXIDE 31.1 mmol/L (21.0-32.0); CHLORIDE - SERUM 99 mmol/L (98-107); CREATININE - SERUM 0.8 mg/dL (0.6-1.3); MAGNESIUM - SERUM 1.8 mg/dL (1.8-2.4); PHOSPHOROUS 3.7 mg/dL (2.5-4.9); POTASSIUM - SERUM 3.9 mmol/L (3.5-5.1); PROTEIN - SERUM 7.2 g/dL (6.4-8.2); SODIUM 134 mmol/L (136-145); UREA NITROGEN 11 mg/dL (7-18); eGFR NON AFRICAN AMERICAN > 90 mL/min (90-120)
[2018-07-12 05:46] LABS: WBC 6.8 10x3/uL (4.8-10.8)
[2018-07-12 05:55] LABS: GLUCOSE 118 mg/dL (74-106)
[2018-07-12 05:56] LABS: INR 3.83 (0.85-1.17); PROTIME 36.8 SECONDS (11.6-15.0)
[2018-07-12 10:02] VITALS: BP 142/76
[2018-07-12 13:10] VITALS: BP 128/80
--- NOTE | 2018-07-12 13:12 | NUR ---
SPOKE WITH NOEMI OROZCO IN REGARDS TO PT IRREGULAR HEART RATE, PT WAS TAKING AMIODARONE 200MG DAILY AND NOW HAS NO LONGER BEEN RECIEVING IT. ALSO CLARIFIED NEED FOR TPN AND SINCE HE HAS GONE SEVERAL DAYS WITHOUT IT AND IS EATING WELL WE WILL KEEP IT OFF AND STOP FLUIDS IV, DENIES ANY CURRENT NEEDS OR DISCOMFORTS, BED LOWERED AND LOCKED, CALL LIGHT WITHIN REACH. CPOC
--- NOTE | 2018-07-12 15:12 | NUR ---
I have reviewed this patient and I concur with the Shift Assessment completed by the Licensed Practical Nurse today this shift.
[2018-07-12 16:31] VITALS: BP 162/79
[2018-07-12 20:00] VITALS: BP 103/66
--- NOTE | 2018-07-12 21:00 | NUR ---
PT SITTING UP IN BED, NO SIGNS OF DISTRESS. ALERT AND ORIENTED. RIGHT UPPER ARM PICC SL. BS 233, LANTUS GIVEN. DENIES NEEDS AT THIS TIME. CL IN REACH, WILL CONT TO MONITOR
--- NOTE | 2018-07-13 00:10 | NUR ---
PT LYING IN BED W/O DISTRESS. STATES PAIN 10/10 IN BACK AND NECK. GAVE NORCO ORDERED. BS 155, COVERAGE PER SS. NO OTHER NEEDS AT THIS TIME. CL IN REACH
[2018-07-13 04:00] VITALS: BP 130/98
[2018-07-13 06:56] LABS: BASOPHILS 0.4 % (0-2); EOSINOPHILS 1.2 % (0-7); HEMATOCRIT 31.4 % (42.0-54.0); HEMOGLOBIN 10.3 g/dL (13.5-17.5); IMMATURE GRANULOCYTES 0.2 % (0-5); LYMPHOCYTES 18.7 % (15-50); MCH 28.9 pg (26.0-34.0); MCHC 32.8 g/dL (31.0-37.0); MEAN PLATELET VOLUME 10.9 fL (7.4-10.4); MONOCYTES 14.1 % (2-11); NEUTROPHILS 65.4 % (40-80); PLATELET COUNT 209 10x3/uL (130-400); RBC 3.57 10x6/uL (4.20-6.10); RDW 13.2 % (11.5-14.5); WBC 8.1 10x3/uL (4.8-10.8)
--- NOTE | 2018-07-13 07:16 | NUR ---
Late entry from 07/12/18: Reviewed chart. TPN has not been infusing since 07/09/18 for unknown reasons. D10 has been running since. ORINN spoke with pharmacy and nurse Shannan. Shannan called [employer] for Dr. Foster; teresa thought TPN was still running. Pt is tolerating a regular pureed diet with po intake ~50% of meals. Shannan received order to discontinue IVF. RDN will continue to monitor patients progress.
[2018-07-13 07:28] LABS: INR 2.84 (0.85-1.17); PROTIME 29.1 SECONDS (11.6-15.0)
--- NOTE | 2018-07-13 07:45 | NUR ---
PT RESTING IN BED, EYES OPEN. NO C/O PAIN. NO S/S OF ACUTE DISTRESS NOTED. AT BEDSIDE. PT ON ELECTROLYTE PROTOCOL. AMY ALARM ON, FALL PRECAUTIONS IN PLACE. FSBS Q6 HOURS. RIGHT UPPER ARM PICC, SL. SITE PATENT WITHOUT REDNESS OR SWELLING. PT DENIES ANYTHING FURTHER AT THIS TIME. CALL LIGHT IN REACH. WILL CONTINUE TO MONITOR.
[2018-07-13 07:50] LABS: ALBUMIN 2.4 g/dL (3.4-5.0); ALKALINE PHOSPHATASE 157 U/L (46-116); ALT (SGPT) 86 U/L (10-68); BILIRUBIN - TOTAL 0.26 mg/dL (0.2-1.3); CALC OSMOLALITY 270 mosm/kg (275-300); CALCIUM 8.3 mg/dL (8.5-10.1); CARBON DIOXIDE 28.5 mmol/L (21.0-32.0); CHLORIDE - SERUM 99 mmol/L (98-107); GLUCOSE 113 mg/dL (74-106); POTASSIUM - SERUM 3.8 mmol/L (3.5-5.1); PROTEIN - SERUM 6.8 g/dL (6.4-8.2); SODIUM 136 mmol/L (136-145); eGFR NON AFRICAN AMERICAN 81 mL/min (90-120)
[2018-07-13 08:08] LABS: UREA NITROGEN 8 mg/dL (7-18)
[2018-07-13 09:31] VITALS: BP 133/83
[2018-07-13 13:00] VITALS: BP 149/83
[2018-07-13 14:58] LABS: APPEARANCE CLEAR (CLEAR); COLOR YELLOW (YELLOW); SPECIFIC GRAVITY 1.005 (1.005-1.020)
[2018-07-13 14:59] LABS: BILIRUBIN NEGATIVE (NEGATIVE); GLUCOSE 50 mg/dL (NEGATIVE); KETONE SMALL mg/dL (NEGATIVE); NITRITE NEGATIVE (NEGATIVE); PROTEIN NEGATIVE (NEGATIVE); UROBILINOGEN NORMAL (NORMAL)
[2018-07-13 15:02] LABS: WHITE CELLS - URINE 0-5 /hpf (0-5)
[2018-07-13 15:05] LABS: RED CELLS - URINE OCC /hpf (0-5)
[2018-07-13 15:06] LABS: BACTERIA FEW /hpf (NONE SEEN)
--- NOTE | 2018-07-13 16:30 | MORECARE ---
CASE MANAGEMENT DISCHARGE SUMMARY PATIENT: MARIO MICHELLE UNIT: [id number] ADM DATE: 06/06/18 AGE: 62 : 57 SEX: M ROOM/BED: D.2240 AUTHOR: YUKO,DOC PHYSICIAN: REFERRING PHYSICIAN: TEJ MASTERSON MD DATE OF SERVICE: 07/13/18 Discharge Plan Patient Name: MARIO MICHELLE Facility: [facility]:[place] : 1955 Planned Disposition: Anticipated Discharge Date: Discharge Date: Expected LOS: Initial Reviewer: [id number] Initial Review Date: 06/08/2018 Generated: 07/13/18 5:30 pm Comments DCP- Discharge Planning Updated by [email or web address]: Nicole Valera on 07/10/18 3:[address] I spoke with Dr. Spring and she states patient will need to be on Vancomycin and Merrem until 07/19. Patient's refuses to go home as long as he is on the Vancomycin. Referral has been sent to Xiomara at [facility]. CM will continue to follow and assist with discharge planning/needs. DCP- Discharge Planning Updated by [id number]: Nicole Valera on 07/10/18 2:[address] I received a call back from Shannan and she states that [facility] has just called them and states they are out of network with his insurance. She states out of pocket expense would be 800 dollars a day. Patient states he is unable to do that. His called me and states they do not want to go anywhere but in [place]. I told her I could call a liason for [facility] and [facility] to see if he is in network at their facilities. His states she is too concerned to take him home with home health on Vancomycin. I beeped Dr. Spring to see if their is any replacement for this. I also sent a referral to Xiomara Jacob for [facility] and [facility]. CM will continue to follow and assist with discharge planning/needs. DCP- Discharge Planning Updated by [id number]: Nicole Valera on 07/10/18 12:[address] Spoke with Shannan at [facility] and she states clinically they will accept the patient, they are waiting on authorization from insurance. Shannan states they can take him on his current IV antibiotic orders, no changes to medications needed. I spoke with the patient and and they are both in agreement to go to [facility] and do not want to go home with IV antibiotics and HHS at this time. CM will continue to follow and assist with discharge planning/needs. DCP- Discharge Planning Updated by [id number]: Nicole Moraima on 07/09/18 9:[address] Received [place] approval for SNF for up to 60 days. He will need to be off TPN before being accepted to a SNF. I spoke with Dr. Piper today and he is not consuming enough calories at this time to have the TPN discontinued. I spoke with him and his about going to [facility] in [place] and they both prefer to stay in [place]. I spoke today with Maryjane Guilherme, there is not a swing bed available today but she will continue to follow. CM will continue to follow and assist with discharge planning/needs. DCP- Discharge Planning Updated by [id number]: Nicole Valera on 07/08/18 4:[address] SHILO AND CLINICAL SENT TO [facility] FOR APPROVAL FOR SNF. CM WILL CONTNUE TO FOLLOW AND ASSIST WITH DISCHARGE PLANNING/NEEDS DCP- Discharge Planning Updated by [email or web address]: Nicole Moraima on 07/07/18 10:[address] Attempted to meet again with patient and he is asleep. I called his and informed her that Inpatient rehab and LTACH in [place] has denied his admission and informed why. She would like a referral to [facility]. I called and spoke to Melba and she states he will need to be off the TPN prior to admission and she would look at his medications and see if they could accept. CM will continue to follow and assist with discharge planning/needs. DCP- Discharge Planning Updated by [id number]: Nicole Valera on 07/07/18 8:[address] Received a message from Sherley at [facility] in [place] that they will be unable to accept patient. His insurance in not in network and he has no out of network benefits. I went to meet with the patient and he is asleep and his is not in the room. I called and left a message with Lavern in inpatient rehab to check on inpatient rehab status. CM will continue to assist with discharge planning/needs. DCP- Discharge Planning Updated by [id number]: Gabriella Hudson on 07/06/18 4:[address] LATE ENTRY 1605 TC TO [facility] ACUTE REHAB. SPOKE WITH LAVERN. DISCUSSED DR SPRING'S AND DR CAMPOS'S NOTE. REQUESTED RE-EVAL FOR ACUTE REHAB. PREVIOUS EVAL 06/29. TC TO [facility]. FAXED REFERRAL W/ PATIENT'S FACE SHEET, H/P , 07/06 CONSULT NOTE AND MEDICATION LIST TO ATTENTION OF JENNIFER COVARRUBIAS. LEFT VOICE MAIL MESSAGE REGARDING REFERRAL. DCP- Discharge Planning Updated by [id number]: Linda Greenwood on 07/03/18 12:[address] CLINICAL SENT TO [place] FOR HOME TPN, SPOKE WITH ERLIN DCP- Discharge Planning Updated by [id number]: Jennifer Rodriguez on 07/03/18 7:[address] Patient Name: MARIO MICHELLE Admission Status: ER Accout number: [id number] Admission Date: 06-06-2018 : 1955 Admission Diagnosis:ACUTE PANCREATITIS WITHOUT NECROSIS OR INFECTION, UNSP Attending: TEJ MASTERSON Current LOS: 27 Anticipated DC Date: Planned Disposition: Primary Insurance: [facility] [employer] Discharge Planning Comments: CM MET WITH PATIENT TODAY AND HE WANTS [facility] AND [facility] FOR IV INFUSIONS, THADDEUS SIGNED. CM WILL FAX REFERRALS WHEN CLOSE TO DC. CM WILL FOLLOW AND ASSIST NEEDED WITH DC PLANNING/NEEDS. Stitchdown Toe Former: Jennifer Rodriguez DCP- Discharge Planning Updated by [id number]: Nicole Valera on 07/02/18 10:[address] Met with patient and his in the room to discuss discharge planning. Patient states at this time he plans on returning home with home health. I asked if the doctor had talked to them about a possible transfer to [facility] if needed for a specialist and they both said no. states if he needs to go that they would consent, but prefers to stay here if possible, Gali Paulino informed. They will let us know if we need to arrange [facility] transfer. CM will continue to follow and assist with discharge planning/needs. DCP- Discharge Planning Updated by [id number]: Jennifer Rodriguez on 06/08/18 7:[address] Patient Name: MARIO MICHELLE Admission Status: ER Accout number: [id number] Admission Date: 06-06-2018 : 1955 Admission Diagnosis: Attending: TEJ MASTERSON Current LOS: 2 Anticipated DC Date: Planned Disposition: Primary Insurance: [facility] [employer] Discharge Planning Comments: CM MET WITH PATIENT AND DONG ABOUT DC PLANNING NEEDS. STATES PLANS TO DC TO HOME. STATES IF NEEDS HH THEN HE WANTS [facility] MILLER SIGNED. ORIGINAL GIVEN TO PATIENT AND COPY PLACED ON THE CHART. PATIENT IS SCHEDULED FOR A LAP FAB TODAY. CM WILL FOLLOW AND ASSIST NEEDED WITH DC PLANNING NEEDS. Stitchdown Toe Former: Jenniferamandeep Rodriguez DCPIA - Discharge Planning Initial Assessment Updated by [id number]: Jennifer Jennifer on 06/08/18 9:43 am * Is the patient Alert and Oriented? Yes * PCP RAMIRO * Pharmacy [facility] [address] * Preadmission Environment Home with Family * ADLs Independent * Equipment Cane CPAP Glucometer Oxygen * List name and contact numbers for known caregivers / representatives who currently or will assist patient after discharge: DONG, , * Verbal permission to speak to the caregivers and representatives has been obtained from the patient. Yes * Community resources currently utilized None * Can the patient safely return to the preadmission environment? Yes * Has this patient been hospitalized within the prior 30 days at any hospital? No External Providers External Provider: [facility] Next Contact Date: Service Request Date: Service Type: Resolution: Reviewer: Comments: Coverage Notice Reviewer: [id number] - Jennifer Rodriguez Notice Issued Date-Time: 07/03/2018 9:35 Notice Type: Patient Choice Letter Notice Delivered To: Patient Relationship to Patient: Self Extension Service Specialist In Charge Name: Delivery Method: HAND - Hand Delivered Quyen Days: Prior Verbal Notification: Recipient Understood Notice: Yes Recipient Signature: Yes Med Rec Note Co-signed by Attending: Coverage Notice Comment: [facility] Last DP export: 07/10/18 3:29 p Patient Name: MARIO MICHELLE Page 13820 at 1630 All edits/amendments must be made on the electronic document DICTATION DATE: 03/1628 CHIEF ARSON DIVISION: DM 07/13/18 162 RPT#: [id number] DC DATE: STATUS: ADM IN [facility] [address] [place] [address] END OF REPORT
--- NOTE | 2018-07-13 16:38 | MORECARE ---
CASE MANAGEMENT DISCHARGE SUMMARY PATIENT: MARIO MICHELLE UNIT: [id number] ADM DATE: 06/06/18 AGE: 62 : 57 SEX: M ROOM/BED: D.2240 AUTHOR: YUKO,DOC PHYSICIAN: REFERRING PHYSICIAN: TEJ MASTERSON MD DATE OF SERVICE: 07/13/18 Discharge Plan Patient Name: MARIO MICHELLE Facility: [facility]:[place] : 1955 Planned Disposition: Anticipated Discharge Date: Discharge Date: Expected LOS: Initial Reviewer: [email or web address] Initial Review Date: 06/08/2018 Generated: 07/13/18 5:38 pm Comments DCP- Discharge Planning Updated by [id number]: Nicole Valera on 07/13/18 3:[address] Spoke with Russell with [facility] and faxed new order from Dr. Cuevas. Spoke with Court and faxed clinical. Court states [facility] will begin care on Friday. CM will continue to follow and assist with discharge planning/needs. DCP- Discharge Planning Updated by [email or web address]: Nicole Valera on 07/10/18 3:[address] I spoke with Dr. Cuevas and she states patient will need to be on Vancomycin and Merrem until 07/19. Patient's refuses to go home as long as he is on the Vancomycin. Referral has been sent to Xiomara at [facility]. CM will continue to follow and assist with discharge planning/needs. DCP- Discharge Planning Updated by [id number]: Nicole Valera on 07/10/18 2:[address] I received a call back from Shannan and she states that [facility] has just called them and states they are out of network with his insurance. She states out of pocket expense would be 800 dollars a day. Patient states he is unable to do that. His called me and states they do not want to go anywhere but in [place]. I told her I could call a liason for [facility] and [facility] to see if he is in network at their facilities. His states she is too concerned to take him home with home health on Vancomycin. I beeped Dr. Cuevas to see if their is any replacement for this. I also sent a referral to Xiomara Jacob for [facility] SN[facility]. CM will continue to follow and assist with discharge planning/needs. DCP- Discharge Planning Updated by [id number]: Nicole Valera on 07/10/18 12:[address] Spoke with Shannan at [facility] and she states clinically they will accept the patient, they are waiting on authorization from insurance. Shannan states they can take him on his current IV antibiotic orders, no changes to medications needed. I spoke with the patient and and they are both in agreement to go to [facility] and do not want to go home with IV antibiotics and HHS at this time. CM will continue to follow and assist with discharge planning/needs. DCP- Discharge Planning Updated by [id number]: Nicole Valera on 07/09/18 9:[address] Received [facility] approval for SNF for up to 60 days. He will need to be off TPN before being accepted to a SNF. I spoke with Dr. Piper today and he is not consuming enough calories at this time to have the TPN discontinued. I spoke with him and his about going to [facility] in [place] and they both prefer to stay in [place]. I spoke today with Maryjane Vanegas, there is not a swing bed available today but she will continue to follow. CM will continue to follow and assist with discharge planning/needs. DCP- Discharge Planning Updated by [id number]: Nicole Valera on 07/08/18 4:[address] SHILO AND CLINICAL SENT TO [facility] FOR APPROVAL FOR SNF. CM WILL CONTNUE TO FOLLOW AND ASSIST WITH DISCHARGE PLANNING/NEEDS DCP- Discharge Planning Updated by [email or web address]: Nicole Valera on 07/07/18 10:[address] Attempted to meet again with patient and he is asleep. I called his and informed her that Inpatient rehab and LTACH in [place] has denied his admission and informed why. She would like a referral to [facility]. I called and spoke to Melba and she states he will need to be off the TPN prior to admission and she would look at his medications and see if they could accept. CM will continue to follow and assist with discharge planning/needs. DCP- Discharge Planning Updated by [id number]: Nicole Valera on 07/07/18 8:[address] Received a message from Sherley at [facility] in [place] that they will be unable to accept patient. His insurance in not in network and he has no out of network benefits. I went to meet with the patient and he is asleep and his is not in the room. I called and left a message with Lavern in inpatient rehab to check on inpatient rehab status. CM will continue to assist with discharge planning/needs. DCP- Discharge Planning Updated by [id number]: Gabriellaamandeep Hudson on 07/06/18 4:[address] LATE ENTRY 1605 TC TO [facility] ACUTE REH[facility]. SPOKE WITH LAVERN. DISCUSSED DR CUEVAS'S AND DR CAMPOS'S NOTE. REQUESTED RE-EVAL FOR ACUTE REHAB. PREVIOUS EVAL 06/29. TC TO [facility]. FAXED REFERRAL W/ PATIENT'S FACE SHEET, H/P , 07/06 CONSULT NOTE AND MEDICATION LIST TO ATTENTION OF JENNIFER COVARRUBIAS. LEFT VOICE MAIL MESSAGE REGARDING REFERRAL. DCP- Discharge Planning Updated by [id number]: Linda Greenwood on 07/03/18 12:[address] CLINICAL SENT TO [facility] FOR HOME TPN, SPOKE WITH RUSSELL DCP- Discharge Planning Updated by [id number]: Jennifer Rodriguez on 07/03/18 7:[address] Patient Name: MARIO MICHELLE Admission Status: ER Accout number: [id number] Admission Date: 06-06-2018 : 1955 Admission Diagnosis:ACUTE PANCREATITIS WITHOUT NECROSIS OR INFECTION, UNSP Attending: TEJ MASTERSON Current LOS: 27 Anticipated DC Date: Planned Disposition: Primary Insurance: [facility] [employer] Discharge Planning Comments: CM MET WITH PATIENT TODAY AND HE WANTS [facility] AND [facility] FOR IV INFUSIONS, THADDEUS SIGNED. CM WILL FAX REFERRALS WHEN CLOSE TO DC. CM WILL FOLLOW AND ASSIST NEEDED WITH DC PLANNING/NEEDS. Ecommerce Marketing Manager: Jennifer Rodriguez DCP- Discharge Planning Updated by [id number]: Nicole Valerianodarian on 07/02/18 10:[address] Met with patient and his in the room to discuss discharge planning. Patient states at this time he plans on returning home with home health. I asked if the doctor had talked to them about a possible transfer to [facility] if needed for a specialist and they both said no. states if he needs to go that they would consent, but prefers to stay here if possible, Gali Paulino informed. They will let us know if we need to arrange [facility] transfer. CM will continue to follow and assist with discharge planning/needs. DCP- Discharge Planning Updated by [id number]: Jennifer Rodriguez on 06/08/18 7:[address] Patient Name: MARIO MICHELLE Admission Status: ER Accout number: [id number] Admission Date: 06-06-2018 : 1955 Admission Diagnosis: Attending: TEJ MASTERSON Current LOS: 2 Anticipated DC Date: Planned Disposition: Primary Insurance: [facility] [employer] Discharge Planning Comments: CM MET WITH PATIENT AND DONG ABOUT DC PLANNING NEEDS. STATES PLANS TO DC TO HOME. STATES IF NEEDS HH THEN HE WANTS [facility] M[facility] SIGNED. ORIGINAL GIVEN TO PATIENT AND COPY PLACED ON THE CHART. PATIENT IS SCHEDULED FOR A LAP FAB TODAY. CM WILL FOLLOW AND ASSIST NEEDED WITH DC PLANNING NEEDS. Ecommerce Marketing Manager: Jennifer Rodriguez DCPIA - Discharge Planning Initial Assessment Updated by [email or web address]: Jennifer Rodriguez on 06/08/18 9:43 am * Is the patient Alert and Oriented? Yes * PCP RAMIRO * Pharmacy [facility] [address] * Preadmission Environment Home with Family * ADLs Independent * Equipment Cane CPAP Glucometer Oxygen * List name and contact numbers for known caregivers / representatives who currently or will assist patient after discharge: KATE UMANA, * Verbal permission to speak to the caregivers and representatives has been obtained from the patient. Yes * Community resources currently utilized None * Can the patient safely return to the preadmission environment? Yes * Has this patient been hospitalized within the prior 30 days at any hospital? No Coverage Notice Reviewer: [id number] - Jennifer Rodriguez Notice Issued Date-Time: 07/03/2018 9:35 Notice Type: Patient Choice Letter Notice Delivered To: Patient Relationship to Patient: Self Sales Attendant Name: Delivery Method: HAND - Hand Delivered Quyen Days: Prior Verbal Notification: Recipient Understood Notice: Yes Recipient Signature: Yes Med Rec Note Co-signed by Attending: Coverage Notice Comment: [facility] Last DP export: 07/13/18 3:30 p Patient Name: MARIO MICHELLE Page [id number] at 1638 All edits/amendments must be made on the electronic document DICTATION DATE: 07/13/181637 WATER CONTROL STATION ENGINEER: SHEREEN 07/13/181637 RPT#: [id number] DC DATE: STATUS: ADM IN [facility] [address] [place] [address] END OF REPORT
--- NOTE | 2018-07-13 18:31 | NUR ---
PT RESTING IN BED EYES OPEN. NO C/O PAIN. NO S/S OF ACUTE DISTRESS NOTED. PT DENIES ANYTHING FURTHER AT THIS TIME. CALL LIGHT IN REACH. WILL CONTINUE TO MONITOR.
[2018-07-13 18:57] VITALS: BP 149/68
--- NOTE | 2018-07-13 19:11 | NUR ---
I have reviewed this patient and I concur with the Shift Assessment completed by the Licensed Practical Nurse today this shift.
[2018-07-13 20:00] VITALS: BP 121/71
[2018-07-14 04:00] VITALS: BP 119/69
--- NOTE | 2018-07-14 05:00 | NUR ---
I have reviewed this patient and I concur with the Shift Assessment completed by the Licensed Practical Nurse today this shift.
--- NOTE | 2018-07-14 07:50 | NUR ---
PT RESTING IN BED, EYES OPEN. AT BEDSIDE. NO C/O PAIN. NO S/S OF ACUTE DISTRESS NOTED. RIGHT UPPER ARM PICC, SL. AMY ALARM ON. PT DENIES ANYTHING AT THIS TIME. PT DISCHARGING HOME TODAY WITH HOME HEALTH. CALL LIGHT IN REACH. WILL CONTINUE TO MONITOR.
[2018-07-14 08:55] LABS: BASOPHILS 0.2 % (0-2); EOSINOPHILS 1.5 % (0-7); HEMATOCRIT 30.8 % (42.0-54.0); HEMOGLOBIN 10.2 g/dL (13.5-17.5); IMMATURE GRANULOCYTES 0.2 % (0-5); LYMPHOCYTES 18.6 % (15-50); MCH 29.1 pg (26.0-34.0); MCHC 33.1 g/dL (31.0-37.0); MCV 87.7 fL (80.0-100.0); MEAN PLATELET VOLUME 10.7 fL (7.4-10.4); MONOCYTES 11.9 % (2-11); NEUTROPHILS 67.6 % (40-80); PLATELET COUNT 207 10x3/uL (130-400); RBC 3.51 10x6/uL (4.20-6.10); RDW 13.3 % (11.5-14.5); WBC 10.1 10x3/uL (4.8-10.8)
[2018-07-14 09:03] LABS: INR 2.39 (0.85-1.17); PROTIME 25.4 SECONDS (11.6-15.0)
[2018-07-14 09:09] LABS: ALBUMIN 2.5 g/dL (3.4-5.0); ALKALINE PHOSPHATASE 159 U/L (46-116); ALT (SGPT) 60 U/L (10-68); BILIRUBIN - TOTAL 0.36 mg/dL (0.2-1.3); CALC OSMOLALITY 271 mosm/kg (275-300); CALCIUM 8.6 mg/dL (8.5-10.1); CHLORIDE - SERUM 97 mmol/L (98-107); CREATININE - SERUM 0.9 mg/dL (0.6-1.3); GLUCOSE 170 mg/dL (74-106); POTASSIUM - SERUM 3.9 mmol/L (3.5-5.1); PROTEIN - SERUM 7.3 g/dL (6.4-8.2); SODIUM 135 mmol/L (136-145); UREA NITROGEN 8 mg/dL (7-18); eGFR NON AFRICAN AMERICAN > 90 mL/min (90-120)
[2018-07-14 09:36] VITALS: BP 125/76
--- NOTE | 2018-07-14 11:50 | MORECARE ---
CASE MANAGEMENT DISCHARGE SUMMARY PATIENT: MARIO MICHELLE UNIT: [id number] ADM DATE: 06/06/18 AGE: 62 : 57 SEX: M ROOM/BED: D.2240 AUTHOR: YUKO,DOC PHYSICIAN: REFERRING PHYSICIAN: TEJ MASTERSON MD DATE OF SERVICE: 07/14/18 Discharge Plan Patient Name: MARIO MICHELLE Facility: [facility]:[place] : 1955 Planned Disposition: Anticipated Discharge Date: Discharge Date: Expected LOS: Initial Reviewer: [id number] Initial Review Date: 06/08/2018 Generated: 07/14/18 12:50 pm Comments DCP- Discharge Planning Updated by [id number]: Nicole Valera on 07/14/18 10:[address] Received order for discharge. Russell with [facility] is on his way here for instruction. I spoke with patient and and they are in agreement to discharging today and [facility] coming tomorrow. is taking him home. I spoke with Court at [facility] and clinical faxed. They will see him tomorrow morning. They decline further needs at this time. states they have done home antibiotics in the past and she feels comfortable with giving the dose of antibiotic tonight. CM will continue to follow and assist with discharge planning/needs. Home today with home health and IV infusions. DCP- Discharge Planning Updated by [id number]: Nicole Valera on 07/13/18 3:[address] Spoke with [facility] and faxed new order from Dr. Spring. Spoke with Court and faxed clinical. Court states [facility] will begin care on Friday. CM will continue to follow and assist with discharge planning/needs. DCP- Discharge Planning Updated by [id number]: Nicole Valera on 07/10/18 3:[address] I spoke with Dr. Spring and she states patient will need to be on Vancomycin and Merrem until 07/19. Patient's refuses to go home as long as he is on the Vancomycin. Referral has been sent to Xiomara at [facility]. CM will continue to follow and assist with discharge planning/needs. DCP- Discharge Planning Updated by [id number]: Nicole Moraima on 07/10/18 2:[address] I received a call back from Shannan and she states that [facility] has just called them and states they are out of network with his insurance. She states out of pocket expense would be 800 dollars a day. Patient states he is unable to do that. His called me and states they do not want to go anywhere but in [place]. I told her I could call a liason for [facility] and [facility] to see if he is in network at their facilities. His states she is too concerned to take him home with home health on Vancomycin. I beeped Dr. Sprign to see if their is any replacement for this. I also sent a referral to Xiomara Jacob for [facility] and [facility] SNF. CM will continue to follow and assist with discharge planning/needs. DCP- Discharge Planning Updated by [id number]: Nicole Valera on 07/10/18 12:[address] Spoke with Shannan at [facility] and she states clinically they will accept the patient, they are waiting on authorization from insurance. Shannan states they can take him on his current IV antibiotic orders, no changes to medications needed. I spoke with the patient and and they are both in agreement to go to [facility] and do not want to go home with IV antibiotics and HHS at this time. CM will continue to follow and assist with discharge planning/needs. DCP- Discharge Planning Updated by [id number]: Nicole Valera on 07/09/18 9:[address] Received [facility] approval for SNF for up to 60 days. He will need to be off TPN before being accepted to a SNF. I spoke with Dr. Piper today and he is not consuming enough calories at this time to have the TPN discontinued. I spoke with him and his about going to [facility] in [place] and they both prefer to stay in [place]. I spoke today with Maryjane Vanegas, there is not a swing bed available today but she will continue to follow. CM will continue to follow and assist with discharge planning/needs. DCP- Discharge Planning Updated by [id number]: Nicole Valera on 07/08/18 4:[address] [facility] AND [facility]INICAL SENT TO [facility] FOR APPROVAL FOR SNF. CM WILL CONTNUE TO FOLLOW AND ASSIST WITH DISCHARGE PLANNING/NEEDS DCP- Discharge Planning Updated by [id number]: Nicole Valera on 07/07/18 10:[address] Attempted to meet again with patient and he is asleep. I called his and informed her that Inpatient rehab and LTACH in [place] has denied his admission and informed why. She would like a referral to [facility]. I called and spoke to Melba and she states he will need to be off the TPN prior to admission and she would look at his medications and see if they could accept. CM will continue to follow and assist with discharge planning/needs. DCP- Discharge Planning Updated by [id number]: Nicole Valera on 07/07/18 8:[address] Received a message from Sherley at [facility] in [place] that they will be unable to accept patient. His insurance in not in network and he has no out of network benefits. I went to meet with the patient and he is asleep and his is not in the room. I called and left a message with Lavern in inpatient rehab to check on inpatient rehab status. CM will continue to assist with discharge planning/needs. DCP- Discharge Planning Updated by [id number]: Gabriella Hudson on 07/06/18 4:[address] LATE ENTRY 1605 TC TO [facility] ACUTE REHAB. SPOKE WITH LAVERN. DISCUSSED DR SPRING'S AND DR CAMPOS'S NOTE. REQUESTED RE-EVAL FOR ACUTE REHAB. PREVIOUS EVAL 06/29. TC TO [facility]. FAXED REFERRAL W/ PATIENT'S FACE SHEET, H/P , 07/06 CONSULT NOTE AND MEDICATION LIST TO ATTENTION OF JENNIFER COVARRUBIAS. LEFT VOICE MAIL MESSAGE REGARDING REFERRAL. DCP- Discharge Planning Updated by [id number]: Linda Greenwood on 07/03/18 12:[address] CLINICAL SENT TO [place] FOR HOME TPN, SPOKE WITH RUSSELL DCP- Discharge Planning Updated by [email or web address]: Jennifer Rodriguez on 07/03/18 7:[address] Patient Name: MARIO MICHELLE Admission Status: ER Accout number: [id number] Admission Date: 06-06-2018 : 1955 Admission Diagnosis:ACUTE PANCREATITIS WITHOUT NECROSIS OR INFECTION, UNSP Attending: TEJ MASTERSON Current LOS: 27 Anticipated DC Date: Planned Disposition: Primary Insurance: [facility] MEDICARE SOLUTIONS Discharge Planning Comments: CM MET WITH PATIENT TODAY AND HE WANTS [facility] IV [facility]FUSIONS, THADDEUS SIGNED. CM WILL FAX REFERRALS WHEN CLOSE TO DC. CM WILL FOLLOW AND ASSIST NEEDED WITH DC PLANNING/NEEDS. Newspaper Delivery Driver: Jennifer Rodriguez DCP- Discharge Planning Updated by [id number]: Nicole Valera on 07/02/18 10:[address] Met with patient and his in the room to discuss discharge planning. Patient states at this time he plans on returning home with home health. I asked if the doctor had talked to them about a possible transfer to [facility] if needed for a specialist and they both said no. states if he needs to go that they would consent, but prefers to stay here if possible, Gali Paulino informed. They will let us know if we need to arrange [facility] transfer. CM will continue to follow and assist with discharge planning/needs. DCP- Discharge Planning Updated by [id number]: Jennifer Rodriguez on 06/08/18 7:[address] Patient Name: MARIO MICHELLE Admission Status: ER Accout number: [id number] Admission Date: 06-06-2018 : 1955 Admission Diagnosis: Attending: TEJ MASTERSON Current LOS: 2 Anticipated DC Date: Planned Disposition: Primary Insurance: [facility] MEDIC[employer] SOLUTIONS Discharge Planning Comments: CM MET WITH PATIENT AND DONG ABOUT DC PLANNING NEEDS. STATES PLANS TO DC TO HOME. STATES IF NEEDS HH THEN HE WANTS [facility], THADDEUS SIGNED. ORIGINAL GIVEN TO PATIENT AND COPY PLACED ON THE CHART. PATIENT IS SCHEDULED FOR A LAP FAB TODAY. CM WILL FOLLOW AND ASSIST NEEDED WITH DC PLANNING NEEDS. Newspaper Delivery Driver: Jennifer Rodriguez DCPIA - Discharge Planning Initial Assessment Updated by [id number]: Jennifer Rodriguez on 06/08/18 9:43 am * Is the patient Alert and Oriented? Yes * PCP RAMIRO * Pharmacy [facility] [address] * Preadmission Environment Home with Family * ADLs Independent * Equipment Cane CPAP Glucometer Oxygen * List name and contact numbers for known caregivers / representatives who currently or will assist patient after discharge: KATE UMANA, * Verbal permission to speak to the caregivers and representatives has been obtained from the patient. Yes * Community resources currently utilized None * Can the patient safely return to the preadmission environment? Yes * Has this patient been hospitalized within the prior 30 days at any hospital? No Coverage Notice Reviewer: [id number] Rufus Rodriguez Notice Issued Date-Time: 07/03/2018 9:35 Notice Type: Patient Choice Letter Notice Delivered To: Patient Relationship to Patient: Self Manufacturing Test Engineer Name: Delivery Method: HAND - Hand Delivered Quyen Days: Prior Verbal Notification: Recipient Understood Notice: Yes Recipient Signature: Yes Med Rec Note Co-signed by Attending: Coverage Notice Comment: [facility] Reviewer: [id number] - Nicole Valera Notice Issued Date-Time: 07/14/2018 11:37 Notice Type: IM Discharge Notice Notice Delivered To: Patient Relationship to Patient: Self Manufacturing Test Engineer Name: Delivery Method: HAND - Hand Delivered Quyen Days: Prior Verbal Notification: Recipient Understood Notice: Yes Recipient Signature: Yes Med Rec Note Co-signed by Attending: Coverage Notice Comment: IMM explained, signed by per patient's request, given, copy placed in MR Last DP export: 07/13/18 3:38 p Patient Name: MARIO MICHELLE Page [id number] at 1150 All edits/amendments must be made on the electronic document DICTATION DATE: 07/14/18 [address] AIDE: SHEREEN 07/14/18 1149 RPT#: [id number] DC DATE: STATUS: ADM IN [facility] [address] [place] [address] END OF REPORT
--- NOTE | 2018-07-14 13:30 | MORECARE ---
CASE MANAGEMENT DISCHARGE SUMMARY PATIENT: MARIO MICHELLE UNIT: [id number] ADM DATE: 06/06/18 AGE: 62 : 57 SEX: M ROOM/BED: D.2240 AUTHOR: YUKO,DOC PHYSICIAN: REFERRING PHYSICIAN: TEJ MASTERSON MD DATE OF SERVICE: 07/14/18 Discharge Plan Patient Name: MARIO MICHELLE Facility: [facility]:[place] : 1955 Planned Disposition: Anticipated Discharge Date: Discharge Date: Expected LOS: Initial Reviewer: [id number] Initial Review Date: 06/08/2018 Generated: 07/14/18 2:30 pm Comments DCP- Discharge Planning Updated by [id number]: Nicole Valera on 07/14/18 12:[address] Russell with [facility] has been here and he and his have been instructed on the IV antibiotics. They states they are comfortable with the infusion process and have done it before. CM will continue to assist with discharge planning/needs. DCP- Discharge Planning Updated by [id number]: Nicole Valera on 07/14/18 10:[address] Received order for discharge. Russell with [facility] is on his way here for instruction. I spoke with patient and and they are in agreement to discharging today and [facility] coming tomorrow. is taking him home. I spoke with Court at [facility] and clinical faxed. They will see him tomorrow morning. They decline further needs at this time. states they have done home antibiotics in the past and she feels comfortable with giving the dose of antibiotic tonight. CM will continue to follow and assist with discharge planning/needs. Home today with home health and IV infusions. DCP- Discharge Planning Updated by [id number]: Nicole Valera on 07/13/18 3:[address] Spoke with Russell with [facility] and faxed new order from Dr. Spring. Spoke with Court and faxed clinical. Court states [facility] will begin care on Friday. CM will continue to follow and assist with discharge planning/needs. DCP- Discharge Planning Updated by [id number]: Nicole Valera on 07/10/18 3:[address] I spoke with Dr. Spring and she states patient will need to be on Vancomycin and Merrem until 07/19. Patient's refuses to go home as long as he is on the Vancomycin. Referral has been sent to Xiomara at [facility]. CM will continue to follow and assist with discharge planning/needs. DCP- Discharge Planning Updated by [id number]: Nicole Valera on 07/10/18 2:[address] I received a call back from Shannan and she states that [facility] has just called them and states they are out of network with his insurance. She states out of pocket expense would be 800 dollars a day. Patient states he is unable to do that. His called me and states they do not want to go anywhere but in [place]. I told her I could call a liason for [facility] and [facility] to see if he is in network at their facilities. His states she is too concerned to take him home with home health on Vancomycin. I beeped Dr. Spring to see if their is any replacement for this. I also sent a referral to Xiomara Jacob for [facility] and [facility]. CM will continue to follow and assist with discharge planning/needs. DCP- Discharge Planning Updated by [id number]: Nicole Moraima on 07/10/18 12:[address] Spoke with Shannan at [facility] and she states clinically they will accept the patient, they are waiting on authorization from insurance. Shannan states they can take him on his current IV antibiotic orders, no changes to medications needed. I spoke with the patient and and they are both in agreement to go to [facility] and do not want to go home with IV antibiotics and HHS at this time. CM will continue to follow and assist with discharge planning/needs. DCP- Discharge Planning Updated by [email or web address]: Nicole Moraima on 07/09/18 9:[address] Received [facility] approval for SNF for up to 60 days. He will need to be off TPN before being accepted to a SNF. I spoke with Dr. Piper today and he is not consuming enough calories at this time to have the TPN discontinued. I spoke with him and his about going to [facility] in [place] and they both prefer to stay in [place]. I spoke today with Maryjane Vanegas, there is not a swing bed available today but she will continue to follow. CM will continue to follow and assist with discharge planning/needs. DCP- Discharge Planning Updated by [id number]: Nicole Valera on 07/08/18 4:[address] [facility] AND CLINICAL SENT [facility] [place] [facility]PR[facility] FOR SNF. CM WILL CONTNUE TO FOLLOW AND ASSIST WITH DISCHARGE PLANNING/NEEDS DCP- Discharge Planning Updated by [id number]: Nicole Valera on 07/07/18 10:[address] Attempted to meet again with patient and he is asleep. I called his and informed her that Inpatient rehab and LTACH in [place] has denied his admission and informed why. She would like a referral to [facility]. I called and spoke to Melba and she states he will need to be off the TPN prior to admission and she would look at his medications and see if they could accept. CM will continue to follow and assist with discharge planning/needs. DCP- Discharge Planning Updated by [id number]: Nicole Valera on 07/07/18 8:[address] Received a message from Sherley at [facility] in [place] that they will be unable to accept patient. His insurance in not in network and he has no out of network benefits. I went to meet with the patient and he is asleep and his is not in the room. I called and left a message with Lavern in inpatient rehab to check on inpatient rehab status. CM will continue to assist with discharge planning/needs. DCP- Discharge Planning Updated by [id number]: Gabriella Hudson on 07/06/18 4:[address] LATE ENTRY 1605 TC TO [facility] ACUTE REHAB. SPOKE WITH LAVERN. DISCUSSED DR SPRING'S AND DR CAMPOS'S NOTE. REQUESTED RE-EVAL FOR ACUTE REHAB. PREVIOUS EVAL 06/29. TC TO [facility]. FAXED REFERRAL W/ PATIENT'S FACE SHEET, H/P , 07/06 CONSULT NOTE AND MEDICATION LIST TO ATTENTION OF JENNIFER COVARRUBIAS. LEFT VOICE MAIL MESSAGE REGARDING REFERRAL. DCP- Discharge Planning Updated by [id number]: Linda Greenwood on 07/03/18 12:[address] CLINICAL SENT TO [place] FOR HOME TPN, SPOKE WITH RUSSELL DCP- Discharge Planning Updated by [id number]: Jennifer Rodriguez on 07/03/18 7:[address] Patient Name: MARIO MICHELLE Admission Status: ER Accout number: [id number] Admission Date: 06-06-2018 : 1955 Admission Diagnosis:ACUTE PANCREATITIS WITHOUT NECROSIS OR INFECTION, UNSP Attending: TEJ MASTERSON Current LOS: 27 Anticipated DC Date: Planned Disposition: Primary Insurance: [facility] MEDIC[employer] SOLUTIONS Discharge Planning Comments: CM MET WITH PATIENT TODAY AND HE WANTS [facility] IV [facility]FUSIONS, THADDEUS SIGNED. CM WILL FAX REFERRALS WHEN CLOSE TO DC. CM WILL FOLLOW AND ASSIST NEEDED WITH DC PLANNING/NEEDS. Mold Washer: Jennifer Rodriguez DCP- Discharge Planning Updated by [id number]: Nicole Valera on 07/02/18 10:[address] Met with patient and his in the room to discuss discharge planning. Patient states at this time he plans on returning home with home health. I asked if the doctor had talked to them about a possible transfer to [facility] if needed for a specialist and they both said no. states if he needs to go that they would consent, but prefers to stay here if possible, Gali Paulino informed. They will let us know if we need to arrange [facility] transfer. CM will continue to follow and assist with discharge planning/needs. DCP- Discharge Planning Updated by [id number]: Jennifer Rodriguez on 06/08/18 7:[address] Patient Name: MARIO MICHELLE Admission Status: ER Accout number: [id number] Admission Date: 06-06-2018 : 1955 Admission Diagnosis: Attending: TEJ MASTERSON Current LOS: 2 Anticipated DC Date: Planned Disposition: Primary Insurance: [facility] [employer]UT[employer] Discharge Planning Comments: CM MET WITH PATIENT AND DONG ABOUT DC PLANNING NEEDS. STATES PLANS TO DC TO HOME. STATES IF NEEDS HH THEN HE WANTS [facility], THADDEUS SIGNED. ORIGINAL GIVEN TO PATIENT AND COPY PLACED ON THE CHART. PATIENT IS SCHEDULED FOR A LAP FAB TODAY. CM WILL FOLLOW AND ASSIST NEEDED WITH DC PLANNING NEEDS. Mold Washer: Jennifer Rodriguez DCPIA - Discharge Planning Initial Assessment Updated by [email or web address]: Jennifer Rodriguez on 06/08/18 9:43 am * Is the patient Alert and Oriented? Yes * PCP RAMIRO * Pharmacy [facility] [address] * Preadmission Environment Home with Family * ADLs Independent * Equipment Cane CPAP Glucometer Oxygen * List name and contact numbers for known caregivers / representatives who currently or will assist patient after discharge: KATE UMANA, * Verbal permission to speak to the caregivers and representatives has been obtained from the patient. Yes * Community resources currently utilized None * Can the patient safely return to the preadmission environment? Yes * Has this patient been hospitalized within the prior 30 days at any hospital? No Coverage Notice Reviewer: [id number] Rufus Rodriguez Notice Issued Date-Time: 07/03/2018 9:35 Notice Type: Patient Choice Letter Notice Delivered To: Patient Relationship to Patient: Self Hvac Commercial Salesperson Name: Delivery Method: HAND - Hand Delivered Quyen Days: Prior Verbal Notification: Recipient Understood Notice: Yes Recipient Signature: Yes Med Rec Note Co-signed by Attending: Coverage Notice Comment: [facility] Reviewer: [id number] Rufus Valera Notice Issued Date-Time: 07/14/2018 11:37 Notice Type: IM Discharge Notice Notice Delivered To: Patient Relationship to Patient: Self Hvac Commercial Salesperson Name: Delivery Method: HAND - Hand Delivered Quyen Days: Prior Verbal Notification: Recipient Understood Notice: Yes Recipient Signature: Yes Med Rec Note Co-signed by Attending: Coverage Notice Comment: IMM explained, signed by per patient's request, given, copy placed in MR Last DP export: 07/14/18 10:50 a Patient Name: MARIO MICHELLE Page [phone] at 1330 All edits/amendments must be made on the electronic document DICTATION DATE: 07/14/18 1330 FIELD SERVICE TECHNICIAN: SHEREEN 07/14/18 1330 RPT#: [id number] DC DATE: STATUS: ADM IN [facility] [address] [place] [address] END OF REPORT
--- NOTE | 2018-07-14 16:20 | NUR ---
PT DISCHARGED HOME WITH [facility]EL[facility]. NO C/O PAIN. NO S/S OF ACUTE DISTRESS NOTED. WENT OVER DISCHARGE INSTRUCTIONS WITH PT, PT DENIES ANY CONCERNS AND DENIES ANY QUESTIONS.
--- NOTE | 2018-07-15 16:10 | MORECARE ---
CASE MANAGEMENT DISCHARGE SUMMARY PATIENT: MARIO MICHELLE UNIT: [id number] ADM DATE: 06/06/18 AGE: 63 : 57 SEX: M ROOM/BED: D.2240 AUTHOR: YUKO,DOC PHYSICIAN: REFERRING PHYSICIAN: TEJ MASTERSON MD DATE OF SERVICE: 07/15/18 Discharge Plan Patient Name: MARIO MICHELLE Facility: [facility]:[place] : 1955 Planned Disposition: Anticipated Discharge Date: Discharge Date: 07/14/2018 Expected LOS: 0 Initial Reviewer: [id number] Initial Review Date: 06/08/2018 Generated: 07/15/18 5:09 pm Comments DCP- Discharge Planning Updated by [email or web address]: Nicole Valera on 07/14/18 12:[address] Russell with [facility] has been here and he and his have been instructed on the IV antibiotics. They states they are comfortable with the infusion process and have done it before. CM will continue to assist with discharge planning/needs. DCP- Discharge Planning Updated by [email or web address]: Nicole Valera on 07/14/18 10:[address] Received order for discharge. Russell with [facility] is on his way here for instruction. I spoke with patient and and they are in agreement to discharging today and [facility] coming tomorrow. is taking him home. I spoke with Court at [facility] and clinical faxed. They will see him tomorrow morning. They decline further needs at this time. states they have done home antibiotics in the past and she feels comfortable with giving the dose of antibiotic tonight. CM will continue to follow and assist with discharge planning/needs. Home today with home health and IV infusions. DCP- Discharge Planning Updated by [id number]: Nicole Valera on 07/13/18 3:[address] Spoke with Russell with [facility] and faxed new order from Dr. Spring. Spoke with Court and faxed clinical. Court states [facility] will begin care on Friday. CM will continue to follow and assist with discharge planning/needs. DCP- Discharge Planning Updated by [id number]: Nicole Valera on 07/10/18 3:[address] I spoke with Dr. Spring and she states patient will need to be on Vancomycin and Merrem until 07/19. Patient's refuses to go home as long as he is on the Vancomycin. Referral has been sent to Xiomara at [facility]. CM will continue to follow and assist with discharge planning/needs. DCP- Discharge Planning Updated by [id number]: Nicole Moraima on 07/10/18 2:[address] I received a call back from Shannan and she states that [facility] has just called them and states they are out of network with his insurance. She states out of pocket expense would be 800 dollars a day. Patient states he is unable to do that. His called me and states they do not want to go anywhere but in [place]. I told her I could call a liason for [facility] and [facility] to see if he is in network at their facilities. His states she is too concerned to take him home with home health on Vancomycin. I beeped Dr. Spring to see if their is any replacement for this. I also sent a referral to Xiomara Rockemory for [facility] and [facility]. CM will continue to follow and assist with discharge planning/needs. DCP- Discharge Planning Updated by [id number]: Nicole Valera on 07/10/18 12:[address] Spoke with Shannan at [facility] and she states clinically they will accept the patient, they are waiting on authorization from insurance. Shannan states they can take him on his current IV antibiotic orders, no changes to medications needed. I spoke with the patient and and they are both in agreement to go to [facility] and do not want to go home with IV antibiotics and HHS at this time. CM will continue to follow and assist with discharge planning/needs. DCP- Discharge Planning Updated by [id number]: Nicole Valera on 07/09/18 9:[address] Received SHILO approval for SNF for up to 60 days. He will need to be off TPN before being accepted to a SNF. I spoke with Dr. Piper today and he is not consuming enough calories at this time to have the TPN discontinued. I spoke with him and his about going to [facility] in [place] and they both prefer to stay in [place]. I spoke today with Maryjane Vanegas, there is not a swing bed available today but she will continue to follow. CM will continue to follow and assist with discharge planning/needs. DCP- Discharge Planning Updated by [id number]: Nicole Valera on 07/08/18 4:[address] [facility] AND CLINICAL [place] [facility] [place]. CM WILL CONTNUE TO FOLLOW AND ASSIST WITH DISCHARGE PLANNING/NEEDS DCP- Discharge Planning Updated by [id number]: Nicole Valera on 07/07/18 10:[address] Attempted to meet again with patient and he is asleep. I called his and informed her that Inpatient rehab and LTACH in [place] has denied his admission and informed why. She would like a referral to [facility]. I called and spoke to Melba and she states he will need to be off the TPN prior to admission and she would look at his medications and see if they could accept. CM will continue to follow and assist with discharge planning/needs. DCP- Discharge Planning Updated by [id number]: Nicole Valera on 07/07/18 8:[address] Received a message from Sherley at [facility] in [place] that they will be unable to accept patient. His insurance in not in network and he has no out of network benefits. I went to meet with the patient and he is asleep and his is not in the room. I called and left a message with Lavern in inpatient rehab to check on inpatient rehab status. CM will continue to assist with discharge planning/needs. DCP- Discharge Planning Updated by [email or web address]: Gabriella Hudson on 07/06/18 4:[address] LATE ENTRY 1605 TC TO [facility]. SPOKE WITH LAVERN. DISCUSSED DR SPRING'S AND DR CAMPOS'S NOTE. REQUESTED RE-EVAL FOR ACUTE REHAB. PREVIOUS EVAL 06/29. TC TO [facility]. FAXED REFERRAL W/ PATIENT'S FACE SHEET, H/P , 07/06 CONSULT NOTE AND MEDICATION LIST TO ATTENTION OF JENNIFER COVARRUBIAS. LEFT VOICE MAIL MESSAGE REGARDING REFERRAL. DCP- Discharge Planning Updated by [id number]: Linda Greenwood on 07/03/18 12:[address] CLINICAL SENT TO [place] FOR HOME TPN, SPOKE WITH RUSSELL DCP- Discharge Planning Updated by [id number]: Jennifer Rodriguez on 07/03/18 7:[address] Patient Name: MARIO MICHELLE Admission Status: ER Accout number: [id number] Admission Date: 06-06-2018 : 1955 Admission Diagnosis:ACUTE PANCREATITIS WITHOUT NECROSIS OR INFECTION, UNSP Attending: TEJ MASTERSON Current LOS: 27 Anticipated DC Date: Planned Disposition: Primary Insurance: [facility] MEDICARE SOLUTIONS Discharge Planning Comments: CM MET WITH PATIENT TODAY AND HE WANTS [facility] AND [facility] FOR IV INFUSIONS, THADDEUS SIGNED. CM WILL FAX REFERRALS WHEN CLOSE TO DC. CM WILL FOLLOW AND ASSIST NEEDED WITH DC PLANNING/NEEDS. Typesetting Machine Operator/Tender: Jennifer Rodriguez DCP- Discharge Planning Updated by [id number]: Nicole Valera on 07/02/18 10:[address] Met with patient and his in the room to discuss discharge planning. Patient states at this time he plans on returning home with home health. I asked if the doctor had talked to them about a possible transfer to [facility] if needed for a specialist and they both said no. states if he needs to go that they would consent, but prefers to stay here if possible, Gali Paulino informed. They will let us know if we need to arrange [facility] transfer. CM will continue to follow and assist with discharge planning/needs. DCP- Discharge Planning Updated by [id number]: Jennifer Rodriguez on 06/08/18 7:[address] Patient Name: MARIO MICHELLE Admission Status: ER Accout number: [id number] Admission Date: 06-06-2018 : 1955 Admission Diagnosis: Attending: TEJ MASTERSON Current LOS: 2 Anticipated DC Date: Planned Disposition: Primary Insurance: [facility] MEDICARE SOLUTIONS Discharge Planning Comments: CM MET WITH PATIENT AND DONG ABOUT DC PLANNING NEEDS. STATES PLANS TO DC TO HOME. STATES IF NEEDS HH THEN HE WANTS [facility], THADDEUS SIGNED. ORIGINAL GIVEN TO PATIENT AND COPY PLACED ON THE CHART. PATIENT IS SCHEDULED FOR A [facility] F[facility] TODAY. CM WILL FOLLOW AND ASSIST NEEDED WITH DC PLANNING NEEDS. Typesetting Machine Operator/Tender: Jennifer Rodriguez DCPIA - Discharge Planning Initial Assessment Updated by [id number]: Jennifer Rodriguez on 06/08/18 9:43 am * Is the patient Alert and Oriented? Yes * PCP RAMIRO * Pharmacy [facility] [address] * Preadmission Environment Home with Family * ADLs Independent * Equipment Cane CPAP Glucometer Oxygen * List name and contact numbers for known caregivers / representatives who currently or will assist patient after discharge: KATE UMANA, * Verbal permission to speak to the caregivers and representatives has been obtained from the patient. Yes * Community resources currently utilized None * Can the patient safely return to the preadmission environment? Yes * Has this patient been hospitalized within the prior 30 days at any hospital? No Coverage Notice Reviewer: [id number] Rufus Rodriguez Notice Issued Date-Time: 07/03/2018 9:35 Notice Type: Patient Choice Letter Notice Delivered To: Patient Relationship to Patient: Self Vacuum Filter Operator Name: Delivery Method: HAND - Hand Delivered Quyen Days: Prior Verbal Notification: Recipient Understood Notice: Yes Recipient Signature: Yes Med Rec Note Co-signed by Attending: Coverage Notice Comment: THADDEUS [facility] IV INF[facility]ION [facility] Reviewer: [id number] Rufus Valera Notice Issued Date-Time: 07/14/2018 11:37 Notice Type: IM Discharge Notice Notice Delivered To: Patient Relationship to Patient: Self Vacuum Filter Operator Name: Delivery Method: HAND - Hand Delivered Quyen Days: Prior Verbal Notification: Recipient Understood Notice: Yes Recipient Signature: Yes Med Rec Note Co-signed by Attending: Coverage Notice Comment: IMM explained, signed by per patient's request, given, copy placed in MR Last DP export: 07/14/18 12:30 p Patient Name: MARIO MICHELLE Page [phone] at 1610 All edits/amendments must be made on the electronic document DICTATION DATE: 07/15/18 160 EMERGENCY MANAGEMENT SPECIALIST: DM 07/15/18 160 RPT#: [id number] DC DATE:07/14/18 STATUS: DIS IN [facility] [address] [place] [address] END OF REPORT
== END 2018-07-14 16:21 | disposition home health service (06) | DRG 417 ==
LOC: D.ER 16:20 → D.MS 19:37 → D.M3 19:37 → D.ICU 19:37 → D.EDHOLD 19:37 → D.M3 19:47 → D.ICU 06-08 14:50 → D.MS 06-09 18:15 → D.ICU 06-22 16:30 → D.MS 06-26 13:14 → D.SDCHOLD 06-28 15:43 → D.MS 06-28 15:45
PROVIDERS: Emergency Medicine; Family Medicine; Family Medicine Adult Medicine; General Practice; Internal Medicine Gastroenterology; Internal Medicine Nephrology; Internal Medicine Pulmonary Disease; Radiology Diagnostic Radiology; Surgery; ADMIT Family Medicine; ATTEND Family Medicine
PROC: 0FT44ZZ Resection of Gallbladder, Percutaneous Endoscopic Approach (ICD-10-PCS; principal; 2018-06-08 12:15)
PROC: 5A09457 Assistance with Respiratory Ventilation, 24-96 Consecutive Hours, Continuous Positive Airway Pressure (ICD-10-PCS; 2018-06-22)
DX: K85.12 Biliary acute pancreatitis with infected necrosis (principal); J18.9 Pneumonia, unspecified organism; I63.29 Cerebral infarction due to unspecified occlusion or stenosis of other precerebral arteries; E43 Unspecified severe protein-calorie malnutrition; J96.11 Chronic respiratory failure with hypoxia; K86.3 Pseudocyst of pancreas; K85.10 Biliary acute pancreatitis without necrosis or infection; J44.9 Chronic obstructive pulmonary disease, unspecified; F31.9 Bipolar disorder, unspecified; E11.22 Type 2 diabetes mellitus with diabetic chronic kidney disease; I12.9 Hypertensive chronic kidney disease with stage 1 through stage 4 chronic kidney disease, or unspecified chronic kidney disease; N18.9 Chronic kidney disease, unspecified; Z95.2 Presence of prosthetic heart valve; Z79.01 Long term (current) use of anticoagulants; G47.33 Obstructive sleep apnea (adult) (pediatric); G40.909 Epilepsy, unspecified, not intractable, without status epilepticus; G89.29 Other chronic pain; K59.00 Constipation, unspecified; N40.0 Benign prostatic hyperplasia without lower urinary tract symptoms; K80.20 Calculus of gallbladder without cholecystitis without obstruction; R29.810 Facial weakness; G83.24 Monoplegia of upper limb affecting left nondominant side; E11.65 Type 2 diabetes mellitus with hyperglycemia

== ENCOUNTER → 2018-08-20 09:36 | Outpatient (CLI) | payer MEDICARE ==
[2018-06-15 17:52] VITALS: BMI 33.9
[~2018-08-20 09:36] MED LIST changes: +HYDROCODON-ACE1 EA10 PO; +OXYCODONE HCL5 M1 PO; +PHENERGAN25 M1 PO; +SOLIQUA 100 UNIT3 ML SQ; +TEGRETOL200 MG PO; +ZANAFLEX4 MG PO
== END | disposition home or self-care (01) ==
LOC: D.CT 09:36
PROVIDERS: ATTEND Surgery
DX: K86.3 Pseudocyst of pancreas (principal)

== ENCOUNTER 2018-12-05 14:40 | Inpatient (IN) | payer MEDICARE ==
[~2018-12-05] VITALS: Ht 182.9 cm; Wt 102.1 kg
[2018-12-05 15:02] LABS: BASOPHILS 0.4 % (0-2); EOSINOPHILS 6.6 % (0-7); HEMATOCRIT 41.8 % (42.0-54.0); HEMOGLOBIN 14.9 g/dL (13.5-17.5); IMMATURE GRANULOCYTES 0.3 % (0-5); LYMPHOCYTES 29.8 % (15-50); MCH 30.1 pg (26.0-34.0); MCHC 35.6 g/dL (31.0-37.0); MCV 84.4 fL (80.0-100.0); MEAN PLATELET VOLUME 10.2 fL (7.4-10.4); MONOCYTES 8.1 % (2-11); NEUTROPHILS 54.8 % (40-80); RBC 4.95 10x6/uL (4.20-6.10); WBC 7.2 10x3/uL (4.8-10.8)
[2018-12-05 15:08] LABS: PLATELET COUNT 112 10x3/uL (130-400)
[2018-12-05 15:11] LABS: APPEARANCE CLEAR (CLEAR); BILIRUBIN NEGATIVE (NEGATIVE); COLOR YELLOW (YELLOW); GLUCOSE 1000 mg/dL (NEGATIVE); KETONE NEGATIVE (NEGATIVE); NITRITE NEGATIVE (NEGATIVE); PROTEIN NEGATIVE (NEGATIVE); SPECIFIC GRAVITY 1.015 (1.005-1.020); UROBILINOGEN NORMAL (NORMAL)
[2018-12-05 15:15] LABS: ALBUMIN 3.9 g/dL (3.4-5.0); ALKALINE PHOSPHATASE 133 U/L (46-116); ALT (SGPT) 31 U/L (10-68); BILIRUBIN - TOTAL 0.27 mg/dL (0.2-1.3); CALC OSMOLALITY 282 mosm/kg (275-300); CALCIUM 9.2 mg/dL (8.5-10.1); CARBON DIOXIDE 27.8 mmol/L (21.0-32.0); CHLORIDE - SERUM 98 mmol/L (98-107); CREATININE - SERUM 1.3 mg/dL (0.6-1.3); POTASSIUM - SERUM 4.2 mmol/L (3.5-5.1); PROTEIN - SERUM 7.9 g/dL (6.4-8.2); SODIUM 134 mmol/L (136-145); UREA NITROGEN 18 mg/dL (7-18); eGFR NON AFRICAN AMERICAN 59 mL/min (90-120)
[2018-12-05 15:16] LABS: GLUCOSE 337 mg/dL (74-106)
[2018-12-05 15:19] LABS: AMYLASE - SERUM 107 U/L (25-115); LIPASE 4229 U/L (73-393); TROPONIN-I < 0.017 ng/mL (0.000-0.060)
[2018-12-05 16:51] VITALS: BP 145/86
--- NOTE | 2018-12-05 17:00 | NUR ---
ASSISTED PT TO RESTROOM.
[2018-12-05] MEDS ORDERED: SOLIQUA 100 UNIT3 ML SQ (18:47)
--- NOTE | 2018-12-05 19:15 | NUR ---
PT ALERT AND ORIENTED. SPOUSE AT BEDSIDE. ANSWERS QUESTIONS APPROPRIATELY. COMPLAINS OF ABDOMINAL PAIN. RIGHT SIDED THAT RADIATES TO THE BACK. ACTIVE BOWEL SOUNDS. LUNGS CTA. ROOM AIR. 20 G TO THE LEFT AC THAT IS LOCKED AT THIS TIME. UP WITH ASSIST. EDUCATED PATIENT ON NPO STATUS. PATIENT AND SPOUSE VERBALIZE UNDERSTANDING. CALL LIGHT IN REACH OF PATIENT. CPOC.
[2018-12-05 20:55] VITALS: BP 146/85
[2018-12-05 21:46] VITALS: BP 146/85; BMI 30.6
[2018-12-06 01:14] VITALS: BP 151/80
--- NOTE | 2018-12-06 02:10 | NUR ---
PT WALKING HALLS WITH SPOUSE. STABLE ON FEET. TOLERATED AMBULATION WELL.
--- NOTE | 2018-12-06 03:49 | NUR ---
ANSWERED PATIENT CALL LIGHT. PATIENT STATES CALMLY "IM IN PAIN AND I HAVE NOT QUIT HURTING SINCE I HAVE BEEN HERE." PATIENT STATED EARLIER TO THIS NURSE THAT PAIN WAS CONTROLLED AND THAT MORPHINE HAD HELPED. AT BEDSIDE STATES "HE'S BEEN UP ALL NIGHT HES GOING TO NEED THAT DILAUDID HE HAD LAST TIME. YOU NEED TO PAGE THE DOCTOR TO GET SOMETHING STRONGER." PATIENT VERY ADAMANT THAT THIS NURSE CALL THE DOCTOR. EDUCATED PATIENT AND PATIENT THAT EACH ADMISSION REQUIRES A NEW ASSESSMENT AND THAT TREATMENT MAY DIFFER FROM EACH ADMISSION. EDUCATED PATIENT AND PATIENT ON WHEN NEXT PRN PAIN MEDICINE IS DUE. EDUCATED THAT PAIN MEDICINE AIDS IN MAKING PAIN TOLERABLE AND MAY NOT RID ALL OF PATIENTS PAIN OR DISCOMFORT. MORPHINE HAD BEEN CONTROLLING PAIN UP UNTIL NOW. PATIENT STATES "WELL YOU NEED TO CALL AND GET HIM SOME ATIVAN HE HAS BEEN UP ALL NIGHT AND HE IS REALLY IRRITABLE." ENCOURAGED PATIENT TO SPEAK WITH DOCTOR DURING MORNING ROUNDS. PATIENT ADAMANT AND DEMANDING THAT THIS NURSE PAGE DOCTOR NOW FOR MORE PAIN MEDICINE AND ATIVAN. THIS NURSE HAS PAGED TOP LIFT COMPRESSOR FOR DR. VALLEJO AND AWAITING CALL BACK. INFORMED PATIENT AND PATIENT THAT THE PAIN MEDICINE THE PATIENT IS CURRENTLY ORDERED IS MORPHINE 4MG EVERY 4 HOURS IS FROM THE DOCTOR WHO PHYSICALLY ASSESSED PATIENT. EDUCATED THAT MOST PHYSICIANS DO NOT INCREASE OR CHANGE ORDERS FROM ADMISSION UNTIL PHYSICAL ASSESSMENT, LAB REVIEWS, ETC IS COMPELTED BY ADMITTING DOCTOR.
[2018-12-06 05:16] VITALS: BP 125/63
--- NOTE | 2018-12-06 08:09 | NUR ---
PT RESTING IN BED. "REALLY NEED TO CHANGE MY PAIN MEDICATION, IT IS NOT GIVING RELIEF." WILL SPEAK WITH MD TODAY ABOUT MEDICATION REVIEW. NO S/S OF ACUTE DISTRESS. CL IN PLACE.
[2018-12-06 08:16] VITALS: BP 115/83
[2018-12-06 10:17] LABS: BASOPHILS 0.6 % (0-2); EOSINOPHILS 8.1 % (0-7); HEMATOCRIT 42.8 % (42.0-54.0); HEMOGLOBIN 15.4 g/dL (13.5-17.5); IMMATURE GRANULOCYTES 0.4 % (0-5); LYMPHOCYTES 40.3 % (15-50); MCH 29.9 pg (26.0-34.0); MCV 83.1 fL (80.0-100.0); MONOCYTES 11.5 % (2-11); NEUTROPHILS 39.1 % (40-80); PLATELET COUNT 110 10x3/uL (130-400); RBC 5.15 10x6/uL (4.20-6.10); RDW 14.1 % (11.5-14.5)
[2018-12-06 10:22] LABS: WBC 4.7 10x3/uL (4.8-10.8)
--- NOTE | 2018-12-06 10:22 | NUR ---
SPOKE WITH DR. VALLEJO IN REGARDS TO PAIN MEDICATION REVIEW. NEW ORDERS FOR DC MORPHINE. START DILAUDID AND IV ATIVAN. NO S/S OF ACUTE DISTRESS. CL IN PLACE.
[2018-12-06 10:25] LABS: INR 1.32 (0.85-1.17); PROTIME 15.9 SECONDS (11.6-15.0)
[2018-12-06 10:45] LABS: ALBUMIN 3.3 g/dL (3.4-5.0); ALKALINE PHOSPHATASE 251 U/L (46-116); AMYLASE - SERUM 83 U/L (25-115); BILIRUBIN - TOTAL 2.23 mg/dL (0.2-1.3); CALCIUM 8.7 mg/dL (8.5-10.1); CARBON DIOXIDE 26.7 mmol/L (21.0-32.0); CHLORIDE - SERUM 100 mmol/L (98-107); POTASSIUM - SERUM 3.9 mmol/L (3.5-5.1); PROTEIN - SERUM 7.1 g/dL (6.4-8.2); SODIUM 134 mmol/L (136-145); eGFR NON AFRICAN AMERICAN 80 mL/min (90-120)
[2018-12-06 10:46] LABS: ALT (SGPT) 563 U/L (10-68); CALC OSMOLALITY 272 mosm/kg (275-300); GLUCOSE 211 mg/dL (74-106); LIPASE 2659 U/L (73-393); UREA NITROGEN 11 mg/dL (7-18)
[2018-12-06 12:49] VITALS: BP 149/80
[2018-12-06 16:41] VITALS: BP 154/82
--- NOTE | 2018-12-06 18:16 | NUR ---
PT RESTING IN BED WATCHING OLD TIME SHOWS. NO S/S OF ACUTE DISTRESS " MY BELLY FEELS SO MUCH BETTER." CL IN PLACE.
--- NOTE | 2018-12-06 19:15 | NUR ---
PT ALERT AND ORIENTED. AT BEDSIDE. PATIENT STATES "PAIN IS STARTING TO COME BACK IN THE ABDOMEN AND BACK." PATIENT UP RIGHT IN BED WITH HOB ELEVATED TO A 45 DEGREE ANGLE. DENIES FURTHER NEEDS OR ISSUES AT THIS TIME. ROOM AIR AND LUNGS CLEAR TO AUSCULTATION. ABDOMEN REMAINS TENDER TO TOUCH ON THE RIGHT UPPER AND LOWER QUADRANTS. ACTIVE BOWELS SOUNDS. DENIES FURTHER ISSUES BUT REQUESTS PAIN MEDICINE WHEN AVAILABLE. RIGHT FORE ARM IV THAT IS PATNET AND INFUSING NS AT 100. LEFT AC IV THAT IS SALINE LOCKED AT THIS TIME. CALL LIGHT IN REACH OF PATIENT. PLANS TO STAY AT BEDSIDE THROUGH NIGHT. BED LOCKED AND LOWERED. CPOC.
[2018-12-06 20:00] VITALS: BP 135/83
[2018-12-07] VITALS: BP 114/62
--- NOTE | 2018-12-07 03:41 | NUR ---
I have reviewed this patient and I concur with the Shift Assessment completed by the Licensed Practical Nurse today this shift.
[2018-12-07 04:00] VITALS: BP 152/80
[2018-12-07 04:06] LABS: BASOPHILS 0.7 % (0-2); EOSINOPHILS 8.7 % (0-7); HEMATOCRIT 41.1 % (42.0-54.0); HEMOGLOBIN 14.5 g/dL (13.5-17.5); IMMATURE GRANULOCYTES 0.2 % (0-5); MCH 29.5 pg (26.0-34.0); MCHC 35.3 g/dL (31.0-37.0); MCV 83.5 fL (80.0-100.0); MEAN PLATELET VOLUME 10.5 fL (7.4-10.4); MONOCYTES 12.6 % (2-11); NEUTROPHILS 33.8 % (40-80); PLATELET COUNT 108 10x3/uL (130-400); RBC 4.92 10x6/uL (4.20-6.10); WBC 4.1 10x3/uL (4.8-10.8)
[2018-12-07 04:24] LABS: ALBUMIN 3.2 g/dL (3.4-5.0); ALKALINE PHOSPHATASE 299 U/L (46-116); ALT (SGPT) 526 U/L (10-68); CALCIUM 8.4 mg/dL (8.5-10.1); CARBON DIOXIDE 28.1 mmol/L (21.0-32.0); CHLORIDE - SERUM 102 mmol/L (98-107); CREATININE - SERUM 0.9 mg/dL (0.6-1.3); GLUCOSE 188 mg/dL (74-106); LIPASE 1090 U/L (73-393); POTASSIUM - SERUM 3.9 mmol/L (3.5-5.1); PROTEIN - SERUM 6.9 g/dL (6.4-8.2); SODIUM 138 mmol/L (136-145); eGFR NON AFRICAN AMERICAN > 90 mL/min (90-120)
[2018-12-07 04:31] LABS: AMYLASE - SERUM 43 U/L (25-115); CALC OSMOLALITY 278 mosm/kg (275-300); UREA NITROGEN 8 mg/dL (7-18)
[2018-12-07 06:50] LABS: INR 1.2 (0.85-1.17); PROTIME 14.7 SECONDS (11.6-15.0)
--- NOTE | 2018-12-07 07:39 | NUR ---
ALERT AND ORIENTED. LUNGS CLEAR BILATERALLY IN ALL THORNTON. HEART SOUNDS S1 AND S2 HEARD IN ALL THORNTON. BOWEL SOUNDS ACTIVE X 4. SKIN INTACT WITHOUT REDNESS. C/O PAIN IN RIGHT SIDE THAT RADIATES TO BACK. PAIN MEDICATION DUE AT 0844. DENIES NEEDS AT THIS TIME. AT BEDSIDE. BED LOW. CALL HENDERSON AND PERSONAL ITEMS IN REACH. WILL CONTINUE TO MONITOR.
[2018-12-07 08:20] VITALS: BP 171/77
--- NOTE | 2018-12-07 10:24 | NUR ---
RESTING IN BED. DENIES NEEDS. AT BEDSIDE. WILL CONTINUE TO MONITOR.
[2018-12-07 12:39] VITALS: BP 93/60
--- NOTE | 2018-12-07 13:29 | NUR ---
RESTING IN BED. AT BEDSIDE. DENIES NEEDS. WILL CONTINUE TO MONITOR.
[2018-12-07 13:54] VITALS: Ht 182.9 cm; Wt 102.1 kg
--- NOTE | 2018-12-07 15:13 | NUR ---
RESTING IN BED. AT BEDSIDE. DENIES NEEDS. WILL CONTINUE TO MONITOR.
[2018-12-07 17:15] VITALS: BP 120/66
[2018-12-07 20:00] VITALS: BP 103/65
[2018-12-08] VITALS: BP 126/77; BP 76/48
--- NOTE | 2018-12-08 03:18 | NUR ---
2015) REC'D AT [facility] OF SHIFT.IN BED WATCHING TV. AT BEDSIDE.RATES PAIN 10 STILL NO NAUSEA OR VOMITTING.REQUESTING PAIN MED EARLY.INFORMED CAN'T DO THAT. WILL CONTINUE TO MONITOR FOR ANY CHGES AND FOLLOW CURRENT PLAN OF CARE.
[2018-12-08 04:00] VITALS: BP 112/70
[2018-12-08 05:14] LABS: AMYLASE - SERUM 23 U/L (25-115); CREATININE - SERUM 0.9 mg/dL (0.6-1.3); GLUCOSE 144 mg/dL (74-106); LIPASE 442 U/L (73-393); UREA NITROGEN 8 mg/dL (7-18); eGFR NON AFRICAN AMERICAN > 90 mL/min (90-120)
[2018-12-08 05:15] LABS: ALBUMIN 3.1 g/dL (3.4-5.0); ALKALINE PHOSPHATASE 279 U/L (46-116); ALT (SGPT) 347 U/L (10-68); BILIRUBIN - TOTAL 0.67 mg/dL (0.2-1.3); CALC OSMOLALITY 283 mosm/kg (275-300); CALCIUM 8.4 mg/dL (8.5-10.1); CARBON DIOXIDE 27.8 mmol/L (21.0-32.0); CHLORIDE - SERUM 106 mmol/L (98-107); POTASSIUM - SERUM 3.9 mmol/L (3.5-5.1); PROTEIN - SERUM 6.8 g/dL (6.4-8.2); SODIUM 142 mmol/L (136-145)
--- NOTE | 2018-12-08 07:42 | NUR ---
ALERT AND ORIENTED. LUNGS CLEAR BILATERALLY IN ALL THORNTON. HEART SOUNDS S1 AND S2 HEARD IN ALL THORNTON. BOWEL SOUNDS ACTIVE X 4. SKIN INTACT WITHOUT REDNESS. IV TO RFA PATENT WITHOUT REDNESS. DENIES PAIN. DENIES NEEDS. AT BEDSIDE. BED LOW. CALL HENDERSON AND PERSONAL ITEMS INREACH. WILL CONTINUE TO MONITOR.
[2018-12-08 07:50] LABS: BASOPHILS 0.5 % (0-2); EOSINOPHILS 10.9 % (0-7); HEMATOCRIT 38.5 % (42.0-54.0); HEMOGLOBIN 13.5 g/dL (13.5-17.5); IMMATURE GRANULOCYTES 0.3 % (0-5); LYMPHOCYTES 47.9 % (15-50); MCH 29.5 pg (26.0-34.0); MCHC 35.1 g/dL (31.0-37.0); MCV 84.2 fL (80.0-100.0); MEAN PLATELET VOLUME 10.5 fL (7.4-10.4); MONOCYTES 11.2 % (2-11); NEUTROPHILS 29.2 % (40-80); PLATELET COUNT 104 10x3/uL (130-400); RBC 4.57 10x6/uL (4.20-6.10); RDW 14.1 % (11.5-14.5); WBC 3.8 10x3/uL (4.8-10.8)
[2018-12-08 08:07] LABS: INR 1.55 (0.85-1.17)
--- NOTE | 2018-12-08 08:08 | NUR ---
I have reviewed this patient and I concur with the Shift Assessment completed by the Licensed Practical Nurse today this shift.
[2018-12-08 08:48] VITALS: BP 104/62
--- NOTE | 2018-12-08 09:53 | NUR ---
RESTING IN BED. DENIES PAIN. DENIES NEEDS. TOLERATED DIABETIC DIET FOR BREAKFAST. WILL CONTINUE TO MONITOR.
[2018-12-08 13:47] VITALS: BP 100/61
--- NOTE | 2018-12-08 16:18 | NUR ---
RESTING IN BED. GIVEN PRN NORCO FOR PAIN 02/04. DENIES FURTHER NEEDS. BED LOW. CALL HENDERSON AND PERSONAL ITEMS IN REACH. WILL CONTINUE TO MONITOR.
[2018-12-08 16:44] VITALS: BP 119/68
[2018-12-08 22:24] VITALS: BP 148/76
--- NOTE | 2018-12-09 | NUR ---
PT SUPINE IN BED, EYES CLOSED EVEN RESPIRATIONS. REQUESTS VITALS BE SKIPPED AT THIS TIME AND NOT BE DISTURBED.
--- NOTE | 2018-12-09 05:00 | NUR ---
I have reviewed this patient and I concur with the Shift Assessment completed by the Licensed Practical Nurse today this shift.
[2018-12-09 06:49] VITALS: BP 131/75
[2018-12-09 07:20] LABS: BASOPHILS 0.4 % (0-2); EOSINOPHILS 8.8 % (0-7); HEMATOCRIT 39.8 % (42.0-54.0); HEMOGLOBIN 14.1 g/dL (13.5-17.5); IMMATURE GRANULOCYTES 0.2 % (0-5); MCH 29.9 pg (26.0-34.0); MCHC 35.4 g/dL (31.0-37.0); MCV 84.3 fL (80.0-100.0); MEAN PLATELET VOLUME 10.7 fL (7.4-10.4); MONOCYTES 10.1 % (2-11); NEUTROPHILS 50.5 % (40-80); PLATELET COUNT 112 10x3/uL (130-400); RBC 4.72 10x6/uL (4.20-6.10); RDW 14.1 % (11.5-14.5)
[2018-12-09 07:21] LABS: WBC 5.2 10x3/uL (4.8-10.8)
[2018-12-09 07:33] LABS: INR 1.97 (0.85-1.17); PROTIME 21.8 SECONDS (11.6-15.0)
[2018-12-09 07:40] LABS: ALBUMIN 3.1 g/dL (3.4-5.0); ALKALINE PHOSPHATASE 263 U/L (46-116); AMYLASE - SERUM 18 U/L (25-115); BILIRUBIN - TOTAL 0.51 mg/dL (0.2-1.3); CALCIUM 8.7 mg/dL (8.5-10.1); CARBON DIOXIDE 29.7 mmol/L (21.0-32.0); CHLORIDE - SERUM 103 mmol/L (98-107); CREATININE - SERUM 0.9 mg/dL (0.6-1.3); LIPASE 358 U/L (73-393); POTASSIUM - SERUM 3.5 mmol/L (3.5-5.1); PROTEIN - SERUM 7.2 g/dL (6.4-8.2); SODIUM 141 mmol/L (136-145); UREA NITROGEN 9 mg/dL (7-18); eGFR NON AFRICAN AMERICAN > 90 mL/min (90-120)
[2018-12-09 07:44] LABS: ALT (SGPT) 248 U/L (10-68); CALC OSMOLALITY 286 mosm/kg (275-300); GLUCOSE 216 mg/dL (74-106)
--- NOTE | 2018-12-09 08:49 | NUR ---
PATIENT RECIEVED FROM PREVIOUS SHIFT RESTING WITH NO NEEDS VOICED. HOPES TO GO HOME LATER TODAY
[2018-12-09] MEDS ORDERED: TRICOR145 MG PO (09:08)
[2018-12-09 10:17] VITALS: BP 149/86
--- NOTE | 2018-12-09 11:32 | MORECARE ---
CASE MANAGEMENT DISCHARGE SUMMARY PATIENT: MARIO MICHELLE UNIT: [id number] ADM DATE: 12/05/18 AGE: 63 : 57 SEX: M ROOM/BED: D.2207 AUTHOR: HECTOR HUNTLEY PHYSICIAN: REFERRING PHYSICIAN: LAURA VALLEJO MD DATE OF SERVICE: 12/09/18 Discharge Plan Patient Name: MARIO MICHELLE Facility: [facility]:[place] : 1955 Planned Disposition: Home Anticipated Discharge Date: Discharge Date: Expected LOS: Initial Reviewer: [email or web address] Initial Review Date: 12/05/2018 Generated: 12/09/18 12:32 pm Comments DCP- Discharge Planning Updated by [id number]: Linda Greenwood on 12/09/18 10:[address] imm served and explained, copy in chart DCP- Discharge Planning Updated by [id number]: Linda Greenwood on 12/09/18 10:[address] Patient Name: MARIO MICHELLE Admission Status: ER Accout number: [id number] Admission Date: 12-05-2018 : 1955 Admission Diagnosis:PSEUDOCYST OF PANCREAS Attending: LAURA VALLEJO Current LOS: 4 Anticipated DC Date: Planned Disposition: Home Primary Insurance: [facility] MEDICARE SOLUTIONS Discharge Planning Comments: CM met with patient to complete initial dc planning assessment. CM educated patient on the CM role and verbal consent given by patient to complete assessment. Patient lives at home with his spouse where he is independent with his care. At discharge patient plans to return home and feels this is a safe discharge. 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 CM discussed availability of home health, rehab services, and medical equipment. He has an O2 concentrator that he uses at nights. Patient denied known discharge needs at this time. CM will continue to follow and will assist as needed with dc plans/needs. Digital Media Associate: Linda Greenwood DCPIA - Discharge Planning Initial Assessment Updated by [id number]: Linda Greenwood on 12/09/18 11:30 am * Is the patient Alert and Oriented? Yes * How many steps to enter\exit or inside your home? * PCP RAMIRO * Pharmacy [facility] * Preadmission Environment Home with Family * ADLs Independent * Other Equipment O2 CONCENTRATOR * List name and contact numbers for known caregivers / representatives who currently or will assist patient after discharge: THERESA () [phone] * Verbal permission to speak to the caregivers and representatives has been obtained from the patient. Yes * Community resources currently utilized None * Additional services required to return to the preadmission environment? No * Can the patient safely return to the preadmission environment? Yes * Has this patient been hospitalized within the prior 30 days at any hospital? No Coverage Notice Reviewer: [id number] Rufus Greenwood Notice Issued Date-Time: 12/09/2018 11:20 Notice Type: IM Discharge Notice Notice Delivered To: Family Member Relationship to Patient: Spouse Lead Esthetician Name: THERESA Delivery Method: HAND - Hand Delivered Quyen Days: Prior Verbal Notification: Recipient Understood Notice: Yes Recipient Signature: Yes Med Rec Note Co-signed by Attending: Coverage Notice Comment: Patient Name: MARIO MICHELLE Page [phone] at 1132 All edits/amendments must be made on the electronic document DICTATION DATE: 12/09/18 1132 AUTOMATIC PINSETTER ADJUSTER: SEHREEN 12/09/18 1132 RPT#: [id number] DC DATE: STATUS: ADM IN [facility] [address] [place] [address] END OF REPORT
--- NOTE | 2018-12-09 12:10 | NUR ---
IV REMOVED WITH NO REDNESS OR EDEMA AT SITE. DISCHARGE INSTRUCTIONS GIVEN TO PATIENT WITH UNDERSTANDING VOICED. PATINET TAKEN BY WHEELCHAIR TO PRIVATE CAR.
== END 2018-12-09 12:55 | disposition home or self-care (01) | DRG 439 ==
LOC: D.ER 14:40 → D.MS 18:11
PROVIDERS: Emergency Medicine; ADMIT Emergency Medicine; ATTEND Emergency Medicine
DX: K85.90 Acute pancreatitis without necrosis or infection, unspecified (principal); K86.3 Pseudocyst of pancreas; G40.109 Localization-related (focal) (partial) symptomatic epilepsy and epileptic syndromes with simple partial seizures, not intractable, without status epilepticus; D47.Z2 Castleman disease; J96.11 Chronic respiratory failure with hypoxia; K86.1 Other chronic pancreatitis; K29.80 Duodenitis without bleeding; E11.65 Type 2 diabetes mellitus with hyperglycemia; E11.618 Type 2 diabetes mellitus with other diabetic arthropathy; K76.0 Fatty (change of) liver, not elsewhere classified; E86.0 Dehydration; G47.33 Obstructive sleep apnea (adult) (pediatric); M54.9 Dorsalgia, unspecified; F31.9 Bipolar disorder, unspecified; E78.5 Hyperlipidemia, unspecified; Z79.01 Long term (current) use of anticoagulants; Z95.2 Presence of prosthetic heart valve

== ENCOUNTER → 2018-12-15 09:14 | Outpatient (CLI) | payer MEDICARE ==
[2018-12-07 13:54] VITALS: BMI 30.5
[~2018-12-15 09:14] MED LIST changes: +TRICOR145 MG PO
== END | disposition home or self-care (01) ==
LOC: D.CT 12-04 09:00
PROVIDERS: ATTEND Internal Medicine Cardiovascular Disease
DX: K86.3 Pseudocyst of pancreas (principal); I65.23 Occlusion and stenosis of bilateral carotid arteries

== ENCOUNTER 2020-10-01 18:44 | Emergency (ER) | payer MEDICARE ==
[~2020-10-01] VITALS: Ht 182.9 cm; Wt 106.4 kg
[~2020-10-01 18:44] MED LIST changes: +AUGMENTIN 875-11 TAB PO; +PERCOCET 10-321 EAC1 PO
[2020-10-01 18:54] VITALS: BP 142/82; Ht 182.9 cm; Wt 106.4 kg
[2020-10-01] MEDS ORDERED: HYDROCODON-ACE1 EAC7 PO (19:31)
[2020-10-01] MEDS ORDERED: CEPHALEXIN500 M1 PO (19:31)
== END 2020-10-02 05:39 | disposition home or self-care (01) ==
LOC: D.ER 18:44
DX: S81.812A Laceration without foreign body, left lower leg, initial encounter (principal); S51.012A Laceration without foreign body of left elbow, initial encounter; Z86.73 Personal history of transient ischemic attack (TIA), and cerebral infarction without residual deficits; E11.9 Type 2 diabetes mellitus without complications; I10 Essential (primary) hypertension; E78.5 Hyperlipidemia, unspecified; K21.9 Gastro-esophageal reflux disease without esophagitis; Z79.84 Long term (current) use of oral hypoglycemic drugs; W22.8XXA Striking against or struck by other objects, initial encounter; Y93.9 Activity, unspecified; Y92.9 Unspecified place or not applicable